=== PATIENT | female | born 1965 | race American Indian/Alaskan Native ===

== ENCOUNTER 2016-12-16 13:35 | Emergency (ER) | payer MEDICAID, OTHER ==
--- NOTE | 2016-12-16 13:51 | EDM.PDOC ---
ED HPI GENERAL MEDICAL PROBLEM - General Stated Complaint: IV BLEEDING Time Seen by Provider: 12/16/16 13:51 Source of Information: Reports: Patient - History of Present Illness INITIAL COMMENTS - FREE TEXT/NARRATIVE: HISTORY AND PHYSICAL: History of present illness: [] Patient has history of vulvar cancer and secondary abscess with drainage performed, currently she has a CHRISTELLE drain which is attached to her leg, pulled the stitching out that was holding it in however with a drain is still functioning No fever nausea vomiting chills sweats Review of systems: As per history of present illness and below otherwise all systems reviewed and negative. Past medical history: As per history of present illness and as reviewed below otherwise noncontributory. Surgical history: As per history of present illness and as reviewed below otherwise noncontributory. Social history: No reported history of drug or alcohol abuse. Family history: As per history of present illness and as reviewed below otherwise noncontributory. Physical exam: HEENT: Atraumatic, normocephalic, pupils reactive, negative for conjunctival pallor or scleral icterus, mucous membranes moist, throat clear, neck supple, nontender, trachea midline. Lungs: Clear to auscultation, breath sounds equal bilaterally, chest nontender. Heart: S1S2, regular, negative for clicks, rubs, or JVD. Abdomen: Soft, nondistended, nontender. Negative for masses or hepatosplenomegaly. Negative for costovertebral tenderness. Pelvis: Stable nontender. Genitourinary: Deferred. Rectal: Deferred. Extremities: Atraumatic, negative for cords or calf pain. Neurovascular unremarkable. Neuro: Awake, alert, oriented. Cranial nerves II through XII unremarkable. Cerebellum unremarkable. Motor and sensory unremarkable throughout. Exam nonfocal. Diagnostics: [] Therapeutics: [] Lidocaine with epinephrine One stitch grapevine the CHRISTELLE tube Impression: [] 4 are cancer post I&D of an abscess CHRISTELLE drain functioning Replaced one stitch to hold CHRISTELLE tube in place Definitive disposition and diagnosis as appropriate pending reevaluation and review of above. - Related Data Allergies Allergy/AdvReac Type Severity Reaction Status Date / Time codeine Allergy Hives Verified 12/16/16 13:59 ibuprofen Allergy Hives Verified 12/16/16 13:59 iron Allergy Dizziness Verified 12/16/16 13:59 naproxen Allergy Hives Verified 12/16/16 13:59 Home Meds: Home Meds Albuterol [Proventil HFA] 2 inh IH Q4H PRN 10/29/16 [History] metFORMIN HCl [Glucophage] 1,000 mg PO DAILY #30 tablet 10/29/16 [Rx] Apixaban [Eliquis] 2.5 mg PO 12/16/16 [History] Ciprofloxacin [Ciprofloxacin HCl] 750 mg PO BID 12/16/16 [History] Metronidazole [IJD: metroNIDAZOLE] 500 mg PO TID 12/16/16 [History] Past Medical History Other HEENT History: Patient given Ativan and Fentanyl in ER, patient now sedated-cannot assess Cardiovascular History: Reports: Hypertension, Other (see below). Denies: PR Other Cardiovascular History: 2010 was admitted for "heart flutter". Patient given Ativan and Fentanyl in ER, patient now sedated-cannot assess Respiratory History: Reports: Asthma Other Gastrointestinal History: Patient given Ativan and Fentanyl in ER, patient now sedated-cannot assess Genitourinary History: Reports: None Musculoskeletal History: Reports: Back pain, chronic Neurological History: Reports: Headaches, chronic Psychiatric History: Reports: Anxiety Endocrine/Metabolic History: Reports: Diabetes, type II, Obesity/BMI 30+ Hematologic History: Reports: Anemia, Iron deficiency Other Hematologic History: Diagnosed with Iron Deficiency Anemia in 2000. Blood transfusion 10/26/16 Other Immunologic History: Patient given Ativan and Fentanyl in ER, patient now sedated-cannot assess Oncologic (Cancer) History: Reports: None Dermatologic History: Reports: None - Infectious Disease History Infectious Disease History: Reports: None - Past Surgical History Other HEENT Surgeries/Procedures: Patient given Ativan and Fentanyl in ER, patient now sedated-cannot assess Other Cardiovascular Surgeries/Procedures: Patient given Ativan and Fentanyl in ER, patient now sedated-cannot assess GI Surgical History: Reports: Hernia, abdominal Female Surgical History: Reports: section Other Female Surgeries/Procedures: x 4 Social & Family History - Family History Family Medical History: Noncontributory Other Cardiac Family History: Patient given Ativan and Fentanyl in ER, patient now sedated-cannot assess Other Dermatologic Family History: Patient given Ativan and Fentanyl in ER, patient now sedated-cannot assess - Tobacco Use Smoking Status *Q: Current Every Day Smoker Years of Tobacco use: 30 Packs/Tins Daily: 0.5 - Caffeine Use Caffeine Use: Reports: Soda Caffeine Use Comment: soda 2 drinks/day; coffee 1cup/week - Recreational Drug Use Recreational Drug Use: No ED ROS GENERAL - Review of Systems Review Of Systems: ROS reveals no pertinent complaints other than HPI. ED EXAM, GENERAL - Physical Exam Exam: See Below Course - Vital Signs Last Recorded V/S: Last Vital Signs Temp 36.7 C 12/16/16 13:52 Pulse 89 12/16/16 13:52 Resp 18 12/16/16 13:52 BP 148/85 H 12/16/16 13:52 Pulse Ox 94 L 12/16/16 13:52 - Orders/Labs/Meds Meds: Medications Discontinued Medications Generic Name Dose Route Start Last Admin Trade Name Angelia PRN Reason Stop Dose Admin Lidocaine/Epinephrine 20 ml 12/16/16 14:36 12/16/16 14:42 Xylocaine 1% With Epinephrine 1:100,000 INJECT 12/16/16 14:37 20 ml ONETIME ONE Administration Lidocaine/Epinephrine 20 ml 12/16/16 14:36 12/16/16 14:42 Xylocaine 1% With Epinephrine 1:100,000 INJECT 12/16/16 14:37 Not Given ONETIME ONE Lidocaine/Epinephrine Confirm 12/16/16 14:38 12/16/16 14:42 Xylocaine 1% With Epinephrine 1:100,000 Administered 12/16/16 14:39 Not Given Dose 20 ml .ROUTE .STK-MED ONE Departure - Departure Time of Disposition: 15:02 Disposition: Home, Self-Care 01 Condition: good Clinical Impression: Vulvar cancer Additional Instructions: Followup with PET scan as scheduled tomorrow Followup with primary care if symptoms persist or worsen The following information is given to patients seen in the emergency department who are being discharged to home. This information is to outline your options for follow-up care. We provide all patients seen in our emergency department with a follow-up referral. The need for follow-up, as well as the timing and circumstances, are variable depending upon the specifics of your emergency department visit. If you don't have a primary care physician on staff, we will provide you with a referral. We always advise you to contact your personal physician following an emergency department visit to inform them of the circumstance of the visit and for follow-up with them and/or the need for any referrals to a consulting specialist. The emergency department will also refer you to a specialist when appropriate. This referral assures that you have the opportunity for follow-up care with a specialist. All of these measure are taken in an effort to provide you with optimal care, which includes your follow-up. Under all circumstances we always encourage you to contact your private physician who remains a resource for coordinating your care. When calling for follow-up care, please make the office aware that this follow-up is from your recent emergency room visit. If for any reason you are refused follow-up, please contact the [facility] emergency department at and asked to speak to the emergency department charge nurse.
[2016-12-16] MEDS ORDERED: Lidocaine 1% with EPINEPHrine 1:100,000 20 ML MDV INJECT ONE ×2 (14:36)
[2016-12-16] MEDS ORDERED: Lidocaine 1% with EPINEPHrine 1:100,000 20 ML MDV ONE (14:38)
[2016-12-16 15:20] VITALS: BP 142/70
== END 2016-12-16 15:19 | disposition home or self-care (01) ==
LOC: MW.ED 13:35
DX: C51.9 Malignant neoplasm of vulva, unspecified (principal); I10 Essential (primary) hypertension; E11.9 Type 2 diabetes mellitus without complications; E66.9 Obesity, unspecified; Z88.5 Allergy status to narcotic agent; Z88.6 Allergy status to analgesic agent; Z88.8 Allergy status to other drugs, medicaments and biological substances; Z79.899 Other long term (current) drug therapy; Z68.30 Body mass index [BMI] 30.0-30.9, adult; Z86.2 Personal history of diseases of the blood and blood-forming organs and certain disorders involving the immune mechanism; F17.210 Nicotine dependence, cigarettes, uncomplicated
CPT/HCPCS: 99282

== ENCOUNTER 2017-02-03 17:01 | Emergency (ER) | payer MEDICAID, OTHER ==
[2017-02-03] MEDS ORDERED: Cefdinir 300 MG Cap PO ONE (18:36)
--- NOTE | 2017-02-03 18:41 | EDM.PDOC ---
ED HPI RENAL/ - General Chief Complaint: Genitourinary Problem Stated Complaint: PT HAS BLADDER INFECTION Time Seen by Provider: 02/03/17 18:00 Source of Information: Reports: Patient History Limitations: Reports: No limitations - History of Present Illness INITIAL COMMENTS - FREE TEXT/NARRATIVE: HISTORY AND PHYSICAL: History of present illness: [Patient comes to the emergency room complaining of bladder pressure and pain. She has a Terry catheter but is experiencing urinary leakage around the catheter and burning of urination. Patient is receiving radiation treatments and chemotherapy for vulvar cancer. She has a urologist and ECONOMIC DEVELOPMENT SPECIALIST in [place]. Her oncologist is in [place] and comes to [place] regularly. Her catheter was placed by Dr. Linn in [place] on January 10. She's noticed that the urine in her catheter bag is dark in color and does not appear normal. No fever or chills. No low back pain, nausea or vomiting. She denies abdominal pain. Review of systems: As per history of present illness and below otherwise all systems reviewed and negative. Past medical history: As per history of present illness and as reviewed below otherwise noncontributory. Surgical history: As per history of present illness and as reviewed below otherwise noncontributory. Social history: No reported history of drug or alcohol abuse. Family history: As per history of present illness and as reviewed below otherwise noncontributory. Physical exam: HEENT: Atraumatic, normocephalic. Oral mucous membranes are pink and moist. Lungs: Clear to auscultation, breath sounds equal bilaterally, chest nontender. Heart: S1S2, regular, negative for clicks. Abdomen: Morbidly obese. Soft, nondistended, nontender. Negative for costovertebral tenderness. Pelvis: Stable nontender. Genitourinary: Mons pubis is erythematous and irritated. Vulvar lesion is weeping and oozing. Rectal: Deferred. Extremities: Atraumatic, negative for cords or calf pain. Neurovascular unremarkable. Neuro: Awake, alert, oriented. Cranial nerves II through XII unremarkable. Exam nonfocal. Diagnostics: [UTI, urine culture] Therapeutics: [Ceftriaxone 1 g IM] Impression: [UTI] Plan: [Urine is cultured. Ceftriaxone 1 g given IM in the ER. She is given a prescription for Ceftin 300 mg twice a day for the next 10 days. She's encouraged to followup with her PCP and Dr. Linn within the next 3-4 days for reevaluation of her catheter placement. She is in agreement with today's plan all of her questions are answered and concerns are addressed the] Definitive disposition and diagnosis as appropriate pending reevaluation and review of above. - Related Data Allergies/ADRs: Allergies Allergy/AdvReac Type Severity Reaction Status Date / Time adhesive tape Allergy Rash Verified 02/03/17 18:14 codeine Allergy Hives Verified 12/16/16 13:59 ibuprofen Allergy Hives Verified 12/16/16 13:59 iron Allergy Dizziness Verified 12/16/16 13:59 naproxen Allergy Hives Verified 12/16/16 13:59 Home Meds: Home Meds Albuterol [Proventil HFA] 2 inh IH Q4H PRN 10/29/16 [History] metFORMIN HCl [Glucophage] 1,000 mg PO DAILY #30 tablet 10/29/16 [Rx] Apixaban [Eliquis] 2.5 mg PO 12/16/16 [History] Ciprofloxacin [Ciprofloxacin HCl] 750 mg PO BID 12/16/16 [History] Metronidazole [IJD: metroNIDAZOLE] 500 mg PO TID 12/16/16 [History] Past Medical History Other HEENT History: Patient given Ativan and Fentanyl in ER, patient now sedated-cannot assess Cardiovascular History: Reports: Hypertension, Other (see below) Other Cardiovascular History: 2011 was admitted for "heart flutter" Respiratory History: Reports: Asthma Other Gastrointestinal History: Patient given Ativan and Fentanyl in ER, patient now sedated-cannot assess Genitourinary History: Reports: Other (see below) Other Genitourinary History: Has terry catheter due to vulvar ca, radiation and chemo 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 Blood transfusion history, states received blood transfusion in oncology due to this Other Immunologic History: Patient given Ativan and Fentanyl in ER, patient now sedated-cannot assess Oncologic (Cancer) History: Reports: Other (see below) Other Oncologic History: vulvar ca, has picc line left arm for chemotherapy Dermatologic History: Reports: None - Infectious Disease History Infectious Disease History: Reports: Chicken pox - Past Surgical History HEENT Surgical History: Reports: Tonsillectomy GI Surgical History: Reports: Hernia, abdominal Female Surgical History: Reports: section Other Female Surgeries/Procedures: x 4 Other Musculoskeletal Surgeries/Procedures:: Vulvar Ca Social & Family History - Family History Family Medical History: Noncontributory Other Cardiac Family History: Patient given Ativan and Fentanyl in ER, patient now sedated-cannot assess Other Dermatologic Family History: Patient given Ativan and Fentanyl in ER, patient now sedated-cannot assess - Tobacco Use Smoking Status *Q: Current Every Day Smoker Years of Tobacco use: 20 Packs/Tins Daily: 0.5 Used Tobacco, but Quit: No Second Hand Smoke Exposure: Yes - Caffeine Use Caffeine Use: Reports: Coffee Caffeine Use Comment: soda 2 drinks/day; coffee 1cup/week - Recreational Drug Use Recreational Drug Use: Yes Drug Use in Last 12 Months: Yes Recreational Drug Type: Reports: Methamphetamine ED ROS GENERAL - Review of Systems Review Of Systems: ROS reveals no pertinent complaints other than HPI. ED EXAM, RENAL/ - Physical Exam Exam: See Below Course - Vital Signs Last Recorded V/S: Last Vital Signs Temp 98.7 F 02/03/17 19:40 Pulse 90 02/03/17 19:40 Resp 20 02/03/17 19:40 BP 150/77 H 02/03/17 19:40 Pulse Ox 94 L 02/03/17 19:40 - Orders/Labs/Meds Orders: Active Orders 24 hr Category Date Time Status CULTURE URINE [RM] Stat Lab 02/03/17 18:13 Ordered Labs: Laboratory Tests 02/03/17 Range/Units 17:41 Urine Color ORANGE Urine Appearance CLOUDY Urine pH 5.5 (5.0-8.0) Ur Specific [place] >= 1.030 (1.001-1.035) Urine Protein >=300 (NEGATIVE) mg/dL Urine Glucose (UA) NEGATIVE (NEGATIVE) mg/dL Urine Ketones TRACE H (NEGATIVE) mg/dL Urine Occult Blood LARGE H (NEGATIVE) Urine Nitrite POSITIVE H (NEGATIVE) Urine Bilirubin SMALL H (NEGATIVE) Urine Ictotest NEGATIVE Urine Urobilinogen 1.0 (<2.0) EU/dL Ur Leukocyte Esterase SMALL (NEGATIVE) Urine RBC TOO NUMBEROUS TO CT H (0-2/HPF) Urine WBC TO NUMEROUS TO COUNT H (0-5/HPF) Ur Epithelial Cells FEW (NONE-FEW) Amorphous Sediment MODERATE (NEGATIVE) Urine Bacteria 1+ H (NEGATIVE) Meds: Medications Discontinued Medications Generic Name Dose Route Start Last Admin Trade Name Freq PRN Reason Stop Dose Admin Cefdinir 300 mg 02/03/17 18:36 02/03/17 19:34 Omnicef PO 02/03/17 18:37 300 mg ONETIME ONE Administration Ceftriaxone Sodium 1,000 mg 02/03/17 18:45 Rocephin IVPUSH Q24H NATALIE Ceftriaxone Sodium/Dextrose 1 50 mls @ 100 mls/hr 02/03/17 18:43 02/03/17 18: 49 gm/ Premix IV 02/03/17 19:12 Not Given ONETIME ONE Ceftriaxone Sodium 1,000 mg/ 4 mls @ 4 mls/sec 02/03/17 18:49 02/03/17 19:07 Lidocaine HCl IM 02/03/17 18:50 4 mls/sec ONETIME ONE Administration Departure - Departure Time of Disposition: 18:45 Disposition: Home, Self-Care 01 Condition: fair Clinical Impression: UTI, Urinary tract infectious disease, Terry catheter in place Instructions: Urinary Tract Infection, Adult, [id number] Referrals: PCP,None [Primary Care Provider] - Forms: ED Department Discharge Additional Instructions: The following information is given to patients seen in the emergency department who are being discharged to home. This information is to outline your options for follow-up care. We provide all patients seen in our emergency department with a follow-up referral. The need for follow-up, as well as the timing and circumstances, are variable depending upon the specifics of your emergency department visit. If you don't have a primary care physician on staff, we will provide you with a referral. We always advise you to contact your personal physician following an emergency department visit to inform them of the circumstance of the visit and for follow-up with them and/or the need for any referrals to a consulting specialist. The emergency department will also refer you to a specialist when appropriate. This referral assures that you have the opportunity for follow-up care with a specialist. All of these measure are taken in an effort to provide you with optimal care, which includes your follow-up. Under all circumstances we always encourage you to contact your private physician who remains a resource for coordinating your care. When calling for follow-up care, please make the office aware that this follow-up is from your recent emergency room visit. If for any reason you are refused follow-up, please contact the [facility] emergency department at and asked to speak to the emergency department charge nurse. Followup with Dr. Linn in [place] early this week. Continue all of her regular medications as prescribed. Followup with her PCP in 48-72 hours. Return to ER as needed as discussed. - My Orders Last 24 Hours: My Active Orders 02/03/17 18:13 CULTURE URINE [RM] Stat - Assessment/Plan Last 24 Hours: My Active Orders 02/03/17 18:13 CULTURE URINE [RM] Stat
[2017-02-03] MEDS ORDERED: cefTRIAXone 1 GM in Premix Bag 1 BAG IV ONE (18:43)
[2017-02-03] MEDS ORDERED: cefTRIAXone 1,000 MG VIAL IVPUSH SCH (18:45)
[2017-02-03] MEDS ORDERED: cefTRIAXone 1,000 MG in Lidocaine 1% 4 ML IM ONE (18:49)
[2017-02-03 20:25] VITALS: BP 150/77
== END 2017-02-03 19:45 | disposition home or self-care (01) ==
LOC: MW.ED 17:01
DX: N39.0 Urinary tract infection, site not specified (principal); Z96.0 Presence of urogenital implants; F17.210 Nicotine dependence, cigarettes, uncomplicated; I10 Essential (primary) hypertension; J45.909 Unspecified asthma, uncomplicated; F41.9 Anxiety disorder, unspecified; C51.9 Malignant neoplasm of vulva, unspecified; E11.9 Type 2 diabetes mellitus without complications; E66.9 Obesity, unspecified; D50.9 Iron deficiency anemia, unspecified; Z68.30 Body mass index [BMI] 30.0-30.9, adult; Z98.890 Other specified postprocedural states; Z79.4 Long term (current) use of insulin; Z88.5 Allergy status to narcotic agent; Z88.6 Allergy status to analgesic agent; Z88.8 Allergy status to other drugs, medicaments and biological substances
CPT/HCPCS: 81001; 96372; 99283; A9270; J0696; 99284

== ENCOUNTER 2017-02-17 19:04 | Inpatient (IN) | payer MEDICAID, OTHER ==
[2017-02-17] MEDS ORDERED: Nitroglycerin 0.4 MG Tab.SL SL PRN (19:09)
[2017-02-17] MEDS ORDERED: Aspirin 81 MG Tab.Chew PO ONE (19:09)
--- NOTE | 2017-02-17 19:10 | EDM.PDOC ---
ED HPI GENERAL MEDICAL PROBLEM - General Chief Complaint: Chest Pain Stated Complaint: CHEST PAINS Time Seen by Provider: 02/17/17 19:10 Source of Information: Reports: Patient - History of Present Illness INITIAL COMMENTS - FREE TEXT/NARRATIVE: HISTORY AND PHYSICAL: History of present illness: [] Patient with history of PE in October presents with right-sided chest pain since this morning she rates 7/10 nonradiating not associated with shortness of breath or diaphoresis; I can reproduce pain in distribution on right side of chest, she denies any injury She does have history of vulvar cancer, asthma, nicotine dependence Currently living in her car, she arrives with Terry catheter in place, PICC line in place No fever nausea vomiting chills sweats Refuses morphine, she recently stopped eloquis at the direction of her oncologist Review of systems: As per history of present illness and below otherwise all systems reviewed and negative. Past medical history: As per history of present illness and as reviewed below otherwise noncontributory. Surgical history: As per history of present illness and as reviewed below otherwise noncontributory. Social history: No reported history of drug or alcohol abuse. Family history: As per history of present illness and as reviewed below otherwise noncontributory. Physical exam: HEENT: Atraumatic, normocephalic, pupils reactive, negative for conjunctival pallor or scleral icterus, mucous membranes moist, throat clear, neck supple, nontender, trachea midline. Lungs: Clear to auscultation, breath sounds equal bilaterally, chest nontender. Heart: S1S2, regular, negative for clicks, rubs, or JVD. Abdomen: Soft, nondistended, nontender. Negative for masses or hepatosplenomegaly. Negative for costovertebral tenderness. Pelvis: Stable nontender. Genitourinary: Deferred. Rectal: Deferred. Extremities: Atraumatic, negative for cords or calf pain. Neurovascular unremarkable. Neuro: Awake, alert, oriented. Cranial nerves II through XII unremarkable. Cerebellum unremarkable. Motor and sensory unremarkable throughout. Exam nonfocal. Diagnostics: [] Lab as below EKG Chest one view Therapeutics: [] Normal saline with one 25 cc per hour Aspirin Nitroglycerin Patient refuses morphine DuoNeb Methylprednisolone Zofran Lovenox 1.5 mg per kilogram subcutaneous Zosyn 3.375 g Vancomycin 1 g Impression: Hypoxia Tachycardia [] Chest pain UTI PE history Chronic history of baseline Definitive disposition and diagnosis as appropriate pending reevaluation and review of above. Right Chest Pain Score (Numeric/FACES): 9 - Related Data Allergies Allergy/AdvReac Type Severity Reaction Status Date / Time adhesive tape Allergy Rash Verified 02/17/17 19:21 codeine Allergy Hives Verified 02/17/17 19:21 ibuprofen Allergy Hives Verified 02/17/17 19:21 iron Allergy Dizziness Verified 02/17/17 19:21 naproxen Allergy Hives Verified 02/17/17 19:21 Home Meds: Home Meds Albuterol [Proventil HFA] 2 inh IH Q4H PRN 10/29/16 [History] Apixaban [Eliquis] 2.5 mg PO 12/16/16 [History] Cefdinir 300 mg PO BID 02/17/17 [History] Phenazopyridine HCl [Pyridium] 100 mg PO TID 02/17/17 [History] Tolterodine Tartrate [Tolterodine Tartrate ER] 4 mg PO DAILY 02/17/17 [History] Trospium Chloride 20 mg PO BID 02/17/17 [History] metFORMIN HCl [Glucophage] 1,000 mg PO BID 02/17/17 [History] traMADol HCl [Tramadol HCl] 50 mg PO Q4H PRN 02/17/17 [History] Past Medical History Other HEENT History: Patient given Ativan and Fentanyl in ER, patient now sedated-cannot assess Cardiovascular History: Reports: Hypertension, Other (see below) Other Cardiovascular History: 2010 was admitted for "heart flutter" Respiratory History: Reports: Asthma Other Gastrointestinal History: Patient given Ativan and Fentanyl in ER, patient now sedated-cannot assess Genitourinary History: Reports: Other (see below) Other Genitourinary History: Has terry catheter due to vulvar ca, radiation and chemo DIRECTOR OF BUSINESS OPERATIONS History: Reports: , Other (see below) Other OB/BYN History: Vulvar CA diagnosed in Nov Musculoskeletal History: Reports: Back pain, chronic Neurological History: Reports: Headaches, chronic Psychiatric History: Reports: Anxiety Endocrine/Metabolic History: Reports: Diabetes, type II, Obesity/BMI 30+ Hematologic History: Reports: Anemia, Iron deficiency Other Hematologic History: Diagnosed with Iron Deficiency Anemia in 2000. Blood transfusion history, states received blood transfusion in oncology due to this Other Immunologic History: Patient given Ativan and Fentanyl in ER, patient now sedated-cannot assess Oncologic (Cancer) History: Reports: Other (see below) Other Oncologic History: vulvar ca, has picc line left arm for chemotherapy Dermatologic History: Reports: None - Infectious Disease History Infectious Disease History: Reports: Chicken pox - Past Surgical History HEENT Surgical History: Reports: Tonsillectomy GI Surgical History: Reports: Hernia, abdominal Female Surgical History: Reports: section Other Female Surgeries/Procedures: x 4 Other Musculoskeletal Surgeries/Procedures:: Vulvar Ca Social & Family History - Family History Family Medical History: Noncontributory Other Cardiac Family History: Patient given Ativan and Fentanyl in ER, patient now sedated-cannot assess Other Dermatologic Family History: Patient given Ativan and Fentanyl in ER, patient now sedated-cannot assess - Tobacco Use Smoking Status *Q: Current Every Day Smoker Years of Tobacco use: 20 Packs/Tins Daily: 0.5 Used Tobacco, but Quit: No Second Hand Smoke Exposure: Yes - Caffeine Use Caffeine Use: Reports: Coffee Caffeine Use Comment: soda 2 drinks/day; coffee 1cup/week - Recreational Drug Use Recreational Drug Use: Yes Drug Use in Last 12 Months: Yes Recreational Drug Type: Reports: Methamphetamine ED ROS GENERAL - Review of Systems Review Of Systems: ROS reveals no pertinent complaints other than HPI. ED EXAM, GENERAL - Physical Exam Exam: See Below Course - Vital Signs Last Recorded V/S: Last Vital Signs Temp 36.5 C 02/17/17 21:17 Pulse 113 H 02/17/17 21:17 Resp 31 H 02/17/17 21:17 BP 121/74 02/17/17 21:17 Pulse Ox 92 L 02/17/17 21:17 - Orders/Labs/Meds Orders: Active Orders 24 hr Category Date Time Status EKG Documentation Completion [RC] STAT Care 02/17/17 19:08 Active RT Aerosol Therapy [RC] ASDIRECTED Care 02/17/17 19:12 Active CTA Chest W WO Contrast [Ang Chest] [CT] Stat Exams 02/17/17 19:54 Ordered Chest 1V Frontal [CR] Stat Exams 02/17/17 19:08 Taken CULTURE BLOOD [BC] Stat Lab 02/17/17 19:25 Received CULTURE BLOOD [BC] Stat Lab 02/17/17 19:43 Received Sodium Chloride 0.9% [Normal Saline] 1,000 ml Med 02/17/17 19:20 Active IV ASDIRECTED Vancomycin [Vancocin] 1 gm Med 02/17/17 20:22 Active Sodium Chloride 0.9% [Normal Saline] 250 ml IV ONETIME Blood Culture x2 Reflex Set [OM.PC] Stat Oth 02/17/17 19:20 Ordered Medication Orders Vancomycin HCl 1 gm/ Sodium (Chloride) 250 mls @ 166 mls/hr IV ONETIME ONE Stop: 02/17/17 21:52 Last Admin: 02/17/17 21:19 Dose: 166 mls/hr Sodium Chloride (Normal Saline) 1,000 mls @ 120 mls/hr IV ASDIRECTED NATALIE Last Infusion: 02/17/17 19:46 Dose: 999 mls/hr Admin: 02/17/17 19:20 Dose: 120 mls/hr Labs: Laboratory Tests 02/17/17 02/17/17 02/17/17 Range/Units 19:14 19:25 19:25 WBC 7.88 (4.0-11.0) K/uL RBC 4.71 (4.30-5.90) M/uL Hgb 12.2 (12.0-16.0) g/dL Hct 40.1 (36.0-46.0) % MCV 85.1 (80.0-98.0) fL MCH 25.9 L (27.0-32.0) pg MCHC 30.4 L (31.0-37.0) g/dL RDW Std Deviation 79.3 H (28.0-62.0) fl RDW Coeff of Joana 26 H (11.0-15.0) % Plt Count 133 L (150-400) K/uL MPV 9.30 (7.40-12.00) fL Neut % (Auto) 81.1 H (48.0-80.0) % Lymph % (Auto) 10.2 L (16.0-40.0) % [place] % (Auto) 8.1 (0.0-15.0) % Eos % (Auto) 0.5 (0.0-7.0) % Baso % (Auto) 0.1 (0.0-1.5) % Neut # (Auto) 6.4 H (1.4-5.7) K/uL Lymph # (Auto) 0.8 (0.6-2.4) K/uL [place] # (Auto) 0.6 (0.0-0.8) K/uL Eos # (Auto) 0.0 (0.0-0.7) K/uL Baso # (Auto) 0.0 (0.0-0.1) K/uL Nucleated RBC % 0.0 /100WBC Nucleated RBCs # 0 K/uL INR 0.94 (0.86-1.11) D-Dimer, Quantitative (0.0-0.52) mg/LFEU Lactate (0.20-2.00) mmol/L Sodium (136-146) mmol/L Potassium (3.5-5.1) mmol/L Chloride (98-110) mmol/L Carbon Dioxide (21-31) mmol/L BUN (6.0-23.0) mg/dL Creatinine (0.6-1.5) mg/dL Est Cr Clr Drug Dosing mL/min Estimated GFR (MDRD) ml/min Glucose (60-110) mg/dL Calcium (8.8-10.8) mg/dL Total Bilirubin (0.1-1.5) mg/dL AST (5-40) IU/L ALT (8-54) IU/L Alkaline Phosphatase (40-150) CK-MB (CK-2) (0-6.6) ng/ml Troponin I (0.0-0.29) NG/ML Total Protein (6.0-8.0) g/dL Albumin (3.5-5.0) g/dL Globulin (2.0-3.5) g/dL Albumin/Globulin Ratio (1.3-2.8) Urine Color DARK YELLOW Urine Appearance SLT CLOUDY Urine pH 6.5 (5.0-8.0) Ur Specific [place] 1.025 (1.001-1.035) Urine Protein >=300 (NEGATIVE) mg/dL Urine Glucose (UA) 250 H (NEGATIVE) mg/dL Urine Ketones NEGATIVE (NEGATIVE) mg/dL Urine Occult Blood LARGE H (NEGATIVE) Urine Nitrite POSITIVE H (NEGATIVE) Urine Bilirubin MODERATE H (NEGATIVE) Urine Ictotest POSITIVE Urine Urobilinogen 4.0 H (<2.0) EU/dL Ur Leukocyte Esterase MODERATE (NEGATIVE) Urine RBC 150-200 (0-2/HPF) Urine WBC TO NUMEROUS TO COUNT H (0-5/HPF) Ur Epithelial Cells RARE (NONE-FEW) Urine Bacteria 1+ H (NEGATIVE) Urine Yeast MODERATE 02/17/17 02/17/17 02/17/17 Range/Units 19:25 19:25 19:25 WBC (4.0-11.0) K/uL RBC (4.30-5.90) M/uL Hgb (12.0-16.0) g/dL Hct (36.0-46.0) % MCV (80.0-98.0) fL MCH (27.0-32.0) pg MCHC (31.0-37.0) g/dL RDW Std Deviation (28.0-62.0) fl RDW Coeff of Joana (11.0-15.0) % Plt Count (150-400) K/uL MPV (7.40-12.00) fL Neut % (Auto) (48.0-80.0) % Lymph % (Auto) (16.0-40.0) % [place] % (Auto) (0.0-15.0) % Eos % (Auto) (0.0-7.0) % Baso % (Auto) (0.0-1.5) % Neut # (Auto) (1.4-5.7) K/uL Lymph # (Auto) (0.6-2.4) K/uL [place] # (Auto) (0.0-0.8) K/uL Eos # (Auto) (0.0-0.7) K/uL Baso # (Auto) (0.0-0.1) K/uL Nucleated RBC % /100WBC Nucleated RBCs # K/uL INR (0.86-1.11) D-Dimer, Quantitative (0.0-0.52) mg/LFEU Lactate 4.0 H (0.20-2.00) mmol/L Sodium 138 (136-146) mmol/L Potassium 4.4 (3.5-5.1) mmol/L Chloride 103 (98-110) mmol/L Carbon Dioxide 21 (21-31) mmol/L BUN 13 (6.0-23.0) mg/dL Creatinine 0.6 (0.6-1.5) mg/dL Est Cr Clr Drug Dosing 93.82 mL/min Estimated GFR (MDRD) > 60.0 ml/min Glucose 215 H (60-110) mg/dL Calcium 8.9 (8.8-10.8) mg/dL Total Bilirubin 0.3 (0.1-1.5) mg/dL AST 12 (5-40) IU/L ALT 13 (8-54) IU/L Alkaline Phosphatase 118 (40-150) CK-MB (CK-2) 4.1 (0-6.6) ng/ml Troponin I 0.24 (0.0-0.29) NG/ML Total Protein 6.7 (6.0-8.0) g/dL Albumin 3.3 L (3.5-5.0) g/dL Globulin 3.4 (2.0-3.5) g/dL Albumin/Globulin Ratio 1.0 L (1.3-2.8) Urine Color Urine Appearance Urine pH (5.0-8.0) Ur Specific [place] (1.001-1.035) Urine Protein (NEGATIVE) mg/dL Urine Glucose (UA) (NEGATIVE) mg/dL Urine Ketones (NEGATIVE) mg/dL Urine Occult Blood (NEGATIVE) Urine Nitrite (NEGATIVE) Urine Bilirubin (NEGATIVE) Urine Ictotest Urine Urobilinogen (<2.0) EU/dL Ur Leukocyte Esterase (NEGATIVE) Urine RBC (0-2/HPF) Urine WBC (0-5/HPF) Ur Epithelial Cells (NONE-FEW) Urine Bacteria (NEGATIVE) Urine Yeast 02/17/17 Range/Units 19:25 WBC (4.0-11.0) K/uL RBC (4.30-5.90) M/uL Hgb (12.0-16.0) g/dL Hct (36.0-46.0) % MCV (80.0-98.0) fL MCH (27.0-32.0) pg MCHC (31.0-37.0) g/dL RDW Std Deviation (28.0-62.0) fl RDW Coeff of Joana (11.0-15.0) % Plt Count (150-400) K/uL MPV (7.40-12.00) fL Neut % (Auto) (48.0-80.0) % Lymph % (Auto) (16.0-40.0) % [place] % (Auto) (0.0-15.0) % Eos % (Auto) (0.0-7.0) % Baso % (Auto) (0.0-1.5) % Neut # (Auto) (1.4-5.7) K/uL Lymph # (Auto) (0.6-2.4) K/uL [place] # (Auto) (0.0-0.8) K/uL Eos # (Auto) (0.0-0.7) K/uL Baso # (Auto) (0.0-0.1) K/uL Nucleated RBC % /100WBC Nucleated RBCs # K/uL INR (0.86-1.11) D-Dimer, Quantitative 3.70 H (0.0-0.52) mg/LFEU Lactate (0.20-2.00) mmol/L Sodium (136-146) mmol/L Potassium (3.5-5.1) mmol/L Chloride (98-110) mmol/L Carbon Dioxide (21-31) mmol/L BUN (6.0-23.0) mg/dL Creatinine (0.6-1.5) mg/dL Est Cr Clr Drug Dosing mL/min Estimated GFR (MDRD) ml/min Glucose (60-110) mg/dL Calcium (8.8-10.8) mg/dL Total Bilirubin (0.1-1.5) mg/dL AST (5-40) IU/L ALT (8-54) IU/L Alkaline Phosphatase (40-150) CK-MB (CK-2) (0-6.6) ng/ml Troponin I (0.0-0.29) NG/ML Total Protein (6.0-8.0) g/dL Albumin (3.5-5.0) g/dL Globulin (2.0-3.5) g/dL Albumin/Globulin Ratio (1.3-2.8) Urine Color Urine Appearance Urine pH (5.0-8.0) Ur Specific [place] (1.001-1.035) Urine Protein (NEGATIVE) mg/dL Urine Glucose (UA) (NEGATIVE) mg/dL Urine Ketones (NEGATIVE) mg/dL Urine Occult Blood (NEGATIVE) Urine Nitrite (NEGATIVE) Urine Bilirubin (NEGATIVE) Urine Ictotest Urine Urobilinogen (<2.0) EU/dL Ur Leukocyte Esterase (NEGATIVE) Urine RBC (0-2/HPF) Urine WBC (0-5/HPF) Ur Epithelial Cells (NONE-FEW) Urine Bacteria (NEGATIVE) Urine Yeast Meds: Medications Generic Name Dose Route Start Last Admin Trade Name Freq PRN Reason Stop Dose Admin Vancomycin HCl 1 gm/ Sodium 250 mls @ 166 mls/hr 02/17/17 20:22 02/17/17 21: 19 Chloride IV 02/17/17 21:52 166 mls/hr ONETIME ONE Administration Sodium Chloride 1,000 mls @ 120 mls/hr 02/17/17 19:20 02/17/17 19:46 Normal Saline IV 999 mls/hr ASDIRECTED NATALIE Infusion Discontinued Medications Generic Name Dose Route Start Last Admin Trade Name Freq PRN Reason Stop Dose Admin Albuterol/Ipratropium 3 ml 02/17/17 19:11 02/17/17 19:23 Duoneb 3.0-0.5 Mg/3 Ml NEB 02/17/17 19:12 3 ml ONETIME ONE Administration Albuterol/Ipratropium Confirm 02/17/17 19:12 02/17/17 19:23 Duoneb 3.0-0.5 Mg/3 Ml Administered 02/17/17 19:13 3 ml Dose Administration 3 ml .ROUTE .STK-MED ONE Aspirin 324 mg 02/17/17 19:09 02/17/17 19:24 Aspirin PO 02/17/17 19:10 324 mg ONETIME ONE Administration Enoxaparin Sodium 180 mg 02/17/17 20:06 02/17/17 20:33 Lovenox SUBCUT 02/17/17 20:07 Not Given ONETIME ONE Enoxaparin Sodium 180 mg 02/17/17 20:16 02/17/17 20:23 Lovenox SUBCUT 02/17/17 20:17 180 mg ONETIME ONE Administration Piperacillin Sod/Tazobactam 50 mls @ 100 mls/hr 02/17/17 19:48 02/17/17 19:58 Sod 3.375 gm/ Sodium Chloride IV 02/17/17 20:17 100 mls/hr ONETIME ONE Administration Iopamidol 50 ml 02/17/17 21:19 02/17/17 21:19 Isovue Multipack-370 (76%) IVPUSH 02/17/17 21:20 50 ml ONETIME STA Administration Methylprednisolone Sodium Succinate 125 mg 02/17/17 19:11 02/17/17 19:24 Solu-Medrol IVPUSH 02/17/17 19:12 125 mg ONETIME ONE Administration Methylprednisolone Sodium Succinate Confirm 02/17/17 19:12 02/17/17 19:24 Solu-Medrol Administered 02/17/17 19:13 Not Given Dose 125 mg .ROUTE .STK-MED ONE Morphine Sulfate 2 mg 02/17/17 19:47 02/17/17 19:54 Morphine IVPUSH 02/17/17 19:48 2 mg ONETIME ONE Administration Nitroglycerin 0.4 mg 02/17/17 19:09 Nitrostat SL 02/17/17 19:20 Q5M PRN Chest Pain Ondansetron HCl 8 mg 02/17/17 19:26 02/17/17 19:51 Zofran IVPUSH 02/17/17 19:27 8 mg ONETIME ONE Administration Pantoprazole Sodium 80 mg 02/17/17 19:11 02/17/17 19:24 Protonix Iv IVPUSH 02/17/17 19:12 80 mg .BOLUS ONE Administration Departure - Departure Time of Disposition: 21:43 Disposition: Admitted As Inpatient 68 Condition: poor Clinical Impression: Pulmonary embolus, Elevated troponin, UTI (urinary tract infection) Forms: ED Department Discharge - My Orders Last 24 Hours: My Active Orders 02/17/17 19:08 EKG Documentation Completion [RC] STAT Chest 1V Frontal [CR] Stat 02/17/17 19:12 RT Aerosol Therapy [RC] ASDIRECTED 02/17/17 19:20 Sodium Chloride 0.9% [Normal Saline] 1,000 ml IV ASDIRECTED Blood Culture x2 Reflex Set [OM.PC] Stat 02/17/17 19:25 CULTURE BLOOD [BC] Stat 02/17/17 19:43 CULTURE BLOOD [BC] Stat 02/17/17 19:54 CTA Chest W WO Contrast [Ang Chest] [CT] Stat 02/17/17 20:22 Vancomycin [Vancocin] 1 gm Sodium Chloride 0.9% [Normal Saline] 250 ml IV ONETIME - Assessment/Plan Last 24 Hours: My Active Orders 02/17/17 19:08 EKG Documentation Completion [RC] STAT Chest 1V Frontal [CR] Stat 02/17/17 19:12 RT Aerosol Therapy [RC] ASDIRECTED 02/17/17 19:20 Sodium Chloride 0.9% [Normal Saline] 1,000 ml IV ASDIRECTED Blood Culture x2 Reflex Set [OM.PC] Stat 02/17/17 19:25 CULTURE BLOOD [BC] Stat 02/17/17 19:43 CULTURE BLOOD [BC] Stat 02/17/17 19:54 CTA Chest W WO Contrast [Ang Chest] [CT] Stat 02/17/17 20:22 Vancomycin [Vancocin] 1 gm Sodium Chloride 0.9% [Normal Saline] 250 ml IV ONETIME
[2017-02-17] MEDS ORDERED: methylPREDNISolone Sodium Succinate 125 MG/2 ML SDV IVPUSH ONE (19:11)
[2017-02-17] MEDS ORDERED: Pantoprazole 40 MG Vial IVPUSH ONE (19:11)
[2017-02-17] MEDS ORDERED: Albuterol/Ipratropium 3.0-0.5 MG/3 ML Neb Soln NEB ONE (19:11)
[2017-02-17] MEDS ORDERED: methylPREDNISolone Sodium Succinate 125 MG/2 ML SDV ONE (19:12)
[2017-02-17] MEDS ORDERED: Albuterol/Ipratropium 3.0-0.5 MG/3 ML Neb Soln ONE (19:12)
[2017-02-17] MEDS: Sodium Chloride 0.9% 1,000 ML IV SCH ×2 (19:20→23:02)
[2017-02-17] MEDS ORDERED: Ondansetron 4 MG/2 ML SDV IVPUSH ONE (19:26)
[2017-02-17] MEDS ORDERED: Morphine 2 MG/ML Syringe IVPUSH ONE (19:47)
[2017-02-17] MEDS ORDERED: Piperacillin/Tazobactam 3.375 GM in Sodium Chloride 0.9% 50 ML IV ONE (19:48)
[2017-02-17 19:56] LABS: CHLORIDE,CL 103 mmol/L (98-110); SODIUM,NA 138 mmol/L (136-146)
[2017-02-17] MEDS ORDERED: Enoxaparin 60 MG/0.6 ML Syringe SUBCUT ONE (20:06)
[2017-02-17] MEDS ORDERED: Enoxaparin 150 MG/1 ML Syringe SUBCUT ONE (20:16)
[2017-02-17] MEDS ORDERED: Iopamidol 755 MG/ML 500 ML Multipack Bottle IVPUSH STA (21:19)
--- NOTE | 2017-02-17 22:19 | PCM.HP ---
H&P History of Present Illness - General Date of Service: 02/17/17 Admit Problem/Dx: Admission Diagnosis/Problem Admission Diagnosis/Problem PE, Pulmonary embolism - History of Present Illness Initial Comments - Free Text/Narative: She came to the hospital today for chills and malaise. she was seen in the ED today and noted to have a UTI with suspected urosepsis. She has vulvar cancer and is undergoing weekly chemotherapy and also radiation therapy. She has been under the care of Dr Saucedo, oncology as well as under the care of the [facility]. She is currently living in her car. she was diagnosed with a PE in oct. She states that her oncologist told her to stop the eliquis as she is about to undergo cancer surgery for vulvar cancer. She also notes dyspnea and chest pain with taking a deep breath. Right Chest Pain Score (Numeric/FACES): 9 - Related Data Allergies/Adverse Reactions: Allergies Allergy/AdvReac Type Severity Reaction Status Date / Time adhesive tape Allergy Rash Verified 02/17/17 19:21 codeine Allergy Hives Verified 02/17/17 19:21 ibuprofen Allergy Hives Verified 02/17/17 19:21 iron Allergy Dizziness Verified 02/17/17 19:21 naproxen Allergy Hives Verified 02/17/17 19:21 Home Medications: Home Meds Albuterol [Proventil HFA] 2 inh IH Q4H PRN 10/29/16 [History] Apixaban [Eliquis] 2.5 mg PO 12/16/16 [History] Cefdinir 300 mg PO BID 02/17/17 [History] Phenazopyridine HCl [Pyridium] 100 mg PO TID 02/17/17 [History] Tolterodine Tartrate [Tolterodine Tartrate ER] 4 mg PO DAILY 02/17/17 [History] Trospium Chloride 20 mg PO BID 02/17/17 [History] metFORMIN HCl [Glucophage] 1,000 mg PO BID 02/17/17 [History] traMADol HCl [Tramadol HCl] 50 mg PO Q4H PRN 02/17/17 [History] Past Medical History Other HEENT History: Patient given Ativan and Fentanyl in ER, patient now sedated-cannot assess Cardiovascular History: Reports: Other (see below). Denies: Afib, Cardiomyopathy, Heart Failure, [place] Other Cardiovascular History: 2011 was admitted for "heart flutter" Respiratory History: Reports: Asthma Gastrointestinal History: Denies: Cirrhosis Other Gastrointestinal History: Patient given Ativan and Fentanyl in ER, patient now sedated-cannot assess Genitourinary History: Reports: Other (see below) Other Genitourinary History: Has terry catheter due to vulvar ca, radiation and chemo CLAIM REPRESENTATIVE History: Reports: , Other (see below) Other OB/BYN History: Vulvar CA diagnosed in Nov Musculoskeletal History: Reports: Back pain, chronic Neurological History: Reports: Headaches, chronic. Denies: Alzheimers disease, [place] Psychiatric History: Reports: Anxiety Endocrine/Metabolic History: Reports: Diabetes, type II, Obesity/BMI 30+ Hematologic History: Reports: Anemia, Iron deficiency Other Hematologic History: Diagnosed with Iron Deficiency Anemia in 2000. Blood transfusion history, states received blood transfusion in oncology due to this Other Immunologic History: Patient given Ativan and Fentanyl in ER, patient now sedated-cannot assess Oncologic (Cancer) History: Reports: Other (see below) Other Oncologic History: vulvar ca, has picc line left arm for chemotherapy Dermatologic History: Reports: None - Infectious Disease History Infectious Disease History: Reports: Chicken pox - Past Surgical History HEENT Surgical History: Reports: Tonsillectomy GI Surgical History: Reports: Hernia, abdominal Female Surgical History: Reports: section Other Female Surgeries/Procedures: x 4 Other Musculoskeletal Surgeries/Procedures:: Vulvar Ca Social & Family History - Family History Family Medical History: Noncontributory Other Cardiac Family History: Patient given Ativan and Fentanyl in ER, patient now sedated-cannot assess Other Dermatologic Family History: Patient given Ativan and Fentanyl in ER, patient now sedated-cannot assess - Tobacco Use Smoking Status *Q: Current Every Day Smoker Years of Tobacco use: 20 Packs/Tins Daily: 0.5 Used Tobacco, but Quit: No Second Hand Smoke Exposure: Yes - Caffeine Use Caffeine Use: Reports: Coffee Caffeine Use Comment: soda 2 drinks/day; coffee 1cup/week - Alcohol Use Alcohol Use Comment: she denies current/recent alcohol use - Recreational Drug Use Recreational Drug Use: Yes Drug Use in Last 12 Months: Yes Recreational Drug Type: Reports: Methamphetamine H&P Review of Systems - Review of Systems: Review Of Systems: See Below General: Reports: chills. Denies: fever Pulmonary: Reports: Shortness of Breath. Denies: Hemoptysis Cardiovascular: Reports: chest pain Gastrointestinal: Denies: Abdominal pain, Black stool, Bloody stool, Melena, Nausea Genitourinary: Reports: other (terry in place) Skin: Denies: cyanosis Neurological: Denies: Seizure Exam - Exam Exam: See Below - Vital Signs Vital Signs: Last Vital Signs Temp 97.0 F 02/17/17 22:03 Pulse 114 H 02/17/17 22:03 Resp 33 H 02/17/17 22:03 BP 136/94 H 02/17/17 22:03 Pulse Ox 94 L 02/17/17 22:03 Weight: 120 kg - Exam Quality Assessment: supplemental oxygen, other General: alert, oriented, other (anxious). No: lethargic, obtunded HEENT: EOMI, Other (wide spread severe dental decay) Neck: trachea midline Lungs: Clear to auscultation Cardiovascular: regular rate, regular rhythm Abdomen: soft. No: tenderness (Female) Exam: Other (mons pubis with diffused swelling; skin fold mons pubis /inferior abdomen wet with erythema c/w monilia) Rectal (Female) Exam: Deferred Extremities: No: clubbing Neurological: normal speech Neuro Extensive - Motor, Sensory, Reflexes: No: facial palsy (L), facial palsy ( R), tremor Psychiatric: alert - Patient Data Result Diagrams: 02/17/17 19:25 02/17/17 19:25 *Q Meaningful Use (ADM) - VTE *Q VTE Criteria *Q: - Stroke *Q Stroke Criteria *Q: - AMI *Q AMI Criteria *Q: - Problem List (1) Pulmonary embolus SNOMED Code(s): 30196938, [id number] ICD Code: I26.99 - OTHER PULMONARY EMBOLISM WITHOUT ACUTE COR PULMONALE Status: Acute Current Visit: Yes (2) UTI (urinary tract infection) SNOMED Code(s): 18059458 ICD Code: N39.0 - URINARY TRACT INFECTION, SITE NOT SPECIFIED Status: Acute Current Visit: Yes (3) Skin moniliasis SNOMED Code(s): 33607689 ICD Code: B37.2 - CANDIDIASIS OF SKIN AND NAIL Status: Acute Current Visit: Yes (4) Diabetes mellitus SNOMED Code(s): 18934089 ICD Code: E11.9 - TYPE 2 DIABETES MELLITUS WITHOUT COMPLICATIONS Status: Acute Current Visit: Yes Problem List Initiated/Reviewed/Updated: Yes Orders Last 24hrs: Active Orders 24 hr Category Date Time Status B-TYPE NATRIURETIC PEPTIDE,BNP [CHEM] Stat Lab 02/17/17 19:25 Received CULTURE URINE [RM] Stat Lab 02/17/17 19:27 Received Medication Orders Sodium Chloride (Normal Saline) 1,000 mls @ 120 mls/hr IV ASDIRECTED NATALIE Last Infusion: 02/17/17 19:46 Dose: 999 mls/hr Admin: 02/17/17 19:20 Dose: 120 mls/hr Assessment/Plan Comment:: admit to ICU. See orders. Raphael Villa MD
[2017-02-17] MEDS ORDERED: LORazepam 2 MG/ML MDV IM PRN (22:23)
[2017-02-17] MEDS ORDERED: Acetaminophen 325 MG Tab PO PRN (22:23)
[2017-02-17] MEDS ORDERED: Bisacodyl 5 MG Tab PO PRN (22:23)
[2017-02-17] MEDS ORDERED: Ondansetron 4 MG/2 ML SDV IVPUSH PRN (22:23)
[2017-02-17] MEDS ORDERED: Temazepam 15 MG Cap PO PRN (22:23)
[2017-02-17] MEDS: Morphine 10 MG/ML Syringe IVPUSH PRN (23:03)
[2017-02-17] MEDS: Insulin Aspart 100 Units/ML 3 ML Pen SUBCUT SCH (23:20)
[2017-02-18] MEDS: Metoprolol Tartrate 5 MG/5 ML SDV IVPUSH SCH ×5 (01:03→23:04)
[2017-02-18] MEDS: Piperacillin/Tazobactam 3.375 GM in Sodium Chloride 0.9% 50 ML IV SCH ×4 (02:23→19:59)
[2017-02-18] MEDS: Morphine 10 MG/ML Syringe IVPUSH PRN ×4 (03:17→19:13)
[2017-02-18] MEDS: Albuterol/Ipratropium 3.0-0.5 MG/3 ML Neb Soln NEB PRN (03:34)
[2017-02-18] MEDS ORDERED: Enoxaparin 60 MG/0.6 ML Syringe ONE (06:22)
[2017-02-18] MEDS: Insulin Aspart 100 Units/ML 3 ML Pen SUBCUT SCH ×4 (08:04→20:44)
[2017-02-18] MEDS: Sodium Chloride 0.9% 1,000 ML IV SCH ×2 (08:07→19:56)
[2017-02-18] MEDS: Docusate Sodium 100 MG Cap PO SCH ×2 (08:22→20:45)
[2017-02-18] MEDS: Fluconazole 100 MG Tab PO SCH (08:22)
[2017-02-18] MEDS ORDERED: Enoxaparin 150 MG/1 ML Syringe SUBCUT SCH (09:00)
[2017-02-18] MEDS ORDERED: Pantoprazole 40 MG Vial IVPUSH SCH (09:00)
[2017-02-18] MEDS: Pantoprazole 40 MG in Sodium Chloride 0.9% 10 ML IV SCH ×2 (09:17→19:58)
[2017-02-18] MEDS: Vancomycin 1.75 GM in Sodium Chloride 0.9% 500 ML IV SCH ×2 (09:52→21:02)
[2017-02-18] MEDS ORDERED: Apixaban 2.5 MG Tab PO ONE (09:53)
[2017-02-18] MEDS ORDERED: Magnesium Sulfate/Water 4 GM in Premix Bag 1 BAG IV ONE (09:59)
[2017-02-18] MEDS: Sodium Polystyrene Sulfonate 15 GM/60 ML Susp 60 ML Bot PO SCH ×2 (10:13→15:28)
--- NOTE | 2017-02-18 11:10 | PCM.PN ---
- General Info Date of Service: 02/18/17 Admission Dx/Problem (Free Text): Admission Diagnosis/Problem Admission Diagnosis/Problem PE, Pulmonary embolism Subjective Update: Patient is breathing much easier this morning but still requiring supplemental oxygen to maintain O2 saturation greater than 90%. She did receive morphine this morning secondary to pain where her Pham catheter is inserted. She is due to have his Pham changed today. Patient also notes that she is due for chemotherapy and radiation today. She denies any chest pain, palpitations. Patient is tolerating oral intake. She denies any nausea, vomiting, constipation , diarrhea, abdominal pain. Functional Status: Reports: pain controlled, tolerating diet, urinating (Pham catheter inserted) - Review of Systems General: Reports: No Symptoms HEENT: Reports: no symptoms Pulmonary: Reports: shortness of breath (Improving) Cardiovascular: Reports: No Symptoms Gastrointestinal: Reports: No symptoms Genitourinary: Reports: other (Pain at catheter insertion site.) Musculoskeletal: Reports: no symptoms Skin: Reports: no symptoms Neurological: Reports: No Symptoms Psychiatric: Reports: no symptoms - Patient Data Vitals - most recent: Last Vital Signs Temp 96.8 F 02/18/17 04:00 Pulse 100 02/18/17 06:01 Resp 11 L 02/18/17 10:00 BP 132/92 H 02/18/17 10:00 Pulse Ox 92 L 02/18/17 10:00 Weight - most recent: 265 lb 3.457 oz I&O - last 24 hours: Intake & Output 02/17/17 02/18/17 02/18/17 22:59 06:59 14:59 Intake Total 700 Output Total 250 Balance 450 Lab Results last 24 hrs: Laboratory Results - last 24 hr 02/17/17 02/18/17 02/18/17 Range/Units 23:08 01:15 01:15 WBC (4.0-11.0) K/uL RBC (4.30-5.90) M/uL Hgb (12.0-16.0) g/dL Hct (36.0-46.0) % MCV (80.0-98.0) fL MCH (27.0-32.0) pg MCHC (31.0-37.0) g/dL RDW Std Deviation (28.0-62.0) fl RDW Coeff of Joana (11.0-15.0) % Plt Count (150-400) K/uL MPV (7.40-12.00) fL Neut % (Auto) (48.0-80.0) % Lymph % (Auto) (16.0-40.0) % [place] % (Auto) (0.0-15.0) % Eos % (Auto) (0.0-7.0) % Baso % (Auto) (0.0-1.5) % Neut # (Auto) (1.4-5.7) K/uL Lymph # (Auto) (0.6-2.4) K/uL [place] # (Auto) (0.0-0.8) K/uL Eos # (Auto) (0.0-0.7) K/uL Baso # (Auto) (0.0-0.1) K/uL Nucleated RBC % /100WBC Nucleated RBCs # K/uL Lactate 1.6 (0.20-2.00) mmol/L Sodium (136-146) mmol/L Potassium (3.5-5.1) mmol/L Chloride (98-110) mmol/L Carbon Dioxide (21-31) mmol/L BUN (6.0-23.0) mg/dL Creatinine (0.6-1.5) mg/dL Est Cr Clr Drug Dosing mL/min Estimated GFR (MDRD) ml/min Glucose (60-110) mg/dL POC Glucose 282 H (60-110) mg/dL Calcium (8.8-10.8) mg/dL Magnesium (1.5-2.3) mEq/L Total Bilirubin (0.1-1.5) mg/dL AST (5-40) IU/L ALT (8-54) IU/L Alkaline Phosphatase (40-150) Troponin I 0.27 (0.0-0.29) NG/ML Total Protein (6.0-8.0) g/dL Albumin (3.5-5.0) g/dL Globulin (2.0-3.5) g/dL Albumin/Globulin Ratio (1.3-2.8) Triglycerides (10-190) mg/dL Cholesterol (131-240) mg/dL LDL Cholesterol, Calc (60-180) mg/dL VLDL Cholesterol (5-55) mg/dL HDL Cholesterol (40-80) mg/dL Cholesterol/HDL Ratio (3.3-6.0) 02/18/17 02/18/17 02/18/17 Range/Units 07:29 07:45 07:45 WBC 10.41 (4.0-11.0) K/uL RBC 4.46 (4.30-5.90) M/uL Hgb 11.7 L (12.0-16.0) g/dL Hct 38.3 (36.0-46.0) % MCV 85.9 (80.0-98.0) fL MCH 26.2 L (27.0-32.0) pg MCHC 30.5 L (31.0-37.0) g/dL RDW Std Deviation 81.0 H (28.0-62.0) fl RDW Coeff of Joana 27 H (11.0-15.0) % Plt Count 105 L (150-400) K/uL MPV 9.00 (7.40-12.00) fL Neut % (Auto) 91.3 H (48.0-80.0) % Lymph % (Auto) 3.7 L (16.0-40.0) % [place] % (Auto) 4.9 (0.0-15.0) % Eos % (Auto) 0.0 (0.0-7.0) % Baso % (Auto) 0.1 (0.0-1.5) % Neut # (Auto) 9.5 H (1.4-5.7) K/uL Lymph # (Auto) 0.4 L (0.6-2.4) K/uL [place] # (Auto) 0.5 (0.0-0.8) K/uL Eos # (Auto) 0.0 (0.0-0.7) K/uL Baso # (Auto) 0.0 (0.0-0.1) K/uL Nucleated RBC % 0.0 /100WBC Nucleated RBCs # 0 K/uL Lactate (0.20-2.00) mmol/L Sodium 135 L (136-146) mmol/L Potassium 6.4 H (3.5-5.1) mmol/L Chloride 105 (98-110) mmol/L Carbon Dioxide 21 (21-31) mmol/L BUN 18 (6.0-23.0) mg/dL Creatinine 1.3 (0.6-1.5) mg/dL Est Cr Clr Drug Dosing 43.29 mL/min Estimated GFR (MDRD) 43.5 ml/min Glucose 346 H (60-110) mg/dL POC Glucose 316 H (60-110) mg/dL Calcium 8.9 (8.8-10.8) mg/dL Magnesium 1.4 L (1.5-2.3) mEq/L Total Bilirubin 0.4 (0.1-1.5) mg/dL AST 10 (5-40) IU/L ALT 13 (8-54) IU/L Alkaline Phosphatase 109 (40-150) Troponin I (0.0-0.29) NG/ML Total Protein 6.9 (6.0-8.0) g/dL Albumin 3.3 L (3.5-5.0) g/dL Globulin 3.6 H (2.0-3.5) g/dL Albumin/Globulin Ratio 0.9 L (1.3-2.8) Triglycerides (10-190) mg/dL Cholesterol (131-240) mg/dL LDL Cholesterol, Calc (60-180) mg/dL VLDL Cholesterol (5-55) mg/dL HDL Cholesterol (40-80) mg/dL Cholesterol/HDL Ratio (3.3-6.0) 02/18/17 02/18/17 Range/Units 07:45 07:45 WBC (4.0-11.0) K/uL RBC (4.30-5.90) M/uL Hgb (12.0-16.0) g/dL Hct (36.0-46.0) % MCV (80.0-98.0) fL MCH (27.0-32.0) pg MCHC (31.0-37.0) g/dL RDW Std Deviation (28.0-62.0) fl RDW Coeff of Joana (11.0-15.0) % Plt Count (150-400) K/uL MPV (7.40-12.00) fL Neut % (Auto) (48.0-80.0) % Lymph % (Auto) (16.0-40.0) % [place] % (Auto) (0.0-15.0) % Eos % (Auto) (0.0-7.0) % Baso % (Auto) (0.0-1.5) % Neut # (Auto) (1.4-5.7) K/uL Lymph # (Auto) (0.6-2.4) K/uL [place] # (Auto) (0.0-0.8) K/uL Eos # (Auto) (0.0-0.7) K/uL Baso # (Auto) (0.0-0.1) K/uL Nucleated RBC % /100WBC Nucleated RBCs # K/uL Lactate (0.20-2.00) mmol/L Sodium (136-146) mmol/L Potassium (3.5-5.1) mmol/L Chloride (98-110) mmol/L Carbon Dioxide (21-31) mmol/L BUN (6.0-23.0) mg/dL Creatinine (0.6-1.5) mg/dL Est Cr Clr Drug Dosing mL/min Estimated GFR (MDRD) ml/min Glucose (60-110) mg/dL POC Glucose (60-110) mg/dL Calcium (8.8-10.8) mg/dL Magnesium (1.5-2.3) mEq/L Total Bilirubin (0.1-1.5) mg/dL AST (5-40) IU/L ALT (8-54) IU/L Alkaline Phosphatase (40-150) Troponin I 0.25 (0.0-0.29) NG/ML Total Protein (6.0-8.0) g/dL Albumin (3.5-5.0) g/dL Globulin (2.0-3.5) g/dL Albumin/Globulin Ratio (1.3-2.8) Triglycerides 149 (10-190) mg/dL Cholesterol 184 (131-240) mg/dL LDL Cholesterol, Calc 105 (60-180) mg/dL VLDL Cholesterol 30 (5-55) mg/dL HDL Cholesterol 49 (40-80) mg/dL Cholesterol/HDL Ratio 3.8 (3.3-6.0) Med Orders - Current: Current Medications Acetaminophen (Tylenol) 650 mg PO Q4H PRN PRN Reason: Pain (Mild 1-3)/fever Albuterol/Ipratropium (Duoneb 3.0-0.5 Mg/3 Ml) 3 ml NEB Q4HRRT PRN PRN Reason: Shortness Of Breath/wheezing Last Admin: 02/18/17 03:34 Dose: 3 ml Bisacodyl (Dulcolax) 5 mg PO DAILY PRN PRN Reason: Constipation Docusate Sodium (Colace) 100 mg PO BID [facility] Last Admin: 02/18/17 08:22 Dose: 100 mg Enoxaparin Sodium (Lovenox) 120 mg SUBCUT Q12HR [facility] Last Admin: 02/18/17 08:24 Dose: 120 mg Fluconazole (Diflucan) 100 mg PO DAILY [facility] Last Admin: 02/18/17 08:22 Dose: 100 mg Sodium Chloride (Normal Saline) 1,000 mls @ 120 mls/hr IV ASDIRECTED [facility] Last Admin: 02/18/17 08:07 Dose: 999 mls/hr Piperacillin Sod/Tazobactam (Sod 3.375 gm/ Sodium Chloride) 50 mls @ 100 mls/ hr IV Q6H [facility] Last Admin: 02/18/17 09:17 Dose: 100 mls/hr Vancomycin HCl 1.75 gm/ Sodium (Chloride) 500 mls @ 250 mls/hr IV Q12H [facility] Last Admin: 02/18/17 09:52 Dose: 250 mls/hr Pantoprazole Sodium 40 mg/ (Sodium Chloride) 10 mls @ 200 mls/hr IV Q12H [facility] Last Admin: 02/18/17 09:17 Dose: 200 mls/hr Magnesium Sulfate 4 gm/ Premix 100 mls @ 25 mls/hr IV ONETIME ONE Stop: 02/18/17 13:58 Last Admin: 02/18/17 10:14 Dose: 25 mls/hr Insulin Aspart (Novolog) 0 unit SUBCUT ACBED [facility] PRN Reason: Protocol Last Admin: 02/18/17 08:04 Dose: 8 units Lorazepam (Ativan) 1 mg IM Q2H PRN PRN Reason: Nausea/Vomiting Metoprolol Tartrate (Lopressor) 5 mg IVPUSH Q6H [facility] Last Admin: 02/18/17 06:01 Dose: 5 mg Morphine Sulfate (Morphine) 5 mg IVPUSH Q1H PRN PRN Reason: Pain (severe 7-10) Stop: 02/18/17 22:26 Last Admin: 02/18/17 08:23 Dose: 5 mg Ondansetron HCl (Zofran) 4 mg IVPUSH Q4H PRN PRN Reason: Nausea Sodium Polystyrene Sulfonate (Kayexalate) 15 gm PO Q6H [facility] Last Admin: 02/18/17 10:13 Dose: 15 gm Temazepam (Restoril) 15 mg PO BEDTIME PRN PRN Reason: Sleep Vancomycin HCl (Pharmacy To Dose - Vancomycin) 1 dose .XX ASDIRECTED [facility] Discontinued Medications Albuterol/Ipratropium (Duoneb 3.0-0.5 Mg/3 Ml) 3 ml NEB ONETIME ONE Stop: 02/17/17 19:12 Last Admin: 02/17/17 19:23 Dose: 3 ml Albuterol/Ipratropium (Duoneb 3.0-0.5 Mg/3 Ml) Confirm Administered Dose 3 ml .ROUTE .STK-MED ONE Stop: 02/17/17 19:13 Last Admin: 02/17/17 19:23 Dose: 3 ml Apixaban (Eliquis) 2.5 mg PO BID ONE Stop: 02/18/17 09:54 Last Admin: 02/18/17 10:14 Dose: 2.5 mg Aspirin (Aspirin) 324 mg PO ONETIME ONE Stop: 02/17/17 19:10 Last Admin: 02/17/17 19:24 Dose: 324 mg Enoxaparin Sodium (Lovenox) 180 mg SUBCUT ONETIME ONE Stop: 02/17/17 20:07 Last Admin: 02/17/17 20:33 Dose: Not Given Enoxaparin Sodium (Lovenox) 180 mg SUBCUT ONETIME ONE Stop: 02/17/17 20:17 Last Admin: 02/17/17 20:23 Dose: 180 mg Enoxaparin Sodium (Lovenox) Confirm Administered Dose 60 mg .ROUTE .STK-MED ONE Stop: 02/18/17 06:23 Last Admin: 02/18/17 06:31 Dose: Not Given Piperacillin Sod/Tazobactam (Sod 3.375 gm/ Sodium Chloride) 50 mls @ 100 mls/ hr IV ONETIME ONE Stop: 02/17/17 20:17 Last Admin: 02/17/17 19:58 Dose: 100 mls/hr Vancomycin HCl 1 gm/ Sodium (Chloride) 250 mls @ 166 mls/hr IV ONETIME ONE Stop: 02/17/17 21:52 Last Admin: 02/17/17 21:19 Dose: 166 mls/hr Iopamidol (Isovue Multipack-370 (76%)) 50 ml IVPUSH ONETIME STA Stop: 02/17/17 21:20 Last Admin: 02/17/17 21:19 Dose: 50 ml Methylprednisolone Sodium Succinate (Solu-Medrol) 125 mg IVPUSH ONETIME ONE Stop: 02/17/17 19:12 Last Admin: 02/17/17 19:24 Dose: 125 mg Methylprednisolone Sodium Succinate (Solu-Medrol) Confirm Administered Dose 125 mg .ROUTE .STK-MED ONE Stop: 02/17/17 19:13 Last Admin: 02/17/17 19:24 Dose: Not Given Morphine Sulfate (Morphine) 2 mg IVPUSH ONETIME ONE Stop: 02/17/17 19:48 Last Admin: 02/17/17 19:54 Dose: 2 mg Nitroglycerin (Nitrostat) 0.4 mg SL Q5M PRN PRN Reason: Chest Pain Stop: 02/17/17 19:20 Ondansetron HCl (Zofran) 8 mg IVPUSH ONETIME ONE Stop: 02/17/17 19:27 Last Admin: 02/17/17 19:51 Dose: 8 mg Pantoprazole Sodium (Protonix Iv) 80 mg IVPUSH .BOLUS ONE Stop: 02/17/17 19:12 Last Admin: 02/17/17 19:24 Dose: 80 mg Pantoprazole Sodium (Protonix Iv) 40 mg IVPUSH Q12HR NATALIE - Exam Quality Assessment: supplemental oxygen (3 L nasal cannula), urine catheter ( Draining orangish-red urine), DVT prophylaxis (Lovenox 120 mg twice a day.) General: alert, oriented, cooperative, no acute distress Lungs: Clear to auscultation, Normal respiratory effort Cardiovascular: Regular Rhythm, Tachycardia (Slightly tachycardic at 101 beats per minute. Range has been 95-115 beats per minute.) Abdomen: bowel sounds present, soft, no tenderness, no distension Extremities: no edema, no calf tenderness Peripheral Pulses: 2+: radial (L), radial (R) Skin: other (The pannus of the patient is extremely erythematous secondary to her radiation treatment.) Neurological: no new focal deficit Psy/Mental Status: alert, normal affect, normal mood - Problem List & Annotations (1) Diabetes mellitus SNOMED Code(s): 72782015 Code(s): E11.9 - TYPE 2 DIABETES MELLITUS WITHOUT COMPLICATIONS Status: Acute Current Visit: Yes (2) Pulmonary embolus SNOMED Code(s): 67076255, 77665243 Code(s): I26.99 - OTHER PULMONARY EMBOLISM WITHOUT ACUTE COR PULMONALE Status: Acute Current Visit: Yes (3) UTI (urinary tract infection) SNOMED Code(s): 58778514 Code(s): N39.0 - URINARY TRACT INFECTION, SITE NOT SPECIFIED Status: Acute Current Visit: Yes - Problem List Review Problem List Initiated/Reviewed/Updated: Yes - My Orders Last 24 Hours: My Active Orders 02/18/17 09:59 Magnesium Sulfate/Water [Magnesium Sulfate 4 GM in Water 100 ML] 4 gm Premix Bag 1 bag IV ONETIME 02/18/17 10:09 Consult to Physician [CONS] Routine 02/18/17 10:10 Notify Provider Consults [RC] ASDIRECTED 02/18/17 10:15 Sodium Polystyrene Sulfonate [Kayexalate] 15 gm PO Q6H 02/18/17 13:00 BASIC METABOLIC PANEL,BMP [CHEM] Routine - Plan Plan:: #1. Pulmonary embolus: -Patient has multiple bilateral pulmonary emboli. She'll be restarted on her home medication of Eloquis 2.5 mg twice a day. -Patient will continue on supplemental oxygen via nasal cannula to maintain O2 saturation greater than 90%. -Echocardiogram has been ordered and results are pending. #2. UTI: -Urine cultures are pending. Patient will continue on Zosyn and vancomycin. UA showed positive nitrites and +1 bacteria. -Dr. Mora has been contacted from urology and will replace the patient's Pham catheter today. #3. Diabetes mellitus type 2: -Patient currently on NovoLog sliding scale. Sugars are being well-controlled. #4. Hyperkalemia: -Patient's potassium was 6.4 this morning. The blood sample was hemolyzed. -Patient will be given Kayexalate with a recheck of BMP this afternoon. If still elevated we will give another dose of Kayexalate and if still elevated we' ll consider insulin with D50. -I did review the patient's medications and there does not seem to be any that would cause her potassium to be elevated. -Patient's magnesium was also replaced this morning. #5. Vulvar cancer: -I did speak with the patient's oncologist, Dr. Saucedo, who said that it was okay that the patient misses her chemotherapy and radiation treatment today. -He is also in agreement with restarting the patient's Eliquis
--- NOTE | 2017-02-18 11:13 | CR ---
EXAM DATE: 02/17/17 PATIENT'S AGE: 51 Patient: MIRANDA SYED Facility: [place], [place] Site . Site : 1965 Study: XRay Chest [id number]/23/2017 8:15:35 PM Ordering Physician: Augustin Colindres Final Report: INDICATION: CHEST PAIN TECHNIQUE: Chest radiograph 1 view COMPARISON: 10/29/16 FINDINGS: The study is moderately limited by body habitus. Cardiovascular and mediastinum: The cardiac silhouette is normal in appearance and size. Mediastinum is within normal limits. Left PICC line seen in SVC. Lungs and pleural space: Mild right basilar subsegmental atelectasis is noted. No sign of pleural effusion. No pneumothorax is seen. Bones and soft tissues: No significant findings. IMPRESSION: 1. Mild right basilar subsegmental atelectasis is noted. Dictated by: Kodak Lopez MD @ 02/17/2017 20:24:31 (Electronic Signature) Report Signed by Proxy and Original Signed Document filed in the Medical Record. [facility]
--- NOTE | 2017-02-18 11:14 | CT ---
EXAM DATE: 02/17/17 PATIENT'S AGE: 51 Patient: MIRANDA SYED Facility: [place], [place] Site . Site : 1965 Study: CT Chest Angio [id number]/23/2017 9:16:56 PM Ordering Physician: Augustin Colindres Final Report: INDICATION: Chest pain. Hypertension. Tachycardia. TECHNIQUE: CT chest pulmonary angiogram acquired with 50 mL of Isovue 370 IV contrast. COMPARISON: CT chest December 01, 2016. FINDINGS: Cardiovascular structures: There is extensive pulmonary embolus extending into the bilateral upper, bilateral lower and right middle lobe pulmonary arteries. Dilatation of the right ventricle and flattening of the interventricular septum consistent with right heart strain. Cardiomegaly. Coronary artery calcifications. No aneurysm or dissection of the thoracic aorta. Mediastinum and aron: No pathologic lymphadenopathy. Lungs: No pneumothorax. Mild secretions in the trachea. Motion. Mild bilateral scarring and or atelectasis. The lungs are otherwise clear. Pleura and pericardium: No effusions. Chest wall and axilla: No mass or adenopathy. Bones: Mild degenerative changes of the spine. Upper abdomen: Unremarkable. IMPRESSION: Extensive bilateral pulmonary embolus with evidence of right heart strain. Discussed with Dr. Ruffin at the time of dictation. Dictated by Alexx Angulo MD @ 02/17/2017 9:36:07 PM Dictated by: Alexx Angulo MD @ 02/17/2017 21:36:27 (Electronic Signature) Report Signed by Proxy and Original Signed Document filed in the Medical Record. [facility]
[2017-02-18] MEDS ORDERED: Albuterol 6.7 GM Inhaler INH PRN (18:48)
[2017-02-18 20:36] LABS: CHLORIDE,CL 108 mmol/L (98-110); SODIUM,NA 140 mmol/L (136-146)
[2017-02-18] MEDS: Apixaban 5 MG Tab PO SCH (20:45)
[2017-02-19] MEDS: Morphine 10 MG/ML Syringe IVPUSH PRN ×2 (00:03→04:44)
[2017-02-19] MEDS: Piperacillin/Tazobactam 3.375 GM in Sodium Chloride 0.9% 50 ML IV SCH ×4 (01:22→20:45)
[2017-02-19] MEDS: Metoprolol Tartrate 5 MG/5 ML SDV IVPUSH SCH ×3 (04:42→19:55)
[2017-02-19] MEDS: Insulin Aspart 100 Units/ML 3 ML Pen SUBCUT SCH ×4 (06:43→21:10)
[2017-02-19] MEDS: Sodium Chloride 0.9% 1,000 ML IV SCH ×2 (08:00→19:41)
[2017-02-19] MEDS: Pantoprazole 40 MG in Sodium Chloride 0.9% 10 ML IV SCH ×2 (08:01→20:47)
[2017-02-19] MEDS: Fluconazole 100 MG Tab PO SCH (09:18)
[2017-02-19] MEDS: Apixaban 5 MG Tab PO SCH ×2 (09:18→20:47)
[2017-02-19] MEDS: Vancomycin 1.75 GM in Sodium Chloride 0.9% 500 ML IV SCH ×2 (09:18→22:36)
[2017-02-19] MEDS: Docusate Sodium 100 MG Cap PO SCH ×2 (09:18→20:47)
--- NOTE | 2017-02-19 09:47 | PCM.PN ---
- General Info Date of Service: 02/19/17 Admission Dx/Problem (Free Text): Admission Diagnosis/Problem Admission Diagnosis/Problem PE, Pulmonary embolism Subjective Update: Patient is still requiring supplemental oxygen to maintain O2 saturation greater than 90%. She is breathing much better since admission. She continues to have bladder pain and has been receiving morphine for relief. although the morphine is when necessary, nursing states that the patient is getting it every 2 hours and has been quite sleepy since admission. she denies any chest pain or palpitations. She is tolerating oral intake and denies any nausea or vomiting. Functional Status: Reports: pain controlled, tolerating diet, ambulating, urinating - Review of Systems General: Reports: Fatigue HEENT: Reports: no symptoms Pulmonary: Reports: shortness of breath (Improving), cough. Denies: hemoptysis Cardiovascular: Reports: Dyspnea on Exertion Gastrointestinal: Reports: No symptoms Genitourinary: Reports: other (bladder pain.) Musculoskeletal: Reports: no symptoms Skin: Reports: no symptoms Neurological: Reports: No Symptoms Psychiatric: Reports: no symptoms - Patient Data Vitals - most recent: Last Vital Signs Temp 97.4 F 02/19/17 08:00 Pulse 80 02/19/17 08:00 Resp 10 L 02/19/17 08:00 BP 128/92 H 02/19/17 08:00 Pulse Ox 94 L 02/19/17 08:00 Weight - most recent: 269 lb 13.533 oz I&O - last 24 hours: Intake & Output 02/18/17 02/19/17 02/19/17 22:59 06:59 14:59 Intake Total 1060 600 Output Total 750 Balance 1060 -150 Lab Results last 24 hrs: Laboratory Results - last 24 hr 02/18/17 02/18/17 02/18/17 Range/Units 13:25 17:54 20:11 WBC (4.0-11.0) K/uL RBC (4.30-5.90) M/uL Hgb (12.0-16.0) g/dL Hct (36.0-46.0) % MCV (80.0-98.0) fL MCH (27.0-32.0) pg MCHC (31.0-37.0) g/dL RDW Std Deviation (28.0-62.0) fl RDW Coeff of Joana (11.0-15.0) % Plt Count (150-400) K/uL MPV (7.40-12.00) fL Neut % (Auto) (48.0-80.0) % Lymph % (Auto) (16.0-40.0) % [place] % (Auto) (0.0-15.0) % Eos % (Auto) (0.0-7.0) % Baso % (Auto) (0.0-1.5) % Neut # (Auto) (1.4-5.7) K/uL Lymph # (Auto) (0.6-2.4) K/uL [place] # (Auto) (0.0-0.8) K/uL Eos # (Auto) (0.0-0.7) K/uL Baso # (Auto) (0.0-0.1) K/uL Nucleated RBC % /100WBC Nucleated RBCs # K/uL Sodium (136-146) mmol/L Potassium (3.5-5.1) mmol/L Chloride (98-110) mmol/L Carbon Dioxide (21-31) mmol/L BUN (6.0-23.0) mg/dL Creatinine (0.6-1.5) mg/dL Est Cr Clr Drug Dosing mL/min Estimated GFR (MDRD) ml/min Glucose (60-110) mg/dL POC Glucose 234 H 143 H 177 H (60-110) mg/dL Calcium (8.8-10.8) mg/dL Magnesium (1.5-2.3) mEq/L Total Bilirubin (0.1-1.5) mg/dL AST (5-40) IU/L ALT (8-54) IU/L Alkaline Phosphatase (40-150) Total Protein (6.0-8.0) g/dL Albumin (3.5-5.0) g/dL Globulin (2.0-3.5) g/dL Albumin/Globulin Ratio (1.3-2.8) 02/18/17 02/19/17 02/19/17 Range/Units 20:12 04:31 04:31 WBC 6.93 (4.0-11.0) K/uL RBC 3.95 L (4.30-5.90) M/uL Hgb 10.2 L (12.0-16.0) g/dL Hct 35.1 L (36.0-46.0) % MCV 88.9 (80.0-98.0) fL MCH 25.8 L (27.0-32.0) pg MCHC 29.1 L (31.0-37.0) g/dL RDW Std Deviation 85.1 H (28.0-62.0) fl RDW Coeff of Joana 27 H (11.0-15.0) % Plt Count 117 L (150-400) K/uL MPV 9.60 (7.40-12.00) fL Neut % (Auto) 84.5 H (48.0-80.0) % Lymph % (Auto) 6.8 L (16.0-40.0) % [place] % (Auto) 8.1 (0.0-15.0) % Eos % (Auto) 0.3 (0.0-7.0) % Baso % (Auto) 0.3 (0.0-1.5) % Neut # (Auto) 5.9 H (1.4-5.7) K/uL Lymph # (Auto) 0.5 L (0.6-2.4) K/uL [place] # (Auto) 0.6 (0.0-0.8) K/uL Eos # (Auto) 0.0 (0.0-0.7) K/uL Baso # (Auto) 0.0 (0.0-0.1) K/uL Nucleated RBC % 0.7 /100WBC Nucleated RBCs # 0 K/uL Sodium 140 143 (136-146) mmol/L Potassium 5.0 5.3 H (3.5-5.1) mmol/L Chloride 108 109 (98-110) mmol/L Carbon Dioxide 25 24 (21-31) mmol/L BUN 15 15 (6.0-23.0) mg/dL Creatinine 0.9 1.0 (0.6-1.5) mg/dL Est Cr Clr Drug Dosing 62.53 56.27 mL/min Estimated GFR (MDRD) > 60.0 58.9 ml/min Glucose 169 H 143 H (60-110) mg/dL POC Glucose (60-110) mg/dL Calcium 8.5 L 8.0 L (8.8-10.8) mg/dL Magnesium (1.5-2.3) mEq/L Total Bilirubin 0.3 (0.1-1.5) mg/dL AST 14 (5-40) IU/L ALT 15 (8-54) IU/L Alkaline Phosphatase 104 (40-150) Total Protein 5.6 L (6.0-8.0) g/dL Albumin 2.9 L (3.5-5.0) g/dL Globulin 2.7 (2.0-3.5) g/dL Albumin/Globulin Ratio 1.1 L (1.3-2.8) 02/19/17 02/19/17 Range/Units 04:31 06:41 WBC (4.0-11.0) K/uL RBC (4.30-5.90) M/uL Hgb (12.0-16.0) g/dL Hct (36.0-46.0) % MCV (80.0-98.0) fL MCH (27.0-32.0) pg MCHC (31.0-37.0) g/dL RDW Std Deviation (28.0-62.0) fl RDW Coeff of Joana (11.0-15.0) % Plt Count (150-400) K/uL MPV (7.40-12.00) fL Neut % (Auto) (48.0-80.0) % Lymph % (Auto) (16.0-40.0) % [place] % (Auto) (0.0-15.0) % Eos % (Auto) (0.0-7.0) % Baso % (Auto) (0.0-1.5) % Neut # (Auto) (1.4-5.7) K/uL Lymph # (Auto) (0.6-2.4) K/uL [place] # (Auto) (0.0-0.8) K/uL Eos # (Auto) (0.0-0.7) K/uL Baso # (Auto) (0.0-0.1) K/uL Nucleated RBC % /100WBC Nucleated RBCs # K/uL Sodium (136-146) mmol/L Potassium (3.5-5.1) mmol/L Chloride (98-110) mmol/L Carbon Dioxide (21-31) mmol/L BUN (6.0-23.0) mg/dL Creatinine (0.6-1.5) mg/dL Est Cr Clr Drug Dosing mL/min Estimated GFR (MDRD) ml/min Glucose (60-110) mg/dL POC Glucose 131 H (60-110) mg/dL Calcium (8.8-10.8) mg/dL Magnesium 1.8 (1.5-2.3) mEq/L Total Bilirubin (0.1-1.5) mg/dL AST (5-40) IU/L ALT (8-54) IU/L Alkaline Phosphatase (40-150) Total Protein (6.0-8.0) g/dL Albumin (3.5-5.0) g/dL Globulin (2.0-3.5) g/dL Albumin/Globulin Ratio (1.3-2.8) Med Orders - Current: Current Medications Acetaminophen (Tylenol) 650 mg PO Q4H PRN PRN Reason: Pain (Mild 1-3)/fever Albuterol (Proventil Hfa) 0 gm INH Q4H PRN PRN Reason: Shortness of Breath Albuterol/Ipratropium (Duoneb 3.0-0.5 Mg/3 Ml) 3 ml NEB Q4HRRT PRN PRN Reason: Shortness Of Breath/wheezing Last Admin: 02/18/17 03:34 Dose: 3 ml Apixaban (Eliquis) 5 mg PO BID [facility] Last Admin: 02/19/17 09:18 Dose: 5 mg Bisacodyl (Dulcolax) 5 mg PO DAILY PRN PRN Reason: Constipation Docusate Sodium (Colace) 100 mg PO BID [facility] Last Admin: 02/19/17 09:18 Dose: 100 mg Fluconazole (Diflucan) 100 mg PO DAILY [facility] Last Admin: 02/19/17 09:18 Dose: 100 mg Sodium Chloride (Normal Saline) 1,000 mls @ 120 mls/hr IV ASDIRECTED [facility] Last Admin: 02/19/17 08:00 Dose: 120 mls/hr Piperacillin Sod/Tazobactam (Sod 3.375 gm/ Sodium Chloride) 50 mls @ 100 mls/ hr IV Q6H [facility] Last Admin: 04/25/17 08:01 Dose: 100 mls/hr Vancomycin HCl 1.75 gm/ Sodium (Chloride) 500 mls @ 250 mls/hr IV Q12H [facility] Last Admin: 02/19/17 09:18 Dose: 250 mls/hr Pantoprazole Sodium 40 mg/ (Sodium Chloride) 10 mls @ 200 mls/hr IV Q12H [facility] Last Admin: 02/19/17 08:01 Dose: 200 mls/hr Insulin Aspart (Novolog) 0 unit SUBCUT ACBED [facility] PRN Reason: Protocol Last Admin: 02/19/17 06:43 Dose: Not Given Lorazepam (Ativan) 1 mg IM Q2H PRN PRN Reason: Nausea/Vomiting Metoprolol Tartrate (Lopressor) 5 mg IVPUSH Q6H [facility] Last Admin: 02/19/17 04:42 Dose: 5 mg Ondansetron HCl (Zofran) 4 mg IVPUSH Q4H PRN PRN Reason: Nausea Oxycodone HCl (Oxycodone) 5 mg PO Q4H PRN PRN Reason: Pain Temazepam (Restoril) 15 mg PO BEDTIME PRN PRN Reason: Sleep Vancomycin HCl (Pharmacy To Dose - Vancomycin) 1 dose .XX ASDIRECTED [facility] Discontinued Medications Albuterol/Ipratropium (Duoneb 3.0-0.5 Mg/3 Ml) 3 ml NEB ONETIME ONE Stop: 02/17/17 19:12 Last Admin: 02/17/17 19:23 Dose: 3 ml Albuterol/Ipratropium (Duoneb 3.0-0.5 Mg/3 Ml) Confirm Administered Dose 3 ml .ROUTE .STK-MED ONE Stop: 02/17/17 19:13 Last Admin: 02/17/17 19:23 Dose: 3 ml Apixaban (Eliquis) 2.5 mg PO BID ONE Stop: 02/18/17 09:54 Last Admin: 02/18/17 10:14 Dose: 2.5 mg Aspirin (Aspirin) 324 mg PO ONETIME ONE Stop: 02/17/17 19:10 Last Admin: 02/17/17 19:24 Dose: 324 mg Enoxaparin Sodium (Lovenox) 180 mg SUBCUT ONETIME ONE Stop: 02/17/17 20:07 Last Admin: 02/17/17 20:33 Dose: Not Given Enoxaparin Sodium (Lovenox) 180 mg SUBCUT ONETIME ONE Stop: 02/17/17 20:17 Last Admin: 02/17/17 20:23 Dose: 180 mg Enoxaparin Sodium (Lovenox) 120 mg SUBCUT Q12HR [facility]ALIE Last Admin: 02/18/17 08:24 Dose: 120 mg Enoxaparin Sodium (Lovenox) Confirm Administered Dose 60 mg .ROUTE .STK-MED ONE Stop: 02/18/17 06:23 Last Admin: 02/18/17 06:31 Dose: Not Given Piperacillin Sod/Tazobactam (Sod 3.375 gm/ Sodium Chloride) 50 mls @ 100 mls/ hr IV ONETIME ONE Stop: 02/17/17 20:17 Last Admin: 02/17/17 19:58 Dose: 100 mls/hr Vancomycin HCl 1 gm/ Sodium (Chloride) 250 mls @ 166 mls/hr IV ONETIME ONE Stop: 02/17/17 21:52 Last Admin: 02/17/17 21:19 Dose: 166 mls/hr Magnesium Sulfate 4 gm/ Premix 100 mls @ 25 mls/hr IV ONETIME ONE Stop: 02/18/17 13:58 Last Admin: 02/18/17 10:14 Dose: 25 mls/hr Iopamidol (Isovue Multipack-370 (76%)) 50 ml IVPUSH ONETIME STA Stop: 02/17/17 21:20 Last Admin: 02/17/17 21:19 Dose: 50 ml Methylprednisolone Sodium Succinate (Solu-Medrol) 125 mg IVPUSH ONETIME ONE Stop: 02/17/17 19:12 Last Admin: 02/17/17 19:24 Dose: 125 mg Methylprednisolone Sodium Succinate (Solu-Medrol) Confirm Administered Dose 125 mg .ROUTE .STK-MED ONE Stop: 02/17/17 19:13 Last Admin: 02/17/17 19:24 Dose: Not Given Morphine Sulfate (Morphine) 2 mg IVPUSH ONETIME ONE Stop: 02/17/17 19:48 Last Admin: 02/17/17 19:54 Dose: 2 mg Morphine Sulfate (Morphine) 5 mg IVPUSH Q1H PRN PRN Reason: Pain (severe 7-10) Stop: 02/18/17 22:26 Last Admin: 02/18/17 19:13 Dose: 5 mg Morphine Sulfate (Morphine) 5 mg IVPUSH Q2H PRN PRN Reason: Pain (severe 7-10) Last Admin: 02/19/17 04:44 Dose: 5 mg Nitroglycerin (Nitrostat) 0.4 mg SL Q5M PRN PRN Reason: Chest Pain Stop: 02/17/17 19:20 Ondansetron HCl (Zofran) 8 mg IVPUSH ONETIME ONE Stop: 02/17/17 19:27 Last Admin: 02/17/17 19:51 Dose: 8 mg Pantoprazole Sodium (Protonix Iv) 80 mg IVPUSH .BOLUS ONE Stop: 02/17/17 19:12 Last Admin: 02/17/17 19:24 Dose: 80 mg Pantoprazole Sodium (Protonix Iv) 40 mg IVPUSH Q12HR NATALIE Sodium Polystyrene Sulfonate (Kayexalate) 15 gm PO Q6H NATALIE Last Admin: 02/18/17 15:28 Dose: 15 gm - Exam Quality Assessment: supplemental oxygen (2 L nasal cannula), urine catheter, DVT prophylaxis (scd's, Eliquis) General: alert, oriented, cooperative, no acute distress Neck: supple Lungs: Normal respiratory effort, Wheezing (In the lower lung song bilaterally.) Cardiovascular: Regular Rate, Regular Rhythm Abdomen: bowel sounds present, soft, no tenderness, no distension (Female) Exam: Other (The perineum is erythematous) Back Exam: normal inspection Extremities: no edema, no calf tenderness Peripheral Pulses: 2+: radial (L), radial (R) Skin: other (The pannus of the patient is erythematous) Neurological: no new focal deficit Psy/Mental Status: alert, normal affect, other (Patient is sleepy but easily arousable.) - Problem List & Annotations (1) Diabetes mellitus SNOMED Code(s): 89575900 Code(s): E11.9 - TYPE 2 DIABETES MELLITUS WITHOUT COMPLICATIONS Status: Acute Current Visit: Yes (2) Pulmonary embolus SNOMED Code(s): 23279277, 25084078 Code(s): I26.99 - OTHER PULMONARY EMBOLISM WITHOUT ACUTE COR PULMONALE Status: Acute Current Visit: Yes (3) UTI (urinary tract infection) SNOMED Code(s): 65826170 Code(s): N39.0 - URINARY TRACT INFECTION, SITE NOT SPECIFIED Status: Acute Current Visit: Yes - Problem List Review Problem List Initiated/Reviewed/Updated: Yes - My Orders Last 24 Hours: My Active Orders 02/18/17 10:09 Consult to Physician [CONS] Routine 02/18/17 10:10 Notify Provider Consults [RC] ASDIRECTED 02/18/17 21:00 Apixaban [Eliquis] 5 mg PO BID 02/19/17 09:40 oxyCODONE 5 mg PO Q4H PRN - Plan Plan:: #1. Pulmonary embolus: -Continue Eliquis 5mg BID -Patient will continue on supplemental oxygen via nasal cannula to maintain O2 saturation greater than 90%. -Echocardiogram results are pending -Patient moved to the general medical floor from the ICU. #2. UTI: -Urine cultures are pending. Patient will continue on Zosyn and vancomycin. UA showed positive nitrites and +1 bacteria. -Dr. Mora will change the patient's Pham catheter today. -Patient is also having bladder pain secondary to spasm. She was receiving morphine but is receiving it on a scheduled basis which is making her extremely sleepy. I will DC her morphine and start her on oxycodone 5 mg every 4 hours. Patient restarted on home medications for bladder spasm. #3. Diabetes mellitus type 2: -Patient currently on NovoLog sliding scale. Sugars are being well-controlled. #4. Hyperkalemia: -Potassium is 5.7. Patient will receive 10 units of regular insulin with D50. -Recheck BMP at 4 PM. #5. Vulvar cancer -the patient's oncologist, Dr. Saucedo, who is in agreement with our treatment plan. -He is also in agreement with restarting the patient's Eliquis disposition: Potential discharge tomorrow.
[2017-02-19 09:52] LABS: CHLORIDE,CL 108 mmol/L (98-110); SODIUM,NA 143 mmol/L (136-146)
[2017-02-19] MEDS: Albuterol/Ipratropium 3.0-0.5 MG/3 ML Neb Soln NEB PRN (10:08)
[2017-02-19] MEDS ORDERED: Sodium Polystyrene Sulfonate 15 GM/60 ML Susp 60 ML Bot PO ONE (10:28)
[2017-02-19] MEDS ORDERED: 50% Dextrose in Water 50 ML Syringe IVPUSH ONE (10:50)
[2017-02-19] MEDS ORDERED: Insulin Regular, Human 100 Units/ML 10 ML Vial IVPUSH ONE (10:50)
[2017-02-19] MEDS: Tolterodine 2 MG Cap.ER PO SCH (11:04)
[2017-02-19] MEDS: Trospium Chloride 20 MG PO SCH ×2 (11:04→22:00)
[2017-02-19] MEDS ORDERED: PHENAZOPYRIDINE HCL 100 MG PO SCH (14:00)
[2017-02-19 16:36] LABS: CHLORIDE,CL 108 mmol/L (98-110); SODIUM,NA 142 mmol/L (136-146)
[2017-02-19] MEDS: PHENAZOPYRIDINE HCL 100 MG PO SCH (19:55)
[2017-02-19] MEDS: oxyCODONE 5 MG Tab PO PRN (19:56)
[2017-02-20] MEDS: oxyCODONE 5 MG Tab PO PRN ×4 (00:01→12:18)
[2017-02-20] MEDS: Metoprolol Tartrate 5 MG/5 ML SDV IVPUSH SCH ×3 (00:04→12:39)
[2017-02-20] MEDS: Piperacillin/Tazobactam 3.375 GM in Sodium Chloride 0.9% 50 ML IV SCH ×2 (01:52→09:42)
[2017-02-20] MEDS ORDERED: Vancomycin 1.75 GM in Sodium Chloride 0.9% 500 ML IV SCH (04:00)
[2017-02-20] MEDS: Sodium Chloride 0.9% 1,000 ML IV SCH (04:35)
[2017-02-20 05:26] LABS: CHLORIDE,CL 109 mmol/L (98-110); SODIUM,NA 141 mmol/L (136-146)
[2017-02-20] MEDS ORDERED: Pantoprazole 40 MG Tab.CR PO SCH (07:45)
[2017-02-20] MEDS: Insulin Aspart 100 Units/ML 3 ML Pen SUBCUT SCH ×2 (08:19→12:32)
[2017-02-20] MEDS: Apixaban 5 MG Tab PO SCH (09:42)
[2017-02-20] MEDS: Docusate Sodium 100 MG Cap PO SCH (09:43)
[2017-02-20] MEDS: PHENAZOPYRIDINE HCL 100 MG PO SCH ×2 (09:43→12:17)
[2017-02-20] MEDS: Fluconazole 100 MG Tab PO SCH (09:43)
[2017-02-20] MEDS: Trospium Chloride 20 MG PO SCH (09:44)
[2017-02-20] MEDS: Tolterodine 2 MG Cap.ER PO SCH (09:44)
[2017-02-20 12:39] VITALS: BP 133/85
--- NOTE | 2017-02-20 17:48 | ECHO ---
EXAM DATE: 02/17/17 The echocardiogram report can be seen in this patient's EMR (Electronic Medical Record) in the Reports section. [facility]
--- NOTE | 2017-02-21 15:21 | PCM.DCSUM1 ---
<Efrain Beard - Last Filed: 02/21/17 15:14> Discharge Summary - Hospital Course Free Text/Narrative:: Admission diagnoses: #1. Bilateral pulmonary emboli #2. Urinary tract infection #3. Diabetes mellitus Discharge diagnoses: #1. Bilateral pulmonary emboli #2. Urinary tract infection #3. Diabetes mellitus #4. Hyperkalemia 51-year-old female admitted with bilateral pulmonary emboli with right heart strain as evidenced on chest CT angiogram. Patient was initially started on Lovenox and then transitioned over to her home medication of Eliquis 5 mg twice a day. Throughout admission she did not experience any chest pain but did require supplemental O2 to maintain her oxygen saturation greater than 90%. At the time of discharge she was stable on room air saturating greater than 90%. Echocardiogram was obtained but was a poor study and did not give an ejection fraction. Chest x-ray showed mild right basilar subsegmental atelectasis. Patient's urinalysis showed +1 bacteria as well as positive nitrites. Urine culture was positive for yeast. At the time of admission she was started on Zosyn and vancomycin for broad-spectrum antibiotics. She was also started on fluconazole secondary to the positive yeast results of her urine culture. Blood cultures were negative. Patient has a current diagnosis of vulvar cancer. I did speak with her oncologist, Dr. Saucedo, who was in agreement with our treatment plan while admitted. She has an indwelling Pham catheter which was due for a change while admitted. I did consult Dr. Mora from urology who suggested that the patient needed be taken to the operating room to have the catheter changed. The patient declined this and stated that she wanted to be seen by her urologist in [place], [place], Dr. Rendon. The patient also developed hyperkalemia while admitted with a level of 6.4. She received Kayexalate and a one-time dose of regular insulin 10 units with D50 with her discharge potassium being 4. Initial lactate was 4 with repeat lactate being 1.6. At the time of discharge, the patient was voiding appropriately, tolerating oral intake and denied any chest pain, palpitations, shortness of breath, wheezing, cough, abdominal pain, nausea, vomiting. - Discharge Data Discharge Date: 02/20/17 Discharge Disposition: Home, Self-Care 01 Condition: Fair - Discharge Diagnosis/Problem(s) (1) Diabetes mellitus SNOMED Code(s): 19092882 ICD Code: E11.9 - TYPE 2 DIABETES MELLITUS WITHOUT COMPLICATIONS Status: Acute (2) Pulmonary embolus SNOMED Code(s): 12678773, 48080119 ICD Code: I26.99 - OTHER PULMONARY EMBOLISM WITHOUT ACUTE COR PULMONALE Status: Acute (3) UTI (urinary tract infection) SNOMED Code(s): 38820416 ICD Code: N39.0 - URINARY TRACT INFECTION, SITE NOT SPECIFIED Status: Acute - Patient Summary/Data Consults: Consultations 02/18/17 01:44 Pharmacy Consult [Consult to Pharmacy] [CONS] Routine 02/18/17 10:09 Consult to Physician [CONS] Routine - Patient Instructions Diet: Heart Healthy Diet, Diabetic Diet Driving: May Drive Today Showering/Bathing: May Shower Notify Provider of: Fever, Increased Pain, Nausea and/or Vomiting Other/Special Instructions: Patient needs a follow-up appointment with Dr. Rendon, urologist, in [place] and with her PCP in [place] - Discharge Plan Prescriptions/Med Rec: Apixaban [Eliquis] 5 mg PO BID #60 tablet Fluconazole [Diflucan] 200 mg PO BID #14 tablet Levofloxacin [Levaquin] 750 mg PO DAILY #6 tablet Home Medications: Home Meds Albuterol [Proventil HFA] 2 inh IH Q4H PRN 10/29/16 [History] Phenazopyridine HCl [Pyridium] 100 mg PO TID 02/17/17 [History] Tolterodine Tartrate [Tolterodine Tartrate ER] 4 mg PO DAILY 02/17/17 [History] Trospium Chloride 20 mg PO BID 02/17/17 [History] metFORMIN HCl [Glucophage] 1,000 mg PO BID 02/17/17 [History] traMADol HCl [Tramadol HCl] 50 mg PO Q4H PRN 02/17/17 [History] Apixaban [Eliquis] 5 mg PO BID #60 tablet 02/20/17 [Rx] Fluconazole [Diflucan] 200 mg PO BID #14 tablet 02/20/17 [Rx] Levofloxacin [Levaquin] 750 mg PO DAILY #6 tablet 02/20/17 [Rx] Patient Handouts: Hyperkalemia, [id number], Urinary Tract Infection, Adult, Pulmonary Embolism, Fluconazole tablets, Levofloxacin tablets, Apixaban oral tablets Forms: ED Department Discharge Referrals: PCP,None [Primary Care Provider] - - Discharge Summary/Plan Comment DC Time >30 min.: No Discharge Summary/Plan Comment: Admission diagnoses: #1. Bilateral pulmonary emboli #2. Urinary tract infection #3. Diabetes mellitus Discharge diagnoses: #1. Bilateral pulmonary emboli #2. Urinary tract infection #3. Diabetes mellitus #4. Hyperkalemia 51-year-old female admitted with bilateral pulmonary emboli with right heart strain as evidenced on chest CT angiogram. Patient was initially started on Lovenox and then transitioned over to her home medication of Eliquis 5 mg twice a day. Throughout admission she did not experience any chest pain but did require supplemental O2 to maintain her oxygen saturation greater than 90%. At the time of discharge she was stable on room air saturating greater than 90%. Echocardiogram was obtained but was a poor study and did not give an ejection fraction. Chest x-ray showed mild right basilar subsegmental atelectasis. Patient's urinalysis showed +1 bacteria as well as positive nitrites. Urine culture was positive for yeast. At the time of admission she was started on Zosyn and vancomycin for broad-spectrum antibiotics. She was also started on fluconazole secondary to the positive yeast results of her urine culture. Blood cultures were negative. Patient has a current diagnosis of vulvar cancer. I did speak with her oncologist, Dr. Saucedo, who was in agreement with our treatment plan while admitted. She has an indwelling Pham catheter which was due for a change while admitted. I did consult Dr. Mora from urology who suggested that the patient needed be taken to the operating room to have the catheter changed. The patient declined this and stated that she wanted to be seen by her urologist in [place], [place], Dr. Rendon. The patient also developed hyperkalemia while admitted with a level of 6.4. She received Kayexalate and a one-time dose of regular insulin 10 units with D50 with her discharge potassium being 4. Initial lactate was 4 with repeat lactate being 1.6. At the time of discharge, the patient was voiding appropriately, tolerating oral intake and denied any chest pain, palpitations, shortness of breath, wheezing, cough, abdominal pain, nausea, vomiting. Discharge plan: #1. Patient restarted on home medication of Eliquis 5 mg twice a day, 60 tabs, zero refills. #2. Prescribe fluconazole 200 mg twice a day, 14 tabs, zero refills #3. Prescribed Levaquin 750 mg daily, 6 tabs, zero refills #4. Patient will see her urologist Dr. Rendon with whom she already had an appointment set. #5. Patient will follow up with her PCP in [place]. - Patient Data Vitals - Most Recent: Last Vital Signs Temp 97.4 F 02/20/17 12:40 Pulse 101 H 02/20/17 12:40 Resp 20 02/20/17 12:40 BP 133/85 02/20/17 12:40 Pulse Ox 90 L 02/20/17 04:00 Weight - Most Recent: 126.1 kg Med Orders - Current: Current Medications Discontinued Medications Acetaminophen (Tylenol) 650 mg PO Q4H PRN PRN Reason: Pain (Mild 1-3)/fever Albuterol (Proventil Hfa) 0 gm INH Q4H PRN PRN Reason: Shortness of Breath Albuterol/Ipratropium (Duoneb 3.0-0.5 Mg/3 Ml) 3 ml NEB ONETIME ONE Stop: 02/17/17 19:12 Last Admin: 02/17/17 19:23 Dose: 3 ml Albuterol/Ipratropium (Duoneb 3.0-0.5 Mg/3 Ml) Confirm Administered Dose 3 ml .ROUTE .STK-MED ONE Stop: 02/17/17 19:13 Last Admin: 02/17/17 19:23 Dose: 3 ml Albuterol/Ipratropium (Duoneb 3.0-0.5 Mg/3 Ml) 3 ml NEB Q4HRRT PRN PRN Reason: Shortness Of Breath/wheezing Last Admin: 02/19/17 10:08 Dose: 3 ml Apixaban (Eliquis) 2.5 mg PO BID ONE Stop: 02/18/17 09:54 Last Admin: 02/18/17 10:14 Dose: 2.5 mg Apixaban (Eliquis) 5 mg PO BID NATALIE Last Admin: 02/20/17 09:42 Dose: 5 mg Aspirin (Aspirin) 324 mg PO ONETIME ONE Stop: 02/17/17 19:10 Last Admin: 02/17/17 19:24 Dose: 324 mg Bisacodyl (Dulcolax) 5 mg PO DAILY PRN PRN Reason: Constipation Dextrose/Water (Dextrose 50% In Water) 50 ml IVPUSH ONETIME ONE Stop: 02/19/17 10:51 Last Admin: 02/19/17 11:03 Dose: 50 ml Docusate Sodium (Colace) 100 mg PO BID [facility] Last Admin: 02/20/17 09:43 Dose: 100 mg Enoxaparin Sodium (Lovenox) 180 mg SUBCUT ONETIME ONE Stop: 02/17/17 20:07 Last Admin: 02/17/17 20:33 Dose: Not Given Enoxaparin Sodium (Lovenox) 180 mg SUBCUT ONETIME ONE Stop: 02/17/17 20:17 Last Admin: 02/17/17 20:23 Dose: 180 mg Enoxaparin Sodium (Lovenox) 120 mg SUBCUT Q12HR [facility] Last Admin: 02/18/17 08:24 Dose: 120 mg Enoxaparin Sodium (Lovenox) Confirm Administered Dose 60 mg .ROUTE .STK-MED ONE Stop: 02/18/17 06:23 Last Admin: 02/18/17 06:31 Dose: Not Given Fluconazole (Diflucan) 100 mg PO DAILY [facility] Last Admin: 02/20/17 09:43 Dose: 100 mg Piperacillin Sod/Tazobactam (Sod 3.375 gm/ Sodium Chloride) 50 mls @ 100 mls/ hr IV ONETIME ONE Stop: 02/17/17 20:17 Last Admin: 02/17/17 19:58 Dose: 100 mls/hr Vancomycin HCl 1 gm/ Sodium (Chloride) 250 mls @ 166 mls/hr IV ONETIME ONE Stop: 02/17/17 21:52 Last Admin: 02/17/17 21:19 Dose: 166 mls/hr Sodium Chloride (Normal Saline) 1,000 mls @ 120 mls/hr IV ASDIRECTED [facility] Last Admin: 02/20/17 04:35 Dose: 120 mls/hr Piperacillin Sod/Tazobactam (Sod 3.375 gm/ Sodium Chloride) 50 mls @ 100 mls/ hr IV Q6H [facility] Last Admin: 02/20/17 09:42 Dose: 100 mls/hr Vancomycin HCl 1.75 gm/ Sodium (Chloride) 500 mls @ 250 mls/hr IV Q12H [facility] Last Admin: 02/19/17 22:36 Dose: Not Given Pantoprazole Sodium 40 mg/ (Sodium Chloride) 10 mls @ 200 mls/hr IV Q12H [facility] Last Admin: 02/19/17 20:47 Dose: 200 mls/hr Magnesium Sulfate 4 gm/ Premix 100 mls @ 25 mls/hr IV ONETIME ONE Stop: 02/18/17 13:58 Last Admin: 02/18/17 10:14 Dose: 25 mls/hr Vancomycin HCl 1.75 gm/ Sodium (Chloride) 500 mls @ 250 mls/hr IV Q18H [facility] Last Admin: 02/20/17 04:35 Dose: 250 mls/hr Insulin Aspart (Novolog) 0 unit SUBCUT ACBED NATALIE PRN Reason: Protocol Last Admin: 02/20/17 12:32 Dose: 2 units Insulin Human Regular (Novolin R) 10 unit IVPUSH ONETIME ONE PRN Reason: Protocol Stop: 02/19/17 10:51 Last Admin: 02/19/17 11:03 Dose: 10 unit Iopamidol (Isovue Multipack-370 (76%)) 50 ml IVPUSH ONETIME STA Stop: 02/17/17 21:20 Last Admin: 02/17/17 21:19 Dose: 50 ml Lorazepam (Ativan) 1 mg IM Q2H PRN PRN Reason: Nausea/Vomiting Methylprednisolone Sodium Succinate (Solu-Medrol) 125 mg IVPUSH ONETIME ONE Stop: 02/17/17 19:12 Last Admin: 02/17/17 19:24 Dose: 125 mg Methylprednisolone Sodium Succinate (Solu-Medrol) Confirm Administered Dose 125 mg .ROUTE .STK-MED ONE Stop: 02/17/17 19:13 Last Admin: 02/17/17 19:24 Dose: Not Given Metoprolol Tartrate (Lopressor) 5 mg IVPUSH Q6H [facility] Last Admin: 02/20/17 12:39 Dose: Not Given Morphine Sulfate (Morphine) 2 mg IVPUSH ONETIME ONE Stop: 02/17/17 19:48 Last Admin: 02/17/17 19:54 Dose: 2 mg Morphine Sulfate (Morphine) 5 mg IVPUSH Q1H PRN PRN Reason: Pain (severe 7-10) Stop: 02/18/17 22:26 Last Admin: 02/18/17 19:13 Dose: 5 mg Morphine Sulfate (Morphine) 5 mg IVPUSH Q2H PRN PRN Reason: Pain (severe 7-10) Last Admin: 02/19/17 04:44 Dose: 5 mg Nitroglycerin (Nitrostat) 0.4 mg SL Q5M PRN PRN Reason: Chest Pain Stop: 02/17/17 19:20 Ondansetron HCl (Zofran) 8 mg IVPUSH ONETIME ONE Stop: 02/17/17 19:27 Last Admin: 02/17/17 19:51 Dose: 8 mg Ondansetron HCl (Zofran) 4 mg IVPUSH Q4H PRN PRN Reason: Nausea Oxycodone HCl (Oxycodone) 5 mg PO Q4H PRN PRN Reason: Pain Last Admin: 02/20/17 12:18 Dose: 5 mg Pantoprazole Sodium (Protonix Iv) 80 mg IVPUSH .BOLUS ONE Stop: 02/17/17 19:12 Last Admin: 02/17/17 19:24 Dose: 80 mg Pantoprazole Sodium (Protonix Iv) 40 mg IVPUSH Q12HR [facility] Pantoprazole Sodium (Protonix) 40 mg PO BIDAC [facility] Last Admin: 02/20/17 07:57 Dose: 40 mg Phenazopyridine Hcl (100 Mg) 1 each PO TID [facility] Last Admin: 02/19/17 15:24 Dose: 1 each Trospium Chloride 20 (Mg) 1 each PO BID [facility] Last Admin: 02/20/17 09:44 Dose: 1 each Phenazopyridine HCl (Pyridium) 200 mg PO TIDPC [facility] Last Admin: 02/20/17 12:17 Dose: 200 mg Sodium Polystyrene Sulfonate (Kayexalate) 15 gm PO Q6H [facility] Last Admin: 02/18/17 15:28 Dose: 15 gm Sodium Polystyrene Sulfonate (Kayexalate) 45 gm PO NOW ONE Stop: 02/19/17 10:29 Last Admin: 02/19/17 12:00 Dose: Not Given Temazepam (Restoril) 15 mg PO BEDTIME PRN PRN Reason: Sleep Tolterodine Tartrate (Detrol La 24 Hr) 4 mg PO DAILY NATALIE Last Admin: 02/20/17 09:44 Dose: 4 mg Vancomycin HCl (Pharmacy To Dose - Vancomycin) 1 dose .XX ASDIRECTED NATALIE *Q Meaningful Use (DIS) - VTE *Q VTE Criteria *Q: - Stroke *Q Stroke Criteria *Q: - AMI *Q AMI Criteria *Q: <Navi Peoples Aroldo - Last Filed: 02/28/17 19:59> Discharge Summary - Patient Summary/Data Consults: Consultations 02/18/17 01:44 Pharmacy Consult [Consult to Pharmacy] [CONS] Routine 02/18/17 10:09 Consult to Physician [CONS] Routine - Patient Data Vitals - Most Recent: Last Vital Signs Temp 36.3 C 02/20/17 12:40 Pulse 101 H 02/20/17 12:40 Resp 20 02/20/17 12:40 BP 133/85 02/20/17 12:40 Pulse Ox 90 L 02/20/17 04:00 Med Orders - Current: Current Medications Discontinued Medications Acetaminophen (Tylenol) 650 mg PO Q4H PRN PRN Reason: Pain (Mild 1-3)/fever Albuterol (Proventil Hfa) 0 gm INH Q4H PRN PRN Reason: Shortness of Breath Albuterol/Ipratropium (Duoneb 3.0-0.5 Mg/3 Ml) 3 ml NEB ONETIME ONE Stop: 02/17/17 19:12 Last Admin: 02/17/17 19:23 Dose: 3 ml Albuterol/Ipratropium (Duoneb 3.0-0.5 Mg/3 Ml) Confirm Administered Dose 3 ml .ROUTE .STK-MED ONE Stop: 02/17/17 19:13 Last Admin: 02/17/17 19:23 Dose: 3 ml Albuterol/Ipratropium (Duoneb 3.0-0.5 Mg/3 Ml) 3 ml NEB Q4HRRT PRN PRN Reason: Shortness Of Breath/wheezing Last Admin: 02/19/17 10:08 Dose: 3 ml Apixaban (Eliquis) 2.5 mg PO BID ONE Stop: 02/18/17 09:54 Last Admin: 02/18/17 10:14 Dose: 2.5 mg Apixaban (Eliquis) 5 mg PO BID [facility] Last Admin: 02/20/17 09:42 Dose: 5 mg Aspirin (Aspirin) 324 mg PO ONETIME ONE Stop: 02/17/17 19:10 Last Admin: 02/17/17 19:24 Dose: 324 mg Bisacodyl (Dulcolax) 5 mg PO DAILY PRN PRN Reason: Constipation Dextrose/Water (Dextrose 50% In Water) 50 ml IVPUSH ONETIME ONE Stop: 02/19/17 10:51 Last Admin: 02/19/17 11:03 Dose: 50 ml Docusate Sodium (Colace) 100 mg PO BID [facility] Last Admin: 02/20/17 09:43 Dose: 100 mg Enoxaparin Sodium (Lovenox) 180 mg SUBCUT ONETIME ONE Stop: 02/17/17 20:07 Last Admin: 02/17/17 20:33 Dose: Not Given Enoxaparin Sodium (Lovenox) 180 mg SUBCUT ONETIME ONE Stop: 02/17/17 20:17 Last Admin: 02/17/17 20:23 Dose: 180 mg Enoxaparin Sodium (Lovenox) 120 mg SUBCUT Q12HR [facility] Last Admin: 02/18/17 08:24 Dose: 120 mg Enoxaparin Sodium (Lovenox) Confirm Administered Dose 60 mg .ROUTE .STK-MED ONE Stop: 02/18/17 06:23 Last Admin: 02/18/17 06:31 Dose: Not Given Fluconazole (Diflucan) 100 mg PO DAILY [facility] Last Admin: 02/20/17 09:43 Dose: 100 mg Piperacillin Sod/Tazobactam (Sod 3.375 gm/ Sodium Chloride) 50 mls @ 100 mls/ hr IV ONETIME ONE Stop: 02/17/17 20:17 Last Admin: 02/17/17 19:58 Dose: 100 mls/hr Vancomycin HCl 1 gm/ Sodium (Chloride) 250 mls @ 166 mls/hr IV ONETIME ONE Stop: 02/17/17 21:52 Last Admin: 02/17/17 21:19 Dose: 166 mls/hr Sodium Chloride (Normal Saline) 1,000 mls @ 120 mls/hr IV ASDIRECTED [facility] Last Admin: 02/20/17 04:35 Dose: 120 mls/hr Piperacillin Sod/Tazobactam (Sod 3.375 gm/ Sodium Chloride) 50 mls @ 100 mls/ hr IV Q6H [facility] Last Admin: 02/20/17 09:42 Dose: 100 mls/hr Vancomycin HCl 1.75 gm/ Sodium (Chloride) 500 mls @ 250 mls/hr IV Q12H [facility] Last Admin: 02/19/17 22:36 Dose: Not Given Pantoprazole Sodium 40 mg/ (Sodium Chloride) 10 mls @ 200 mls/hr IV Q12H [facility] Last Admin: 02/19/17 20:47 Dose: 200 mls/hr Magnesium Sulfate 4 gm/ Premix 100 mls @ 25 mls/hr IV ONETIME ONE Stop: 02/18/17 13:58 Last Admin: 02/18/17 10:14 Dose: 25 mls/hr Vancomycin HCl 1.75 gm/ Sodium (Chloride) 500 mls @ 250 mls/hr IV Q18H [facility] Last Admin: 02/20/17 04:35 Dose: 250 mls/hr Insulin Aspart (Novolog) 0 unit SUBCUT ACBED [facility] PRN Reason: Protocol Last Admin: 02/20/17 12:32 Dose: 2 units Insulin Human Regular (Novolin R) 10 unit IVPUSH ONETIME ONE PRN Reason: Protocol Stop: 02/19/17 10:51 Last Admin: 02/19/17 11:03 Dose: 10 unit Iopamidol (Isovue Multipack-370 (76%)) 50 ml IVPUSH ONETIME STA Stop: 02/17/17 21:20 Last Admin: 02/17/17 21:19 Dose: 50 ml Lorazepam (Ativan) 1 mg IM Q2H PRN PRN Reason: Nausea/Vomiting Methylprednisolone Sodium Succinate (Solu-Medrol) 125 mg IVPUSH ONETIME ONE Stop: 02/17/17 19:12 Last Admin: 02/17/17 19:24 Dose: 125 mg Methylprednisolone Sodium Succinate (Solu-Medrol) Confirm Administered Dose 125 mg .ROUTE .STK-MED ONE Stop: 02/17/17 19:13 Last Admin: 02/17/17 19:24 Dose: Not Given Metoprolol Tartrate (Lopressor) 5 mg IVPUSH Q6H [facility] Last Admin: 02/20/17 12:39 Dose: Not Given Morphine Sulfate (Morphine) 2 mg IVPUSH ONETIME ONE Stop: 02/17/17 19:48 Last Admin: 02/17/17 19:54 Dose: 2 mg Morphine Sulfate (Morphine) 5 mg IVPUSH Q1H PRN PRN Reason: Pain (severe 7-10) Stop: 02/18/17 22:26 Last Admin: 02/18/17 19:13 Dose: 5 mg Morphine Sulfate (Morphine) 5 mg IVPUSH Q2H PRN PRN Reason: Pain (severe 7-10) Last Admin: 02/19/17 04:44 Dose: 5 mg Nitroglycerin (Nitrostat) 0.4 mg SL Q5M PRN PRN Reason: Chest Pain Stop: 02/17/17 19:20 Ondansetron HCl (Zofran) 8 mg IVPUSH ONETIME ONE Stop: 02/17/17 19:27 Last Admin: 02/17/17 19:51 Dose: 8 mg Ondansetron HCl (Zofran) 4 mg IVPUSH Q4H PRN PRN Reason: Nausea Oxycodone HCl (Oxycodone) 5 mg PO Q4H PRN PRN Reason: Pain Last Admin: 02/20/17 12:18 Dose: 5 mg Pantoprazole Sodium (Protonix Iv) 80 mg IVPUSH .BOLUS ONE Stop: 02/17/17 19:12 Last Admin: 02/17/17 19:24 Dose: 80 mg Pantoprazole Sodium (Protonix Iv) 40 mg IVPUSH Q12HR NATALIE Pantoprazole Sodium (Protonix) 40 mg PO BIDAC [facility] Last Admin: 02/20/17 07:57 Dose: 40 mg Phenazopyridine Hcl (100 Mg) 1 each PO TID [facility] Last Admin: 02/19/17 15:24 Dose: 1 each Trospium Chloride 20 (Mg) 1 each PO BID [facility] Last Admin: 02/20/17 09:44 Dose: 1 each Phenazopyridine HCl (Pyridium) 200 mg PO TIDPC [facility] Last Admin: 02/20/17 12:17 Dose: 200 mg Sodium Polystyrene Sulfonate (Kayexalate) 15 gm PO Q6H [facility] Last Admin: 02/18/17 15:28 Dose: 15 gm Sodium Polystyrene Sulfonate (Kayexalate) 45 gm PO NOW ONE Stop: 02/19/17 10:29 Last Admin: 02/19/17 12:00 Dose: Not Given Temazepam (Restoril) 15 mg PO BEDTIME PRN PRN Reason: Sleep Tolterodine Tartrate (Detrol La 24 Hr) 4 mg PO DAILY [facility] Last Admin: 02/20/17 09:44 Dose: 4 mg Vancomycin HCl (Pharmacy To Dose - Vancomycin) 1 dose .XX ASDIRECTED NATALIE *Q Meaningful Use (DIS) - VTE *Q VTE Criteria *Q: - Stroke *Q Stroke Criteria *Q: - AMI *Q AMI Criteria *Q: - Free Text/Narrative Note: I have examined the patient. I have discussed treatment plan with resident. I agree with assessment and plan outlined in the following resident's note.
== END 2017-02-20 13:02 | disposition home or self-care (01) | DRG 176 ==
LOC: MW.ED 19:04 → MW.ICU 21:44
PROVIDERS: ADMIT Family Medicine; ATTEND Family Medicine
DX: I26.99 Other pulmonary embolism without acute cor pulmonale (principal); N39.0 Urinary tract infection, site not specified; E11.9 Type 2 diabetes mellitus without complications; E87.5 Hyperkalemia; C51.9 Malignant neoplasm of vulva, unspecified; B37.2 Candidiasis of skin and nail; F41.9 Anxiety disorder, unspecified; D50.9 Iron deficiency anemia, unspecified; F17.200 Nicotine dependence, unspecified, uncomplicated; Z88.8 Allergy status to other drugs, medicaments and biological substances; Z79.899 Other long term (current) drug therapy
CPT/HCPCS: 36415; 71010; 71010-26; 71275; 71275-26; 80048; 80053; 80061; 80202; 81001; 82553; 82962; 83605; 83735; 83880; 84484; 85025; 85379; 85610; 87040; 87086; 93005; 93306; 94664; 96361; 96365; 96367; 96372; 96375; 99285; 99285-25; A9270-GY; C9113; J1650; J1815-GY ×2; J2270; J2405; J2543; J2930; J3370; J3475; J7040; J7050; J7060; Q9967

== ENCOUNTER 2017-06-19 13:41 | Emergency (ER) | payer MEDICAID ==
[2017-06-19 14:04] VITALS: BP 130/82
--- NOTE | 2017-06-19 14:12 | EDM.PDOC ---
ED HPI GENERAL MEDICAL PROBLEM - General Chief Complaint: Skin Complaint Stated Complaint: WOUND Time Seen by Provider: 06/19/17 14:00 Source of Information: Reports: Patient History Limitations: Reports: No Limitations - History of Present Illness INITIAL COMMENTS - FREE TEXT/NARRATIVE: HISTORY AND PHYSICAL: History of present illness: [Patient comes to the emergency room for reevaluation of a post operative wound to her lower abdomen. Had exploratory laparotomy and hernia repair in March 2017 2 weeks prior to vulvovaginal excision and revision surgery for cancer. Surgeries were completed in [facility]. She follows with Dr. Rahman in [place] who is out for the rest of the week. Patient has a colostomy. She has a wound VAC and dressing and has been instructed to have changed 3 times per week with physical therapy. Patient states that she has become homeless over the past several days and has been unable to charge the battery of her wound VAC. Physical therapy calls the ER to report that patient has been noncompliant with coming for wound dressing changes. Today physical therapy noticed that her wound seems deeper and abdominal mesh is visualized at the base of the wound and they recommended that she come to the ER for evaluation. She is also complaining of a rash to her chest and upper extremities. Is itchy. Has not taken any medications for her symptoms. Denies fever and chills. No sore throat or headaches. Denies chest pain shortness of breath and difficulty breathing. No abdominal pain, nausea or vomiting. No change in bowel or bladder. Appetite is normal. No new muscle aches or pains. Was recently started on antidepressants by Dr. Rahman.] Review of systems: As per history of present illness and below otherwise all systems reviewed and negative. Past medical history: As per history of present illness and as reviewed below otherwise noncontributory. Surgical history: As per history of present illness and as reviewed below otherwise noncontributory. Social history: No reported history of drug or alcohol abuse. Family history: As per history of present illness and as reviewed below otherwise noncontributory. Physical exam: Gen.: Well-developed well-nourished female in no acute distress. Appears nontoxic. HEENT: Atraumatic, normocephalic. Lungs: Clear to auscultation, breath sounds equal bilaterally. Heart: S1S2, regular rate and rhythm. negative for clicks, murmurs. Abdomen: Obese. Elliptical shaped wound to patients lower abdomen, below umbilicus. Skin is pink and dry. Granulation tissue present and appears healthy. Mesh is present at the very base of the wound. Bowel sounds are normoactive throughout. Abdomen is otherwise soft, nondistended, nontender. Skin: Maculopapular erythematous rash across chest and upper extremities primarily over her inner upper arm.. Pelvis: Stable nontender. Genitourinary: Deferred. Rectal: Deferred. Extremities: Atraumatic. Neurovascular unremarkable. Neuro: Awake, alert, oriented. Motor and sensory unremarkable throughout. Exam nonfocal. Impression: [Abdominal wound, status post exploratory laparotomy and hernia repair March 2017 ] Plan: [Discussed with patient that would like to draw labs and have an IV placed for fluids and possible antibiotics. Patient denies any lab work, IVs and needle sticks. 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 The case is reviewed with Dr. Grullon who also evaluates patient and recommended inpatient admissio.. Patient declines any interventions and admission but requests something to take for her rash. human services manager consult on patient. See note in chart. Wound is packed with a wet-to-dry dressing by nurse and patient is discharged from the ER with one tablet of Benadryl. She is instructed to take this medication once she gets to her final destination today as it will likely make her tired. She is instructed to follow-up closely with her PCP. Definitive disposition and diagnosis as appropriate pending reevaluation and review of above. Abdominal Pain Score (Numeric/FACES): 0 - Related Data Allergies Allergy/AdvReac Type Severity Reaction Status Date / Time adhesive tape Allergy Rash Verified 02/17/17 19:21 codeine Allergy Hives Verified 02/17/17 19:21 ibuprofen Allergy Hives Verified 02/17/17 19:21 iron Allergy Dizziness Verified 02/17/17 19:21 naproxen Allergy Hives Verified 02/17/17 19:21 Home Meds: Home Meds Albuterol [Proventil HFA] 2 inh IH Q4H PRN 10/29/16 [History] Phenazopyridine HCl [Pyridium] 100 mg PO TID 02/17/17 [History] Tolterodine Tartrate [Tolterodine Tartrate ER] 4 mg PO DAILY 02/17/17 [History] Trospium Chloride 20 mg PO BID 02/17/17 [History] metFORMIN HCl [Glucophage] 1,000 mg PO BID 02/17/17 [History] traMADol HCl [Tramadol HCl] 50 mg PO Q4H PRN 02/17/17 [History] Apixaban [Eliquis] 5 mg PO BID #60 tablet 02/20/17 [Rx] Fluconazole [Diflucan] 200 mg PO BID #14 tablet 02/20/17 [Rx] Levofloxacin [Levaquin] 750 mg PO DAILY #6 tablet 02/20/17 [Rx] Past Medical History Other HEENT History: Patient given Ativan and Fentanyl in ER, patient now sedated-cannot assess Cardiovascular History: Reports: Other (See Below) Other Cardiovascular History: 2011 was admitted for "heart flutter" Respiratory History: Reports: Asthma Other Gastrointestinal History: Patient given Ativan and Fentanyl in ER, patient now sedated-cannot assess Genitourinary History: Reports: Other (See Below) Other Genitourinary History: Has terry catheter due to vulvar ca, radiation and chemo 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 Blood transfusion history, states received blood transfusion in oncology due to this Other Immunologic History: Patient given Ativan and Fentanyl in ER, patient now sedated-cannot assess Oncologic (Cancer) History: Reports: Other (See Below) Other Oncologic History: vulvar ca Dermatologic History: Reports: None - Infectious Disease History Infectious Disease History: Reports: Chicken Pox - Past Surgical History HEENT Surgical History: Reports: Tonsillectomy GI Surgical History: Reports: Hernia, Abdominal, Other (See Below) Other GI Surgeries/Procedures: exploratory surgery with removal of part of colon and intestine, iliostomy Female Surgical History: Reports: Section, Other (See Below) Other Female Surgeries/Procedures: radical vulvectomy secondary to cancer Oncologic Surgical History: Reports: Other (See Below) Other Oncologic Surgeries/Procedures: radical vulvectomy Social & Family History - Family History Family Medical History: Noncontributory Other Cardiac Family History: Patient given Ativan and Fentanyl in ER, patient now sedated-cannot assess Other Dermatologic Family History: Patient given Ativan and Fentanyl in ER, patient now sedated-cannot assess - Tobacco Use Smoking Status *Q: Current Every Day Smoker Years of Tobacco use: 20 Packs/Tins Daily: 0.5 Used Tobacco, but Quit: No Second Hand Smoke Exposure: Yes - Caffeine Use Caffeine Use: Reports: Coffee Caffeine Use Comment: Daily - Recreational Drug Use Recreational Drug Use: No Drug Use in Last 12 Months: Yes Recreational Drug Type: Reports: Methamphetamine ED ROS GENERAL - Review of Systems Review Of Systems: ROS reveals no pertinent complaints other than HPI. ED EXAM, SKIN/RASH Exam: See Below Course - Vital Signs Last Recorded V/S: Last Vital Signs Temp 96.9 F 06/19/17 14:02 Pulse 101 H 06/19/17 14:02 Resp 18 06/19/17 14:02 BP 130/82 06/19/17 14:02 Pulse Ox 97 06/19/17 14:02 - Orders/Labs/Meds Meds: Medications Discontinued Medications Generic Name Dose Route Start Last Admin Trade Name Freq PRN Reason Stop Dose Admin Diphenhydramine HCl 25 mg 06/19/17 14:50 06/19/17 15:00 Benadryl PO 06/19/17 14:51 25 mg ONETIME ONE Administration Sodium Chloride 1,000 mls @ 125 mls/hr 06/19/17 14:14 06/19/17 14:53 Normal Saline IV 06/19/17 22:13 Not Given STAT ONE Departure - Departure Time of Disposition: 14:00 Disposition: Home, Self-Care 01 Condition: Fair Clinical Impression: Open abdominal wall wound, Homelessness, Rash - Discharge Information Instructions: Wound Infection, [id number], Medical Screening Exam Referrals: Hellen WILSON [Primary Care Provider] - Forms: ED Department Discharge Additional Instructions: The following information is given to patients seen in the emergency department who are being discharged to home. This information is to outline your options for follow-up care. We provide all patients seen in our emergency department with a follow-up referral. The need for follow-up, as well as the timing and circumstances, are variable depending upon the specifics of your emergency department visit. If you don't have a primary care physician on staff, we will provide you with a referral. We always advise you to contact your personal physician following an emergency department visit to inform them of the circumstance of the visit and for follow-up with them and/or the need for any referrals to a consulting specialist. The emergency department will also refer you to a specialist when appropriate. This referral assures that you have the opportunity for follow-up care with a specialist. All of these measure are taken in an effort to provide you with optimal care, which includes your follow-up. Under all circumstances we always encourage you to contact your private physician who remains a resource for coordinating your care. When calling for follow-up care, please make the office aware that this follow-up is from your recent emergency room visit. If for any reason you are refused follow-up, please contact the [facility] emergency department at and asked to speak to the emergency department charge nurse. [facility]- [facility] Professional Building [address] [place] [address], [address] [place] [address] Follow-up with the surgeon at the clinic listed above in the next 48 hours. Benadryl as needed for itching. Return to ER as needed as discussed.
[2017-06-19] MEDS ORDERED: Sodium Chloride 0.9% 1,000 ML IV ONE (14:14)
[2017-06-19] MEDS ORDERED: diphenhydrAMINE 25 MG Cap PO ONE (14:50)
== END 2017-06-19 15:11 | disposition home or self-care (01) ==
LOC: MW.ED 13:41
DX: Z48.815 Encounter for surgical aftercare following surgery on the digestive system (principal); Z48.01 Encounter for change or removal of surgical wound dressing; R21 Rash and other nonspecific skin eruption; Z98.890 Other specified postprocedural states; C51.9 Malignant neoplasm of vulva, unspecified; F41.9 Anxiety disorder, unspecified; E11.9 Type 2 diabetes mellitus without complications; E66.9 Obesity, unspecified; F17.210 Nicotine dependence, cigarettes, uncomplicated; Z86.2 Personal history of diseases of the blood and blood-forming organs and certain disorders involving the immune mechanism; Z79.84 Long term (current) use of oral hypoglycemic drugs; Z79.2 Long term (current) use of antibiotics; Z79.899 Other long term (current) drug therapy; Z88.6 Allergy status to analgesic agent; Z88.8 Allergy status to other drugs, medicaments and biological substances; Z88.5 Allergy status to narcotic agent; Z91.048 Other nonmedicinal substance allergy status; Z68.35 Body mass index [BMI] 35.0-35.9, adult; Z59.0 Homelessness
CPT/HCPCS: 99282; A9270

== ENCOUNTER 2017-06-21 19:40 | Emergency (ER) | payer MEDICAID ==
--- NOTE | 2017-06-21 20:11 | EDM.PDOC ---
ED HPI GENERAL MEDICAL PROBLEM - General Chief Complaint: General Stated Complaint: WOUND DRESSING CHANGE Time Seen by Provider: 06/21/17 19:55 Source of Information: Reports: Patient, Old Records, RN - History of Present Illness INITIAL COMMENTS - FREE TEXT/NARRATIVE: She is here for a dressing change. She has a history of vulvar cancer and recent removal of a colon Ca. She has an iliostomy. Her midline laparatomy incision from March 2017 is healing by secondary intention. She is followed by a doctor at the [facility] but could not make it three for a dressing change today. She comes here for a dressing change. - Related Data Allergies Allergy/AdvReac Type Severity Reaction Status Date / Time adhesive tape Allergy Rash Verified 06/21/17 19:50 codeine Allergy Hives Verified 06/21/17 19:50 ibuprofen Allergy Hives Verified 06/21/17 19:50 iron Allergy Dizziness Verified 06/21/17 19:50 naproxen Allergy Hives Verified 06/21/17 19:50 Home Meds: Home Meds Albuterol [Proventil HFA] 2 inh IH Q4H PRN 10/29/16 [History] Phenazopyridine HCl [Pyridium] 100 mg PO TID 02/17/17 [History] Tolterodine Tartrate [Tolterodine Tartrate ER] 4 mg PO DAILY 02/17/17 [History] Trospium Chloride 20 mg PO BID 02/17/17 [History] metFORMIN HCl [Glucophage] 1,000 mg PO BID 02/17/17 [History] traMADol HCl [Tramadol HCl] 50 mg PO Q4H PRN 02/17/17 [History] Apixaban [Eliquis] 5 mg PO BID #60 tablet 02/20/17 [Rx] Fluconazole [Diflucan] 200 mg PO BID #14 tablet 02/20/17 [Rx] Levofloxacin [Levaquin] 750 mg PO DAILY #6 tablet 02/20/17 [Rx] Past Medical History Other HEENT History: Patient given Ativan and Fentanyl in ER, patient now sedated-cannot assess Cardiovascular History: Reports: Other (See Below) Other Cardiovascular History: 2011 was admitted for "heart flutter" Respiratory History: Reports: Asthma Other Gastrointestinal History: Patient given Ativan and Fentanyl in ER, patient now sedated-cannot assess Genitourinary History: Reports: Other (See Below) Other Genitourinary History: Has terry catheter due to vulvar ca, radiation and chemo 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 Blood transfusion history, states received blood transfusion in oncology due to this Other Immunologic History: Patient given Ativan and Fentanyl in ER, patient now sedated-cannot assess Oncologic (Cancer) History: Reports: Other (See Below) Other Oncologic History: vulvar ca Dermatologic History: Reports: None - Infectious Disease History Infectious Disease History: Reports: Chicken Pox - Past Surgical History HEENT Surgical History: Reports: Tonsillectomy GI Surgical History: Reports: Hernia, Abdominal, Other (See Below) Other GI Surgeries/Procedures: exploratory surgery with removal of part of colon and intestine, iliostomy Female Surgical History: Reports: Section, Other (See Below) Other Female Surgeries/Procedures: radical vulvectomy secondary to cancer Oncologic Surgical History: Reports: Other (See Below) Other Oncologic Surgeries/Procedures: radical vulvectomy Social & Family History - Family History Family Medical History: Noncontributory Other Cardiac Family History: Patient given Ativan and Fentanyl in ER, patient now sedated-cannot assess Other Dermatologic Family History: Patient given Ativan and Fentanyl in ER, patient now sedated-cannot assess - Tobacco Use Smoking Status *Q: Current Every Day Smoker Years of Tobacco use: 20 Packs/Tins Daily: 0.5 Used Tobacco, but Quit: No Second Hand Smoke Exposure: Yes - Caffeine Use Caffeine Use: Reports: Coffee Caffeine Use Comment: Daily - Recreational Drug Use Recreational Drug Use: No Drug Use in Last 12 Months: Yes Recreational Drug Type: Reports: Methamphetamine ED ROS GENERAL - Review of Systems Review Of Systems: See Below (no other complaints.) ED EXAM, GENERAL - Physical Exam Exam: See Below Free Text/Narrative:: alert normal speech midline abdominal wound widely open. The gauze packing was removed revealing visibility of the underlying mesh. wound clean wet to dry dressing change Course - Vital Signs Last Recorded V/S: Last Vital Signs Temp 97.2 F 06/21/17 19:50 Pulse 103 H 06/21/17 19:50 Resp 20 06/21/17 19:50 BP 141/91 H 06/21/17 19:50 Pulse Ox 95 06/21/17 19:50 - Re-Assessments/Exams Free Text/Narrative Re-Assessment/Exam: 06/21/17 20:10 advised daily wet to dry dressing change Departure - Departure Time of Disposition: 20:10 Disposition: Home, Self-Care 01 Condition: Fair Clinical Impression: Wound dehiscence - Discharge Information Referrals: PCP,Unknown [Primary Care Provider] - Additional Instructions: continue daily dressing changes wet to dry follow up Saturday with your doctor
[2017-06-21 21:28] VITALS: BP 138/73
== END 2017-06-21 20:45 | disposition home or self-care (01) ==
LOC: MW.ED 19:40
DX: T81.31XA Disruption of external operation (surgical) wound, not elsewhere classified, initial encounter (principal); J45.909 Unspecified asthma, uncomplicated; F41.9 Anxiety disorder, unspecified; E11.9 Type 2 diabetes mellitus without complications; E66.9 Obesity, unspecified; F17.210 Nicotine dependence, cigarettes, uncomplicated; Z88.5 Allergy status to narcotic agent; Z88.6 Allergy status to analgesic agent; Z79.899 Other long term (current) drug therapy; Z79.84 Long term (current) use of oral hypoglycemic drugs; Z86.2 Personal history of diseases of the blood and blood-forming organs and certain disorders involving the immune mechanism; Z98.890 Other specified postprocedural states; Z68.38 Body mass index [BMI] 38.0-38.9, adult; Z85.44 Personal history of malignant neoplasm of other female genital organs; X58.XXXA Exposure to other specified factors, initial encounter
CPT/HCPCS: 99281; 99283

== ENCOUNTER 2017-07-19 23:11 | Emergency (ER) | payer MEDICAID ==
--- NOTE | 2017-07-19 23:46 | EDM.PDOC ---
ED HPI GENERAL MEDICAL PROBLEM - General Chief Complaint: Skin Complaint Stated Complaint: CHECK UP ON DRESSING/ABDOMEN Time Seen by Provider: 07/19/17 23:35 Source of Information: Reports: Patient, RN - History of Present Illness INITIAL COMMENTS - FREE TEXT/NARRATIVE: She is here for a wound redressing ; wet to dry. She was seen by myself June 21, 2017 and wet to dry dressing changes were ordered with follow up with a physician within 2-3 days. she has not followed by with a physician yet. She had a laparotomy for an abdominal tumor and ileostomy. Her post operative course was complicated by wound dehiscence . Mesh was placed deep in the wound over the fascial layer. She states that the wound is shrinking. - Related Data Allergies Allergy/AdvReac Type Severity Reaction Status Date / Time adhesive tape Allergy Rash Verified 06/21/17 19:50 codeine Allergy Hives Verified 06/21/17 19:50 ibuprofen Allergy Hives Verified 06/21/17 19:50 iron Allergy Dizziness Verified 06/21/17 19:50 naproxen Allergy Hives Verified 06/21/17 19:50 Home Meds: Home Meds Albuterol [Proventil HFA] 2 inh IH Q4H PRN 10/29/16 [History] Phenazopyridine HCl [Pyridium] 100 mg PO TID 02/17/17 [History] Tolterodine Tartrate [Tolterodine Tartrate ER] 4 mg PO DAILY 02/17/17 [History] Trospium Chloride 20 mg PO BID 02/17/17 [History] metFORMIN HCl [Glucophage] 1,000 mg PO BID 02/17/17 [History] traMADol HCl [Tramadol HCl] 50 mg PO Q4H PRN 02/17/17 [History] Apixaban [Eliquis] 5 mg PO BID #60 tablet 02/20/17 [Rx] Fluconazole [Diflucan] 200 mg PO BID #14 tablet 02/20/17 [Rx] Levofloxacin [Levaquin] 750 mg PO DAILY #6 tablet 02/20/17 [Rx] Past Medical History Other HEENT History: Patient given Ativan and Fentanyl in ER, patient now sedated-cannot assess Cardiovascular History: Reports: Other (See Below) Other Cardiovascular History: 2010 was admitted for "heart flutter" Respiratory History: Reports: Asthma Other Gastrointestinal History: Patient given Ativan and Fentanyl in ER, patient now sedated-cannot assess Genitourinary History: Reports: Other (See Below) Other Genitourinary History: Has terry catheter due to vulvar ca, radiation and chemo 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 Blood transfusion history, states received blood transfusion in oncology due to this Other Immunologic History: Patient given Ativan and Fentanyl in ER, patient now sedated-cannot assess Oncologic (Cancer) History: Reports: Other (See Below) Other Oncologic History: vulvar ca Dermatologic History: Reports: None - Infectious Disease History Infectious Disease History: Reports: Chicken Pox - Past Surgical History HEENT Surgical History: Reports: Tonsillectomy GI Surgical History: Reports: Hernia, Abdominal, Other (See Below) Other GI Surgeries/Procedures: exploratory surgery with removal of part of colon and intestine, iliostomy Female Surgical History: Reports: Section, Other (See Below) Other Female Surgeries/Procedures: radical vulvectomy secondary to cancer Oncologic Surgical History: Reports: Other (See Below) Other Oncologic Surgeries/Procedures: radical vulvectomy Social & Family History - Family History Family Medical History: Noncontributory Other Cardiac Family History: Patient given Ativan and Fentanyl in ER, patient now sedated-cannot assess Other Dermatologic Family History: Patient given Ativan and Fentanyl in ER, patient now sedated-cannot assess - Tobacco Use Smoking Status *Q: Current Every Day Smoker Years of Tobacco use: 20 Packs/Tins Daily: 0.5 Used Tobacco, but Quit: No Second Hand Smoke Exposure: Yes - Caffeine Use Caffeine Use: Reports: Coffee Caffeine Use Comment: Daily - Recreational Drug Use Recreational Drug Use: No Drug Use in Last 12 Months: Yes Recreational Drug Type: Reports: Methamphetamine ED ROS GENERAL - Review of Systems Review Of Systems: See Below (no fever; no vomiting;) ED EXAM, SKIN/RASH Exam: See Below Text/Narrative:: alert nad midline surgical wound open to the layer of the mesh; wound edges showing good granulation tissue; some discolored exudate at the base of the wound. the wound appears to be decreased in size compared to last exam. wound is irrigated and wet to dry dressing change done. Course - Orders/Labs/Meds Orders: Active Orders 24 hr Category Date Time Status Communication Order [RC] PER UNIT ROUTINE Care 07/19/17 23:38 Ordered Departure - Departure Time of Disposition: 23:44 Disposition: Home, Self-Care 01 Clinical Impression: Wound dehiscence - Discharge Information Referrals: PCP,None [Primary Care Provider] - Additional Instructions: continue daily dressing changes follow up with your doctor within a week order for wound dressing changes written with expiration date august 03, 2017 - My Orders Last 24 Hours: My Active Orders 07/19/17 23:38 Communication Order [RC] PER UNIT ROUTINE - Assessment/Plan Last 24 Hours: My Active Orders 07/19/17 23:38 Communication Order [RC] PER UNIT ROUTINE
[2017-07-20 00:06] VITALS: BP 143/75
== END 2017-07-20 00:10 | disposition home or self-care (01) ==
LOC: MW.ED 23:11
DX: T81.32XA Disruption of internal operation (surgical) wound, not elsewhere classified, initial encounter (principal); J45.909 Unspecified asthma, uncomplicated; E11.9 Type 2 diabetes mellitus without complications; E66.9 Obesity, unspecified; F17.210 Nicotine dependence, cigarettes, uncomplicated; Z90.49 Acquired absence of other specified parts of digestive tract; Z88.5 Allergy status to narcotic agent; Z88.6 Allergy status to analgesic agent; Z79.84 Long term (current) use of oral hypoglycemic drugs; Z79.899 Other long term (current) drug therapy
CPT/HCPCS: 99282

== ENCOUNTER 2017-07-23 22:45 | Emergency (ER) | payer MEDICAID ==
--- NOTE | 2017-07-24 00:58 | EDM.PDOC ---
ED HPI GENERAL MEDICAL PROBLEM - General Chief Complaint: Wound Recheck Stated Complaint: NEED CHANGE OF GAUZE Time Seen by Provider: 07/24/17 00:56 Source of Information: Reports: Patient - History of Present Illness INITIAL COMMENTS - FREE TEXT/NARRATIVE: down time----see t sheet - Related Data Allergies Allergy/AdvReac Type Severity Reaction Status Date / Time adhesive tape Allergy Rash Verified 06/21/17 19:50 Bleach (Sodium Hypochlorite) Allergy Hives Verified 07/19/17 23:42 codeine Allergy Hives Verified 06/21/17 19:50 ibuprofen Allergy Hives Verified 06/21/17 19:50 iron Allergy Dizziness Verified 06/21/17 19:50 naproxen Allergy Hives Verified 06/21/17 19:50 amonia Allergy Hives Uncoded 07/19/17 23:42 Home Meds: Home Meds Apixaban [Eliquis] 5 mg PO BID #60 tablet 02/20/17 [Rx] Past Medical History HEENT History: Reports: None Other HEENT History: Patient given Ativan and Fentanyl in ER, patient now sedated-cannot assess Cardiovascular History: Reports: Other (See Below) Other Cardiovascular History: 2010 was admitted for "heart flutter" Respiratory History: Reports: Asthma Other Gastrointestinal History: Patient given Ativan and Fentanyl in ER, patient now sedated-cannot assess Genitourinary History: Reports: Other (See Below) Other Genitourinary History: Has terry catheter due to vulvar ca, radiation and chemo PERSONNEL ADMINISTRATOR History: Reports: , 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 Blood transfusion history, states received blood transfusion in oncology due to this Other Immunologic History: Patient given Ativan and Fentanyl in ER, patient now sedated-cannot assess Oncologic (Cancer) History: Reports: Other (See Below) Other Oncologic History: vulvar ca Dermatologic History: Reports: None - Infectious Disease History Infectious Disease History: Reports: Chicken Pox - Past Surgical History HEENT Surgical History: Reports: Tonsillectomy GI Surgical History: Reports: Hernia, Abdominal, Other (See Below) Other GI Surgeries/Procedures: exploratory surgery with removal of part of colon and intestine, iliostomy Female Surgical History: Reports: Section, Other (See Below) Other Female Surgeries/Procedures: radical vulvectomy secondary to cancer Oncologic Surgical History: Reports: Other (See Below) Other Oncologic Surgeries/Procedures: radical vulvectomy Social & Family History - Family History Family Medical History: Noncontributory Other Cardiac Family History: Patient given Ativan and Fentanyl in ER, patient now sedated-cannot assess Other Dermatologic Family History: Patient given Ativan and Fentanyl in ER, patient now sedated-cannot assess - Tobacco Use Smoking Status *Q: Current Every Day Smoker Years of Tobacco use: 30 Packs/Tins Daily: 1 Used Tobacco, but Quit: No Second Hand Smoke Exposure: Yes - Caffeine Use Caffeine Use: Reports: Coffee Caffeine Use Comment: Daily - Recreational Drug Use Recreational Drug Use: No Drug Use in Last 12 Months: Yes Recreational Drug Type: Reports: Methamphetamine ED ROS GENERAL - Review of Systems Review Of Systems: See Below ED EXAM, GENERAL - Physical Exam Exam: See Below Course - Vital Signs Last Recorded V/S: Last Vital Signs Temp 36.1 C 07/23/17 23:07 Pulse 100 07/23/17 23:07 Resp 18 07/23/17 23:07 BP 154/89 H 07/23/17 23:07 Pulse Ox 99 07/23/17 23:07 Departure - Departure Time of Disposition: 00:56 Disposition: Home, Self-Care 01 Condition: Good Clinical Impression: Encounter for wound care Clinical Impression: (Ruled Out): Cellulitis - Discharge Information Referrals: Saúl Rahman MD [Primary Care Provider] - Additional Instructions: f/u pcp to arrange wound care f/u gen surg for management treatment--refferal provided see t sheet for note----down time
[2017-07-24 07:18] VITALS: BP 120/72
== END 2017-07-24 03:58 | disposition home or self-care (01) ==
LOC: MW.ED 22:45
DX: Z48.01 Encounter for change or removal of surgical wound dressing (principal); Z98.890 Other specified postprocedural states; Z88.5 Allergy status to narcotic agent; Z88.6 Allergy status to analgesic agent; Z91.048 Other nonmedicinal substance allergy status
CPT/HCPCS: 99281; 99282

== ENCOUNTER 2018-12-03 13:35 | Emergency (ER) | payer MEDICAID ==
--- NOTE | 2018-12-03 14:23 | CR ---
EXAMINATION: Two-view chest (PA and Lateral views). HISTORY: Shortness of breath. FINDINGS: The trachea is midline. The cardiomediastinal silhouette is within normal limits. No pulmonary infiltrates, effusions or pneumothorax. Osseous structures appear unremarkable. IMPRESSION: No acute cardiopulmonary process.
[2018-12-03] MEDS ORDERED: Albuterol/Ipratropium 3.0-0.5 MG/3 ML Neb Soln NEB ONE ×3 (14:25→16:34)
[2018-12-03] MEDS ORDERED: Albuterol 0.083% 2.5 MG/3 ML Neb Soln NEB ONE ×2 (14:51)
[2018-12-03] MEDS: predniSONE 20 MG Tab PO ONE ×2 (14:59→15:01)
[2018-12-03] MEDS ORDERED: Magnesium Sulfate/Water 2 GM in Premix Bag 1 BAG IV ONE (15:02)
[2018-12-03] MEDS ORDERED: Sodium Chloride 0.9% 1,000 ML IV ONE (15:02)
[2018-12-03] MEDS ORDERED: Sodium Chloride 0.9% 10 ML Syringe FLUSH PRN (15:02)
[2018-12-03] MEDS ORDERED: Sodium Chloride 0.9% 2.5 ML Syringe FLUSH PRN (15:02)
[2018-12-03 16:29] VITALS: BP 146/74
--- NOTE | 2018-12-03 16:34 | EDM.PDOC ---
ED HPI GENERAL MEDICAL PROBLEM - General Chief Complaint: Asthma Stated Complaint: ASTHMA ATTACK Time Seen by Provider: 12/03/18 13:57 Source of Information: Reports: Patient History Limitations: Reports: No Limitations - History of Present Illness INITIAL COMMENTS - FREE TEXT/NARRATIVE: History of present illness: []Patient has been coughing yellow-green sputum for 3 days with wheezing. Patient has a history of asthma has been using an albuterol inhaler. Review of systems: As per history of present illness and below otherwise all systems reviewed and negative. Past medical history: As per history of present illness and as reviewed below otherwise noncontributory. Surgical history: As per history of present illness and as reviewed below otherwise noncontributory. Social history: No reported history of drug or alcohol abuse. Family history: As per history of present illness and as reviewed below otherwise noncontributory. Physical exam: General: Well developed, well nourished in NAD HEENT: Atraumatic, normocephalic, pupils reactive, negative for conjunctival pallor or scleral icterus, mucous membranes moist, throat clear, neck supple, nontender, trachea midline. Lungs: Clear to auscultation, breath sounds equal bilaterally, chest nontender. Heart: S1S2, regular, negative for clicks, rubs, or JVD. Abdomen: NABS, Soft, nondistended, ileostomy, nontender. Negative for masses or hepatosplenomegaly. Negative for costovertebral tenderness. Pelvis: Stable nontender. Genitourinary: Deferred. Rectal: Deferred. Extremities: Atraumatic, negative for cords or calf pain. Neurovascular unremarkable. Neuro: Awake, alert, oriented. Cranial nerves II through XII unremarkable. Cerebellum unremarkable. Motor and sensory unremarkable throughout. Exam nonfocal. Skin:warm and dry Diagnostics: Chest x-ray negative, glucose 200 Therapeutics: DuoNeb 2, albuterol neb 1, prednisone by mouth, 2 g magnesium, IV fluids normal saline 1 L ED Course: She continues to be hypoxic despite repeated nebs, fluids, magnesium and steroids. I offered her admission and strongly recommended it however she refuses. Impression: Asthma exacerbation with hypoxia Prescriptions: Amoxicillin, albuterol, prednisone burst Plan: Patient wishes to sign out AMA, she is aware of the possibility of worsening and /or , patient was instructed to return to the ER immediately if any symptoms change and to follow-up with her doctor within the next 2-3 days. Definitive disposition and diagnosis as appropriate pending reevaluation and review of above. - Related Data Allergies Allergy/AdvReac Type Severity Reaction Status Date / Time adhesive tape Allergy Rash Verified 12/03/18 14:26 Bleach (Sodium Hypochlorite) Allergy Hives Verified 12/03/18 14:26 codeine Allergy Hives Verified 12/03/18 14:26 ibuprofen Allergy Hives Verified 12/03/18 14:26 iron Allergy Dizziness Verified 12/03/18 14:26 naproxen Allergy Hives Verified 12/03/18 14:26 amonia Allergy Hives Uncoded 12/03/18 14:26 Home Meds: Home Meds Apixaban [Eliquis] 5 mg PO BID #60 tablet 02/20/17 [Rx] Albuterol [Ventolin HFA] 2 puff INH Q4HR PRN #1 inhaler 12/03/18 [Rx] Amoxicillin 875 mg PO BID 10 Days #20 tab 12/03/18 [Rx] metFORMIN HCl [Metformin HCl] 500 mg PO BID 12/03/18 [History] predniSONE [Prednisone] 20 mg PO DAILY #5 tablet 12/03/18 [Rx] Past Medical History HEENT History: Reports: None Other HEENT History: Patient given Ativan and Fentanyl in ER, patient now sedated-cannot assess Cardiovascular History: Reports: Other (See Below) Other Cardiovascular History: 2011 was admitted for "heart flutter" Respiratory History: Reports: Asthma Other Gastrointestinal History: Patient given Ativan and Fentanyl in ER, patient now sedated-cannot assess Genitourinary History: Reports: Other (See Below) Other Genitourinary History: Has terry catheter due to vulvar ca, radiation and chemo VP HUMAN RESOURCES History: Reports: , Other (See Below) Other VP HUMAN RESOURCES History: Vulvar CA diagnosed in Nov Musculoskeletal History: Reports: Back Pain, Chronic Neurological History: Reports: Headaches, Chronic Psychiatric History: Reports: Anxiety Endocrine/Metabolic History: Reports: Diabetes, Type II, Obesity/BMI 30+ Hematologic History: Reports: Anemia, Iron Deficiency Other Hematologic History: Diagnosed with Iron Deficiency Anemia in 2000. Blood transfusion history, states received blood transfusion in oncology due to this Other Immunologic History: Patient given Ativan and Fentanyl in ER, patient now sedated-cannot assess Oncologic (Cancer) History: Reports: Other (See Below) Other Oncologic History: vulvar ca Dermatologic History: Reports: None - Infectious Disease History Infectious Disease History: Reports: Chicken Pox - Past Surgical History HEENT Surgical History: Reports: Tonsillectomy GI Surgical History: Reports: Hernia, Abdominal, Other (See Below) Other GI Surgeries/Procedures: exploratory surgery with removal of part of colon and intestine, iliostomy Female Surgical History: Reports: Section, Other (See Below) Other Female Surgeries/Procedures: radical vulvectomy secondary to cancer Oncologic Surgical History: Reports: Other (See Below) Other Oncologic Surgeries/Procedures: radical vulvectomy Social & Family History - Family History Family Medical History: Noncontributory Other Cardiac Family History: Patient given Ativan and Fentanyl in ER, patient now sedated-cannot assess Other Dermatologic Family History: Patient given Ativan and Fentanyl in ER, patient now sedated-cannot assess - Tobacco Use Smoking Status *Q: Current Every Day Smoker Years of Tobacco use: 40 Packs/Tins Daily: 1 - Caffeine Use Caffeine Use: Reports: None Caffeine Use Comment: Daily - Recreational Drug Use Recreational Drug Use: No ED ROS GENERAL - Review of Systems Review Of Systems: ROS reveals no pertinent complaints other than HPI. ED EXAM, GENERAL - Physical Exam Exam: See Below (See history of present illness) Course - Vital Signs Last Recorded V/S: Last Vital Signs Temp 97 F 12/03/18 16:28 Pulse 80 12/03/18 16:28 Resp 20 12/03/18 16:28 BP 146/74 H 12/03/18 16:28 Pulse Ox 91 L 12/03/18 16:43 - Orders/Labs/Meds Orders: Active Orders 24 hr Category Date Time Status Blood Glucose Check, Bedside [RC] ONETIME Care 12/03/18 16:31 Active RT Aerosol Therapy [RC] ASDIRECTED Care 12/03/18 14:25 Active RT Aerosol Therapy [RC] ASDIRECTED Care 12/03/18 14:51 Active RT Aerosol Therapy [RC] ASDIRECTED Care 12/03/18 14:51 Active RT Aerosol Therapy [RC] ASDIRECTED Care 12/03/18 15:37 Active RT Aerosol Therapy [RC] ASDIRECTED Care 12/03/18 16:34 Active Sodium Chloride 0.9% [Saline Flush] Med 12/03/18 15:02 Active 10 ml FLUSH ASDIRECTED PRN Sodium Chloride 0.9% [Saline Flush] Med 12/03/18 15:02 Active 2.5 ml FLUSH ASDIRECTED PRN Saline Lock Insert [OM.PC] Stat Oth 12/03/18 15:02 Ordered Medication Orders Sodium Chloride (Saline Flush) 10 ml FLUSH ASDIRECTED PRN PRN Reason: Keep Vein Open Sodium Chloride (Saline Flush) 2.5 ml FLUSH ASDIRECTED PRN PRN Reason: Keep Vein Open Meds: Medications Generic Name Dose Route Start Last Admin Trade Name Freq PRN Reason Stop Dose Admin Sodium Chloride 10 ml 12/03/18 15:02 Saline Flush FLUSH ASDIRECTED PRN Keep Vein Open Sodium Chloride 2.5 ml 12/03/18 15:02 Saline Flush FLUSH ASDIRECTED PRN Keep Vein Open Discontinued Medications Generic Name Dose Route Start Last Admin Trade Name Freq PRN Reason Stop Dose Admin Albuterol 2.5 mg 12/03/18 14:51 12/03/18 14:59 Proventil Neb Soln [facility] 12/03/18 14:52 2.5 mg ONETIME ONE Administration Albuterol 2.5 mg 12/03/18 14:51 12/03/18 15:00 Proventil Neb Soln [facility] 12/03/18 14:52 Not Given ONETIME ONE Albuterol/Ipratropium 3 ml 12/03/18 14:25 12/03/18 14:41 Duoneb 3.0-0.5 Mg/3 Ml [facility] 12/03/18 14:26 3 ml ONETIME ONE Administration Albuterol/Ipratropium 3 ml 12/03/18 15:36 12/03/18 15:43 Duoneb 3.0-0.5 Mg/3 Ml [facility] 12/03/18 15:37 3 ml ONETIME ONE Administration Albuterol/Ipratropium 3 ml 12/03/18 16:34 12/03/18 16:43 Duoneb 3.0-0.5 Mg/3 Ml [facility] 12/03/18 16:35 3 ml ONETIME ONE Administration Magnesium Sulfate 2 gm/ Premix 50 mls @ 25 mls/hr 12/03/18 15:02 12/03/18 15: 25 IV 12/03/18 17:01 25 mls/hr ONETIME ONE Administration Sodium Chloride 1,000 mls @ 999 mls/hr 12/03/18 15:02 12/03/18 15:25 Normal Saline IV 12/03/18 16:02 999 mls/hr .Bolus ONE Administration Prednisone 60 mg 12/03/18 14:25 12/03/18 15:01 Prednisone PO 12/03/18 14:26 60 mg ONETIME ONE Administration Departure - Departure Time of Disposition: 17:21 Disposition: Against Medical Advice 07 Condition: Fair Clinical Impression: Acute asthma exacerbation Qualifiers: Asthma severity: severe Asthma persistence: unspecified Qualified Code(s): J45.901 - Unspecified asthma with (acute) exacerbation - Discharge Information *PRESCRIPTION DRUG MONITORING PROGRAM REVIEWED*: No *COPY OF PRESCRIPTION DRUG MONITORING REPORT IN PATIENT JANELLE: No Prescriptions: Albuterol [Ventolin HFA] 2 puff INH Q4HR PRN #1 inhaler PRN Reason: Shortness Of Breath Amoxicillin 875 mg PO BID 10 Days #20 tab predniSONE [Prednisone] 20 mg PO DAILY #5 tablet Referrals: PCP,None [Primary Care Provider] - Forms: ED Department Discharge Additional Instructions: The following information is given to patients seen in the emergency department who are being discharged to home. This information is to outline your options for follow-up care. We provide all patients seen in our emergency department with a follow-up referral. The need for follow-up, as well as the timing and circumstances, are variable depending upon the specifics of your emergency department visit. If you don't have a primary care physician on staff, we will provide you with a referral. We always advise you to contact your personal physician following an emergency department visit to inform them of the circumstance of the visit and for follow-up with them and/or the need for any referrals to a consulting specialist. The emergency department will also refer you to a specialist when appropriate. This referral assures that you have the opportunity for follow-up care with a specialist. All of these measure are taken in an effort to provide you with optimal care, which includes your follow-up. Under all circumstances we always encourage you to contact your private physician who remains a resource for coordinating your care. When calling for follow-up care, please make the office aware that this follow-up is from your recent emergency room visit. If for any reason you are refused follow-up, please contact the [facility] Emergency Department at and asked to speak to the emergency department charge nurse. Take amoxicillin, use albuterol and prednisone as directed, check her glucose levels frequently, follow up with your doctor in 2-3 days. Return to ER immediately if symptoms worsen or change. [facility] [address] [place] [id number] - My Orders Last 24 Hours: My Active Orders 12/03/18 14:25 RT Aerosol Therapy [RC] ASDIRECTED 12/03/18 14:51 RT Aerosol Therapy [RC] ASDIRECTED RT Aerosol Therapy [RC] ASDIRECTED 12/03/18 15:02 Sodium Chloride 0.9% [Saline Flush] 10 ml FLUSH ASDIRECTED PRN Sodium Chloride 0.9% [Saline Flush] 2.5 ml FLUSH ASDIRECTED PRN Saline Lock Insert [OM.PC] Stat 12/03/18 15:37 RT Aerosol Therapy [RC] ASDIRECTED 12/03/18 16:31 Blood Glucose Check, Bedside [RC] ONETIME 12/03/18 16:34 RT Aerosol Therapy [RC] ASDIRECTED - Assessment/Plan Last 24 Hours: My Active Orders 12/03/18 14:25 RT Aerosol Therapy [RC] ASDIRECTED 12/03/18 14:51 RT Aerosol Therapy [RC] ASDIRECTED RT Aerosol Therapy [RC] ASDIRECTED 12/03/18 15:02 Sodium Chloride 0.9% [Saline Flush] 10 ml FLUSH ASDIRECTED PRN Sodium Chloride 0.9% [Saline Flush] 2.5 ml FLUSH ASDIRECTED PRN Saline Lock Insert [OM.PC] Stat 12/03/18 15:37 RT Aerosol Therapy [RC] ASDIRECTED 12/03/18 16:31 Blood Glucose Check, Bedside [RC] ONETIME 12/03/18 16:34 RT Aerosol Therapy [RC] ASDIRECTED
== END 2018-12-03 17:39 | disposition left against medical advice (07) ==
LOC: MW.ED 13:35
DX: J45.901 Unspecified asthma with (acute) exacerbation (principal); R09.02 Hypoxemia; E11.9 Type 2 diabetes mellitus without complications; E66.9 Obesity, unspecified; F17.210 Nicotine dependence, cigarettes, uncomplicated; Z98.890 Other specified postprocedural states; Z88.6 Allergy status to analgesic agent; Z88.8 Allergy status to other drugs, medicaments and biological substances; Z79.84 Long term (current) use of oral hypoglycemic drugs; Z79.899 Other long term (current) drug therapy; Z88.5 Allergy status to narcotic agent; Z91.09 Other allergy status, other than to drugs and biological substances
CPT/HCPCS: 71046; 94640; 96365; 96366; 99285; A9270; J3475; J7040; J7620-GY

== ENCOUNTER 2018-12-09 21:22 | Inpatient (IN) | payer MEDICAID ==
--- NOTE | 2018-12-09 21:26 | EDM.PDOC ---
ED HPI GENERAL MEDICAL PROBLEM - General Stated Complaint: SOB Time Seen by Provider: 12/09/18 21:22 - History of Present Illness INITIAL COMMENTS - FREE TEXT/NARRATIVE: HISTORY AND PHYSICAL: History of present illness: The patient is a 53-year-old female who arrives by EMS for shortness of breath. This patient was seen here in our emergency department on December 03 and says she has a history of asthma and at that time had 3 days of cough with yellow and green sputum and wheezing. She was treated with a chest x-ray which was read as negative as well as duo nebs prednisone IV fluids and despite this intervention remained hypoxic and was offered admission but signed out AMA. She returns today saying that initially she felt a lot better and finished her prednisone therapy and over the last 2-3 days the symptoms have returned. The patient only has an inhaler at home and not a nebulizer machine and does not use home O2. The patient does continue to smoke tobacco. She has had some productivity to the cough. She says she did not get her flu shot this year. She says the cough is so bad that she cannot catch her breath but she is not having chest pain except with the cough. She is also complaining that she has been feeling chills and has never cold she's not had a discrete fever. She is not vomiting or having any abdominal complaints. She does have a history of a colostomy and extensive abdominal surgical history but that is not active as a problem today. Review of systems: As per history of present illness and below otherwise all systems reviewed and negative. Past medical history: As per history of present illness and as reviewed below otherwise noncontributory. Surgical history: As per history of present illness and as reviewed below otherwise noncontributory. Social history: No reported history of drug or alcohol abuse. Family history: As per history of present illness and as reviewed below otherwise noncontributory. Physical exam: General: Well-developed well-nourished overweight female who has a very harsh cough in the ED and his O2 sat was 92% on room air and comes up with O2 therapy. She is speaking without breathlessness. HEENT: Atraumatic, normocephalic, pupils reactive, negative for conjunctival pallor or scleral icterus, mucous membranes moist, throat clear, neck supple, nontender, trachea midline. Lungs: Harsh breath sounds throughout all lung song with expiratory wheezing and rhonchi, there is no stridor and there is some abdominal work of breathing breath sounds equal bilaterally, chest nontender. Heart: S1S2, regular, negative for clicks, rubs, or JVD. Abdomen: Soft, nondistended, nontender. She has a colostomy in place with output and a extensive old midline abdominal wound which is nontender Negative for masses or hepatosplenomegaly. Negative for costovertebral tenderness. Pelvis: Stable nontender. Genitourinary: Deferred. Rectal: Deferred. Extremities: Atraumatic, negative for cords or calf pain. Neurovascular unremarkable. No pedal edema or leg asymmetry Neuro: Awake, alert, oriented. Cranial nerves II through XII unremarkable. Cerebellum unremarkable. Motor and sensory unremarkable throughout. Exam nonfocal. Diagnostics: CBC CMP influenza lactic acid chest x-ray Therapeutics: IV O2 monitor IV fluids duo neb Solu-Medrol On reevaluation the patient is laying on her side sleeping and is still wheezing throughout all song and has coarse breath sounds. On oxygen therapy she is 94% but will dip down to 92% when she's sleeping. We are currently awaiting the remainder of her test results to determine disposition Case was discussed with Dr. Peoples [id number] and he accepts the patient for observation admission Impression: Asthma exacerbation with hypoxia Definitive disposition and diagnosis as appropriate pending reevaluation and review of above. denies pain Pain Score (Numeric/FACES): 0 - Related Data Allergies Allergy/AdvReac Type Severity Reaction Status Date / Time adhesive tape Allergy Rash Verified 12/09/18 21:25 Bleach (Sodium Hypochlorite) Allergy Hives Verified 12/09/18 21:25 codeine Allergy Hives Verified 12/09/18 21:25 ibuprofen Allergy Hives Verified 12/09/18 21:25 iron Allergy Dizziness Verified 12/09/18 21:25 naproxen Allergy Hives Verified 12/09/18 21:25 amonia Allergy Hives Uncoded 12/09/18 21:25 Home Meds: Home Meds Apixaban [Eliquis] 5 mg PO BID #60 tablet 02/20/17 [Rx] Albuterol [Ventolin HFA] 2 puff INH Q4HR PRN #1 inhaler 12/03/18 [Rx] Amoxicillin 875 mg PO BID 10 Days #20 tab 12/03/18 [Rx] metFORMIN HCl [Metformin HCl] 500 mg PO BID 12/03/18 [History] predniSONE [Prednisone] 20 mg PO DAILY #5 tablet 12/03/18 [Rx] Past Medical History HEENT History: Reports: None Other HEENT History: Patient given Ativan and Fentanyl in ER, patient now sedated-cannot assess Cardiovascular History: Reports: Other (See Below) Other Cardiovascular History: 2011 was admitted for "heart flutter" Respiratory History: Reports: Asthma Other Gastrointestinal History: Patient given Ativan and Fentanyl in ER, patient now sedated-cannot assess Genitourinary History: Reports: Other (See Below) Other Genitourinary History: Has terry catheter due to vulvar ca, radiation and chemo 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 Blood transfusion history, states received blood transfusion in oncology due to this Other Immunologic History: Patient given Ativan and Fentanyl in ER, patient now sedated-cannot assess Oncologic (Cancer) History: Reports: Other (See Below) Other Oncologic History: vulvar ca Dermatologic History: Reports: None - Infectious Disease History Infectious Disease History: Reports: Chicken Pox - Past Surgical History HEENT Surgical History: Reports: Tonsillectomy GI Surgical History: Reports: Hernia, Abdominal, Other (See Below) Other GI Surgeries/Procedures: exploratory surgery with removal of part of colon and intestine, iliostomy Female Surgical History: Reports: Section, Other (See Below) Other Female Surgeries/Procedures: radical vulvectomy secondary to cancer Oncologic Surgical History: Reports: Other (See Below) Other Oncologic Surgeries/Procedures: radical vulvectomy Social & Family History - Family History Family Medical History: Noncontributory Other Cardiac Family History: Patient given Ativan and Fentanyl in ER, patient now sedated-cannot assess Other Dermatologic Family History: Patient given Ativan and Fentanyl in ER, patient now sedated-cannot assess - Caffeine Use Caffeine Use: Reports: None Caffeine Use Comment: Daily ED ROS GENERAL - Review of Systems Review Of Systems: ROS reveals no pertinent complaints other than HPI. ED EXAM, GENERAL - Physical Exam Exam: See Below (See dictation) Course - Vital Signs Last Recorded V/S: Last Vital Signs Temp 37.2 C 12/09/18 23:22 Pulse 106 H 12/09/18 23:22 Resp 24 H 12/09/18 22:30 BP 132/69 12/09/18 23:22 Pulse Ox 93 L 12/09/18 23:22 - Orders/Labs/Meds Orders: Active Orders 24 hr Category Date Time Status Patient Status [ADT] Stat ADT 12/09/18 23:44 Ordered Cardiac Monitoring [RC] . DIRECTED Care 12/09/18 21:29 Active Oxygen Therapy, ED [RC] ASDIRECTED Care 12/09/18 21:29 Active Pulse Oximetry [RC] ASDIRECTED Care 12/09/18 21:29 Active RT Aerosol Therapy [RC] ASDIRECTED Care 12/09/18 21:30 Active RT Aerosol Therapy [RC] ASDIRECTED Care 12/09/18 22:58 Active Sodium Chloride 0.9% [Saline Flush] Med 12/09/18 21:30 Active 10 ml FLUSH ASDIRECTED PRN Sodium Chloride 0.9% [Saline Flush] Med 12/09/18 21:30 Active 2.5 ml FLUSH ASDIRECTED PRN Saline Lock Insert [OM.PC] Stat Oth 12/09/18 21:29 Ordered Medication Orders Sodium Chloride (Saline Flush) 10 ml FLUSH ASDIRECTED PRN PRN Reason: Keep Vein Open Last Admin: 12/09/18 22:08 Dose: 10 ml Sodium Chloride (Saline Flush) 2.5 ml FLUSH ASDIRECTED PRN PRN Reason: Keep Vein Open Last Admin: 12/09/18 22:08 Dose: 2.5 ml Labs: Laboratory Tests 12/09/18 12/09/18 12/09/18 Range/Units 22:20 22:20 22:20 WBC 7.90 (4.0-11.0) K/uL RBC 4.35 (4.30-5.90) M/uL Hgb 13.3 (12.0-16.0) g/dL Hct 42.6 (36.0-46.0) % MCV 97.9 (80.0-98.0) fL MCH 30.6 (27.0-32.0) pg MCHC 31.2 (31.0-37.0) g/dL RDW Std Deviation 54.8 (28.0-62.0) fl RDW Coeff of Joana 16 H (11.0-15.0) % Plt Count 170 (150-400) K/uL MPV 10.30 (7.40-12.00) fL Add Manual Diff YES Neutrophils % (Manual) 71 (48.0-80.0) % Band Neutrophils % 3 % Lymphocytes % (Manual) 13 L (16.0-40.0) % Monocytes % (Manual) 3 (0.0-15.0) % Eosinophils % (Manual) 9 H (0.0-7.0) % Basophils % (Manual) 1 (0.0-1.5) % Nucleated RBC % 1.2 /100WBC Absolute Seg Neuts 5.6 (1.4-5.7) Band Neutrophils # 0.2 Lymphocytes # (Manual) 1.0 (0.6-2.4) Monocytes # (Manual) 0.2 (0.0-0.8) Eosinophils # (Manual) 0.7 (0.0-0.7) Basophils # (Manual) 0.1 (0.0-0.1) Nucleated RBCs # 0 K/uL Lactate 1.6 (0.20-2.00) mmol/L Sodium 140 (136-145) mmol/L Potassium 5.2 H (3.5-5.1) mmol/L Chloride 105 (98-107) mmol/L Carbon Dioxide 30.0 (21.0-32.0) mmol/L BUN 15 (7.0-18.0) mg/dL Creatinine 1.0 (0.6-1.0) mg/dL Est Cr Clr Drug Dosing 52.64 mL/min Estimated GFR (MDRD) 58.5 ml/min Glucose 201 H (74-106) mg/dL Calcium 8.4 L (8.5-10.1) mg/dL Total Bilirubin 0.5 (0.2-1.0) mg/dL AST 17 (15-37) IU/L ALT 33 (14-63) IU/L Alkaline Phosphatase 150 H (46-116) U/L Total Protein 7.0 (6.4-8.2) g/dL Albumin 3.1 L (3.4-5.0) g/dL Globulin 3.9 (2.6-4.0) g/dL Albumin/Globulin Ratio 0.8 L (0.9-1.6) Meds: Medications Generic Name Dose Route Start Last Admin Trade Name Davisq PRN Reason Stop Dose Admin Sodium Chloride 10 ml 12/09/18 21:30 12/09/18 22:08 Saline Flush FLUSH 10 ml ASDIRECTED PRN Administration Keep Vein Open Sodium Chloride 2.5 ml 12/09/18 21:30 12/09/18 22:08 Saline Flush FLUSH 2.5 ml ASDIRECTED PRN Administration Keep Vein Open Discontinued Medications Generic Name Dose Route Start Last Admin Trade Name Angelia PRN Reason Stop Dose Admin Albuterol/Ipratropium 3 ml 12/09/18 21:30 12/09/18 22:08 Duoneb 3.0-0.5 Mg/3 Ml NEB 12/09/18 21:31 3 ml ONETIME ONE Administration Albuterol/Ipratropium 3 ml 12/09/18 22:58 12/09/18 23:06 Duoneb 3.0-0.5 Mg/3 Ml NEB 12/09/18 22:59 3 ml ONETIME ONE Administration Albuterol/Ipratropium Confirm 12/09/18 22:59 12/09/18 23:05 Duoneb 3.0-0.5 Mg/3 Ml Administered 12/09/18 23:00 Not Given Dose 3 ml .ROUTE .STK-MED ONE Sodium Chloride 1,000 mls @ 999 mls/hr 12/09/18 21:30 12/09/18 21:59 Normal Saline IV 12/09/18 22:30 999 mls/hr STAT ONE Administration Methylprednisolone Sodium Succinate 125 mg 12/09/18 21:30 12/09/18 22:00 Solu-Medrol IVPUSH 12/09/18 21:31 125 mg ONETIME ONE Administration Departure - Departure Time of Disposition: 23:45 Disposition: Refer to Observation Condition: Good Clinical Impression: Exacerbation of asthma Qualifiers: Asthma severity: moderate Asthma persistence: unspecified Qualified Code(s): J45.901 - Unspecified asthma with (acute) exacerbation - Discharge Information Referrals: PCP,Unknown [Primary Care Provider] - - My Orders Last 24 Hours: My Active Orders 12/09/18 21:29 Cardiac Monitoring [RC] . DIRECTED Oxygen Therapy, ED [RC] ASDIRECTED Pulse Oximetry [RC] ASDIRECTED Saline Lock Insert [OM.PC] Stat 12/09/18 21:30 RT Aerosol Therapy [RC] ASDIRECTED Sodium Chloride 0.9% [Saline Flush] 10 ml FLUSH ASDIRECTED PRN Sodium Chloride 0.9% [Saline Flush] 2.5 ml FLUSH ASDIRECTED PRN 12/09/18 22:58 RT Aerosol Therapy [RC] ASDIRECTED 12/09/18 23:44 Patient Status [ADT] Stat - Assessment/Plan Last 24 Hours: My Active Orders 12/09/18 21:29 Cardiac Monitoring [RC] . DIRECTED Oxygen Therapy, ED [RC] ASDIRECTED Pulse Oximetry [RC] ASDIRECTED Saline Lock Insert [OM.PC] Stat 12/09/18 21:30 RT Aerosol Therapy [RC] ASDIRECTED Sodium Chloride 0.9% [Saline Flush] 10 ml FLUSH ASDIRECTED PRN Sodium Chloride 0.9% [Saline Flush] 2.5 ml FLUSH ASDIRECTED PRN 12/09/18 22:58 RT Aerosol Therapy [RC] ASDIRECTED 12/09/18 23:44 Patient Status [ADT] Stat
[2018-12-09] MEDS ORDERED: methylPREDNISolone Sodium Succinate 125 MG/2 ML SDV IVPUSH ONE (21:30)
[2018-12-09] MEDS ORDERED: Sodium Chloride 0.9% 2.5 ML Syringe FLUSH PRN (21:30)
[2018-12-09] MEDS ORDERED: Albuterol/Ipratropium 3.0-0.5 MG/3 ML Neb Soln NEB ONE ×2 (21:30→22:58)
[2018-12-09] MEDS ORDERED: Sodium Chloride 0.9% 10 ML Syringe FLUSH PRN (21:30)
[2018-12-09] MEDS ORDERED: Sodium Chloride 0.9% 1,000 ML IV ONE (21:30)
[2018-12-09] MEDS ORDERED: Albuterol/Ipratropium 3.0-0.5 MG/3 ML Neb Soln ONE (22:59)
--- NOTE | 2018-12-09 23:14 | CR ---
INDICATION: Fever, decreased oxygen saturation TECHNIQUE: Chest 2 views COMPARISON: Chest x-ray 12/03/2018 FINDINGS: Cardiovascular and mediastinum: Normal heart size with atherosclerotic calcification. Lungs and pleural spaces: No pleural effusion or pneumothorax. Bronchial wall thickening with minimal linear opacities left lower lobe. Bones and soft tissues: No significant findings. IMPRESSION: Bronchial wall thickening which can be seen in bronchitis or reactive airways disease with some left lower lobe linear opacities, likely subsegmental atelectasis. Dictated by Marcel Benton MD @ Dec 09 2018 11:10PM Signed by Dr. Marcel Benton @ Dec 09 2018 11:13PM
--- NOTE | 2018-12-10 00:13 | PCM.HP ---
H&P History of Present Illness - General Date of Service: 12/09/18 Admit Problem/Dx: Admission Diagnosis/Problem Admission Diagnosis/Problem Asthma - History of Present Illness Initial Comments - Free Text/Narative: 53 yo female smoker with pmh of asthma who presents with five day history of wheezing, productive cough and shortness of breath. Today patient reports some subjective fevers and chills. She uses and albuterol inhaler at home q4hrs but normal does not use it. denies pain Pain Score (Numeric/FACES): 0 - Related Data Allergies/Adverse Reactions: Allergies Allergy/AdvReac Type Severity Reaction Status Date / Time adhesive tape Allergy Rash Verified 12/09/18 21:25 Bleach (Sodium Hypochlorite) Allergy Hives Verified 12/09/18 21:25 codeine Allergy Hives Verified 12/09/18 21:25 ibuprofen Allergy Hives Verified 12/09/18 21:25 iron Allergy Dizziness Verified 12/09/18 21:25 naproxen Allergy Hives Verified 12/09/18 21:25 amonia Allergy Hives Uncoded 12/09/18 21:25 Home Medications: Home Meds Apixaban [Eliquis] 5 mg PO BID #60 tablet 02/20/17 [Rx] Albuterol [Ventolin HFA] 2 puff INH Q4HR PRN #1 inhaler 12/03/18 [Rx] Amoxicillin 875 mg PO BID 10 Days #20 tab 12/03/18 [Rx] metFORMIN HCl [Metformin HCl] 500 mg PO BID 12/03/18 [History] predniSONE [Prednisone] 20 mg PO DAILY #5 tablet 12/03/18 [Rx] Past Medical History HEENT History: Reports: None Other HEENT History: Patient given Ativan and Fentanyl in ER, patient now sedated-cannot assess Cardiovascular History: Reports: Other (See Below) Other Cardiovascular History: 2010 was admitted for "heart flutter" Respiratory History: Reports: Asthma Gastrointestinal History: Reports: Other (See Below) Other Gastrointestinal History: Patient given Ativan and Fentanyl in ER, patient now sedated-cannot assess Genitourinary History: Reports: Other (See Below) Other Genitourinary History: Has terry catheter due to vulvar ca, radiation and chemo 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 Blood transfusion history, states received blood transfusion in oncology due to this Other Immunologic History: Patient given Ativan and Fentanyl in ER, patient now sedated-cannot assess Oncologic (Cancer) History: Reports: Other (See Below) Other Oncologic History: vulvar ca Dermatologic History: Reports: None - Infectious Disease History Infectious Disease History: Reports: Chicken Pox - Past Surgical History HEENT Surgical History: Reports: Tonsillectomy GI Surgical History: Reports: Hernia, Abdominal, Other (See Below) Other GI Surgeries/Procedures: exploratory surgery with removal of part of colon and intestine, iliostomy Female Surgical History: Reports: Section, Other (See Below) Other Female Surgeries/Procedures: radical vulvectomy secondary to cancer Oncologic Surgical History: Reports: Other (See Below) Other Oncologic Surgeries/Procedures: radical vulvectomy Social & Family History - Family History Family Medical History: Noncontributory Other Cardiac Family History: Patient given Ativan and Fentanyl in ER, patient now sedated-cannot assess Other Dermatologic Family History: Patient given Ativan and Fentanyl in ER, patient now sedated-cannot assess - Tobacco Use Smoking Status *Q: Current Every Day Smoker Years of Tobacco use: 33 Packs/Tins Daily: 0.5 - Caffeine Use Caffeine Use: Reports: None Caffeine Use Comment: Daily - Recreational Drug Use Recreational Drug Use: Yes Drug Use in Last 12 Months: Yes Recreational Drug Type: Reports: Methamphetamine H&P Review of Systems - Review of Systems: Review Of Systems: ROS reveals no pertinent complaints other than HPI. Exam - Exam Exam: See Below - Vital Signs Vital Signs: Last Vital Signs Temp 37.2 C 12/09/18 23:22 Pulse 106 H 12/09/18 23:22 Resp 24 H 12/09/18 22:30 BP 132/69 12/09/18 23:22 Pulse Ox 93 L 12/09/18 23:22 Weight: 136.078 kg - Exam General: Alert, Oriented HEENT: Mucosa Moist & [place] Lungs: Normal Respiratory Effort, Wheezing Cardiovascular: Regular Rate, Regular Rhythm GI/Abdominal Exam: Soft, Non-Tender Extremities: Non-Tender Skin: Warm, Dry, Intact - Patient Data Lab Results Last 24 hrs: Laboratory Results - last 24 hr 12/09/18 12/09/18 12/09/18 Range/Units 22:20 22:20 22:20 WBC 7.90 (4.0-11.0) K/uL RBC 4.35 (4.30-5.90) M/uL Hgb 13.3 (12.0-16.0) g/dL Hct 42.6 (36.0-46.0) % MCV 97.9 (80.0-98.0) fL MCH 30.6 (27.0-32.0) pg MCHC 31.2 (31.0-37.0) g/dL RDW Std Deviation 54.8 (28.0-62.0) fl RDW Coeff of Joana 16 H (11.0-15.0) % Plt Count 170 (150-400) K/uL MPV 10.30 (7.40-12.00) fL Add Manual Diff YES Neutrophils % (Manual) 71 (48.0-80.0) % Band Neutrophils % 3 % Lymphocytes % (Manual) 13 L (16.0-40.0) % Monocytes % (Manual) 3 (0.0-15.0) % Eosinophils % (Manual) 9 H (0.0-7.0) % Basophils % (Manual) 1 (0.0-1.5) % Nucleated RBC % 1.2 /100WBC Absolute Seg Neuts 5.6 (1.4-5.7) Band Neutrophils # 0.2 Lymphocytes # (Manual) 1.0 (0.6-2.4) Monocytes # (Manual) 0.2 (0.0-0.8) Eosinophils # (Manual) 0.7 (0.0-0.7) Basophils # (Manual) 0.1 (0.0-0.1) Nucleated RBCs # 0 K/uL Lactate 1.6 (0.20-2.00) mmol/L Sodium 140 (136-145) mmol/L Potassium 5.2 H (3.5-5.1) mmol/L Chloride 105 (98-107) mmol/L Carbon Dioxide 30.0 (21.0-32.0) mmol/L BUN 15 (7.0-18.0) mg/dL Creatinine 1.0 (0.6-1.0) mg/dL Est Cr Clr Drug Dosing 52.64 mL/min Estimated GFR (MDRD) 58.5 ml/min Glucose 201 H (74-106) mg/dL Calcium 8.4 L (8.5-10.1) mg/dL Total Bilirubin 0.5 (0.2-1.0) mg/dL AST 17 (15-37) IU/L ALT 33 (14-63) IU/L Alkaline Phosphatase 150 H (46-116) U/L Total Protein 7.0 (6.4-8.2) g/dL Albumin 3.1 L (3.4-5.0) g/dL Globulin 3.9 (2.6-4.0) g/dL Albumin/Globulin Ratio 0.8 L (0.9-1.6) Result Diagrams: 12/12/18 05:25 12/12/18 05:25 Fran Results Last 24 hrs: Microbiology 12/09/18 22:16 Influenza Type A Antigen Screen - Final Nasopharyngeal Swab NEGATIVE INFLUENZA A VIRUS AG Influenza Type B Antigen Screen - Final NEGATIVE INFLUENZA B VIRUS AG Problem List Initiated/Reviewed/Updated: Yes Orders Last 24hrs: Active Orders 24 hr Category Date Time Status Patient Status [ADT] Stat ADT 12/09/18 23:44 Active Antiembolic Devices [RC] PER UNIT ROUTINE Care 12/10/18 00:03 Ordered Blood Glucose Check, Bedside [RC] TIDMEALS Care 12/10/18 00:02 Ordered Cardiac Monitoring [RC] . DIRECTED Care 12/09/18 21:29 Active Oxygen Therapy [RC] PRN Care 12/10/18 00:02 Ordered Oxygen Therapy, ED [RC] ASDIRECTED Care 12/09/18 21:29 Active Pulse Oximetry [RC] ASDIRECTED Care 12/09/18 21:29 Active RT Aerosol Therapy [RC] ASDIRECTED Care 12/09/18 21:30 Active RT Aerosol Therapy [RC] ASDIRECTED Care 12/09/18 22:58 Active RT Aerosol Therapy [RC] ASDIRECTED Care 12/10/18 00:03 Ordered VTE/DVT Education [RC] PER UNIT ROUTINE Care 12/10/18 00:02 Ordered Vital Signs [RC] Q4H Care 12/10/18 00:02 Ordered [employer] Diet [DIET] Diet 12/10/18 Breakfast Ordered BASIC METABOLIC PANEL,BMP [CHEM] AM Lab 12/10/18 05:11 Ordered CBC W/O DIFF,HEMOGRAM [HEME] AM Lab 12/10/18 05:11 Ordered Albuterol [Proventil Neb Soln] Med 12/10/18 06:00 Ordered 2.5 mg NEB Q6HRRT Apixaban [Eliquis] Med 12/10/18 09:00 Ordered 5 mg PO BID Azithromycin [Zithromax] Med 12/10/18 00:00 Ordered 500 mg PO Q24H Insulin Aspart [NovoLOG] Med 12/10/18 07:30 Ordered See Protocol SUBCUT TIDAC Sodium Chloride 0.9% @ 125 MLS/HR (1,000ml) Med 12/10/18 00:15 Ordered Sodium Chloride 0.9% [Normal Saline] 1,000 ml IV ASDIRECTED Sodium Chloride 0.9% [Saline Flush] Med 12/09/18 21:30 Active 10 ml FLUSH ASDIRECTED PRN Sodium Chloride 0.9% [Saline Flush] Med 12/09/18 21:30 Active 2.5 ml FLUSH ASDIRECTED PRN methylPREDNISolone Sod Succ [Solu-MEDROL] Med 12/10/18 06:00 Ordered 125 mg IVPUSH Q6H Saline Lock Insert [OM.PC] Stat Oth 12/09/18 21:29 Ordered Sequential Compression Device [OM.PC] Per Unit Routine Oth 12/10/18 00:02 Ordered Resuscitation Status Routine Resus Stat 12/10/18 00:02 Ordered Medication Orders Albuterol (Proventil Neb Soln) 2.5 mg NEB Q6HRRT NATALIE Apixaban (Eliquis) 5 mg PO BID NATALIE Azithromycin (Zithromax) 500 mg PO Q24H NATALIE Sodium Chloride (Normal Saline) 1,000 mls @ 125 mls/hr IV ASDIRECTED NATALIE Insulin Aspart (Novolog) 0 unit SUBCUT TIDAC NATALIE; Protocol Methylprednisolone Sodium Succinate (Solu-Medrol) 125 mg IVPUSH Q6H NATALIE Sodium Chloride (Saline Flush) 10 ml FLUSH ASDIRECTED PRN PRN Reason: Keep Vein Open Last Admin: 12/09/18 22:08 Dose: 10 ml Sodium Chloride (Saline Flush) 2.5 ml FLUSH ASDIRECTED PRN PRN Reason: Keep Vein Open Last Admin: 12/09/18 22:08 Dose: 2.5 ml Assessment/Plan Comment:: 53 yo female admitted for asthma exacerbation. We will treat with solumedrol, albuterol nebs and azithromycin.
[2018-12-10] MEDS: Azithromycin 250 MG Tab PO SCH ×2 (00:45→23:45)
[2018-12-10] MEDS: Sodium Chloride 0.9% 1,000 ML IV SCH ×2 (01:32→09:45)
[2018-12-10] MEDS ORDERED: Albuterol 0.083% 2.5 MG/3 ML Neb Soln NEB SCH (06:00)
[2018-12-10] MEDS: Insulin Aspart 100 Units/ML 3 ML Pen SUBCUT SCH ×3 (06:31→18:40)
[2018-12-10] MEDS: methylPREDNISolone Sodium Succinate 125 MG/2 ML SDV IVPUSH SCH ×4 (06:33→23:46)
[2018-12-10] MEDS: Albuterol/Ipratropium 3.0-0.5 MG/3 ML Neb Soln NEB SCH ×4 (09:49→21:34)
[2018-12-10] MEDS: Apixaban 5 MG Tab PO SCH ×2 (12:21→21:34)
[2018-12-11] MEDS: Albuterol/Ipratropium 3.0-0.5 MG/3 ML Neb Soln NEB SCH ×6 (01:59→21:15)
[2018-12-11] MEDS: Sodium Chloride 0.9% 1,000 ML IV SCH ×2 (02:45→17:35)
[2018-12-11] MEDS: methylPREDNISolone Sodium Succinate 125 MG/2 ML SDV IVPUSH SCH ×3 (05:35→22:45)
[2018-12-11] MEDS: Insulin Aspart 100 Units/ML 3 ML Pen SUBCUT SCH ×3 (07:29→17:34)
[2018-12-11] MEDS: Albuterol 0.083% 2.5 MG/3 ML Neb Soln NEB PRN ×2 (08:26→12:46)
[2018-12-11] MEDS ORDERED: Insulin Aspart 100 Units/ML 3 ML Pen SUBCUT ONE ×5 (08:54→19:45)
[2018-12-11] MEDS: Apixaban 5 MG Tab PO SCH ×2 (09:27→21:23)
[2018-12-11 10:21] LABS: CHLORIDE,CL 102 mmol/L (98-107); SODIUM,NA 136 mmol/L (136-145)
[2018-12-11] MEDS ORDERED: Insulin Aspart 100 Units/ML 3 ML Pen ONE ×2 (12:33→14:41)
[2018-12-11] MEDS ORDERED: Albuterol 8 GM Inhaler INH PRN (12:50)
--- NOTE | 2018-12-11 12:50 | PCM.PN ---
- General Info Date of Service: 12/11/18 Subjective Update: Pt still having respiratory difficulty and sob secondary to her Asthma. But improved since admission. - Patient Data Vitals - Most Recent: Last Vital Signs Temp 35.7 C 12/11/18 08:00 Pulse 71 12/11/18 08:00 Resp 17 12/11/18 08:00 BP 148/99 H 12/11/18 08:00 Pulse Ox 90 L 12/11/18 08:00 Weight - Most Recent: 134.717 kg I&O - Last 24 Hours: Intake & Output 12/10/18 12/11/18 12/11/18 22:59 06:59 14:59 Intake Total 960 2000 Output Total 1950 1720 Balance -990 280 Lab Results Last 24 Hours: Laboratory Results - last 24 hr 12/10/18 12/10/18 12/11/18 Range/Units 12:26 18:37 06:35 WBC (4.0-11.0) K/uL RBC (4.30-5.90) M/uL Hgb (12.0-16.0) g/dL Hct (36.0-46.0) % MCV (80.0-98.0) fL MCH (27.0-32.0) pg MCHC (31.0-37.0) g/dL RDW Std Deviation (28.0-62.0) fl RDW Coeff of Joana (11.0-15.0) % Plt Count (150-400) K/uL MPV (7.40-12.00) fL Add Manual Diff Nucleated RBC % /100WBC Nucleated RBCs # K/uL Sodium (136-145) mmol/L Potassium (3.5-5.1) mmol/L Chloride (98-107) mmol/L Carbon Dioxide (21.0-32.0) mmol/L BUN (7.0-18.0) mg/dL Creatinine (0.6-1.0) mg/dL Est Cr Clr Drug Dosing mL/min Estimated GFR (MDRD) ml/min Glucose (74-106) mg/dL POC Glucose 375 H 342 H 385 H (60-110) mg/dL Calcium (8.5-10.1) mg/dL 12/11/18 12/11/18 12/11/18 Range/Units 08:51 09:09 09:09 WBC 9.10 (4.0-11.0) K/uL RBC 4.20 L (4.30-5.90) M/uL Hgb 12.7 (12.0-16.0) g/dL Hct 41.9 (36.0-46.0) % MCV 99.8 H (80.0-98.0) fL MCH 30.2 (27.0-32.0) pg MCHC 30.3 L (31.0-37.0) g/dL RDW Std Deviation 55.3 (28.0-62.0) fl RDW Coeff of Joana 16 H (11.0-15.0) % Plt Count 178 (150-400) K/uL MPV 10.50 (7.40-12.00) fL Add Manual Diff YES Nucleated RBC % 1.2 /100WBC Nucleated RBCs # 0 K/uL Sodium 136 (136-145) mmol/L Potassium 4.3 (3.5-5.1) mmol/L Chloride 102 (98-107) mmol/L Carbon Dioxide 30.5 (21.0-32.0) mmol/L BUN 16 (7.0-18.0) mg/dL Creatinine 0.9 (0.6-1.0) mg/dL Est Cr Clr Drug Dosing 58.49 mL/min Estimated GFR (MDRD) > 60.0 ml/min Glucose 409 H (74-106) mg/dL POC Glucose 391 H (60-110) mg/dL Calcium 8.3 L (8.5-10.1) mg/dL Med Orders - Current: Current Medications Albuterol (Proventil Neb Soln) 2.5 mg NEB Q4HRRT PRN PRN Reason: Shortness of Breath Last Admin: 12/11/18 12:46 Dose: 2.5 mg Albuterol/Ipratropium (Duoneb 3.0-0.5 Mg/3 Ml) 3 ml NEB Q4HRRT [facility] Last Admin: 12/11/18 10:03 Dose: 3 ml Apixaban (Eliquis) 5 mg PO BID [facility] Last Admin: 12/11/18 09:27 Dose: 5 mg Azithromycin (Zithromax) 500 mg PO Q24H [facility] Last Admin: 12/10/18 23:45 Dose: 500 mg Sodium Chloride (Normal Saline) 1,000 mls @ 125 mls/hr IV ASDIRECTED [facility] Last Admin: 12/11/18 02:45 Dose: 125 mls/hr Insulin Aspart (Novolog) 0 unit SUBCUT TIDAC [facility]; Protocol Last Admin: 12/11/18 12:34 Dose: Not Given Methylprednisolone Sodium Succinate (Solu-Medrol) 125 mg IVPUSH Q12H [facility] Last Admin: 12/11/18 11:27 Dose: 125 mg Sodium Chloride (Saline Flush) 10 ml FLUSH ASDIRECTED PRN PRN Reason: Keep Vein Open Last Admin: 12/09/18 22:08 Dose: 10 ml Sodium Chloride (Saline Flush) 2.5 ml FLUSH ASDIRECTED PRN PRN Reason: Keep Vein Open Last Admin: 12/09/18 22:08 Dose: 2.5 ml Discontinued Medications Albuterol (Proventil Neb Soln) 2.5 mg NEB Q6HRRT [facility] Last Admin: 12/10/18 06:02 Dose: 2.5 mg Albuterol/Ipratropium (Duoneb 3.0-0.5 Mg/3 Ml) 3 ml NEB ONETIME ONE Stop: 12/09/18 21:31 Last Admin: 12/09/18 22:08 Dose: 3 ml Albuterol/Ipratropium (Duoneb 3.0-0.5 Mg/3 Ml) 3 ml NEB ONETIME ONE Stop: 12/09/18 22:59 Last Admin: 12/09/18 23:06 Dose: 3 ml Albuterol/Ipratropium (Duoneb 3.0-0.5 Mg/3 Ml) Confirm Administered Dose 3 ml .ROUTE .STK-MED ONE Stop: 12/09/18 23:00 Last Admin: 12/09/18 23:05 Dose: Not Given Sodium Chloride (Normal Saline) 1,000 mls @ 999 mls/hr IV STAT ONE Stop: 12/09/18 22:30 Last Admin: 12/09/18 21:59 Dose: 999 mls/hr Insulin Aspart (Novolog) 10 unit SUBCUT ONETIME ONE Stop: 12/11/18 08:55 Last Admin: 12/11/18 09:27 Dose: 10 units Insulin Aspart (Novolog) 10 unit SUBCUT ONETIME ONE Stop: 12/11/18 12:33 Insulin Aspart (Novolog) 10 unit .XX ONETIME ONE Stop: 12/11/18 12:34 Methylprednisolone Sodium Succinate (Solu-Medrol) 125 mg IVPUSH ONETIME ONE Stop: 12/09/18 21:31 Last Admin: 12/09/18 22:00 Dose: 125 mg Methylprednisolone Sodium Succinate (Solu-Medrol) 125 mg IVPUSH Q6H [facility] Last Admin: 12/11/18 05:35 Dose: 125 mg - Exam General: Alert Lungs: Decreased Breath Sounds, Wheezing Cardiovascular: Regular Rate, Regular Rhythm - Problem List Review Problem List Initiated/Reviewed/Updated: Yes - My Orders Last 24 Hours: My Active Orders 12/11/18 09:09 CBC WITH AUTO DIFF [HEME] Routine 12/11/18 10:45 methylPREDNISolone Sod Succ [Solu-MEDROL] 125 mg IVPUSH Q12H - Plan Plan:: 53 year old w/ acute Asthma exacerbation and possible CAP pneumonia -Continue with steriods and neb treatment as scheduled Continue with antioboitcs for CAP pneumonia Labs in the morning.
--- NOTE | 2018-12-11 12:50 | PCM.PN ---
- General Info Date of Service: 12/10/18 Subjective Update: Still wheezing and having SOB but feeling better then on admission. - Patient Data Vitals - Most Recent: Last Vital Signs Temp 35.7 C 12/11/18 08:00 Pulse 71 12/11/18 08:00 Resp 17 12/11/18 08:00 BP 148/99 H 12/11/18 08:00 Pulse Ox 90 L 12/11/18 08:00 Weight - Most Recent: 134.717 kg I&O - Last 24 Hours: Intake & Output 12/10/18 12/11/18 12/11/18 22:59 06:59 14:59 Intake Total 960 2000 Output Total 1950 1720 Balance -990 280 Lab Results Last 24 Hours: Laboratory Results - last 24 hr 12/10/18 12/10/18 12/11/18 Range/Units 12:26 18:37 06:35 WBC (4.0-11.0) K/uL RBC (4.30-5.90) M/uL Hgb (12.0-16.0) g/dL Hct (36.0-46.0) % MCV (80.0-98.0) fL MCH (27.0-32.0) pg MCHC (31.0-37.0) g/dL RDW Std Deviation (28.0-62.0) fl RDW Coeff of Joana (11.0-15.0) % Plt Count (150-400) K/uL MPV (7.40-12.00) fL Add Manual Diff Nucleated RBC % /100WBC Nucleated RBCs # K/uL Sodium (136-145) mmol/L Potassium (3.5-5.1) mmol/L Chloride (98-107) mmol/L Carbon Dioxide (21.0-32.0) mmol/L BUN (7.0-18.0) mg/dL Creatinine (0.6-1.0) mg/dL Est Cr Clr Drug Dosing mL/min Estimated GFR (MDRD) ml/min Glucose (74-106) mg/dL POC Glucose 375 H 342 H 385 H (60-110) mg/dL Calcium (8.5-10.1) mg/dL 12/11/18 12/11/18 12/11/18 Range/Units 08:51 09:09 09:09 WBC 9.10 (4.0-11.0) K/uL RBC 4.20 L (4.30-5.90) M/uL Hgb 12.7 (12.0-16.0) g/dL Hct 41.9 (36.0-46.0) % MCV 99.8 H (80.0-98.0) fL MCH 30.2 (27.0-32.0) pg MCHC 30.3 L (31.0-37.0) g/dL RDW Std Deviation 55.3 (28.0-62.0) fl RDW Coeff of Joana 16 H (11.0-15.0) % Plt Count 178 (150-400) K/uL MPV 10.50 (7.40-12.00) fL Add Manual Diff YES Nucleated RBC % 1.2 /100WBC Nucleated RBCs # 0 K/uL Sodium 136 (136-145) mmol/L Potassium 4.3 (3.5-5.1) mmol/L Chloride 102 (98-107) mmol/L Carbon Dioxide 30.5 (21.0-32.0) mmol/L BUN 16 (7.0-18.0) mg/dL Creatinine 0.9 (0.6-1.0) mg/dL Est Cr Clr Drug Dosing 58.49 mL/min Estimated GFR (MDRD) > 60.0 ml/min Glucose 409 H (74-106) mg/dL POC Glucose 391 H (60-110) mg/dL Calcium 8.3 L (8.5-10.1) mg/dL Med Orders - Current: Current Medications Albuterol (Proventil Neb Soln) 2.5 mg NEB Q4HRRT PRN PRN Reason: Shortness of Breath Last Admin: 12/11/18 12:46 Dose: 2.5 mg Albuterol/Ipratropium (Duoneb 3.0-0.5 Mg/3 Ml) 3 ml NEB Q4HRRT [facility] Last Admin: 12/11/18 10:03 Dose: 3 ml Apixaban (Eliquis) 5 mg PO BID [facility] Last Admin: 12/11/18 09:27 Dose: 5 mg Azithromycin (Zithromax) 500 mg PO Q24H [facility] Last Admin: 12/10/18 23:45 Dose: 500 mg Sodium Chloride (Normal Saline) 1,000 mls @ 125 mls/hr IV ASDIRECTED [facility] Last Admin: 12/11/18 02:45 Dose: 125 mls/hr Insulin Aspart (Novolog) 0 unit SUBCUT TIDAC [facility]; Protocol Last Admin: 12/11/18 12:34 Dose: Not Given Methylprednisolone Sodium Succinate (Solu-Medrol) 125 mg IVPUSH Q12H [facility] Last Admin: 12/11/18 11:27 Dose: 125 mg Sodium Chloride (Saline Flush) 10 ml FLUSH ASDIRECTED PRN PRN Reason: Keep Vein Open Last Admin: 12/09/18 22:08 Dose: 10 ml Sodium Chloride (Saline Flush) 2.5 ml FLUSH ASDIRECTED PRN PRN Reason: Keep Vein Open Last Admin: 12/09/18 22:08 Dose: 2.5 ml Discontinued Medications Albuterol (Proventil Neb Soln) 2.5 mg NEB Q6HRRT [facility] Last Admin: 12/10/18 06:02 Dose: 2.5 mg Albuterol/Ipratropium (Duoneb 3.0-0.5 Mg/3 Ml) 3 ml NEB ONETIME ONE Stop: 12/09/18 21:31 Last Admin: 12/09/18 22:08 Dose: 3 ml Albuterol/Ipratropium (Duoneb 3.0-0.5 Mg/3 Ml) 3 ml NEB ONETIME ONE Stop: 12/09/18 22:59 Last Admin: 12/09/18 23:06 Dose: 3 ml Albuterol/Ipratropium (Duoneb 3.0-0.5 Mg/3 Ml) Confirm Administered Dose 3 ml .ROUTE .STK-MED ONE Stop: 12/09/18 23:00 Last Admin: 12/09/18 23:05 Dose: Not Given Sodium Chloride (Normal Saline) 1,000 mls @ 999 mls/hr IV STAT ONE Stop: 12/09/18 22:30 Last Admin: 12/09/18 21:59 Dose: 999 mls/hr Insulin Aspart (Novolog) 10 unit SUBCUT ONETIME ONE Stop: 12/11/18 08:55 Last Admin: 12/11/18 09:27 Dose: 10 units Insulin Aspart (Novolog) 10 unit SUBCUT ONETIME ONE Stop: 12/11/18 12:33 Insulin Aspart (Novolog) 10 unit .XX ONETIME ONE Stop: 12/11/18 12:34 Methylprednisolone Sodium Succinate (Solu-Medrol) 125 mg IVPUSH ONETIME ONE Stop: 12/09/18 21:31 Last Admin: 12/09/18 22:00 Dose: 125 mg Methylprednisolone Sodium Succinate (Solu-Medrol) 125 mg IVPUSH Q6H [facility] Last Admin: 12/11/18 05:35 Dose: 125 mg - Exam General: Alert, Oriented Lungs: Wheezing Cardiovascular: Regular Rate, Regular Rhythm - Problem List Review Problem List Initiated/Reviewed/Updated: Yes - My Orders Last 24 Hours: My Active Orders 12/11/18 09:09 CBC WITH AUTO DIFF [HEME] Routine 12/11/18 10:45 methylPREDNISolone Sod Succ [Solu-MEDROL] 125 mg IVPUSH Q12H - Plan Plan:: 53 yo female admitted for acute asthma exacerbation. Pt to be treated with 125mg q6h Solumedrol, duoneds q4hr scheduled and O2 support For treatment of CAP shall treat with Azithromycin Shall reassess with labs.
[2018-12-11] MEDS: Azithromycin 250 MG Tab PO SCH (23:58)
[2018-12-12] MEDS: Sodium Chloride 0.9% 1,000 ML IV SCH (01:23)
[2018-12-12] MEDS: Albuterol/Ipratropium 3.0-0.5 MG/3 ML Neb Soln NEB SCH ×6 (02:19→21:23)
[2018-12-12] MEDS: Morphine 2 MG/ML Syringe IVPUSH PRN ×5 (02:41→18:33)
[2018-12-12 06:10] LABS: CHLORIDE,CL 106 mmol/L (98-107); SODIUM,NA 140 mmol/L (136-145)
[2018-12-12] MEDS: Insulin Aspart 100 Units/ML 3 ML Pen SUBCUT SCH ×3 (06:51→18:22)
[2018-12-12] MEDS: Apixaban 5 MG Tab PO SCH ×2 (09:15→21:43)
[2018-12-12] MEDS ORDERED: Benzonatate 100 MG Cap PO PRN (10:10)
--- NOTE | 2018-12-12 11:11 | PCM.PN ---
- General Info Date of Service: 12/12/18 Subjective Update: Pt refused a total of 5 Neb treatments since yesterday evening stating she is having pain everytime she coughs. Does appear to be in more distress then yesterday likely due to refusal of Neb treatment. - Patient Data Vitals - Most Recent: Last Vital Signs Temp 36.4 C 12/12/18 08:00 Pulse 82 12/12/18 08:00 Resp 20 12/12/18 08:00 BP 107/66 12/12/18 08:00 Pulse Ox 91 L 12/12/18 08:00 Weight - Most Recent: 134.717 kg I&O - Last 24 Hours: Intake & Output 12/11/18 12/12/18 12/12/18 22:59 06:59 14:59 Intake Total 1600 540 Output Total 1150 1400 Balance 450 -860 Lab Results Last 24 Hours: Laboratory Results - last 24 hr 12/11/18 12/11/18 12/11/18 Range/Units 09:09 14:39 16:32 WBC (4.0-11.0) K/uL RBC (4.30-5.90) M/uL Hgb (12.0-16.0) g/dL Hct (36.0-46.0) % MCV (80.0-98.0) fL MCH (27.0-32.0) pg MCHC (31.0-37.0) g/dL RDW Std Deviation (28.0-62.0) fl RDW Coeff of Joana (11.0-15.0) % Plt Count (150-400) K/uL MPV (7.40-12.00) fL Add Manual Diff Neutrophils % (Manual) 82 H (48.0-80.0) % Band Neutrophils % 6 % Lymphocytes % (Manual) 9 L (16.0-40.0) % Monocytes % (Manual) 2 (0.0-15.0) % Eosinophils % (Manual) 1 (0.0-7.0) % Myelocytes % % Nucleated RBC % /100WBC Absolute Seg Neuts 7.5 H (1.4-5.7) Band Neutrophils # 0.5 Lymphocytes # (Manual) 0.8 (0.6-2.4) Monocytes # (Manual) 0.2 (0.0-0.8) Eosinophils # (Manual) 0.1 (0.0-0.7) Absolute Myelocytes Nucleated RBCs # K/uL Sodium (136-145) mmol/L Potassium (3.5-5.1) mmol/L Chloride (98-107) mmol/L Carbon Dioxide (21.0-32.0) mmol/L BUN (7.0-18.0) mg/dL Creatinine (0.6-1.0) mg/dL Est Cr Clr Drug Dosing mL/min Estimated GFR (MDRD) ml/min Glucose (74-106) mg/dL POC Glucose > 500 H 405 H (60-110) mg/dL Calcium (8.5-10.1) mg/dL Total Bilirubin (0.2-1.0) mg/dL AST (15-37) IU/L ALT (14-63) IU/L Alkaline Phosphatase (46-116) U/L Total Protein (6.4-8.2) g/dL Albumin (3.4-5.0) g/dL Globulin (2.6-4.0) g/dL Albumin/Globulin Ratio (0.9-1.6) 12/11/18 12/11/18 12/11/18 Range/Units 17:10 18:49 21:20 WBC (4.0-11.0) K/uL RBC (4.30-5.90) M/uL Hgb (12.0-16.0) g/dL Hct (36.0-46.0) % MCV (80.0-98.0) fL MCH (27.0-32.0) pg MCHC (31.0-37.0) g/dL RDW Std Deviation (28.0-62.0) fl RDW Coeff of Joana (11.0-15.0) % Plt Count (150-400) K/uL MPV (7.40-12.00) fL Add Manual Diff Neutrophils % (Manual) (48.0-80.0) % Band Neutrophils % % Lymphocytes % (Manual) (16.0-40.0) % Monocytes % (Manual) (0.0-15.0) % Eosinophils % (Manual) (0.0-7.0) % Myelocytes % % Nucleated RBC % /100WBC Absolute Seg Neuts (1.4-5.7) Band Neutrophils # Lymphocytes # (Manual) (0.6-2.4) Monocytes # (Manual) (0.0-0.8) Eosinophils # (Manual) (0.0-0.7) Absolute Myelocytes Nucleated RBCs # K/uL Sodium (136-145) mmol/L Potassium (3.5-5.1) mmol/L Chloride (98-107) mmol/L Carbon Dioxide (21.0-32.0) mmol/L BUN (7.0-18.0) mg/dL Creatinine (0.6-1.0) mg/dL Est Cr Clr Drug Dosing mL/min Estimated GFR (MDRD) ml/min Glucose (74-106) mg/dL POC Glucose 439 H 385 H 275 H (60-110) mg/dL Calcium (8.5-10.1) mg/dL Total Bilirubin (0.2-1.0) mg/dL AST (15-37) IU/L ALT (14-63) IU/L Alkaline Phosphatase (46-116) U/L Total Protein (6.4-8.2) g/dL Albumin (3.4-5.0) g/dL Globulin (2.6-4.0) g/dL Albumin/Globulin Ratio (0.9-1.6) 12/12/18 12/12/18 12/12/18 Range/Units 00:07 05:25 05:25 WBC 9.56 (4.0-11.0) K/uL RBC 4.06 L (4.30-5.90) M/uL Hgb 12.2 (12.0-16.0) g/dL Hct 40.4 (36.0-46.0) % MCV 99.5 H (80.0-98.0) fL MCH 30.0 (27.0-32.0) pg MCHC 30.2 L (31.0-37.0) g/dL RDW Std Deviation 55.5 (28.0-62.0) fl RDW Coeff of Joana 16 H (11.0-15.0) % Plt Count 169 (150-400) K/uL MPV 10.60 (7.40-12.00) fL Add Manual Diff YES Neutrophils % (Manual) 78 (48.0-80.0) % Band Neutrophils % 17 % Lymphocytes % (Manual) 1 L (16.0-40.0) % Monocytes % (Manual) 3 (0.0-15.0) % Eosinophils % (Manual) (0.0-7.0) % Myelocytes % 1 % Nucleated RBC % 0.9 /100WBC Absolute Seg Neuts 7.5 H (1.4-5.7) Band Neutrophils # 1.6 Lymphocytes # (Manual) 0.1 L (0.6-2.4) Monocytes # (Manual) 0.3 (0.0-0.8) Eosinophils # (Manual) (0.0-0.7) Absolute Myelocytes 0.1 Nucleated RBCs # 0 K/uL Sodium 140 (136-145) mmol/L Potassium 4.5 (3.5-5.1) mmol/L Chloride 106 (98-107) mmol/L Carbon Dioxide 33.0 H (21.0-32.0) mmol/L BUN 16 (7.0-18.0) mg/dL Creatinine 0.8 (0.6-1.0) mg/dL Est Cr Clr Drug Dosing 65.80 mL/min Estimated GFR (MDRD) > 60.0 ml/min Glucose 254 H (74-106) mg/dL POC Glucose 204 H (60-110) mg/dL Calcium 8.5 (8.5-10.1) mg/dL Total Bilirubin 0.5 (0.2-1.0) mg/dL AST 29 (15-37) IU/L ALT 56 (14-63) IU/L Alkaline Phosphatase 109 (46-116) U/L Total Protein 6.4 (6.4-8.2) g/dL Albumin 2.8 L (3.4-5.0) g/dL Globulin 3.6 (2.6-4.0) g/dL Albumin/Globulin Ratio 0.8 L (0.9-1.6) 12/12/18 Range/Units 06:45 WBC (4.0-11.0) K/uL RBC (4.30-5.90) M/uL Hgb (12.0-16.0) g/dL Hct (36.0-46.0) % MCV (80.0-98.0) fL MCH (27.0-32.0) pg MCHC (31.0-37.0) g/dL RDW Std Deviation (28.0-62.0) fl RDW Coeff of Joana (11.0-15.0) % Plt Count (150-400) K/uL MPV (7.40-12.00) fL Add Manual Diff Neutrophils % (Manual) (48.0-80.0) % Band Neutrophils % % Lymphocytes % (Manual) (16.0-40.0) % Monocytes % (Manual) (0.0-15.0) % Eosinophils % (Manual) (0.0-7.0) % Myelocytes % % Nucleated RBC % /100WBC Absolute Seg Neuts (1.4-5.7) Band Neutrophils # Lymphocytes # (Manual) (0.6-2.4) Monocytes # (Manual) (0.0-0.8) Eosinophils # (Manual) (0.0-0.7) Absolute Myelocytes Nucleated RBCs # K/uL Sodium (136-145) mmol/L Potassium (3.5-5.1) mmol/L Chloride (98-107) mmol/L Carbon Dioxide (21.0-32.0) mmol/L BUN (7.0-18.0) mg/dL Creatinine (0.6-1.0) mg/dL Est Cr Clr Drug Dosing mL/min Estimated GFR (MDRD) ml/min Glucose (74-106) mg/dL POC Glucose 271 H (60-110) mg/dL Calcium (8.5-10.1) mg/dL Total Bilirubin (0.2-1.0) mg/dL AST (15-37) IU/L ALT (14-63) IU/L Alkaline Phosphatase (46-116) U/L Total Protein (6.4-8.2) g/dL Albumin (3.4-5.0) g/dL Globulin (2.6-4.0) g/dL Albumin/Globulin Ratio (0.9-1.6) Med Orders - Current: Current Medications Albuterol (Proventil Neb Soln) 2.5 mg NEB Q4HRRT PRN PRN Reason: Shortness of Breath Last Admin: 12/11/18 12:46 Dose: 2.5 mg Albuterol (Ventolin Hfa) 8 gm INH Q4H PRN PRN Reason: Shortness of Breath Last Admin: 12/11/18 13:14 Dose: 2 puff Albuterol/Ipratropium (Duoneb 3.0-0.5 Mg/3 Ml) 3 ml NEB Q4HRRT [facility] Last Admin: 12/12/18 09:58 Dose: 3 ml Apixaban (Eliquis) 5 mg PO BID [facility] Last Admin: 12/12/18 09:15 Dose: 5 mg Azithromycin (Zithromax) 500 mg PO Q24H [facility] Last Admin: 12/11/18 23:58 Dose: 500 mg Benzonatate (Tessalon Perles) 100 mg PO TID PRN PRN Reason: Cough Cyclobenzaprine HCl (Flexeril) 5 mg PO TID PRN PRN Reason: Pain Insulin Aspart (Novolog) 0 unit SUBCUT TIDAC [facility]; Protocol Last Admin: 12/12/18 06:51 Dose: 9 units Methylprednisolone Sodium Succinate (Solu-Medrol) 125 mg IVPUSH Q12H [facility] Last Admin: 12/11/18 22:45 Dose: 125 mg Morphine Sulfate (Morphine) 2 mg IVPUSH Q2H PRN PRN Reason: Pain Last Admin: 12/12/18 09:15 Dose: 2 mg Sodium Chloride (Saline Flush) 10 ml FLUSH ASDIRECTED PRN PRN Reason: Keep Vein Open Last Admin: 12/09/18 22:08 Dose: 10 ml Sodium Chloride (Saline Flush) 2.5 ml FLUSH ASDIRECTED PRN PRN Reason: Keep Vein Open Last Admin: 12/09/18 22:08 Dose: 2.5 ml Discontinued Medications Albuterol (Proventil Neb Soln) 2.5 mg NEB Q6HRRT [facility] Last Admin: 12/10/18 06:02 Dose: 2.5 mg Albuterol/Ipratropium (Duoneb 3.0-0.5 Mg/3 Ml) 3 ml NEB ONETIME ONE Stop: 12/09/18 21:31 Last Admin: 12/09/18 22:08 Dose: 3 ml Albuterol/Ipratropium (Duoneb 3.0-0.5 Mg/3 Ml) 3 ml NEB ONETIME ONE Stop: 12/09/18 22:59 Last Admin: 12/09/18 23:06 Dose: 3 ml Albuterol/Ipratropium (Duoneb 3.0-0.5 Mg/3 Ml) Confirm Administered Dose 3 ml .ROUTE .STK-MED ONE Stop: 12/09/18 23:00 Last Admin: 12/09/18 23:05 Dose: Not Given Sodium Chloride (Normal Saline) 1,000 mls @ 999 mls/hr IV STAT ONE Stop: 12/09/18 22:30 Last Admin: 12/09/18 21:59 Dose: 999 mls/hr Sodium Chloride (Normal Saline) 1,000 mls @ 125 mls/hr IV ASDIRECTED [facility] Last Admin: 12/12/18 01:23 Dose: 125 mls/hr Insulin Aspart (Novolog) 10 unit SUBCUT ONETIME ONE Stop: 12/11/18 08:55 Last Admin: 12/11/18 09:27 Dose: 10 units Insulin Aspart (Novolog) 10 unit SUBCUT ONETIME ONE Stop: 12/11/18 12:33 Last Admin: 12/11/18 12:51 Dose: 10 units Insulin Aspart (Novolog) 10 unit .XX ONETIME ONE Stop: 12/11/18 12:34 Last Admin: 12/11/18 12:53 Dose: 10 unit Insulin Aspart (Novolog) 10 unit .XX ONETIME ONE Stop: 12/11/18 14:42 Last Admin: 12/11/18 14:50 Dose: 10 units Insulin Aspart (Novolog) 10 unit SUBCUT ONETIME ONE Stop: 12/11/18 14:42 Last Admin: 12/11/18 14:51 Dose: 10 units Insulin Aspart (Novolog) 8 unit SUBCUT ONETIME ONE Stop: 12/11/18 16:40 Last Admin: 12/11/18 17:32 Dose: 8 units Insulin Aspart (Novolog) 10 unit SUBCUT ONETIME ONE Stop: 12/11/18 19:46 Last Admin: 12/11/18 19:39 Dose: 10 units Methylprednisolone Sodium Succinate (Solu-Medrol) 125 mg IVPUSH ONETIME ONE Stop: 12/09/18 21:31 Last Admin: 12/09/18 22:00 Dose: 125 mg Methylprednisolone Sodium Succinate (Solu-Medrol) 125 mg IVPUSH Q6H [facility] Last Admin: 12/11/18 05:35 Dose: 125 mg - Exam General: Alert, Oriented, Mild Distress Lungs: Wheezing Cardiovascular: Regular Rate, Regular Rhythm - Problem List Review Problem List Initiated/Reviewed/Updated: Yes - My Orders Last 24 Hours: My Active Orders 12/11/18 10:45 methylPREDNISolone Sod Succ [Solu-MEDROL] 125 mg IVPUSH Q12H 12/11/18 12:50 Albuterol [Ventolin HFA] 8 gm INH Q4H PRN 12/11/18 12:54 RT Post Treatment Assessment [RC] Click to Edit RT Pre-Treatment Assessment [RC] Click to Edit 12/12/18 10:10 Benzonatate [Tessalon Perles] 100 mg PO TID PRN Cyclobenzaprine [Flexeril] 5 mg PO TID PRN - Plan Plan:: 53 year old w/ acute Asthma exacerbation and possible CAP pneumonia -Pt continues to have respiratory issues secondary to her asthma exacerbation. Pt refused her last 5 neb treatments. But was encouraged to continue them today after speaking with her. -Pt to continue with steroids, O2 support -Continue with Azithromycin for CAP coverage. -Pt is having coughing spells that is causing some discomfort and increased pain. Pt to be started on Tessalon Perles and muscle relaxer to see if this helps her pain symptoms.
[2018-12-12] MEDS: methylPREDNISolone Sodium Succinate 125 MG/2 ML SDV IVPUSH SCH ×2 (11:37→21:49)
[2018-12-12] MEDS: Azithromycin 250 MG Tab PO SCH (23:26)
[2018-12-13] MEDS: Morphine 2 MG/ML Syringe IVPUSH PRN ×3 (00:30→21:46)
[2018-12-13] MEDS: Albuterol/Ipratropium 3.0-0.5 MG/3 ML Neb Soln NEB SCH ×6 (02:06→21:46)
[2018-12-13] MEDS: Cyclobenzaprine 5 MG Tab PO PRN ×2 (02:11→12:33)
[2018-12-13] MEDS: Insulin Aspart 100 Units/ML 3 ML Pen SUBCUT SCH ×3 (06:46→18:15)
[2018-12-13 06:56] LABS: CHLORIDE,CL 99 mmol/L (98-107); SODIUM,NA 137 mmol/L (136-145)
[2018-12-13] MEDS: Apixaban 5 MG Tab PO SCH ×2 (08:13→21:46)
[2018-12-13] MEDS: methylPREDNISolone Sodium Succinate 125 MG/2 ML SDV IVPUSH SCH ×2 (11:29→21:46)
--- NOTE | 2018-12-13 12:41 | PCM.PN ---
- General Info Date of Service: 12/13/18 Subjective Update: Pt when initially being visited with in the Am stated she was doing better, however during rounds she did have a coughing fit and had some pink sputum. And did appear to indicate feeling a bit worse now. - Patient Data Vitals - Most Recent: Last Vital Signs Temp 36.3 C 12/13/18 11:34 Pulse 79 12/13/18 11:34 Resp 22 H 12/13/18 11:34 BP 162/70 H 12/13/18 11:34 Pulse Ox 91 L 12/13/18 11:34 Weight - Most Recent: 136.078 kg I&O - Last 24 Hours: Intake & Output 12/12/18 12/13/18 12/13/18 22:59 06:59 14:59 Intake Total 990 1590 Output Total 1300 2900 Balance -310 -1310 Lab Results Last 24 Hours: Laboratory Results - last 24 hr 12/12/18 12/12/18 12/13/18 Range/Units 16:56 21:34 05:53 WBC 6.87 (4.0-11.0) K/uL RBC 4.30 (4.30-5.90) M/uL Hgb 12.7 (12.0-16.0) g/dL Hct 42.0 (36.0-46.0) % MCV 97.7 (80.0-98.0) fL MCH 29.5 (27.0-32.0) pg MCHC 30.2 L (31.0-37.0) g/dL RDW Std Deviation 53.6 (28.0-62.0) fl RDW Coeff of Joana 15 (11.0-15.0) % Plt Count 157 (150-400) K/uL MPV 10.40 (7.40-12.00) fL Add Manual Diff YES Neutrophils % (Manual) 90 H (48.0-80.0) % Band Neutrophils % 4 % Lymphocytes % (Manual) 4 L (16.0-40.0) % Monocytes % (Manual) 2 (0.0-15.0) % Nucleated RBC % 1.7 /100WBC Absolute Seg Neuts 6.2 H (1.4-5.7) Band Neutrophils # 0.3 Lymphocytes # (Manual) 0.3 L (0.6-2.4) Monocytes # (Manual) 0.1 (0.0-0.8) Nucleated RBCs # 0 K/uL Sodium (136-145) mmol/L Potassium (3.5-5.1) mmol/L Chloride (98-107) mmol/L Carbon Dioxide (21.0-32.0) mmol/L BUN (7.0-18.0) mg/dL Creatinine (0.6-1.0) mg/dL Est Cr Clr Drug Dosing mL/min Estimated GFR (MDRD) ml/min Glucose (74-106) mg/dL POC Glucose 310 H 309 H (60-110) mg/dL Calcium (8.5-10.1) mg/dL Total Bilirubin (0.2-1.0) mg/dL AST (15-37) IU/L ALT (14-63) IU/L Alkaline Phosphatase (46-116) U/L Total Protein (6.4-8.2) g/dL Albumin (3.4-5.0) g/dL Globulin (2.6-4.0) g/dL Albumin/Globulin Ratio (0.9-1.6) 12/13/18 12/13/18 12/13/18 Range/Units 05:53 06:28 09:59 WBC (4.0-11.0) K/uL RBC (4.30-5.90) M/uL Hgb (12.0-16.0) g/dL Hct (36.0-46.0) % MCV (80.0-98.0) fL MCH (27.0-32.0) pg MCHC (31.0-37.0) g/dL RDW Std Deviation (28.0-62.0) fl RDW Coeff of Joana (11.0-15.0) % Plt Count (150-400) K/uL MPV (7.40-12.00) fL Add Manual Diff Neutrophils % (Manual) (48.0-80.0) % Band Neutrophils % % Lymphocytes % (Manual) (16.0-40.0) % Monocytes % (Manual) (0.0-15.0) % Nucleated RBC % /100WBC Absolute Seg Neuts (1.4-5.7) Band Neutrophils # Lymphocytes # (Manual) (0.6-2.4) Monocytes # (Manual) (0.0-0.8) Nucleated RBCs # K/uL Sodium 137 (136-145) mmol/L Potassium 4.2 (3.5-5.1) mmol/L Chloride 99 (98-107) mmol/L Carbon Dioxide 33.4 H (21.0-32.0) mmol/L BUN 19 H (7.0-18.0) mg/dL Creatinine 0.8 (0.6-1.0) mg/dL Est Cr Clr Drug Dosing 65.80 mL/min Estimated GFR (MDRD) > 60.0 ml/min Glucose 355 H (74-106) mg/dL POC Glucose 339 H 289 H (60-110) mg/dL Calcium 8.9 (8.5-10.1) mg/dL Total Bilirubin 0.6 (0.2-1.0) mg/dL AST 17 (15-37) IU/L ALT 47 (14-63) IU/L Alkaline Phosphatase 107 (46-116) U/L Total Protein 6.5 (6.4-8.2) g/dL Albumin 2.6 L (3.4-5.0) g/dL Globulin 3.9 (2.6-4.0) g/dL Albumin/Globulin Ratio 0.7 L (0.9-1.6) 12/13/18 Range/Units 11:30 WBC (4.0-11.0) K/uL RBC (4.30-5.90) M/uL Hgb (12.0-16.0) g/dL Hct (36.0-46.0) % MCV (80.0-98.0) fL MCH (27.0-32.0) pg MCHC (31.0-37.0) g/dL RDW Std Deviation (28.0-62.0) fl RDW Coeff of Joana (11.0-15.0) % Plt Count (150-400) K/uL MPV (7.40-12.00) fL Add Manual Diff Neutrophils % (Manual) (48.0-80.0) % Band Neutrophils % % Lymphocytes % (Manual) (16.0-40.0) % Monocytes % (Manual) (0.0-15.0) % Nucleated RBC % /100WBC Absolute Seg Neuts (1.4-5.7) Band Neutrophils # Lymphocytes # (Manual) (0.6-2.4) Monocytes # (Manual) (0.0-0.8) Nucleated RBCs # K/uL Sodium (136-145) mmol/L Potassium (3.5-5.1) mmol/L Chloride (98-107) mmol/L Carbon Dioxide (21.0-32.0) mmol/L BUN (7.0-18.0) mg/dL Creatinine (0.6-1.0) mg/dL Est Cr Clr Drug Dosing mL/min Estimated GFR (MDRD) ml/min Glucose (74-106) mg/dL POC Glucose 248 H (60-110) mg/dL Calcium (8.5-10.1) mg/dL Total Bilirubin (0.2-1.0) mg/dL AST (15-37) IU/L ALT (14-63) IU/L Alkaline Phosphatase (46-116) U/L Total Protein (6.4-8.2) g/dL Albumin (3.4-5.0) g/dL Globulin (2.6-4.0) g/dL Albumin/Globulin Ratio (0.9-1.6) Med Orders - Current: Current Medications Acetaminophen (Tylenol Extra Strength) 500 mg PO Q4H PRN PRN Reason: Pain Albuterol (Proventil Neb Soln) 2.5 mg NEB Q4HRRT PRN PRN Reason: Shortness of Breath Last Admin: 12/11/18 12:46 Dose: 2.5 mg Albuterol (Ventolin Hfa) 8 gm INH Q4H PRN PRN Reason: Shortness of Breath Last Admin: 12/11/18 13:14 Dose: 2 puff Albuterol/Ipratropium (Duoneb 3.0-0.5 Mg/3 Ml) 3 ml NEB Q4HRRT [facility] Last Admin: 12/13/18 09:57 Dose: 3 ml Apixaban (Eliquis) 5 mg PO BID [facility] Last Admin: 12/13/18 08:13 Dose: 5 mg Azithromycin (Zithromax) 500 mg PO Q24H [facility] Last Admin: 12/12/18 23:26 Dose: 500 mg Benzonatate (Tessalon Perles) 100 mg PO TID PRN PRN Reason: Cough Cyclobenzaprine HCl (Flexeril) 5 mg PO TID PRN PRN Reason: Pain Last Admin: 12/13/18 02:11 Dose: 5 mg Insulin Aspart (Novolog) 0 unit SUBCUT TIDAC [facility]; Protocol Last Admin: 12/13/18 06:46 Dose: 12 units Methylprednisolone Sodium Succinate (Solu-Medrol) 125 mg IVPUSH Q12H [facility] Last Admin: 12/13/18 11:29 Dose: 125 mg Morphine Sulfate (Morphine) 2 mg IVPUSH Q2H PRN PRN Reason: Pain Last Admin: 12/13/18 00:30 Dose: 2 mg Sodium Chloride (Saline Flush) 10 ml FLUSH ASDIRECTED PRN PRN Reason: Keep Vein Open Last Admin: 12/09/18 22:08 Dose: 10 ml Sodium Chloride (Saline Flush) 2.5 ml FLUSH ASDIRECTED PRN PRN Reason: Keep Vein Open Last Admin: 12/09/18 22:08 Dose: 2.5 ml Discontinued Medications Albuterol (Proventil Neb Soln) 2.5 mg NEB Q6HRRT [facility] Last Admin: 12/10/18 06:02 Dose: 2.5 mg Albuterol/Ipratropium (Duoneb 3.0-0.5 Mg/3 Ml) 3 ml NEB ONETIME ONE Stop: 12/09/18 21:31 Last Admin: 12/09/18 22:08 Dose: 3 ml Albuterol/Ipratropium (Duoneb 3.0-0.5 Mg/3 Ml) 3 ml NEB ONETIME ONE Stop: 12/09/18 22:59 Last Admin: 12/09/18 23:06 Dose: 3 ml Albuterol/Ipratropium (Duoneb 3.0-0.5 Mg/3 Ml) Confirm Administered Dose 3 ml .ROUTE .STK-MED ONE Stop: 12/09/18 23:00 Last Admin: 12/09/18 23:05 Dose: Not Given Sodium Chloride (Normal Saline) 1,000 mls @ 999 mls/hr IV STAT ONE Stop: 12/09/18 22:30 Last Admin: 12/09/18 21:59 Dose: 999 mls/hr Sodium Chloride (Normal Saline) 1,000 mls @ 125 mls/hr IV ASDIRECTED [facility] Last Admin: 12/12/18 01:23 Dose: 125 mls/hr Insulin Aspart (Novolog) 10 unit SUBCUT ONETIME ONE Stop: 12/11/18 08:55 Last Admin: 12/11/18 09:27 Dose: 10 units Insulin Aspart (Novolog) 10 unit SUBCUT ONETIME ONE Stop: 12/11/18 12:33 Last Admin: 12/11/18 12:51 Dose: 10 units Insulin Aspart (Novolog) 10 unit .XX ONETIME ONE Stop: 12/11/18 12:34 Last Admin: 12/11/18 12:53 Dose: 10 unit Insulin Aspart (Novolog) 10 unit .XX ONETIME ONE Stop: 12/11/18 14:42 Last Admin: 12/11/18 14:50 Dose: 10 units Insulin Aspart (Novolog) 10 unit SUBCUT ONETIME ONE Stop: 12/11/18 14:42 Last Admin: 12/11/18 14:51 Dose: 10 units Insulin Aspart (Novolog) 8 unit SUBCUT ONETIME ONE Stop: 12/11/18 16:40 Last Admin: 12/11/18 17:32 Dose: 8 units Insulin Aspart (Novolog) 10 unit SUBCUT ONETIME ONE Stop: 12/11/18 19:46 Last Admin: 12/11/18 19:39 Dose: 10 units Methylprednisolone Sodium Succinate (Solu-Medrol) 125 mg IVPUSH ONETIME ONE Stop: 12/09/18 21:31 Last Admin: 12/09/18 22:00 Dose: 125 mg Methylprednisolone Sodium Succinate (Solu-Medrol) 125 mg IVPUSH Q6H [facility] Last Admin: 12/11/18 05:35 Dose: 125 mg - Exam Quality Assessment: Supplemental Oxygen General: Alert, Oriented, Cooperative, Mild Distress, Moderate Distress Lungs: Decreased Breath Sounds, Wheezing Cardiovascular: Regular Rate, Regular Rhythm GI/Abdominal Exam: Normal Bowel Sounds Extremities: Normal Inspection - Problem List Review Problem List Initiated/Reviewed/Updated: Yes - My Orders Last 24 Hours: My Active Orders 12/13/18 12:19 Acetaminophen [Tylenol Extra Strength] 500 mg PO Q4H PRN - Plan Plan:: 53 year old with Acute Asthma exacerbation and possible CAP Pneumonia. -Pt appeared to have done better over night, however after her coughing spells this morning she is now refusing the DouNeb treatments stating they are making her cough worsen. -Pt has MSK pain secondary to her coughing spells for which she is being treated with Cyclobenzaprine, Tessalon Perles, morphine and acetaminophen. - Continue with steroids and O2 support for the patient's respiratory symptoms, along with azithromycin for the patient's community-acquired pneumonia coverage. -
[2018-12-13] MEDS: Acetaminophen 500 MG Tab PO PRN (18:12)
[2018-12-13] MEDS: Azithromycin 250 MG Tab PO SCH (23:33)
[2018-12-14] MEDS: Acetaminophen 500 MG Tab PO PRN (02:18)
[2018-12-14] MEDS: Albuterol/Ipratropium 3.0-0.5 MG/3 ML Neb Soln NEB SCH ×6 (02:20→21:18)
[2018-12-14] MEDS: Morphine 2 MG/ML Syringe IVPUSH PRN ×4 (03:24→21:59)
[2018-12-14 06:40] LABS: CHLORIDE,CL 96 mmol/L (98-107); SODIUM,NA 136 mmol/L (136-145)
[2018-12-14] MEDS: Apixaban 5 MG Tab PO SCH ×2 (08:01→21:59)
[2018-12-14] MEDS: Insulin Aspart 100 Units/ML 3 ML Pen SUBCUT SCH ×3 (08:15→17:47)
[2018-12-14] MEDS: methylPREDNISolone Sodium Succinate 125 MG/2 ML SDV IVPUSH SCH ×2 (10:34→21:59)
--- NOTE | 2018-12-14 13:13 | PCM.PN ---
- General Info Date of Service: 12/14/18 - Review of Systems Systems Review Comment:: reports shortness of breath, cough, denies fever - Patient Data Vitals - Most Recent: Last Vital Signs Temp 36.1 C 12/14/18 11:45 Pulse 110 H 12/14/18 08:00 Resp 24 H 12/14/18 11:45 BP 140/82 12/14/18 11:45 Pulse Ox 91 L 12/14/18 11:45 Weight - Most Recent: 136.078 kg I&O - Last 24 Hours: Intake & Output 12/13/18 12/14/18 12/14/18 22:59 06:59 14:59 Intake Total 556 500 Output Total 1400 1850 Balance -844 -1350 Lab Results Last 24 Hours: Laboratory Results - last 24 hr 12/13/18 12/14/18 12/14/18 Range/Units 16:47 05:40 05:40 WBC 6.03 (4.0-11.0) K/uL RBC 5.23 (4.30-5.90) M/uL Hgb 16.0 (12.0-16.0) g/dL Hct 49.6 H (36.0-46.0) % MCV 94.8 (80.0-98.0) fL MCH 30.6 (27.0-32.0) pg MCHC 32.3 (31.0-37.0) g/dL RDW Std Deviation 49.7 (28.0-62.0) fl RDW Coeff of Joana 14 (11.0-15.0) % Plt Count 145 L (150-400) K/uL MPV 11.40 (7.40-12.00) fL Add Manual Diff YES Neutrophils % (Manual) 80 (48.0-80.0) % Band Neutrophils % 5 % Lymphocytes % (Manual) 10 L (16.0-40.0) % Monocytes % (Manual) 4 (0.0-15.0) % Metamyelocytes % 1 % Absolute Seg Neuts 4.8 (1.4-5.7) Band Neutrophils # 0.3 Lymphocytes # (Manual) 0.6 (0.6-2.4) Monocytes # (Manual) 0.2 (0.0-0.8) Absolute Metamyelocyte 0.1 Sodium 136 (136-145) mmol/L Potassium 4.3 (3.5-5.1) mmol/L Chloride 96 L (98-107) mmol/L Carbon Dioxide 35.7 H (21.0-32.0) mmol/L BUN 23 H (7.0-18.0) mg/dL Creatinine 0.8 (0.6-1.0) mg/dL Est Cr Clr Drug Dosing 65.80 mL/min Estimated GFR (MDRD) > 60.0 ml/min Glucose 353 H (74-106) mg/dL POC Glucose 290 H (60-110) mg/dL Calcium 9.1 (8.5-10.1) mg/dL Total Bilirubin 0.9 (0.2-1.0) mg/dL AST 29 (15-37) IU/L ALT 64 H (14-63) IU/L Alkaline Phosphatase 129 H (46-116) U/L Total Protein 6.4 (6.4-8.2) g/dL Albumin 2.7 L (3.4-5.0) g/dL Globulin 3.7 (2.6-4.0) g/dL Albumin/Globulin Ratio 0.7 L (0.9-1.6) 12/14/18 12/14/18 Range/Units 06:22 11:33 WBC (4.0-11.0) K/uL RBC (4.30-5.90) M/uL Hgb (12.0-16.0) g/dL Hct (36.0-46.0) % MCV (80.0-98.0) fL MCH (27.0-32.0) pg MCHC (31.0-37.0) g/dL RDW Std Deviation (28.0-62.0) fl RDW Coeff of Joana (11.0-15.0) % Plt Count (150-400) K/uL MPV (7.40-12.00) fL Add Manual Diff Neutrophils % (Manual) (48.0-80.0) % Band Neutrophils % % Lymphocytes % (Manual) (16.0-40.0) % Monocytes % (Manual) (0.0-15.0) % Metamyelocytes % % Absolute Seg Neuts (1.4-5.7) Band Neutrophils # Lymphocytes # (Manual) (0.6-2.4) Monocytes # (Manual) (0.0-0.8) Absolute Metamyelocyte Sodium (136-145) mmol/L Potassium (3.5-5.1) mmol/L Chloride (98-107) mmol/L Carbon Dioxide (21.0-32.0) mmol/L BUN (7.0-18.0) mg/dL Creatinine (0.6-1.0) mg/dL Est Cr Clr Drug Dosing mL/min Estimated GFR (MDRD) ml/min Glucose (74-106) mg/dL POC Glucose 309 H 183 H (60-110) mg/dL Calcium (8.5-10.1) mg/dL Total Bilirubin (0.2-1.0) mg/dL AST (15-37) IU/L ALT (14-63) IU/L Alkaline Phosphatase (46-116) U/L Total Protein (6.4-8.2) g/dL Albumin (3.4-5.0) g/dL Globulin (2.6-4.0) g/dL Albumin/Globulin Ratio (0.9-1.6) Med Orders - Current: Current Medications Acetaminophen (Tylenol Extra Strength) 500 mg PO Q4H PRN PRN Reason: Pain Last Admin: 12/13/18 18:12 Dose: 500 mg Albuterol (Proventil Neb Soln) 2.5 mg NEB Q4HRRT PRN PRN Reason: Shortness of Breath Last Admin: 12/11/18 12:46 Dose: 2.5 mg Albuterol (Ventolin Hfa) 8 gm INH Q4H PRN PRN Reason: Shortness of Breath Last Admin: 12/11/18 13:14 Dose: 2 puff Albuterol/Ipratropium (Duoneb 3.0-0.5 Mg/3 Ml) 3 ml NEB Q4HRRT [facility] Last Admin: 12/14/18 10:37 Dose: 3 ml Apixaban (Eliquis) 5 mg PO BID [facility] Last Admin: 12/14/18 08:01 Dose: 5 mg Azithromycin (Zithromax) 500 mg PO Q24H [facility] Last Admin: 12/13/18 23:33 Dose: 500 mg Benzonatate (Tessalon Perles) 100 mg PO TID PRN PRN Reason: Cough Cyclobenzaprine HCl (Flexeril) 5 mg PO TID PRN PRN Reason: Pain Last Admin: 12/13/18 12:33 Dose: 5 mg Insulin Aspart (Novolog) 0 unit SUBCUT TIDAC [facility]; Protocol Last Admin: 12/14/18 12:46 Dose: 3 units Methylprednisolone Sodium Succinate (Solu-Medrol) 125 mg IVPUSH Q12H [facility] Last Admin: 12/14/18 10:34 Dose: 125 mg Morphine Sulfate (Morphine) 2 mg IVPUSH Q2H PRN PRN Reason: Pain Last Admin: 12/14/18 08:01 Dose: 2 mg Sodium Chloride (Saline Flush) 10 ml FLUSH ASDIRECTED PRN PRN Reason: Keep Vein Open Last Admin: 12/09/18 22:08 Dose: 10 ml Sodium Chloride (Saline Flush) 2.5 ml FLUSH ASDIRECTED PRN PRN Reason: Keep Vein Open Last Admin: 12/09/18 22:08 Dose: 2.5 ml Discontinued Medications Albuterol (Proventil Neb Soln) 2.5 mg NEB Q6HRRT [facility] Last Admin: 12/10/18 06:02 Dose: 2.5 mg Albuterol/Ipratropium (Duoneb 3.0-0.5 Mg/3 Ml) 3 ml NEB ONETIME ONE Stop: 12/09/18 21:31 Last Admin: 12/09/18 22:08 Dose: 3 ml Albuterol/Ipratropium (Duoneb 3.0-0.5 Mg/3 Ml) 3 ml NEB ONETIME ONE Stop: 12/09/18 22:59 Last Admin: 12/09/18 23:06 Dose: 3 ml Albuterol/Ipratropium (Duoneb 3.0-0.5 Mg/3 Ml) Confirm Administered Dose 3 ml .ROUTE .STK-MED ONE Stop: 12/09/18 23:00 Last Admin: 12/09/18 23:05 Dose: Not Given Sodium Chloride (Normal Saline) 1,000 mls @ 999 mls/hr IV STAT ONE Stop: 12/09/18 22:30 Last Admin: 12/09/18 21:59 Dose: 999 mls/hr Sodium Chloride (Normal Saline) 1,000 mls @ 125 mls/hr IV ASDIRECTED [facility] Last Admin: 12/12/18 01:23 Dose: 125 mls/hr Insulin Aspart (Novolog) 10 unit SUBCUT ONETIME ONE Stop: 12/11/18 08:55 Last Admin: 12/11/18 09:27 Dose: 10 units Insulin Aspart (Novolog) 10 unit SUBCUT ONETIME ONE Stop: 12/11/18 12:33 Last Admin: 12/11/18 12:51 Dose: 10 units Insulin Aspart (Novolog) 10 unit .XX ONETIME ONE Stop: 12/11/18 12:34 Last Admin: 12/11/18 12:53 Dose: 10 unit Insulin Aspart (Novolog) 10 unit .XX ONETIME ONE Stop: 12/11/18 14:42 Last Admin: 12/11/18 14:50 Dose: 10 units Insulin Aspart (Novolog) 10 unit SUBCUT ONETIME ONE Stop: 12/11/18 14:42 Last Admin: 12/11/18 14:51 Dose: 10 units Insulin Aspart (Novolog) 8 unit SUBCUT ONETIME ONE Stop: 12/11/18 16:40 Last Admin: 12/11/18 17:32 Dose: 8 units Insulin Aspart (Novolog) 10 unit SUBCUT ONETIME ONE Stop: 12/11/18 19:46 Last Admin: 12/11/18 19:39 Dose: 10 units Methylprednisolone Sodium Succinate (Solu-Medrol) 125 mg IVPUSH ONETIME ONE Stop: 12/09/18 21:31 Last Admin: 12/09/18 22:00 Dose: 125 mg Methylprednisolone Sodium Succinate (Solu-Medrol) 125 mg IVPUSH Q6H [facility] Last Admin: 12/11/18 05:35 Dose: 125 mg - Exam General: Alert, Oriented Lungs: Clear to Auscultation, Decreased Breath Sounds Cardiovascular: Regular Rate, Regular Rhythm GI/Abdominal Exam: Soft, Non-Tender Extremities: Non-Tender, No Pedal Edema Skin: Warm, Dry, Intact - Problem List Review Problem List Initiated/Reviewed/Updated: Yes - My Orders Last 24 Hours: My Active Orders 12/14/18 13:04 CXR [Chest 2V] [CR] Routine - Plan Plan:: 53 year old with Acute Asthma exacerbation and possible CAP Pneumonia. We will continue solumdrol, rocephin and azithromycin, patient has been refusing duonebs. We will recheck CXR. DM: continue ssi -
--- NOTE | 2018-12-14 20:36 | CR ---
INDICATION: Hypoxia TECHNIQUE: Chest 2 views COMPARISON: December 09, 2018 FINDINGS: Cardiovascular and mediastinum: Heart size and vasculature are normal in caliber and appearance. Lungs and pleural spaces: An airspace infiltrate is in the left lower lobe. Remainder of the lungs are clear. No significant effusions. Bones and soft tissues: No significant findings. IMPRESSION: Left lower lobe pneumonia. Dictated by Matt Bacon MD @ Dec 14 2018 8:32PM Signed by Dr. Matt Bacon @ Dec 14 2018 8:34PM
[2018-12-15] MEDS: Morphine 2 MG/ML Syringe IVPUSH PRN ×6 (01:07→22:02)
[2018-12-15] MEDS: Azithromycin 250 MG Tab PO SCH (01:07)
[2018-12-15] MEDS: Albuterol/Ipratropium 3.0-0.5 MG/3 ML Neb Soln NEB SCH ×6 (01:07→22:13)
[2018-12-15] MEDS: Insulin Aspart 100 Units/ML 3 ML Pen SUBCUT SCH ×3 (08:32→18:14)
[2018-12-15] MEDS: Apixaban 5 MG Tab PO SCH ×2 (08:32→22:01)
[2018-12-15] MEDS ORDERED: cefTRIAXone 1 GM in Premix Bag 1 BAG IV SCH (09:15)
[2018-12-15] MEDS: cefTRIAXone 1 GM in Premix Bag 1 BAG IV SCH (11:00)
[2018-12-15] MEDS: methylPREDNISolone Sodium Succinate 125 MG/2 ML SDV IVPUSH SCH ×2 (11:00→22:08)
--- NOTE | 2018-12-15 12:35 | PCM.PN ---
- General Info Date of Service: 12/15/18 Subjective Update: Patient states that she is feeling better than yesterday from a respiratory standpoint. Still requiring 4 L of O2 for support. - Patient Data Vitals - Most Recent: Last Vital Signs Temp 36 C 12/15/18 08:00 Pulse 93 12/15/18 08:00 Resp 20 12/15/18 08:00 BP 149/76 H 12/15/18 08:00 Pulse Ox 93 L 12/15/18 08:00 Weight - Most Recent: 136.078 kg I&O - Last 24 Hours: Intake & Output 12/14/18 12/15/18 12/15/18 22:59 06:59 14:59 Intake Total 1200 600 Output Total 600 2500 Balance 600 -1900 Lab Results Last 24 Hours: Laboratory Results - last 24 hr 12/14/18 12/15/18 12/15/18 Range/Units 17:15 06:20 06:21 WBC 6.30 (4.0-11.0) K/uL RBC 5.09 (4.30-5.90) M/uL Hgb 15.4 (12.0-16.0) g/dL Hct 48.6 H (36.0-46.0) % MCV 95.5 (80.0-98.0) fL MCH 30.3 (27.0-32.0) pg MCHC 31.7 (31.0-37.0) g/dL RDW Std Deviation 51.8 (28.0-62.0) fl RDW Coeff of Joana 15 (11.0-15.0) % Plt Count 149 L (150-400) K/uL MPV 11.00 (7.40-12.00) fL Add Manual Diff YES Neutrophils % (Manual) 77 (48.0-80.0) % Band Neutrophils % 7 % Lymphocytes % (Manual) 14 L (16.0-40.0) % Monocytes % (Manual) 2 (0.0-15.0) % Nucleated RBC % 0.7 /100WBC Absolute Seg Neuts 4.9 (1.4-5.7) Band Neutrophils # 0.4 Lymphocytes # (Manual) 0.9 (0.6-2.4) Monocytes # (Manual) 0.1 (0.0-0.8) Nucleated RBCs # 0 K/uL Sodium (136-145) mmol/L Potassium (3.5-5.1) mmol/L Chloride (98-107) mmol/L Carbon Dioxide (21.0-32.0) mmol/L BUN (7.0-18.0) mg/dL Creatinine (0.6-1.0) mg/dL Est Cr Clr Drug Dosing mL/min Estimated GFR (MDRD) ml/min Glucose (74-106) mg/dL POC Glucose 347 H 353 H (60-110) mg/dL Calcium (8.5-10.1) mg/dL 12/15/18 Range/Units 06:21 WBC (4.0-11.0) K/uL RBC (4.30-5.90) M/uL Hgb (12.0-16.0) g/dL Hct (36.0-46.0) % MCV (80.0-98.0) fL MCH (27.0-32.0) pg MCHC (31.0-37.0) g/dL RDW Std Deviation (28.0-62.0) fl RDW Coeff of Joana (11.0-15.0) % Plt Count (150-400) K/uL MPV (7.40-12.00) fL Add Manual Diff Neutrophils % (Manual) (48.0-80.0) % Band Neutrophils % % Lymphocytes % (Manual) (16.0-40.0) % Monocytes % (Manual) (0.0-15.0) % Nucleated RBC % /100WBC Absolute Seg Neuts (1.4-5.7) Band Neutrophils # Lymphocytes # (Manual) (0.6-2.4) Monocytes # (Manual) (0.0-0.8) Nucleated RBCs # K/uL Sodium 133 L (136-145) mmol/L Potassium 4.3 (3.5-5.1) mmol/L Chloride 95 L (98-107) mmol/L Carbon Dioxide 32.7 H (21.0-32.0) mmol/L BUN 28 H (7.0-18.0) mg/dL Creatinine 1.0 (0.6-1.0) mg/dL Est Cr Clr Drug Dosing 52.64 mL/min Estimated GFR (MDRD) 58.5 ml/min Glucose 445 H (74-106) mg/dL POC Glucose (60-110) mg/dL Calcium 9.4 (8.5-10.1) mg/dL Med Orders - Current: Current Medications Acetaminophen (Tylenol Extra Strength) 500 mg PO Q4H PRN PRN Reason: Pain Last Admin: 12/13/18 18:12 Dose: 500 mg Albuterol (Proventil Neb Soln) 2.5 mg NEB Q4HRRT PRN PRN Reason: Shortness of Breath Last Admin: 12/11/18 12:46 Dose: 2.5 mg Albuterol (Ventolin Hfa) 8 gm INH Q4H PRN PRN Reason: Shortness of Breath Last Admin: 12/11/18 13:14 Dose: 2 puff Albuterol/Ipratropium (Duoneb 3.0-0.5 Mg/3 Ml) 3 ml NEB Q4HRRT [facility] Last Admin: 12/15/18 09:18 Dose: 3 ml Apixaban (Eliquis) 5 mg PO BID [facility] Last Admin: 12/15/18 08:32 Dose: 5 mg Azithromycin (Zithromax) 500 mg PO Q24H [facility] Last Admin: 12/15/18 01:07 Dose: 500 mg Benzonatate (Tessalon Perles) 100 mg PO TID PRN PRN Reason: Cough Cyclobenzaprine HCl (Flexeril) 5 mg PO TID PRN PRN Reason: Pain Last Admin: 12/13/18 12:33 Dose: 5 mg Ceftriaxone Sodium/Dextrose 1 (gm/ Premix) 50 mls @ 100 mls/hr IV Q24H [facility] Last Admin: 12/15/18 11:00 Dose: 100 mls/hr Insulin Aspart (Novolog) 0 unit SUBCUT TIDAC [facility]; Protocol Last Admin: 12/15/18 08:32 Dose: 15 units Methylprednisolone Sodium Succinate (Solu-Medrol) 125 mg IVPUSH Q12H [facility] Last Admin: 12/15/18 11:00 Dose: 125 mg Morphine Sulfate (Morphine) 2 mg IVPUSH Q2H PRN PRN Reason: Pain Last Admin: 12/15/18 11:33 Dose: 2 mg Sodium Chloride (Saline Flush) 10 ml FLUSH ASDIRECTED PRN PRN Reason: Keep Vein Open Last Admin: 12/09/18 22:08 Dose: 10 ml Sodium Chloride (Saline Flush) 2.5 ml FLUSH ASDIRECTED PRN PRN Reason: Keep Vein Open Last Admin: 12/09/18 22:08 Dose: 2.5 ml Discontinued Medications Albuterol (Proventil Neb Soln) 2.5 mg NEB Q6HRRT [facility] Last Admin: 12/10/18 06:02 Dose: 2.5 mg Albuterol/Ipratropium (Duoneb 3.0-0.5 Mg/3 Ml) 3 ml NEB ONETIME ONE Stop: 12/09/18 21:31 Last Admin: 12/09/18 22:08 Dose: 3 ml Albuterol/Ipratropium (Duoneb 3.0-0.5 Mg/3 Ml) 3 ml NEB ONETIME ONE Stop: 12/09/18 22:59 Last Admin: 12/09/18 23:06 Dose: 3 ml Albuterol/Ipratropium (Duoneb 3.0-0.5 Mg/3 Ml) Confirm Administered Dose 3 ml .ROUTE .STK-MED ONE Stop: 12/09/18 23:00 Last Admin: 12/09/18 23:05 Dose: Not Given Sodium Chloride (Normal Saline) 1,000 mls @ 999 mls/hr IV STAT ONE Stop: 12/09/18 22:30 Last Admin: 12/09/18 21:59 Dose: 999 mls/hr Sodium Chloride (Normal Saline) 1,000 mls @ 125 mls/hr IV ASDIRECTED [facility] Last Admin: 12/12/18 01:23 Dose: 125 mls/hr Ceftriaxone Sodium/Dextrose 1 (gm/ Premix) 50 mls @ 100 mls/hr IV Q24H [facility] Last Admin: 12/15/18 10:51 Dose: Not Given Insulin Aspart (Novolog) 10 unit SUBCUT ONETIME ONE Stop: 12/11/18 08:55 Last Admin: 12/11/18 09:27 Dose: 10 units Insulin Aspart (Novolog) 10 unit SUBCUT ONETIME ONE Stop: 12/11/18 12:33 Last Admin: 12/11/18 12:51 Dose: 10 units Insulin Aspart (Novolog) 10 unit .XX ONETIME ONE Stop: 12/11/18 12:34 Last Admin: 12/11/18 12:53 Dose: 10 unit Insulin Aspart (Novolog) 10 unit .XX ONETIME ONE Stop: 12/11/18 14:42 Last Admin: 12/11/18 14:50 Dose: 10 units Insulin Aspart (Novolog) 10 unit SUBCUT ONETIME ONE Stop: 12/11/18 14:42 Last Admin: 12/11/18 14:51 Dose: 10 units Insulin Aspart (Novolog) 8 unit SUBCUT ONETIME ONE Stop: 12/11/18 16:40 Last Admin: 12/11/18 17:32 Dose: 8 units Insulin Aspart (Novolog) 10 unit SUBCUT ONETIME ONE Stop: 12/11/18 19:46 Last Admin: 12/11/18 19:39 Dose: 10 units Methylprednisolone Sodium Succinate (Solu-Medrol) 125 mg IVPUSH ONETIME ONE Stop: 12/09/18 21:31 Last Admin: 12/09/18 22:00 Dose: 125 mg Methylprednisolone Sodium Succinate (Solu-Medrol) 125 mg IVPUSH Q6H [facility] Last Admin: 12/11/18 05:35 Dose: 125 mg - Exam Quality Assessment: Supplemental Oxygen General: Alert, Oriented, Cooperative, Mild Distress Lungs: Clear to Auscultation, Decreased Breath Sounds Cardiovascular: Regular Rate, Regular Rhythm - Problem List Review Problem List Initiated/Reviewed/Updated: Yes - My Orders Last 24 Hours: My Active Orders 12/15/18 10:45 cefTRIAXone [Rocephin in Dextrose,Iso-Osm 1 GM/50 ML] 1 gm Premix Bag 1 bag IV Q24H - Plan Plan:: 53 year old with Acute Asthma exacerbation and Hellen acquired pneumonia based on imaging which indicates a left lower lobe pneumonia Continue with Solu-Medrol, azithromycin and the addition of Rocephin for full coverage of the community required pneumonia -Patient still requiring increased O2 support but has been willing to take the DuoNeb treatments today -Patient is asking to go home by tomorrow shall reassess in the a.m. and assess the patient's clinical symptoms before making disposition decision. For the diabetes mellitus type 2 continue with insulin sliding scale We will continue solumdrol, rocephin and azithromycin, patient has been refusing duonebs. We will recheck CXR. DM: continue ssi -
[2018-12-16] MEDS: Morphine 2 MG/ML Syringe IVPUSH PRN ×3 (01:16→10:24)
[2018-12-16] MEDS: Albuterol/Ipratropium 3.0-0.5 MG/3 ML Neb Soln NEB SCH ×3 (01:18→10:13)
[2018-12-16] MEDS: Azithromycin 250 MG Tab PO SCH (01:18)
[2018-12-16] MEDS: Apixaban 5 MG Tab PO SCH (09:06)
[2018-12-16] MEDS: Insulin Aspart 100 Units/ML 3 ML Pen SUBCUT SCH ×2 (09:06→12:55)
[2018-12-16] MEDS: cefTRIAXone 1 GM in Premix Bag 1 BAG IV SCH (10:13)
[2018-12-16] MEDS: methylPREDNISolone Sodium Succinate 125 MG/2 ML SDV IVPUSH SCH (10:13)
[2018-12-16] MEDS ORDERED: Insulin Aspart 100 Units/ML 3 ML Pen ONE (12:16)
[2018-12-16] MEDS ORDERED: Insulin Aspart 100 Units/ML 3 ML Pen SUBCUT ONE (12:16)
--- NOTE | 2018-12-16 12:26 | PCM.DCSUM1 ---
<Lul Sharma Z - Last Filed: 12/16/18 17:34> Discharge Summary - Hospital Course HPI Initial Comments: Discharge Summary Date of admission: 12/12/18 Date of discharge: 12/16/18 Admitting diagnosis: #1. Asthma exacerbation hypoxemia, bronchiolitis #2. History of type 2 diabetes Discharge diagnoses: #1. Asthma exacerbation now resolving #2. Community-acquired pneumonia now resolving on antibiotics #3. Hypoxemia requiring home O2 #4. #5. Consultations: None Procedures: None Hospitalization course: Patient was admitted for acute asthma exacerbation was placed on dual nebs, IV Solu-Medrol, and azithromycin for possible bronchiolitis. Patient was requiring 5 L of O2 due to due to her increased need of O2 support due to desaturation. Treatment continued progressively, patient however midway into her stay start sugar-free use her DuoNeb treatments as she thought that they would make him worse and requested that she have her albuterol inhaler instead. She did still continue to have periodic DuoNeb treatments. Imaging was also done that did indicate a left lower lobe pneumonia and ceftriaxone was also started on the patient. Patient improved enough to the point where she demanded to go home on day of discharge and did not have any further wheezing however it was still hypoxemic, after doing oxygen test was noted to require 4 L of O2 support while at rest and qualified for O2 oxygen at 4 L. And was subsequently discharged home with continuation of her albuterol inhaler, home antibiotic treatment, home O2 and continuation of her home medication with follow-up with her primary care provider. Diagnosis: Stroke: No Modified [place] Scale: No Symptoms at All Modified Sabina Scale Score: 0 - Discharge Data Discharge Date: 12/16/18 Discharge Disposition: Home, Self-Care 01 Condition: Stable - Patient Summary/Data Consults: Consultations 12/15/18 15:38 Consult to Physical Therapy [PT Evaluation and Treatment] [CONS] Routine - Patient Instructions Diet: Diabetic Diet Activity: As Tolerated Driving: Do Not Drive Showering/Bathing: May Shower Notify Provider of: Fever, Increased Pain, Swelling and Redness, Drainage, Nausea and/or Vomiting - Discharge Plan Prescriptions/Med Rec: Amoxicillin 875 mg PO BID 8 Days #16 tab Azithromycin [Zithromax] 250 mg PO BID 5 Days #10 tablet Cyclobenzaprine [Flexeril] 5 mg PO TID PRN 5 Days #15 tablet PRN Reason: Pain predniSONE [Prednisone] 20 mg PO DAILY 12 Days #15 tablet Home Medications: Home Meds Apixaban [Eliquis] 5 mg PO BID #60 tablet 02/20/17 [Rx] Albuterol [Ventolin HFA] 2 puff INH Q4HR PRN #1 inhaler 12/03/18 [Rx] metFORMIN HCl [Metformin HCl] 500 mg PO BID 12/03/18 [History] Amoxicillin 875 mg PO BID 8 Days #16 tab 12/16/18 [Rx] Azithromycin [Zithromax] 250 mg PO BID 5 Days #10 tablet 12/16/18 [Rx] Cyclobenzaprine [Flexeril] 5 mg PO TID PRN 5 Days #15 tablet 12/16/18 [Rx] predniSONE [Prednisone] 20 mg PO DAILY 12 Days #15 tablet 12/16/18 [Rx] Oxygen Therapy Mode: Nasal Cannula Patient Handouts: Cyclobenzaprine tablets, Amoxicillin capsules or tablets, Azithromycin tablets, Asthma, Adult, [id number], Asthma Attack, Prednisone tablets, Community-Acquired Pneumonia, Adult, [id number] Referrals: Saúl Rahman MD [Physician] - 12/24/18 11:00 am - Discharge Summary/Plan Comment DC Time >30 min.: No - Patient Data Vitals - Most Recent: Last Vital Signs Temp 36 C 12/16/18 07:30 Pulse 95 12/16/18 07:30 Resp 18 12/16/18 07:30 BP 113/68 12/16/18 07:30 Pulse Ox 93 L 12/16/18 07:30 Weight - Most Recent: 136.078 kg I&O - Last 24 hours: Intake & Output 12/15/18 12/16/18 12/16/18 22:59 06:59 14:59 Intake Total 1000 1500 Output Total 850 1150 Balance 150 350 Lab Results - Last 24 hrs: Laboratory Results - last 24 hr 12/15/18 12/15/18 12/16/18 Range/Units 11:54 16:36 04:35 WBC 7.09 (4.0-11.0) K/uL RBC 4.88 (4.30-5.90) M/uL Hgb 14.7 (12.0-16.0) g/dL Hct 46.4 H (36.0-46.0) % MCV 95.1 (80.0-98.0) fL MCH 30.1 (27.0-32.0) pg MCHC 31.7 (31.0-37.0) g/dL RDW Std Deviation 51.8 (28.0-62.0) fl RDW Coeff of Joana 15 (11.0-15.0) % Plt Count 162 (150-400) K/uL MPV 10.80 (7.40-12.00) fL Neut % (Auto) 92.6 H (48.0-80.0) % Lymph % (Auto) 3.5 L (16.0-40.0) % Irion % (Auto) 3.8 (0.0-15.0) % Eos % (Auto) 0.0 (0.0-7.0) % Baso % (Auto) 0.1 (0.0-1.5) % Neut # (Auto) 6.6 H (1.4-5.7) K/uL Lymph # (Auto) 0.3 L (0.6-2.4) K/uL Irion # (Auto) 0.3 (0.0-0.8) K/uL Eos # (Auto) 0.0 (0.0-0.7) K/uL Baso # (Auto) 0.0 (0.0-0.1) K/uL Nucleated RBC % 0.5 /100WBC Nucleated RBCs # 0 K/uL Sodium (136-145) mmol/L Potassium (3.5-5.1) mmol/L Chloride (98-107) mmol/L Carbon Dioxide (21.0-32.0) mmol/L BUN (7.0-18.0) mg/dL Creatinine (0.6-1.0) mg/dL Est Cr Clr Drug Dosing mL/min Estimated GFR (MDRD) ml/min Glucose (74-106) mg/dL POC Glucose 396 H 360 H (60-110) mg/dL Calcium (8.5-10.1) mg/dL 12/16/18 Range/Units 04:35 WBC (4.0-11.0) K/uL RBC (4.30-5.90) M/uL Hgb (12.0-16.0) g/dL Hct (36.0-46.0) % MCV (80.0-98.0) fL MCH (27.0-32.0) pg MCHC (31.0-37.0) g/dL RDW Std Deviation (28.0-62.0) fl RDW Coeff of Joana (11.0-15.0) % Plt Count (150-400) K/uL MPV (7.40-12.00) fL Neut % (Auto) (48.0-80.0) % Lymph % (Auto) (16.0-40.0) % Irion % (Auto) (0.0-15.0) % Eos % (Auto) (0.0-7.0) % Baso % (Auto) (0.0-1.5) % Neut # (Auto) (1.4-5.7) K/uL Lymph # (Auto) (0.6-2.4) K/uL Irion # (Auto) (0.0-0.8) K/uL Eos # (Auto) (0.0-0.7) K/uL Baso # (Auto) (0.0-0.1) K/uL Nucleated RBC % /100WBC Nucleated RBCs # K/uL Sodium 134 L (136-145) mmol/L Potassium 4.4 (3.5-5.1) mmol/L Chloride 96 L (98-107) mmol/L Carbon Dioxide 32.7 H (21.0-32.0) mmol/L BUN 35 H (7.0-18.0) mg/dL Creatinine 1.0 (0.6-1.0) mg/dL Est Cr Clr Drug Dosing 52.64 mL/min Estimated GFR (MDRD) 58.5 ml/min Glucose 458 H (74-106) mg/dL POC Glucose (60-110) mg/dL Calcium 8.9 (8.5-10.1) mg/dL Med Orders - Current: Current Medications Acetaminophen (Tylenol Extra Strength) 500 mg PO Q4H PRN PRN Reason: Pain Last Admin: 12/13/18 18:12 Dose: 500 mg Albuterol (Proventil Neb Soln) 2.5 mg NEB Q4HRRT PRN PRN Reason: Shortness of Breath Last Admin: 12/11/18 12:46 Dose: 2.5 mg Albuterol (Ventolin Hfa) 8 gm INH Q4H PRN PRN Reason: Shortness of Breath Last Admin: 12/11/18 13:14 Dose: 2 puff Albuterol/Ipratropium (Duoneb 3.0-0.5 Mg/3 Ml) 3 ml NEB Q4HRRT [facility] Last Admin: 12/16/18 10:13 Dose: 3 ml Apixaban (Eliquis) 5 mg PO BID [facility] Last Admin: 12/16/18 09:06 Dose: 5 mg Azithromycin (Zithromax) 500 mg PO Q24H [facility] Last Admin: 12/16/18 01:18 Dose: 500 mg Benzonatate (Tessalon Perles) 100 mg PO TID PRN PRN Reason: Cough Cyclobenzaprine HCl (Flexeril) 5 mg PO TID PRN PRN Reason: Pain Last Admin: 12/13/18 12:33 Dose: 5 mg Ceftriaxone Sodium/Dextrose 1 (gm/ Premix) 50 mls @ 100 mls/hr IV Q24H [facility] Last Admin: 12/16/18 10:13 Dose: 100 mls/hr Insulin Aspart (Novolog) 0 unit SUBCUT TIDAC [facility]; Protocol Last Admin: 12/16/18 09:06 Dose: 15 units Methylprednisolone Sodium Succinate (Solu-Medrol) 125 mg IVPUSH Q12H [facility] Last Admin: 12/16/18 10:13 Dose: 125 mg Morphine Sulfate (Morphine) 2 mg IVPUSH Q2H PRN PRN Reason: Pain Last Admin: 12/16/18 10:24 Dose: 2 mg Sodium Chloride (Saline Flush) 10 ml FLUSH ASDIRECTED PRN PRN Reason: Keep Vein Open Last Admin: 12/09/18 22:08 Dose: 10 ml Sodium Chloride (Saline Flush) 2.5 ml FLUSH ASDIRECTED PRN PRN Reason: Keep Vein Open Last Admin: 12/09/18 22:08 Dose: 2.5 ml Discontinued Medications Albuterol (Proventil Neb Soln) 2.5 mg NEB Q6HRRT [facility] Last Admin: 12/10/18 06:02 Dose: 2.5 mg Albuterol/Ipratropium (Duoneb 3.0-0.5 Mg/3 Ml) 3 ml NEB ONETIME ONE Stop: 12/09/18 21:31 Last Admin: 12/09/18 22:08 Dose: 3 ml Albuterol/Ipratropium (Duoneb 3.0-0.5 Mg/3 Ml) 3 ml NEB ONETIME ONE Stop: 12/09/18 22:59 Last Admin: 12/09/18 23:06 Dose: 3 ml Albuterol/Ipratropium (Duoneb 3.0-0.5 Mg/3 Ml) Confirm Administered Dose 3 ml .ROUTE .STK-MED ONE Stop: 12/09/18 23:00 Last Admin: 12/09/18 23:05 Dose: Not Given Sodium Chloride (Normal Saline) 1,000 mls @ 999 mls/hr IV STAT ONE Stop: 12/09/18 22:30 Last Admin: 12/09/18 21:59 Dose: 999 mls/hr Sodium Chloride (Normal Saline) 1,000 mls @ 125 mls/hr IV ASDIRECTED [facility] Last Admin: 12/12/18 01:23 Dose: 125 mls/hr Ceftriaxone Sodium/Dextrose 1 (gm/ Premix) 50 mls @ 100 mls/hr IV Q24H [facility] Last Admin: 12/15/18 10:51 Dose: Not Given Insulin Aspart (Novolog) 10 unit SUBCUT ONETIME ONE Stop: 12/11/18 08:55 Last Admin: 12/11/18 09:27 Dose: 10 units Insulin Aspart (Novolog) 10 unit SUBCUT ONETIME ONE Stop: 12/11/18 12:33 Last Admin: 12/11/18 12:51 Dose: 10 units Insulin Aspart (Novolog) 10 unit .XX ONETIME ONE Stop: 12/11/18 12:34 Last Admin: 12/11/18 12:53 Dose: 10 unit Insulin Aspart (Novolog) 10 unit .XX ONETIME ONE Stop: 12/11/18 14:42 Last Admin: 12/11/18 14:50 Dose: 10 units Insulin Aspart (Novolog) 10 unit SUBCUT ONETIME ONE Stop: 12/11/18 14:42 Last Admin: 12/11/18 14:51 Dose: 10 units Insulin Aspart (Novolog) 8 unit SUBCUT ONETIME ONE Stop: 12/11/18 16:40 Last Admin: 12/11/18 17:32 Dose: 8 units Insulin Aspart (Novolog) 10 unit SUBCUT ONETIME ONE Stop: 12/11/18 19:46 Last Admin: 12/11/18 19:39 Dose: 10 units Insulin Aspart (Novolog) 10 unit SUBCUT DAILY ONE Stop: 12/16/18 12:17 Insulin Aspart (Novolog) 10 unit .XX DAILY ONE Stop: 12/16/18 12:17 Methylprednisolone Sodium Succinate (Solu-Medrol) 125 mg IVPUSH ONETIME ONE Stop: 12/09/18 21:31 Last Admin: 12/09/18 22:00 Dose: 125 mg Methylprednisolone Sodium Succinate (Solu-Medrol) 125 mg IVPUSH Q6H [facility] Last Admin: 12/11/18 05:35 Dose: 125 mg <Navi Peoples - Last Filed: 12/22/18 14:18> Discharge Summary - Patient Summary/Data Consults: Consultations 12/15/18 15:38 Consult to Physical Therapy [PT Evaluation and Treatment] [CONS] Routine - Patient Data Vitals - Most Recent: Last Vital Signs Temp 36.2 C 12/16/18 11:00 Pulse 87 12/16/18 11:00 Resp 16 12/16/18 11:00 BP 119/82 12/16/18 11:00 Pulse Ox 93 L 12/16/18 11:00 Med Orders - Current: Current Medications Discontinued Medications Acetaminophen (Tylenol Extra Strength) 500 mg PO Q4H PRN PRN Reason: Pain Last Admin: 12/13/18 18:12 Dose: 500 mg Albuterol (Proventil Neb Soln) 2.5 mg NEB Q6HRRT [facility] Last Admin: 12/10/18 06:02 Dose: 2.5 mg Albuterol (Proventil Neb Soln) 2.5 mg NEB Q4HRRT PRN PRN Reason: Shortness of Breath Last Admin: 12/11/18 12:46 Dose: 2.5 mg Albuterol (Ventolin Hfa) 8 gm INH Q4H PRN PRN Reason: Shortness of Breath Last Admin: 12/11/18 13:14 Dose: 2 puff Albuterol/Ipratropium (Duoneb 3.0-0.5 Mg/3 Ml) 3 ml NEB ONETIME ONE Stop: 12/09/18 21:31 Last Admin: 12/09/18 22:08 Dose: 3 ml Albuterol/Ipratropium (Duoneb 3.0-0.5 Mg/3 Ml) 3 ml NEB ONETIME ONE Stop: 12/09/18 22:59 Last Admin: 12/09/18 23:06 Dose: 3 ml Albuterol/Ipratropium (Duoneb 3.0-0.5 Mg/3 Ml) Confirm Administered Dose 3 ml .ROUTE .STK-MED ONE Stop: 12/09/18 23:00 Last Admin: 12/09/18 23:05 Dose: Not Given Albuterol/Ipratropium (Duoneb 3.0-0.5 Mg/3 Ml) 3 ml NEB Q4HRRT [facility] Last Admin: 12/16/18 10:13 Dose: 3 ml Apixaban (Eliquis) 5 mg PO BID [facility] Last Admin: 12/16/18 09:06 Dose: 5 mg Azithromycin (Zithromax) 500 mg PO Q24H [facility] Last Admin: 12/16/18 01:18 Dose: 500 mg Benzonatate (Tessalon Perles) 100 mg PO TID PRN PRN Reason: Cough Cyclobenzaprine HCl (Flexeril) 5 mg PO TID PRN PRN Reason: Pain Last Admin: 12/16/18 12:54 Dose: 5 mg Sodium Chloride (Normal Saline) 1,000 mls @ 999 mls/hr IV STAT ONE Stop: 12/09/18 22:30 Last Admin: 12/09/18 21:59 Dose: 999 mls/hr Sodium Chloride (Normal Saline) 1,000 mls @ 125 mls/hr IV ASDIRECTED [facility] Last Admin: 12/12/18 01:23 Dose: 125 mls/hr Ceftriaxone Sodium/Dextrose 1 (gm/ Premix) 50 mls @ 100 mls/hr IV Q24H [facility] Last Admin: 12/15/18 10:51 Dose: Not Given Ceftriaxone Sodium/Dextrose 1 (gm/ Premix) 50 mls @ 100 mls/hr IV Q24H [facility] Last Admin: 12/16/18 10:13 Dose: 100 mls/hr Insulin Aspart (Novolog) 0 unit SUBCUT TIDAC [facility]; Protocol Last Admin: 12/16/18 12:55 Dose: Not Given Insulin Aspart (Novolog) 10 unit SUBCUT ONETIME ONE Stop: 12/11/18 08:55 Last Admin: 12/11/18 09:27 Dose: 10 units Insulin Aspart (Novolog) 10 unit SUBCUT ONETIME ONE Stop: 12/11/18 12:33 Last Admin: 12/11/18 12:51 Dose: 10 units Insulin Aspart (Novolog) 10 unit .XX ONETIME ONE Stop: 12/11/18 12:34 Last Admin: 12/11/18 12:53 Dose: 10 unit Insulin Aspart (Novolog) 10 unit .XX ONETIME ONE Stop: 12/11/18 14:42 Last Admin: 12/11/18 14:50 Dose: 10 units Insulin Aspart (Novolog) 10 unit SUBCUT ONETIME ONE Stop: 12/11/18 14:42 Last Admin: 12/11/18 14:51 Dose: 10 units Insulin Aspart (Novolog) 8 unit SUBCUT ONETIME ONE Stop: 12/11/18 16:40 Last Admin: 12/11/18 17:32 Dose: 8 units Insulin Aspart (Novolog) 10 unit SUBCUT ONETIME ONE Stop: 12/11/18 19:46 Last Admin: 12/11/18 19:39 Dose: 10 units Insulin Aspart (Novolog) 10 unit SUBCUT DAILY ONE Stop: 12/16/18 12:17 Last Admin: 12/16/18 12:36 Dose: 10 units Insulin Aspart (Novolog) 10 unit .XX DAILY ONE Stop: 12/16/18 12:17 Last Admin: 12/16/18 12:37 Dose: 10 units Methylprednisolone Sodium Succinate (Solu-Medrol) 125 mg IVPUSH ONETIME ONE Stop: 12/09/18 21:31 Last Admin: 12/09/18 22:00 Dose: 125 mg Methylprednisolone Sodium Succinate (Solu-Medrol) 125 mg IVPUSH Q6H [facility] Last Admin: 12/11/18 05:35 Dose: 125 mg Methylprednisolone Sodium Succinate (Solu-Medrol) 125 mg IVPUSH Q12H [facility] Last Admin: 12/16/18 10:13 Dose: 125 mg Morphine Sulfate (Morphine) 2 mg IVPUSH Q2H PRN PRN Reason: Pain Last Admin: 12/16/18 10:24 Dose: 2 mg Sodium Chloride (Saline Flush) 10 ml FLUSH ASDIRECTED PRN PRN Reason: Keep Vein Open Last Admin: 12/09/18 22:08 Dose: 10 ml Sodium Chloride (Saline Flush) 2.5 ml FLUSH ASDIRECTED PRN PRN Reason: Keep Vein Open Last Admin: 12/09/18 22:08 Dose: 2.5 ml - Free Text/Narrative Note: I have seen and evaluated the patient. I have discussed findings and treatment plan with the resident. I agree with the assessment and plan outlined in the following note.
[2018-12-16] MEDS: Cyclobenzaprine 5 MG Tab PO PRN (12:54)
[2018-12-16 14:48] VITALS: BP 119/82
== END 2018-12-16 15:30 | disposition home or self-care (01) | DRG 202 ==
LOC: MW.ED 21:22 → MW.ICU 23:44 → MW.MS 12-10 20:30 → OBSVTOIN 12-12 11:22
PROVIDERS: ADMIT Internal Medicine; ATTEND Internal Medicine
DX: J45.901 Unspecified asthma with (acute) exacerbation (principal); J18.1 Lobar pneumonia, unspecified organism; J21.9 Acute bronchiolitis, unspecified; Z68.43 Body mass index [BMI] 50.0-59.9, adult; F17.210 Nicotine dependence, cigarettes, uncomplicated; E11.9 Type 2 diabetes mellitus without complications; M54.9 Dorsalgia, unspecified; G89.29 Other chronic pain; F41.9 Anxiety disorder, unspecified; D50.9 Iron deficiency anemia, unspecified; E66.9 Obesity, unspecified; Z85.44 Personal history of malignant neoplasm of other female genital organs; Z92.3 Personal history of irradiation; Z92.21 Personal history of antineoplastic chemotherapy; Z90.79 Acquired absence of other genital organ(s); Z96.0 Presence of urogenital implants; Z90.49 Acquired absence of other specified parts of digestive tract; Z88.6 Allergy status to analgesic agent; Z88.8 Allergy status to other drugs, medicaments and biological substances; Z91.048 Other nonmedicinal substance allergy status; Z79.84 Long term (current) use of oral hypoglycemic drugs; Z79.52 Long term (current) use of systemic steroids; Z79.899 Other long term (current) drug therapy; Z93.3 Colostomy status; Z98.891 History of uterine scar from previous surgery; Z91.19 Patient's noncompliance with other medical treatment and regimen
CPT/HCPCS: 36415; 71046; 71046-26; 80048; 80053; 82962; 83605; 85025; 85027; 87804; 94640; 96361; 96374; 96375; 96376; 99284; 99285-25; A9270-GY; G0378; J0696; J1815-GY; J2270; J2930; J7040; J7620-GY

== ENCOUNTER 2019-07-21 19:02 | Emergency (ER) | payer MEDICARE, MEDICAID, OTHER ==
[2019-07-21] MEDS ORDERED: Albuterol/Ipratropium 3.0-0.5 MG/3 ML Neb Soln NEB ONE (19:16)
[2019-07-21] MEDS ORDERED: methylPREDNISolone Sodium Succinate 125 MG/2 ML SDV IM ONE (19:16)
--- NOTE | 2019-07-21 19:21 | EDM.PDOC ---
ED HPI GENERAL MEDICAL PROBLEM - General Chief Complaint: Respiratory Problem Stated Complaint: ASTHMA ATTACK Time Seen by Provider: 07/21/19 19:14 - History of Present Illness INITIAL COMMENTS - FREE TEXT/NARRATIVE: HISTORY AND PHYSICAL: History of present illness: 54-year-old female past medical history significant for asthma and medical noncompliance presenting concern shortness breath and wheezing she states this is a typical exacerbation for which in the past she has had burst steroid therapy she denies fever chills nausea vomiting chest pain or other concern she does continue to smoke Review of systems: As per history of present illness and below otherwise all systems reviewed and negative. Past medical history: As per history of present illness and as reviewed below otherwise noncontributory. Surgical history: As per history of present illness and as reviewed below otherwise noncontributory. Social history: No reported history of drug or alcohol abuse. Family history: As per history of present illness and as reviewed below otherwise noncontributory. Physical exam: HEENT: Atraumatic, normocephalic, pupils reactive, negative for conjunctival pallor or scleral icterus, mucous membranes moist, throat clear, neck supple, nontender, trachea midline. Lungs: Diminished end expiratory wheezing noted no crackles no rhonchi, breath sounds equal bilaterally, chest nontender. Heart: S1S2, regular, negative for clicks, rubs, or JVD. Abdomen: Soft, nondistended, nontender. Negative for masses or hepatosplenomegaly. Negative for costovertebral tenderness. Pelvis: Stable nontender. Genitourinary: Deferred. Rectal: Deferred. Extremities: Atraumatic, negative for cords or calf pain. Neurovascular unremarkable. Neuro: Awake, alert, oriented. Cranial nerves II through XII unremarkable. Cerebellum unremarkable. Motor and sensory unremarkable throughout. Exam nonfocal. Diagnostics: Deferred Therapeutics: Albuterol ipratropium nebulizer Solu-Medrol 125 mg IM Impression: #1 asthma with mild exacerbation #2 medical noncompliance Definitive disposition and diagnosis as appropriate pending reevaluation and review of above. no pain Pain Score (Numeric/FACES): 0 - Related Data Allergies Allergy/AdvReac Type Severity Reaction Status Date / Time adhesive tape Allergy Rash Verified 12/09/18 21:25 Bleach (Sodium Hypochlorite) Allergy Hives Verified 12/09/18 21:25 codeine Allergy Hives Verified 12/09/18 21:25 ibuprofen Allergy Hives Verified 12/09/18 21:25 iron Allergy Dizziness Verified 12/09/18 21:25 naproxen Allergy Hives Verified 12/09/18 21:25 amonia Allergy Hives Uncoded 12/09/18 21:25 Home Meds: Home Meds Apixaban [Eliquis] 5 mg PO BID #60 tablet 02/20/17 [Rx] Albuterol [Ventolin HFA] 2 puff INH Q4HR PRN #1 inhaler 12/03/18 [Rx] metFORMIN HCl [Metformin HCl] 500 mg PO BID 12/03/18 [History] Past Medical History HEENT History: Reports: None Other HEENT History: Patient given Ativan and Fentanyl in ER, patient now sedated-cannot assess Cardiovascular History: Reports: Other (See Below) Other Cardiovascular History: 2011 was admitted for "heart flutter" Respiratory History: Reports: Asthma Gastrointestinal History: Reports: Other (See Below) Other Gastrointestinal History: Patient given Ativan and Fentanyl in ER, patient now sedated-cannot assess Genitourinary History: Reports: Other (See Below) Other Genitourinary History: Has terry catheter due to vulvar ca, radiation and chemo MEDICAL ORDERLY History: Reports: , Other (See Below) Other MEDICAL ORDERLY History: Vulvar CA diagnosed in Nov Musculoskeletal History: Reports: Back Pain, Chronic Neurological History: Reports: Headaches, Chronic Psychiatric History: Reports: Anxiety Endocrine/Metabolic History: Reports: Diabetes, Type II, Obesity/BMI 30+ Hematologic History: Reports: Anemia, Iron Deficiency Other Hematologic History: Diagnosed with Iron Deficiency Anemia in 2000. Blood transfusion history, states received blood transfusion in oncology due to this Other Immunologic History: Patient given Ativan and Fentanyl in ER, patient now sedated-cannot assess Oncologic (Cancer) History: Reports: Other (See Below) Other Oncologic History: vulvar ca Dermatologic History: Reports: None - Infectious Disease History Infectious Disease History: Reports: Chicken Pox - Past Surgical History HEENT Surgical History: Reports: Tonsillectomy GI Surgical History: Reports: Hernia, Abdominal, Other (See Below) Other GI Surgeries/Procedures: exploratory surgery with removal of part of colon and intestine, iliostomy Female Surgical History: Reports: Section, Other (See Below) Other Female Surgeries/Procedures: radical vulvectomy secondary to cancer Oncologic Surgical History: Reports: Other (See Below) Other Oncologic Surgeries/Procedures: radical vulvectomy Social & Family History - Family History Family Medical History: Noncontributory Other Cardiac Family History: Patient given Ativan and Fentanyl in ER, patient now sedated-cannot assess Other Dermatologic Family History: Patient given Ativan and Fentanyl in ER, patient now sedated-cannot assess - Tobacco Use Smoking Status *Q: Current Every Day Smoker Years of Tobacco use: 30 Packs/Tins Daily: 0.2 - Caffeine Use Caffeine Use: Reports: None Caffeine Use Comment: Daily - Recreational Drug Use Recreational Drug Use: No ED ROS GENERAL - Review of Systems Review Of Systems: ROS reveals no pertinent complaints other than HPI. ED EXAM, GENERAL - Physical Exam Exam: See Below (See dictation) Course - Vital Signs Last Recorded V/S: Last Vital Signs Temp 36.7 C 07/21/19 19:07 Pulse 83 07/21/19 19:07 Resp 22 H 07/21/19 19:07 BP 138/84 07/21/19 19:07 Pulse Ox 90 L 07/21/19 19:07 - Orders/Labs/Meds Orders: Active Orders 24 hr Category Date Time Status RT Aerosol Therapy [RC] ASDIRECTED Care 07/21/19 19:17 Active Meds: Medications Discontinued Medications Generic Name Dose Route Start Last Admin Trade Name Angelia PRN Reason Stop Dose Admin Albuterol/Ipratropium 3 ml 07/21/19 19:16 07/21/19 19:27 Duoneb 3.0-0.5 Mg/3 Ml NEB 07/21/19 19:17 3 ml ONETIME ONE Administration Methylprednisolone Sodium Succinate 125 mg 07/21/19 19:16 07/21/19 19:27 Solu-Medrol IM 07/21/19 19:17 125 mg ONETIME ONE Administration Departure - Departure Time of Disposition: 19:57 Disposition: Home, Self-Care 01 Condition: Good Clinical Impression: Acute asthma, Medical non-compliance - Discharge Information Forms: ED Department Discharge Additional Instructions: The following information is given to patients seen in the emergency department who are being discharged to home. This information is to outline your options for follow-up care. We provide all patients seen in our emergency department with a follow-up referral. The need for follow-up, as well as the timing and circumstances, are variable depending upon the specifics of your emergency department visit. If you don't have a primary care physician on staff, we will provide you with a referral. We always advise you to contact your personal physician following an emergency department visit to inform them of the circumstance of the visit and for follow-up with them and/or the need for any referrals to a consulting specialist. The emergency department will also refer you to a specialist when appropriate. This referral assures that you have the opportunity for followup care with a specialist. All of these measure are taken in an effort to provide you with optimal care, which includes your followup. Under all circumstances we always encourage you to contact your private physician who remains a resource for coordinating your care. When calling for followup care, please make the office aware that this follow-up is from your recent emergency room visit. If for any reason you are refused follow-up, please contact the [facility] emergency department at and asked to speak to the emergency department charge nurse. Continue home medications Medrol as prescribed follow-up primary medical doctor stop smoking and return as needed as discussed - My Orders Last 24 Hours: My Active Orders 07/21/19 19:17 RT Aerosol Therapy [RC] ASDIRECTED - Assessment/Plan Last 24 Hours: My Active Orders 07/21/19 19:17 RT Aerosol Therapy [RC] ASDIRECTED
[2019-07-21 19:24] VITALS: BP 138/84; PULSE 83
== END 2019-07-21 20:19 | disposition home or self-care (01) ==
LOC: MW.ED 19:02
DX: J45.901 Unspecified asthma with (acute) exacerbation (principal); Z91.14 Patient's other noncompliance with medication regimen; E11.9 Type 2 diabetes mellitus without complications; F41.9 Anxiety disorder, unspecified; E66.9 Obesity, unspecified; Z68.43 Body mass index [BMI] 50.0-59.9, adult; F17.210 Nicotine dependence, cigarettes, uncomplicated; Z88.8 Allergy status to other drugs, medicaments and biological substances; Z88.5 Allergy status to narcotic agent; Z91.048 Other nonmedicinal substance allergy status; Z79.84 Long term (current) use of oral hypoglycemic drugs; Z79.01 Long term (current) use of anticoagulants
CPT/HCPCS: 96372; 99284; J2930; 99283; J7620-GY

== ENCOUNTER 2019-08-03 12:33 | Emergency (ER) | payer MEDICARE, OTHER ==
[2019-08-03 12:47] VITALS: BP 149/85; PULSE 96
--- NOTE | 2019-08-03 12:48 | EDM.PDOC ---
ED HPI GENERAL MEDICAL PROBLEM - General Chief Complaint: Upper Extremity Injury/Pain Stated Complaint: HURT HAND Time Seen by Provider: 08/03/19 12:35 Source of Information: Reports: Patient History Limitations: Reports: No Limitations - History of Present Illness INITIAL COMMENTS - FREE TEXT/NARRATIVE: History of present illness: []Patient was changing antifreeze in her car yesterday when the corral fell down onto her hands. Patient has more pain today and was concerned they may be broken. She has an Ileostomy and needs both hands to change it. Review of systems: As per history of present illness and below otherwise all systems reviewed and negative. Past medical history: As per history of present illness and as reviewed below otherwise noncontributory. Surgical history: As per history of present illness and as reviewed below otherwise noncontributory. Social history: No reported history of drug or alcohol abuse. Family history: As per history of present illness and as reviewed below otherwise noncontributory. Physical exam: General: Well developed, well nourished in NAD HEENT: Atraumatic, normocephalic, pupils reactive, negative for conjunctival pallor or scleral icterus, mucous membranes moist, throat clear, neck supple, nontender, trachea midline. Lungs: Clear to auscultation, breath sounds equal bilaterally, chest nontender. Heart: S1S2, regular, negative for clicks, rubs, or JVD. Abdomen: NABS, Soft, nondistended, nontender. Negative for masses or hepatosplenomegaly. Negative for costovertebral tenderness. Pelvis: Stable nontender. Genitourinary: Deferred. Rectal: Deferred. Extremities: Small ecchymotic area on the dorsal index finger of the left hand with mild tenderness there is no bony crepitance or swelling, sensation is intact distal capillary refill is brisk, the left hand has tenderness all across her proximal fingers dorsally, no gross deformities, ecchymosis, swelling or diminished function. His capillary refill distally sensations intact. Moves all fingers. negative for cords or calf pain. Neurovascular unremarkable. Neuro: Awake, alert, oriented. Cranial nerves II through XII unremarkable. Cerebellum unremarkable. Motor and sensory unremarkable throughout. Exam nonfocal. Skin:warm and dry Diagnostics: X-ray of the bilateral hands-patient refused x-rays Therapeutics: Tylenol by mouth, hands wrapped ED Course: Stable Impression: Bilateral hand contusions Prescriptions: None Plan: Tylenol, ice, ibuprofen for pain, follow up with primary care as needed. Definitive disposition and diagnosis as appropriate pending reevaluation and review of above. HANDS Pain Score (Numeric/FACES): 5 - Related Data Allergies Allergy/AdvReac Type Severity Reaction Status Date / Time adhesive tape Allergy Rash Verified 08/03/19 12:45 Bleach (Sodium Hypochlorite) Allergy Hives Verified 08/03/19 12:45 codeine Allergy Hives Verified 08/03/19 12:45 ibuprofen Allergy Hives Verified 08/03/19 12:45 iron Allergy Dizziness Verified 08/03/19 12:45 naproxen Allergy Hives Verified 08/03/19 12:45 amonia Allergy Hives Uncoded 08/03/19 12:45 Home Meds: Home Meds Apixaban [Eliquis] 5 mg PO BID #60 tablet 02/20/17 [Rx] Albuterol [Ventolin HFA] 2 puff INH Q4HR PRN #1 inhaler 12/03/18 [Rx] metFORMIN HCl [Metformin HCl] 500 mg PO BID 12/03/18 [History] Past Medical History HEENT History: Reports: None Other HEENT History: Patient given Ativan and Fentanyl in ER, patient now sedated-cannot assess Cardiovascular History: Reports: Other (See Below) Other Cardiovascular History: 2011 was admitted for "heart flutter" Respiratory History: Reports: Asthma Gastrointestinal History: Reports: Other (See Below) Other Gastrointestinal History: Patient given Ativan and Fentanyl in ER, patient now sedated-cannot assess Genitourinary History: Reports: Other (See Below) Other Genitourinary History: Has terry catheter due to vulvar ca, radiation and chemo 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 Blood transfusion history, states received blood transfusion in oncology due to this Other Immunologic History: Patient given Ativan and Fentanyl in ER, patient now sedated-cannot assess Oncologic (Cancer) History: Reports: Other (See Below) Other Oncologic History: vulvar ca Dermatologic History: Reports: None - Infectious Disease History Infectious Disease History: Reports: Chicken Pox - Past Surgical History HEENT Surgical History: Reports: Tonsillectomy GI Surgical History: Reports: Hernia, Abdominal, Other (See Below) Other GI Surgeries/Procedures: exploratory surgery with removal of part of colon and intestine, iliostomy Female Surgical History: Reports: Section, Other (See Below) Other Female Surgeries/Procedures: radical vulvectomy secondary to cancer Oncologic Surgical History: Reports: Other (See Below) Other Oncologic Surgeries/Procedures: radical vulvectomy Social & Family History - Family History Family Medical History: Noncontributory Other Cardiac Family History: Patient given Ativan and Fentanyl in ER, patient now sedated-cannot assess Other Dermatologic Family History: Patient given Ativan and Fentanyl in ER, patient now sedated-cannot assess - Caffeine Use Caffeine Use: Reports: None Caffeine Use Comment: Daily Review of Systems - Review of Systems Review Of Systems: ROS reveals no pertinent complaints other than HPI. ED EXAM, GENERAL - Physical Exam Exam: See Below Course - Vital Signs Last Recorded V/S: Last Vital Signs Temp 96.8 F 08/03/19 12:46 Pulse 96 08/03/19 12:46 Resp 18 08/03/19 12:46 BP 149/85 H 08/03/19 12:46 Pulse Ox 92 L 08/03/19 12:46 - Orders/Labs/Meds Orders: Active Orders 24 hr Category Date Time Status Hand Comp Min 3V Lt [CR] Stat Exams 08/03/19 12:56 Stop Req Hand Comp Min 3V Rt [CR] Stat Exams 08/03/19 12:56 Stop Req Acetaminophen [Tylenol] Med 08/03/19 13:01 Once 650 mg PO NOW ONE Medication Orders Acetaminophen (Tylenol) 650 mg PO NOW ONE Stop: 08/03/19 13:02 Last Admin: 08/03/19 13:15 Dose: 650 mg Meds: Medications Generic Name Dose Route Start Last Admin Trade Name Freq PRN Reason Stop Dose Admin Acetaminophen 650 mg 08/03/19 13:01 08/03/19 13:15 Tylenol PO 08/03/19 13:02 650 mg NOW ONE Administration Departure - Departure Time of Disposition: 13:19 Disposition: Home, Self-Care 01 Condition: Good Clinical Impression: Hand contusion Qualifiers: Encounter type: initial encounter Laterality: unspecified laterality Qualified Code(s): S60.229A - Contusion of unspecified hand, initial encounter - Discharge Information *PRESCRIPTION DRUG MONITORING PROGRAM REVIEWED*: No *COPY OF PRESCRIPTION DRUG MONITORING REPORT IN PATIENT JANELLE: No Referrals: Saúl Rahman MD [Primary Care Provider] - Forms: ED Department Discharge Additional Instructions: The following information is given to patients seen in the emergency department who are being discharged to home. This information is to outline your options for follow-up care. We provide all patients seen in our emergency department with a follow-up referral. The need for follow-up, as well as the timing and circumstances, are variable depending upon the specifics of your emergency department visit. If you don't have a primary care physician on staff, we will provide you with a referral. We always advise you to contact your personal physician following an emergency department visit to inform them of the circumstance of the visit and for follow-up with them and/or the need for any referrals to a consulting specialist. The emergency department will also refer you to a specialist when appropriate. This referral assures that you have the opportunity for follow-up care with a specialist. All of these measure are taken in an effort to provide you with optimal care, which includes your follow-up. Under all circumstances we always encourage you to contact your private physician who remains a resource for coordinating your care. When calling for follow-up care, please make the office aware that this follow-up is from your recent emergency room visit. If for any reason you are refused follow-up, please contact the [facility] Emergency Department at and asked to speak to the emergency department charge nurse. Take meds as directed, follow up with your primary care physician, return to ER if symptoms worsen or change. [facility] [address] [place] [id number] - My Orders Last 24 Hours: My Active Orders 08/03/19 12:56 Hand Comp Min 3V Lt [CR] Stat Hand Comp Min 3V Rt [CR] Stat 08/03/19 13:01 Acetaminophen [Tylenol] 650 mg PO NOW ONE - Assessment/Plan Last 24 Hours: My Active Orders 08/03/19 12:56 Hand Comp Min 3V Lt [CR] Stat Hand Comp Min 3V Rt [CR] Stat 08/03/19 13:01 Acetaminophen [Tylenol] 650 mg PO NOW ONE
[2019-08-03] MEDS ORDERED: Acetaminophen 325 MG Tab PO ONE (13:01)
== END 2019-08-03 13:38 | disposition home or self-care (01) ==
LOC: MW.ED 12:33
DX: S60.221A Contusion of right hand, initial encounter (principal); S60.022A Contusion of left index finger without damage to nail, initial encounter; J45.909 Unspecified asthma, uncomplicated; E11.9 Type 2 diabetes mellitus without complications; E66.9 Obesity, unspecified; Z68.43 Body mass index [BMI] 50.0-59.9, adult; Z88.6 Allergy status to analgesic agent; Z88.5 Allergy status to narcotic agent; Z91.048 Other nonmedicinal substance allergy status; Z88.8 Allergy status to other drugs, medicaments and biological substances; Z79.84 Long term (current) use of oral hypoglycemic drugs; Z85.89 Personal history of malignant neoplasm of other organs and systems; Z79.01 Long term (current) use of anticoagulants; W20.8XXA Other cause of strike by thrown, projected or falling object, initial encounter
CPT/HCPCS: 99283; A9270

== ENCOUNTER 2020-06-13 16:05 | Emergency (ER) | payer MEDICARE, MEDICAID ==
[2020-06-13] MEDS ORDERED: Alum Hydrox/Mag Hydrox/Simeth 15 ML, Lidocaine 2% 5 ML PO ONE ×2 (16:14)
[2020-06-13] MEDS ORDERED: Famotidine 20 MG/2 ML SDV IVPUSH ONE (16:14)
[2020-06-13 16:49] LABS: BLOOD UREA NITROGEN,BUN 23 mg/dL (7.0-18.0); CARBON DIOXIDE,CO2 17.5 mmol/L (21.0-32.0); CHLORIDE,CL 105 mmol/L (98-107); GLUCOSE RANDOM 205 mg/dL (74-106); POTASSIUM,K 5.2 mmol/L (3.5-5.1); SODIUM,NA 135 mmol/L (136-145)
--- NOTE | 2020-06-13 17:02 | CR ---
Chest: Portable view of the chest was obtained. Comparison: Prior chest x-ray of 12/14/18. Reticulonodular appearance seen within the chest which is stable. Minimal scarring is noted within the left lung base. Other parenchymal change is seen on prior study has resolved. Slight pleural thickening noted within the left lung base which appears to be chronic. Heart is slightly is enlarged but accentuated from portable technique. Bony structures are grossly intact. Impression: 1. Slight scarring and pleural thickening with left lung base most likely residual from previous pneumonia. 2. Other findings are felt to be stable. Nothing acute is suspected. Diagnostic code #3 This report was dictated in MDT
--- NOTE | 2020-06-13 17:09 | EDM.PDOC ---
ED HPI GENERAL MEDICAL PROBLEM - General Chief Complaint: Chest Pain Stated Complaint: chest pain Time Seen by Provider: 06/13/20 16:19 Source of Information: Reports: Patient, EMS History Limitations: Reports: No Limitations - History of Present Illness INITIAL COMMENTS - FREE TEXT/NARRATIVE: 55F extensive PMHx presents for chest pain. Patient states she was in normal state of health until around 3:30PM. After eating she began to experience a middle substernal chest pain associated with nausea, SOB, and radiation of pain to her b/l arms. Pain came in waves. She rated pain 8/10. Had aspirin by EMS and notes pain is now 2/10. She has PSHx of cholecystectomy and has ostomy from prior cancers. She denies having cardiac problems. Treatments GENERAL LABORER: Reports: EKG, IV/IO bilateral throat pain and back Pain Score (Numeric/FACES): 3 - Related Data Allergies Allergy/AdvReac Type Severity Reaction Status Date / Time adhesive tape Allergy Rash Verified 06/13/20 16:10 Bleach (Sodium Hypochlorite) Allergy Hives Verified 06/13/20 16:10 codeine Allergy Hives Verified 06/13/20 16:10 ibuprofen Allergy Hives Verified 06/13/20 16:10 iron Allergy Dizziness Verified 06/13/20 16:10 naproxen Allergy Hives Verified 06/13/20 16:10 amonia Allergy Hives Uncoded 06/13/20 16:10 Home Meds: Home Meds Apixaban [Eliquis] 5 mg PO BID #60 tablet 02/20/17 [Rx] Albuterol [Ventolin HFA] 2 puff INH Q4HR PRN #1 inhaler 12/03/18 [Rx] metFORMIN HCl [Metformin HCl] 500 mg PO BID 12/03/18 [History] Past Medical History HEENT History: Reports: None Other HEENT History: Patient given Ativan and Fentanyl in ER, patient now sedated-cannot assess Cardiovascular History: Reports: Other (See Below) Other Cardiovascular History: 2011 was admitted for "heart flutter" Respiratory History: Reports: Asthma Gastrointestinal History: Reports: Other (See Below) Other Gastrointestinal History: Patient given Ativan and Fentanyl in ER, patient now sedated-cannot assess Genitourinary History: Reports: Other (See Below) Other Genitourinary History: Has terry catheter due to vulvar ca, radiation and chemo 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 Blood transfusion history, states received blood transfusion in oncology due to this Other Immunologic History: Patient given Ativan and Fentanyl in ER, patient now sedated-cannot assess Oncologic (Cancer) History: Reports: Other (See Below) Other Oncologic History: vulvar ca Dermatologic History: Reports: None - Infectious Disease History Infectious Disease History: Reports: Chicken Pox - Past Surgical History HEENT Surgical History: Reports: Tonsillectomy GI Surgical History: Reports: Hernia, Abdominal, Other (See Below) Other GI Surgeries/Procedures: exploratory surgery with removal of part of colon and intestine, iliostomy Female Surgical History: Reports: Section, Other (See Below) Other Female Surgeries/Procedures: radical vulvectomy secondary to cancer Oncologic Surgical History: Reports: Other (See Below) Other Oncologic Surgeries/Procedures: radical vulvectomy Social & Family History - Family History Family Medical History: Noncontributory Other Cardiac Family History: Patient given Ativan and Fentanyl in ER, patient now sedated-cannot assess Other Dermatologic Family History: Patient given Ativan and Fentanyl in ER, patient now sedated-cannot assess - Caffeine Use Caffeine Use: Reports: None Caffeine Use Comment: Daily ED ROS GENERAL - Review of Systems Review Of Systems: Comprehensive ROS is negative, except as noted in HPI. ED EXAM, GENERAL - Physical Exam Exam: See Below Exam Limited By: No Limitations General Appearance: Alert, WD/WN Respiratory/Chest: No Respiratory Distress, No Accessory Muscle Use, Wheezing Cardiovascular: Normal Peripheral Pulses, Regular Rate, Rhythm GI/Abdominal: Soft, Other (obese) Neurological: Alert, Oriented Psychiatric: Normal Affect, Normal Mood Skin Exam: Warm, Dry EKG INTERPRETATION EKG Date: 06/13/20 Time: 17:09 Rhythm: NSR Rate (Beats/Min): [address] [place]: Normal P-Wave: Present QRS: Normal ST-T: Normal QT: Normal Course - Vital Signs Last Recorded V/S: Last Vital Signs Temp 96.0 F L 06/13/20 16:06 Pulse 69 06/13/20 19:12 Resp 14 06/13/20 19:12 BP 109/67 06/13/20 19:12 Pulse Ox 91 L 06/13/20 19:12 - Orders/Labs/Meds Orders: Active Orders 24 hr Category Date Time Status EKG Documentation Completion [RC] STAT Care 06/13/20 16:14 Active Labs: Laboratory Tests 06/13/20 06/13/20 06/13/20 Range/Units 16:15 16:15 16:15 WBC 7.51 (4.0-11.0) K/uL RBC 5.10 (4.30-5.90) M/uL Hgb 16.5 H (12.0-16.0) g/dL Hct 50.6 H (36.0-46.0) % MCV 99.2 H (80.0-98.0) fL MCH 32.4 H (27.0-32.0) pg MCHC 32.6 (31.0-37.0) g/dL RDW Std Deviation 53.9 (28.0-62.0) fl RDW Coeff of Joana 15 (11.0-15.0) % Plt Count 196 (150-400) K/uL MPV 11.30 (7.40-12.00) fL Neut % (Auto) 67.2 (48.0-80.0) % Lymph % (Auto) 23.8 (16.0-40.0) % [place] % (Auto) 6.5 (0.0-15.0) % Eos % (Auto) 2.0 (0.0-7.0) % Baso % (Auto) 0.5 (0.0-1.5) % Neut # (Auto) 5.0 (1.4-5.7) K/uL Lymph # (Auto) 1.8 (0.6-2.4) K/uL [place] # (Auto) 0.5 (0.0-0.8) K/uL Eos # (Auto) 0.2 (0.0-0.7) K/uL Baso # (Auto) 0.0 (0.0-0.1) K/uL Nucleated RBC % 0.0 /100WBC Nucleated RBCs # 0 K/uL Sodium 135 L (136-145) mmol/L Potassium 5.2 H (3.5-5.1) mmol/L Chloride 105 (98-107) mmol/L Carbon Dioxide 17.5 L (21.0-32.0) mmol/L BUN 23 H (7.0-18.0) mg/dL Creatinine 1.4 H (0.6-1.0) mg/dL Est Cr Clr Drug Dosing 38.44 mL/min Estimated GFR (MDRD) 39.3 ml/min Glucose 205 H (74-106) mg/dL Calcium 8.9 (8.5-10.1) mg/dL Total Bilirubin 0.5 (0.2-1.0) mg/dL AST 30 (15-37) IU/L ALT 37 (14-63) IU/L Alkaline Phosphatase 139 H (46-116) U/L Troponin I < 0.050 (0.000-0.056) ng/mL B-Natriuretic Peptide 5 (<100) PG/ML Total Protein 7.8 (6.4-8.2) g/dL Albumin 3.8 (3.4-5.0) g/dL Globulin 4.0 (2.6-4.0) g/dL Albumin/Globulin Ratio 0.9 (0.9-1.6) 06/13/20 Range/Units 19:11 WBC (4.0-11.0) K/uL RBC (4.30-5.90) M/uL Hgb (12.0-16.0) g/dL Hct (36.0-46.0) % MCV (80.0-98.0) fL MCH (27.0-32.0) pg MCHC (31.0-37.0) g/dL RDW Std Deviation (28.0-62.0) fl RDW Coeff of Joana (11.0-15.0) % Plt Count (150-400) K/uL MPV (7.40-12.00) fL Neut % (Auto) (48.0-80.0) % Lymph % (Auto) (16.0-40.0) % [place] % (Auto) (0.0-15.0) % Eos % (Auto) (0.0-7.0) % Baso % (Auto) (0.0-1.5) % Neut # (Auto) (1.4-5.7) K/uL Lymph # (Auto) (0.6-2.4) K/uL [place] # (Auto) (0.0-0.8) K/uL Eos # (Auto) (0.0-0.7) K/uL Baso # (Auto) (0.0-0.1) K/uL Nucleated RBC % /100WBC Nucleated RBCs # K/uL Sodium (136-145) mmol/L Potassium (3.5-5.1) mmol/L Chloride (98-107) mmol/L Carbon Dioxide (21.0-32.0) mmol/L BUN (7.0-18.0) mg/dL Creatinine (0.6-1.0) mg/dL Est Cr Clr Drug Dosing mL/min Estimated GFR (MDRD) ml/min Glucose (74-106) mg/dL Calcium (8.5-10.1) mg/dL Total Bilirubin (0.2-1.0) mg/dL AST (15-37) IU/L ALT (14-63) IU/L Alkaline Phosphatase (46-116) U/L Troponin I < 0.050 (0.000-0.056) ng/mL B-Natriuretic Peptide (<100) PG/ML Total Protein (6.4-8.2) g/dL Albumin (3.4-5.0) g/dL Globulin (2.6-4.0) g/dL Albumin/Globulin Ratio (0.9-1.6) Meds: Medications Discontinued Medications Generic Name Dose Route Start Last Admin Trade Name Freq PRN Reason Stop Dose Admin Al Hydroxide/Mg Hydroxide 15 0 ml 06/13/20 16:14 06/13/20 16:50 ml/ Lidocaine HCl 5 ml PO 06/13/20 16:15 20 each ONETIME ONE Administration Famotidine 20 mg 06/13/20 16:14 06/13/20 16:50 Pepcid IVPUSH 06/13/20 16:15 20 mg ONETIME ONE Administration Iopamidol 100 ml 06/13/20 18:27 06/13/20 18:27 Isovue-370 (76%) IVPUSH 08/17/20 18:28 100 ml ONETIME STA Administration Morphine Sulfate 4 mg 06/13/20 17:40 06/13/20 17:52 Morphine IVPUSH 06/13/20 17:41 4 mg ONETIME ONE Administration - Re-Assessments/Exams Free Text/Narrative Re-Assessment/Exam: 06/13/20 17:09 Will get labs, CXR, reassess. Will give GI meds as well for symptomatic relief. 06/13/20 17:48 Initial troponin negative. Patient's pain starting to return. She points to mid- epigastrium. States not as bad as earlier. Will get CT A/P in setting of extensive surgical history. Will order repeat troponin for 1914. 06/13/20 18:[address] A/P. Patient is resting comfortably and pain is gone. Will f/u rpt troponin and anticipate d/c. Patient said she can f/u with her PMD tomorrow. 06/13/20 19:50 Rpt trop negative Departure - Departure Time of Disposition: 19:16 Disposition: Home, Self-Care 01 Condition: Good Clinical Impression: Chest pain Qualifiers: Chest pain type: unspecified Qualified Code(s): R07.9 - Chest pain, unspecified Instructions: Nonspecific Chest Pain, Adult Referrals: PCP,None [Primary Care Provider] - Forms: ED Department Discharge Sepsis Event Note (ED) - Evaluation Sepsis Screening Result: No Definite Risk - Focused Exam Vital Signs: Vital Signs Temp Pulse Resp BP Pulse Ox 06/13/20 19:12 69 14 109/67 91 L 06/13/20 16:06 96.0 F L 86 20 101/75 93 L - My Orders Last 24 Hours: My Active Orders 06/13/20 16:14 EKG Documentation Completion [RC] STAT - Assessment/Plan Last 24 Hours: My Active Orders 06/13/20 16:14 EKG Documentation Completion [RC] STAT
[2020-06-13] MEDS ORDERED: Morphine 4 MG/ML Syringe IVPUSH ONE (17:40)
[2020-06-13] MEDS ORDERED: Iopamidol 755 Mg/ML 100 ML Bottle IVPUSH STA (18:27)
--- NOTE | 2020-06-13 18:41 | CT ---
CT abdomen and pelvis Technique: Multiple axial sections were obtained from above the dome of the diaphragm inferiorly through the pubic symphysis. Intravenous contrast was utilized. No oral contrast has been given. Comparison: No prior CT or other abdominal imaging. Findings: Visualized lung bases show nothing acute. Severe fatty infiltration is seen within the liver. Spleen appears within normal limits. Adrenal glands show no nodule. Pancreas shows no discrete abnormality. Surgical clips are seen from prior cholecystectomy. Kidneys show symmetric contrast enhancement without hydronephrosis or mass. Aorta shows diffuse atherosclerotic change which continues into the iliac vessels without aneurysm. No retroperitoneal adenopathy or mesenteric abnormalities are seen. No pelvic mass or adenopathy is noted. Right lower anterior abdominal wall hernia is seen which extends into the lateral right abdomen which contains multiple loops of small bowel which show no dilatation. No free fluid or inflammatory change is appreciated. Appendix not visualized with certainty.. Bone window settings were reviewed which shows no acute osseous finding. Impression: 1. Right lower anterior abdominal wall hernia containing multiple loops of nondilated small bowel. 2. Severe fatty infiltration within the liver. 3. Atherosclerotic calcification within the aorta and iliac vessels. No aneurysm. 4. Nothing acute is appreciated on CT study of the abdomen and pelvis. Diagnostic code #3 This report was dictated in MDT
[2020-06-13 19:14] VITALS: PULSE 69
[2020-06-13 20:01] VITALS: BP 106/69
== END 2020-06-13 20:01 | disposition home or self-care (01) ==
LOC: MW.ED 16:05
DX: R07.2 Precordial pain (principal); E11.9 Type 2 diabetes mellitus without complications; J45.909 Unspecified asthma, uncomplicated; E66.9 Obesity, unspecified; Z68.43 Body mass index [BMI] 50.0-59.9, adult; Z91.048 Other nonmedicinal substance allergy status; Z91.09 Other allergy status, other than to drugs and biological substances; Z88.5 Allergy status to narcotic agent; Z79.01 Long term (current) use of anticoagulants; Z79.84 Long term (current) use of oral hypoglycemic drugs; Z88.6 Allergy status to analgesic agent; R06.02 Shortness of breath
CPT/HCPCS: 36415; 71045; 74177; 80053; 83880; 84484; 85025; 93005; 96374; 96375; 99285; A9270; J2270; J3490; Q9967; 93010; 99283

== ENCOUNTER 2020-11-08 08:12 | Emergency (ER) | payer MEDICARE, MEDICAID, OTHER ==
--- NOTE | 2020-11-08 08:38 | EDM.PDOC ---
ED HPI GENERAL MEDICAL PROBLEM - General Chief Complaint: Headache Stated Complaint: FELL HEADACHES Time Seen by Provider: 11/08/20 08:35 Source of Information: Reports: Patient History Limitations: Reports: No Limitations - History of Present Illness INITIAL COMMENTS - FREE TEXT/NARRATIVE: Patient is a 55-year-old female who presents today for headache. Patient states headache started 2 days ago has been constant in nature. Patient states she tried Tylenol at home without much relief. Patient denies any vision changes any extremity numbness or weakness or other neurological complaints. Patient has had headaches and migraines on and off her whole life. She states this is a longer her headache is ever lasted. Patient also reported some nausea but no vomiting diarrhea or abdominal pain. Headache Pain Score (Numeric/FACES): 8 - Related Data Allergies Allergy/AdvReac Type Severity Reaction Status Date / Time adhesive tape Allergy Rash Verified 11/08/20 08:27 Bleach (Sodium Hypochlorite) Allergy Hives Verified 11/08/20 08:27 codeine Allergy Hives Verified 11/08/20 08:27 ibuprofen Allergy Hives Verified 11/08/20 08:27 iron Allergy Dizziness Verified 11/08/20 08:27 naproxen Allergy Hives Verified 11/08/20 08:27 amonia Allergy Hives Uncoded 11/08/20 08:27 tide Allergy Hives Uncoded 11/08/20 08:28 tide detergent Allergy Hives Uncoded 11/08/20 08:28 Home Meds: Home Meds Apixaban [Eliquis] 5 mg PO BID #60 tablet 02/20/17 [Rx] metFORMIN HCl [Metformin HCl] 1,000 mg PO BID 12/03/18 [History] Linagliptin [Tradjenta] 5 mg PO DAILY 11/08/20 [History] gemfibroziL [Lopid] 600 mg PO BID 11/08/20 [History] glyBURIDE [Glyburide] 5 mg PO DAILY 11/08/20 [History] Past Medical History HEENT History: Reports: None Other HEENT History: Patient given Ativan and Fentanyl in ER, patient now sedated-cannot assess Cardiovascular History: Reports: Other (See Below) Other Cardiovascular History: 2010 was admitted for "heart flutter" Respiratory History: Reports: Asthma Gastrointestinal History: Reports: Other (See Below) Other Gastrointestinal History: Patient given Ativan and Fentanyl in ER, patient now sedated-cannot assess Genitourinary History: Reports: Other (See Below) Other Genitourinary History: Has terry catheter due to vulvar ca, radiation and chemo DIRECTOR OF DIETARY History: Reports: , Other (See Below) Other DIRECTOR OF DIETARY History: Vulvar CA diagnosed in Nov Musculoskeletal History: Reports: Back Pain, Chronic Neurological History: Reports: Headaches, Chronic Psychiatric History: Reports: Anxiety Endocrine/Metabolic History: Reports: Diabetes, Type II, Obesity/BMI 30+ Hematologic History: Reports: Anemia, Iron Deficiency Other Hematologic History: Diagnosed with Iron Deficiency Anemia in 2000. Blood transfusion history, states received blood transfusion in oncology due to this Other Immunologic History: Patient given Ativan and Fentanyl in ER, patient now sedated-cannot assess Oncologic (Cancer) History: Reports: Other (See Below) Other Oncologic History: vulvar ca Dermatologic History: Reports: None - Infectious Disease History Infectious Disease History: Reports: Chicken Pox - Past Surgical History HEENT Surgical History: Reports: Tonsillectomy GI Surgical History: Reports: Hernia, Abdominal, Other (See Below) Other GI Surgeries/Procedures: exploratory surgery with removal of part of colon and intestine, iliostomy Female Surgical History: Reports: Section, Other (See Below) Other Female Surgeries/Procedures: radical vulvectomy secondary to cancer Oncologic Surgical History: Reports: Other (See Below) Other Oncologic Surgeries/Procedures: radical vulvectomy Social & Family History - Family History Family Medical History: No Pertinent Family History Other Cardiac Family History: Patient given Ativan and Fentanyl in ER, patient now sedated-cannot assess Other Dermatologic Family History: Patient given Ativan and Fentanyl in ER, patient now sedated-cannot assess - Caffeine Use Caffeine Use: Reports: None Caffeine Use Comment: Daily ED ROS GENERAL - Review of Systems Review Of Systems: See Below Constitutional: Reports: No Symptoms HEENT: Reports: No Symptoms Respiratory: Reports: No Symptoms Cardiovascular: Reports: No Symptoms Endocrine: Reports: No Symptoms GI/Abdominal: Reports: No Symptoms : Reports: No Symptoms Musculoskeletal: Reports: No Symptoms Skin: Reports: No Symptoms Neurological: Reports: Headache Psychiatric: Reports: No Symptoms Hematologic/Lymphatic: Reports: No Symptoms Immunologic: Reports: No Symptoms - Physical Exam Exam: See Below Exam Limited By: No Limitations General Appearance: Alert, WD/WN Eye Exam: Bilateral Eye: EOMI, PERRL Head Exam: Atraumatic, Normocephalic Respiratory/Chest: No Respiratory Distress, Lungs Clear Cardiovascular: Normal Peripheral Pulses, Regular Rate, Rhythm GI/Abdominal: Normal Bowel Sounds, Soft, Non-Tender Neuro Exam (Abbreviated): Alert, Oriented, CN II-XII Intact, Normal Cognition Course - Vital Signs Last Recorded V/S: Last Vital Signs Temp 97.3 F 11/08/20 08:31 Pulse 84 11/08/20 08:31 Resp 17 11/08/20 08:31 BP 119/82 11/08/20 08:31 Pulse Ox 98 11/08/20 08:31 - Orders/Labs/Meds Orders: Active Orders 24 hr Category Date Time Status Sodium Chloride 0.9% [Saline Flush] Med 11/08/20 08:49 Active 10 ml FLUSH ASDIRECTED PRN Sodium Chloride 0.9% [Saline Flush] Med 11/08/20 08:49 Active 2.5 ml FLUSH ASDIRECTED PRN Saline Lock Insert [OM.PC] Stat Oth 11/08/20 08:49 Ordered Medication Orders Sodium Chloride (Saline Flush) 10 ml FLUSH ASDIRECTED PRN PRN Reason: Keep Vein Open Last Admin: 11/08/20 08:50 Dose: 10 ml Documented by: LON Sodium Chloride (Saline Flush) 2.5 ml FLUSH ASDIRECTED PRN PRN Reason: Keep Vein Open Last Admin: 11/08/20 08:50 Dose: 2.5 ml Documented by: LON Meds: Medications Generic Name Dose Route Start Last Admin Trade Name Freq PRN Reason Stop Dose Admin Sodium Chloride 10 ml 11/08/20 08:49 11/08/20 08:50 Saline Flush FLUSH 10 ml ASDIRECTED PRN Administration Keep Vein Open Sodium Chloride 2.5 ml 11/08/20 08:49 11/08/20 08:50 Saline Flush FLUSH 2.5 ml ASDIRECTED PRN Administration Keep Vein Open Discontinued Medications Generic Name Dose Route Start Last Admin Trade Name Freq PRN Reason Stop Dose Admin Diphenhydramine HCl 25 mg 11/08/20 08:35 11/08/20 08:51 Benadryl IVPUSH 11/08/20 08:36 25 mg ONETIME ONE Administration Sodium Chloride 1,000 mls @ 999 mls/hr 11/08/20 08:49 11/08/20 08:50 Normal Saline IV 11/08/20 09:49 999 mls/hr .Bolus ONE Administration Metoclopramide HCl 10 mg 11/08/20 08:35 11/08/20 08:51 Reglan IVPUSH 11/08/20 08:36 10 mg ONETIME ONE Administration - Re-Assessments/Exams Free Text/Narrative Re-Assessment/Exam: 11/08/20 09:59 Patient is sleeping comfortably in the room. Patient headache has subsided. Patient will be discharged home. She has a follow-up with ophthalmology tomorrow and we will arrange for her to see neurology if she continues to have headaches. Departure - Departure Time of Disposition: 10:00 Disposition: Home, Self-Care 01 Condition: Good Clinical Impression: Head ache - Discharge Information *PRESCRIPTION DRUG MONITORING PROGRAM REVIEWED*: Not Applicable *COPY OF PRESCRIPTION DRUG MONITORING REPORT IN PATIENT JANELLE: Not Applicable Instructions: Recurrent Migraine Headache, [id number] Referrals: PCP,Unknown [Primary Care Provider] - Forms: ED Department Discharge Additional Instructions: The following information is given to patients seen in the emergency department who are being discharged to home. This information is to outline your options for follow-up care. We provide all patients seen in our emergency department with a follow-up referral. The need for follow-up, as well as the timing and circumstances, are variable depending upon the specifics of your emergency department visit. If you don't have a primary care physician on staff, we will provide you with a referral. We always advise you to contact your personal physician following an emergency department visit to inform them of the circumstance of the visit and for follow-up with them and/or the need for any referrals to a consulting specialist. The emergency department will also refer you to a specialist when appropriate. This referral assures that you have the opportunity for follow-up care with a specialist. All of these measure are taken in an effort to provide you with optimal care, which includes your follow-up. Under all circumstances we always encourage you to contact your private physician who remains a resource for coordinating your care. When calling for follow-up care, please make the office aware that this follow-up is from your recent emergency room visit. If for any reason you are refused follow-up, please contact the [facility] Emergency Department at and asked to speak to the emergency department charge nurse. Please follow up with your primary care physician. If you do not have a primary care physician, see below: [facility] - Neurology Professional Building [address] [place] [address], [address] [place] [address] Please follow-up with your photo checker and assembler tomorrow as scheduled we have also provided above the number to call you neurology if you continue to have headaches. If you have any other concerning symptoms or findings please return to the ED. Sepsis Event Note (ED) - Focused Exam Vital Signs: Vital Signs Temp Pulse Resp BP Pulse Ox 11/08/20 08:31 97.3 F 84 17 119/82 98 - My Orders Last 24 Hours: My Active Orders 11/08/20 08:49 Sodium Chloride 0.9% [Saline Flush] 10 ml FLUSH ASDIRECTED PRN Sodium Chloride 0.9% [Saline Flush] 2.5 ml FLUSH ASDIRECTED PRN Saline Lock Insert [OM.PC] Stat - Assessment/Plan Last 24 Hours: My Active Orders 11/08/20 08:49 Sodium Chloride 0.9% [Saline Flush] 10 ml FLUSH ASDIRECTED PRN Sodium Chloride 0.9% [Saline Flush] 2.5 ml FLUSH ASDIRECTED PRN Saline Lock Insert [OM.PC] Stat Assessment:: Patient is a 55-year-old female who presents today for headache. Patient headache seems to be related to her chronic headaches there are no neurologic complaints. Will attempt to give Reglan and Benadryl and reassess.
[2020-11-08] MEDS: Sodium Chloride 0.9% 10 ML Syringe FLUSH PRN (08:50)
[2020-11-08] MEDS: Sodium Chloride 0.9% 2.5 ML Syringe FLUSH PRN (08:50)
[2020-11-08] MEDS: Sodium Chloride 0.9% 1,000 ML IV ONE (08:50)
[2020-11-08] MEDS: Metoclopramide 10 MG/2 ML SDV IVPUSH ONE (08:51)
[2020-11-08] MEDS: diphenhydrAMINE 50 MG/ML SDV IVPUSH ONE (08:51)
[2020-11-08 10:15] VITALS: BP 110/65; PULSE 76
== END 2020-11-08 10:17 | disposition home or self-care (01) ==
LOC: MW.ED 08:12
DX: R51.9 Headache, unspecified (principal); J45.909 Unspecified asthma, uncomplicated; E11.9 Type 2 diabetes mellitus without complications; E66.9 Obesity, unspecified; Z68.42 Body mass index [BMI] 45.0-49.9, adult; Z91.048 Other nonmedicinal substance allergy status; Z88.5 Allergy status to narcotic agent; Z88.6 Allergy status to analgesic agent; Z79.899 Other long term (current) drug therapy; Z79.84 Long term (current) use of oral hypoglycemic drugs; Z79.01 Long term (current) use of anticoagulants
CPT/HCPCS: 96374; 96375; 99283; J1200; J2765; J7030

== ENCOUNTER 2020-11-08 22:07 | Emergency (ER) | payer MEDICARE, MEDICAID, OTHER ==
[2020-11-08] MEDS ORDERED: Sodium Chloride 0.9% 2.5 ML Syringe FLUSH PRN (22:29)
[2020-11-08] MEDS ORDERED: Sodium Chloride 0.9% 10 ML Syringe FLUSH PRN (22:29)
--- NOTE | 2020-11-08 22:33 | EDM.PDOC ---
ED HPI GENERAL MEDICAL PROBLEM - General Chief Complaint: Headache Stated Complaint: SICK Time Seen by Provider: 11/08/20 22:15 - History of Present Illness INITIAL COMMENTS - FREE TEXT/NARRATIVE: History of present illness: [] The patient has a headache. It is moderately severe. For the last 2 weeks she has had occasional headaches that reminded her of her migraines in the past. The others have been in the remote past. Her headaches have been going away with Tylenol. Starting 2 days ago she had a headache to get a little better with Tylenol and then came back and is more severe than it had been. It does have an insidious onset. Earlier today she came in and had a severe headache that went away with an IV. However it did not stay away long and came back. Is still quite bothersome. For the last 2 days she has had some flashing lights that she can see in her eyes. The patient is on Eliquis for prior history of pulmonary emboli. She does not says she is under any more stress than usual. She has not had any recent injury. Review of systems: As per history of present illness and below otherwise all systems reviewed and negative. Past medical history: As per history of present illness and as reviewed below otherwise noncontributory. Surgical history: As per history of present illness and as reviewed below otherwise noncontributory. Social history: No reported history of drug or alcohol abuse. Family history: As per history of present illness and as reviewed below otherwise noncontributory. Physical exam: Constitutional - well developed, well-nourished and in no acute distress HEENT - normocephalic, no evidence of trauma - external nose and mouth normal - no mass in neck and no JVD - mucosae moist EYES - full EOM, PERRL, no icterus - no evidence of inflammation, injection, or drainage Respiratory - no respiratory distress, equal bilateral expansion, lungs clear to auscultation and no abnormal lung sounds Cardiovascular - Regular Rhythm with S1 and S2 appreciated and no murmur, gallop or rub. GI - abdomen soft without distension or organomegaly - normal bowel sounds - no guard or rebound Musculoskeletal no gross deformity of long bones or joints - no tenderness, swelling or edema Neurologic -My customary brief neurologic exam is normal with a fast negative. Alert and oriented times four - CN II-XII grossly intact - motor sensory and coordination symmetrically normal Psychiatric - appropriate mood and affect with normal thought content Hematologic - No petechiae or purpura - mucosa appropriate color and sclera not pale - normal nail bed color and refill Integument - no rash or evidence of trauma - normal turgor Diagnostics: [] Therapeutics: [] Impression: [] Plan: [] Definitive disposition and diagnosis as appropriate pending reevaluation and review of above. headache Pain Score (Numeric/FACES): 9 - Related Data Allergies Allergy/AdvReac Type Severity Reaction Status Date / Time adhesive tape Allergy Rash Verified 11/08/20 22:19 Bleach (Sodium Hypochlorite) Allergy Hives Verified 11/08/20 22:19 codeine Allergy Hives Verified 11/08/20 22:19 ibuprofen Allergy Hives Verified 11/08/20 22:19 iron Allergy Dizziness Verified 11/08/20 22:19 naproxen Allergy Hives Verified 11/08/20 22:19 amonia Allergy Hives Uncoded 11/08/20 22:19 tide Allergy Hives Uncoded 11/08/20 22:19 tide detergent Allergy Hives Uncoded 11/08/20 22:19 Home Meds: Home Meds Apixaban [Eliquis] 5 mg PO BID #60 tablet 02/20/17 [Rx] metFORMIN HCl [Metformin HCl] 1,000 mg PO BID 12/03/18 [History] Acetaminophen/Butalbital/Caff [Fioricet 325-50-40 MG] 1 each PO Q4HR PRN #12 tab 11/08/20 [Rx] Linagliptin [Tradjenta] 5 mg PO DAILY 11/08/20 [History] gemfibroziL [Lopid] 600 mg PO BID 11/08/20 [History] glyBURIDE [Glyburide] 5 mg PO DAILY 11/08/20 [History] Past Medical History HEENT History: Reports: None Other HEENT History: Patient given Ativan and Fentanyl in ER, patient now sedated-cannot assess Cardiovascular History: Reports: Other (See Below) Other Cardiovascular History: 2011 was admitted for "heart flutter" Respiratory History: Reports: Asthma Gastrointestinal History: Reports: Other (See Below) Other Gastrointestinal History: Patient given Ativan and Fentanyl in ER, patient now sedated-cannot assess Genitourinary History: Reports: Other (See Below) Other Genitourinary History: Has terry catheter due to vulvar ca, radiation and chemo CHIEF MEDIA OFFICER History: Reports: , Other (See Below) Other CHIEF MEDIA OFFICER History: Vulvar CA diagnosed in Nov Musculoskeletal History: Reports: Back Pain, Chronic Neurological History: Reports: Headaches, Chronic Psychiatric History: Reports: Anxiety Endocrine/Metabolic History: Reports: Diabetes, Type II, Obesity/BMI 30+ Hematologic History: Reports: Anemia, Iron Deficiency Other Hematologic History: Diagnosed with Iron Deficiency Anemia in 2000. Blood transfusion history, states received blood transfusion in oncology due to this Other Immunologic History: Patient given Ativan and Fentanyl in ER, patient now sedated-cannot assess Oncologic (Cancer) History: Reports: Other (See Below) Other Oncologic History: vulvar ca Dermatologic History: Reports: None - Infectious Disease History Infectious Disease History: Reports: Chicken Pox - Past Surgical History HEENT Surgical History: Reports: Tonsillectomy GI Surgical History: Reports: Hernia, Abdominal, Other (See Below) Other GI Surgeries/Procedures: exploratory surgery with removal of part of colon and intestine, iliostomy Female Surgical History: Reports: Section, Other (See Below) Other Female Surgeries/Procedures: radical vulvectomy secondary to cancer Oncologic Surgical History: Reports: Other (See Below) Other Oncologic Surgeries/Procedures: radical vulvectomy Social & Family History - Family History Family Medical History: No Pertinent Family History Other Cardiac Family History: Patient given Ativan and Fentanyl in ER, patient now sedated-cannot assess Other Dermatologic Family History: Patient given Ativan and Fentanyl in ER, patient now sedated-cannot assess - Caffeine Use Caffeine Use: Reports: None Caffeine Use Comment: Daily ED ROS GENERAL - Review of Systems Review Of Systems: Comprehensive ROS is negative, except as noted in HPI. ED EXAM, GENERAL - Physical Exam Exam: See Below Free Text/Narrative:: My physical exam is in the HPI Course - Vital Signs Text/Narrative:: 2357 hrs. the patient feels better. Last Recorded V/S: Last Vital Signs Temp 35.8 C L 11/08/20 22:19 Pulse 77 11/08/20 22:19 Resp 18 11/08/20 22:19 BP 118/57 L 11/08/20 22:19 Pulse Ox 98 11/08/20 22:19 - Orders/Labs/Meds Orders: Active Orders 24 hr Category Date Time Status Sodium Chloride 0.9% [Saline Flush] Med 11/08/20 22:29 Active 10 ml FLUSH ASDIRECTED PRN Sodium Chloride 0.9% [Saline Flush] Med 11/08/20 22:29 Active 2.5 ml FLUSH ASDIRECTED PRN Saline Lock Insert [OM.PC] Stat Oth 11/08/20 22:29 Ordered Medication Orders Sodium Chloride (Saline Flush) 10 ml FLUSH ASDIRECTED PRN PRN Reason: Keep Vein Open Sodium Chloride (Saline Flush) 2.5 ml FLUSH ASDIRECTED PRN PRN Reason: Keep Vein Open Labs: Laboratory Tests 11/08/20 11/08/20 Range/Units 22:40 22:40 WBC 8.16 (4.0-11.0) K/uL RBC 4.54 (4.30-5.90) M/uL Hgb 14.3 (12.0-16.0) g/dL Hct 44.5 (36.0-46.0) % MCV 98.0 (80.0-98.0) fL MCH 31.5 (27.0-32.0) pg MCHC 32.1 (31.0-37.0) g/dL RDW Std Deviation 51.1 (28.0-62.0) fl RDW Coeff of Joana 14 (11.0-15.0) % Plt Count 214 (150-400) K/uL MPV 11.50 (7.40-12.00) fL Neut % (Auto) 73.2 (48.0-80.0) % Lymph % (Auto) 17.5 (16.0-40.0) % Hoke % (Auto) 7.5 (0.0-15.0) % Eos % (Auto) 1.6 (0.0-7.0) % Baso % (Auto) 0.2 (0.0-1.5) % Neut # (Auto) 6.0 H (1.4-5.7) K/uL Lymph # (Auto) 1.4 (0.6-2.4) K/uL Hoke # (Auto) 0.6 (0.0-0.8) K/uL Eos # (Auto) 0.1 (0.0-0.7) K/uL Baso # (Auto) 0.0 (0.0-0.1) K/uL Nucleated RBC % 0.0 /100WBC Nucleated RBCs # 0 K/uL Sodium 143 (136-145) mmol/L Potassium 5.0 (3.5-5.1) mmol/L Chloride 109 H (98-107) mmol/L Carbon Dioxide 20.2 L (21.0-32.0) mmol/L BUN 27 H (7.0-18.0) mg/dL Creatinine 1.1 H (0.6-1.0) mg/dL Est Cr Clr Drug Dosing 51.07 mL/min Estimated GFR (MDRD) 52.0 ml/min Glucose 192 H (74-106) mg/dL Calcium 9.2 (8.5-10.1) mg/dL Total Bilirubin 0.2 (0.2-1.0) mg/dL AST 9 L (15-37) IU/L ALT 12 L (14-63) IU/L Alkaline Phosphatase 119 H (46-116) U/L Total Protein 7.3 (6.4-8.2) g/dL Albumin 3.2 L (3.4-5.0) g/dL Globulin 4.1 H (2.6-4.0) g/dL Albumin/Globulin Ratio 0.8 L (0.9-1.6) Meds: Medications Generic Name Dose Route Start Last Admin Trade Name Freq PRN Reason Stop Dose Admin Sodium Chloride 10 ml 11/08/20 22:29 Saline Flush FLUSH ASDIRECTED PRN Keep Vein Open Sodium Chloride 2.5 ml 11/08/20 22:29 Saline Flush FLUSH ASDIRECTED PRN Keep Vein Open Discontinued Medications Generic Name Dose Route Start Last Admin Trade Name Freq PRN Reason Stop Dose Admin Acetaminophen/Butalbital/Caffeine 1 tab 11/08/20 23:48 Fioricet 325-50-40 Mg PO 11/08/20 23:49 ONETIME ONE Metoclopramide HCl 10 mg 11/08/20 22:29 11/08/20 22:44 Reglan IVPUSH 11/08/20 22:30 10 mg ONETIME ONE Administration Departure - Departure Time of Disposition: 00:01 Disposition: Home, Self-Care 01 Condition: Good Clinical Impression: Migraine - Discharge Information Referrals: PCP,Not In Area [Primary Care Provider] - Forms: ED Department Discharge Additional Instructions: [facility] - Primary Care [address] [place] [address] [facility] [address] [place] [address] The following information is given to patients seen in the emergency department who are being discharged to home. This information is to outline your options for follow-up care. We provide all patients seen in our emergency department wit h a follow-up referral. The need for follow-up, as well as the timing and circumstances, are variable depending upon the specifics of your emergency department visit. If you don't have a primary care physician on staff, we will provide you with a referral. We always advise you to contact your personal physician following an emergency department visit to inform them of the circumstance of the visit and for follow-up with them and/or the need for any referrals to a consulting specialist. The emergency department will also refer you to a specialist when appropriate. This referral assures that you have the opportunity for follow-up care with a specialist. All of these measure are taken in an effort to provide you with optimal care, which includes your follow-up. Under all circumstances we always encourage you to contact your private physician who remains a resource for coordinating your care. When calling for follow-up care, please make the office aware that this follow-up is from your recent emergency room visit. If for any reason you are refused follow-up, please contact the [facility] Emergency Department at and asked to speak to the emergency department charge nurse. Sepsis Event Note (ED) - Evaluation Sepsis Screening Result: No Definite Risk - Focused Exam Vital Signs: Vital Signs Temp Pulse Resp BP Pulse Ox 11/08/20 22:19 35.8 C L 77 18 118/57 L 98 - My Orders Last 24 Hours: My Active Orders 11/08/20 22:29 Sodium Chloride 0.9% [Saline Flush] 10 ml FLUSH ASDIRECTED PRN Sodium Chloride 0.9% [Saline Flush] 2.5 ml FLUSH ASDIRECTED PRN Saline Lock Insert [OM.PC] Stat - Assessment/Plan Last 24 Hours: My Active Orders 11/08/20 22:29 Sodium Chloride 0.9% [Saline Flush] 10 ml FLUSH ASDIRECTED PRN Sodium Chloride 0.9% [Saline Flush] 2.5 ml FLUSH ASDIRECTED PRN Saline Lock Insert [OM.PC] Stat
[2020-11-08] MEDS: Metoclopramide 10 MG/2 ML SDV IVPUSH ONE (22:44)
[2020-11-08 23:17] LABS: CARBON DIOXIDE,CO2 20.2 mmol/L (21.0-32.0)
--- NOTE | 2020-11-08 23:22 | CT ---
INDICATION: Severe headache. Patient is on blood thinners. TECHNIQUE: CT head without contrast. COMPARISON: None. FINDINGS: CSF spaces: Within normal limits for age. Brain parenchyma and extra-axial spaces: The callaway-white differentiation is normal. No sign of mass, hemorrhage, or midline shift. No extra-axial fluid collection. Skull base and calvarium: The visualized paranasal sinuses and mastoid air cells demonstrate no acute or significant findings. The visualized orbits are grossly unremarkable. No skull fractures. IMPRESSION: Unremarkable noncontrast head CT. No sign of intracranial hemorrhage. Please note that all CT scans at this facility use dose modulation, iterative reconstruction, and/or weight-based dosing when appropriate to reduce radiation dose to as low as reasonably achievable. Dictated by Matt Bacon MD @ Nov 08 2020 11:15PM Signed by Dr. Matt Bacon @ Nov 08 2020 11:22PM
[2020-11-09] MEDS: Acetaminophen/Butalbital/Caffeine 325-50-40 MG Tab PO ONE (00:07)
[2020-11-09 00:22] VITALS: BP 100/53; PULSE 63
== END 2020-11-09 00:15 | disposition home or self-care (01) ==
LOC: MW.ED 22:07
DX: G43.909 Migraine, unspecified, not intractable, without status migrainosus (principal); J45.909 Unspecified asthma, uncomplicated; E66.9 Obesity, unspecified; E11.9 Type 2 diabetes mellitus without complications; Z88.5 Allergy status to narcotic agent; Z88.8 Allergy status to other drugs, medicaments and biological substances; Z79.01 Long term (current) use of anticoagulants; Z68.42 Body mass index [BMI] 45.0-49.9, adult; Z79.84 Long term (current) use of oral hypoglycemic drugs; Z79.899 Other long term (current) drug therapy
CPT/HCPCS: 36415; 70450; 80053; 85025; 96374; 99284; A9270; J2765

== ENCOUNTER 2020-12-14 03:27 | Emergency (ER) | payer MEDICARE, MEDICAID, OTHER ==
[2020-12-14] MEDS ORDERED: Sodium Chloride 0.9% 2.5 ML Syringe FLUSH PRN (03:41)
[2020-12-14] MEDS ORDERED: Sodium Chloride 0.9% 10 ML Syringe FLUSH PRN (03:41)
--- NOTE | 2020-12-14 03:45 | EDM.PDOC ---
ED HPI GENERAL MEDICAL PROBLEM - General Chief Complaint: General Stated Complaint: BACK PAIN Time Seen by Provider: 12/14/20 03:41 - History of Present Illness INITIAL COMMENTS - FREE TEXT/NARRATIVE: HISTORY AND PHYSICAL: History of present illness: This is a 55-year-old female with history significant for epo-[id number] diabetes, COPD, vulvar cancer requiring surgical resection, status post ileostomy, hypertension, hypercholesterolemia, PE (presumed secondary to her vulvar cancer and is currently on chronic anticoagulation therapy), who presents to the ER today secondary to generalized weakness earlier this morning when she woke up and was seeing spots so came to the ED. Patient reports that over the last several days she has had decreased p.o. intake and a decreased appetite. Patient reports she did eat 2 tacos yesterday at around 3 PM but no other food. Patient reports that she has been tolerating p.o. liquids. She reports that she did have a can of Pepsi yesterday. Patient reports that she injured her back and neck approximately 2 weeks ago and been having intermittent discomfort in that region. She reports that yesterday she was moving furniture and started experiencing back pain once again. Patient denies any recent fevers, shakes, chills, vomiting. Patient reports normal output from her ileostomy without increased stool output. Patient denies any change in the color of her stool. Denies any dysuria, frequency, urgency. She reports her last episode of urination was immediately prior to coming to the ED where she had a small amount of urinary output at home. Denies any hematuria. Patient denies any cough, congestion, URI symptoms. Patient denies any chest discomfort or abdominal pain. Patient denies any known liver disease, kidney disease, heart disease or strokes in the past. Patient has allergies to codeine and Naprosyn. Patient denies any alcohol or drugs. Patient is status post cholecystectomy. Review of systems: As per history of present illness and below otherwise all systems reviewed and negative. Past medical history: As per history of present illness and as reviewed below otherwise noncontributory. Surgical history: As per history of present illness and as reviewed below otherwise noncontributory. Social history: No reported history of drug or alcohol abuse. Family history: As per history of present illness and as reviewed below otherwise no ncontributory. Physical exam: Constitutional: Patient is oriented to person, place, and time. Appears well- developed and well-nourished. No distress. HEENT: Dry mucous membranes Head: Normocephalic and atraumatic Eyes: Right eye exhibits no discharge. Left eye exhibits no discharge. No scleral icterus Neck: Normal range of motion. No tracheal deviation present. Cardiovascular: Normal rate and regular rhythm. Pulmonary: Effort normal, no respiratory distress. No wheezing rales or rhonchi Abd: Soft, nondistended, no rebound/guarding, no psoas or obturator signs, no tenderness at Mcberney's point, no Dotson's sign. Pt does not present with an exam that would be consistent with an acute surgical abdomen at this time. Nontender to palpation. Ileostomy bag in place. Musculoskeletal: Normal range of motion Neurologic: Alert and oriented to person, place and time. Skin: [place], warm and dry. Psychiatric: Normal mood and affect. Behavior is normal. Judgment and thought content normal. Nursing note and vital signs have been reviewed This patient was seen and evaluated during the 2019 SARS-CoV-2 novel coronavirus pandemic period. Community viral transmission is ongoing at time of this encounter and the emergency department is operating under pandemic response procedures. Chest Xray: Normal cardiac silhouette No infiltrates or effusions identified. No PTX No evidence of acute bony fracture. As interpreted by ER MD: Carl Urinalysis without evidence of UTI. Assessment and plan: This is a 55-year-old female who presents ER today secondary to generalized w eakness when she woke up at approximately 3 AM today. Patient reports that she was seeing white spots in front of her eyes and felt extremely weak. Patient is also complaining of lower back pain for several days ever since moving furniture. Patient's labs in the ED are significant for acute renal failure with hyperkalemia. Patient's prior labs were reviewed and her acute renal failure appears to be new. Patient has a potassium of 6.1 which has been treated with 5 units of insulin, 1 amp of D50, 1 g calcium gluconate. Patient's EKG does not show any evidence of hyperacute T waves however the patient does have evidence of QT prolongation. Patient's BUN and creatinine were 66 and 6.0. Patient's bicarb was 15 with an anion gap of 18. Upon initial arrival to the ED the patient's blood pressure was markedly low. After discussion with the patient, it was felt that a possibility was dehydration resulting in her hypotension as well as acute renal failure. Patient will be given 2 L of NSS wide open and reevaluated. Patient's back pain appears to be reproducible and more consistent with a mechanical strain. This does not appear to be highly consistent with an abdominal aortic aneurysm. CT scan of the abdomen pelvis will be obtained but will need to obtain without contrast given her elevated creatinine level. Patient was given 2 L of normal saline solution and Terry catheter has been placed to monitor urinary output. After 2 L of NSS patient has had no significant change or improvement in her blood pressure. Patient is not tachycardic and is not exhibiting any significant signs of dehydration at this time. Given her acute renal failure and hypotension, it is likely that her hypertension has resulted in ATN/acute renal failure. I have discussed the case with our hospitalist and she is recommended transfer to higher level of care for nephrology consultation. I have discussed the case with Dr. Mendieta at [facility] who has agreed to accept patient in transfer. We will start patient on norepinephrine drip at 2 mics per minute and will transfer for ICU. Critical Care: The high probability of sudden, clinically significant deterioration in the patient's condition required the highest level of my preparedness to intervene urgently. The services I provided to this patient were to treat and/or prevent clinically significant deterioration. Services included the following: chart data review, reviewing nursing notes and/or old charts, documentation time, industry consultant collaboration regarding findings and treatment options, medication orders and management, direct patient care, vital sign assessments and ordering, interpreting and reviewing diagnostic studies/lab tests. Aggregate critical care time includes only time during which I was engaged inwork directly related to the patient's care, as described above, whether at the bedside or elsewhere in the Emergency Department. It did not include time spent performing other reported procedures or the services of residents, students, nurses or physician assistants. Critical Care Time: 35 minutes Definitive disposition and diagnosis as appropriate pending reevaluation and review of above. Upper Back Pain Score (Numeric/FACES): 9 - Related Data Allergies Allergy/AdvReac Type Severity Reaction Status Date / Time adhesive tape Allergy Rash Verified 12/14/20 03:29 Bleach (Sodium Hypochlorite) Allergy Hives Verified 12/14/20 03:29 codeine Allergy Hives Verified 12/14/20 03:29 ibuprofen Allergy Hives Verified 12/14/20 03:29 iron Allergy Dizziness Verified 12/14/20 03:29 naproxen Allergy Hives Verified 12/14/20 03:29 amonia Allergy Hives Uncoded 12/14/20 03:29 tide Allergy Hives Uncoded 12/14/20 03:29 tide detergent Allergy Hives Uncoded 12/14/20 03:29 Home Meds: Home Meds Apixaban [Eliquis] 5 mg PO BID #60 tablet 02/20/17 [Rx] metFORMIN HCl [Metformin HCl] 1,000 mg PO BID 12/03/18 [History] Acetaminophen/Butalbital/Caff [Fioricet 325-50-40 MG] 1 each PO Q4HR PRN #12 tab 11/08/20 [Rx] Linagliptin [Tradjenta] 5 mg PO DAILY 11/08/20 [History] gemfibroziL [Lopid] 600 mg PO BID 11/08/20 [History] glyBURIDE [Glyburide] 5 mg PO DAILY 11/08/20 [History] Past Medical History HEENT History: Reports: None Other HEENT History: Patient given Ativan and Fentanyl in ER, patient now sedated-cannot assess Cardiovascular History: Reports: Other (See Below) Other Cardiovascular History: 2010 was admitted for "heart flutter" Respiratory History: Reports: Asthma Gastrointestinal History: Reports: Other (See Below) Other Gastrointestinal History: Patient given Ativan and Fentanyl in ER, patient now sedated-cannot assess Genitourinary History: Reports: Other (See Below) Other Genitourinary History: Has terry catheter due to vulvar ca, radiation and chemo SAND CASTER History: Reports: , Other (See Below) Other SAND CASTER History: Vulvar CA diagnosed in Nov Musculoskeletal History: Reports: Back Pain, Chronic Neurological History: Reports: Headaches, Chronic Psychiatric History: Reports: Anxiety Endocrine/Metabolic History: Reports: Diabetes, Type II, Obesity/BMI 30+ Insulin Pump Model and Hospital Chief Financial Officer: None Hematologic History: Reports: Anemia, Iron Deficiency Other Hematologic History: Diagnosed with Iron Deficiency Anemia in 2000. Blood transfusion history, states received blood transfusion in oncology due to this Other Immunologic History: Patient given Ativan and Fentanyl in ER, patient now sedated-cannot assess Oncologic (Cancer) History: Reports: Other (See Below) Other Oncologic History: vulvar ca Dermatologic History: Reports: None - Infectious Disease History Infectious Disease History: Reports: Chicken Pox - Past Surgical History HEENT Surgical History: Reports: Tonsillectomy Other HEENT Surgeries/Procedures: Patient given Ativan and Fentanyl in ER, patient now sedated-cannot assess Other Cardiovascular Surgeries/Procedures: Patient given Ativan and Fentanyl in ER, patient now sedated-cannot assess Respiratory Surgical History: Reports: None GI Surgical History: Reports: Hernia, Abdominal, Other (See Below) Other GI Surgeries/Procedures: exploratory surgery with removal of part of colon and intestine, iliostomy Female Surgical History: Reports: Section, Other (See Below) Other Female Surgeries/Procedures: radical vulvectomy secondary to cancer Other Musculoskeletal Surgeries/Procedures:: Vulvar Ca Oncologic Surgical History: Reports: Other (See Below) Other Oncologic Surgeries/Procedures: radical vulvectomy Social & Family History - Family History Family Medical History: No Pertinent Family History Other Cardiac Family History: Patient given Ativan and Fentanyl in ER, patient now sedated-cannot assess Other Dermatologic Family History: Patient given Ativan and Fentanyl in ER, patient now sedated-cannot assess - Tobacco Use Tobacco Use Status *Q: Current Every Day Tobacco User Years of Tobacco use: 30 Packs/Tins Daily: 1 - Caffeine Use Caffeine Use: Reports: None Caffeine Use Comment: Daily - Recreational Drug Use Recreational Drug Use: No ED ROS GENERAL - Review of Systems Review Of Systems: See Below ED EXAM, GENERAL - Physical Exam Exam: See Below #1 Interpretation EKG Interpretation Comments: EKG: As interpreted by ER physician: Carl: Nonspecific ST-T wave abnormalities Normal axis No evidence of ST elevation AR Normal sinus rhythm heart rate of 82 Course - Vital Signs Last Recorded V/S: Last Vital Signs Temp 96.9 F 12/14/20 05:35 Pulse 90 12/14/20 05:35 Resp 18 12/14/20 05:35 BP 70/45 L 12/14/20 05:35 Pulse Ox 96 12/14/20 05:35 - Orders/Labs/Meds Orders: Active Orders 24 hr Category Date Time Status EKG Documentation Completion [RC] AM Care 12/14/20 03:41 Active Insert Terry Catheter [Insert Urinary Catheter] [OM.PC] Care 12/14/20 05:15 Ordered Q24H Urinary Catheter Assessment [RC] ASDIRECTED Care 12/14/20 05:12 Active Glucagon,Human Recombinant [GlucaGen] Med 12/14/20 04:22 Active 1 mg IM ASDIRECTED PRN Norepinephrine Bit 4 MG in 0.9 % NaCl 250 ml @ 2 MCG/ Med 12/14/20 06:30 Ordered MIN Norepinephrine Bit/0.9 % NaCl [Norepinephr-0.9% NaCl 4 mg/250] 4 mg in 250 ml IV TITRATE Sodium Chloride 0.9% [Saline Flush] Med 12/14/20 03:41 Active 10 ml FLUSH ASDIRECTED PRN Sodium Chloride 0.9% [Saline Flush] Med 12/14/20 03:41 Active 2.5 ml FLUSH ASDIRECTED PRN Saline Lock Insert [OM.PC] Stat Oth 12/14/20 03:41 Ordered Medication Orders Glucagon (Glucagen) 1 mg IM ASDIRECTED PRN PRN Reason: Hypoglycemia Sodium Chloride (Saline Flush) 10 ml FLUSH ASDIRECTED PRN PRN Reason: Keep Vein Open Sodium Chloride (Saline Flush) 2.5 ml FLUSH ASDIRECTED PRN PRN Reason: Keep Vein Open Labs: Laboratory Tests 12/14/20 12/14/20 12/14/20 Range/Units 03:32 03:32 03:32 WBC 11.86 H (4.0-11.0) K/uL RBC 4.78 (4.30-5.90) M/uL Hgb 15.2 (12.0-16.0) g/dL Hct 47.1 H (36.0-46.0) % MCV 98.5 H (80.0-98.0) fL MCH 31.8 (27.0-32.0) pg MCHC 32.3 (31.0-37.0) g/dL RDW Std Deviation 51.9 (28.0-62.0) fl RDW Coeff of Joana 14 (11.0-15.0) % Plt Count 251 (150-400) K/uL MPV 11.30 (7.40-12.00) fL Neut % (Auto) 81.4 H (48.0-80.0) % Lymph % (Auto) 10.9 L (16.0-40.0) % [place] % (Auto) 6.2 (0.0-15.0) % Eos % (Auto) 1.2 (0.0-7.0) % Baso % (Auto) 0.3 (0.0-1.5) % Neut # (Auto) 9.7 H (1.4-5.7) K/uL Lymph # (Auto) 1.3 (0.6-2.4) K/uL [place] # (Auto) 0.7 (0.0-0.8) K/uL Eos # (Auto) 0.1 (0.0-0.7) K/uL Baso # (Auto) 0.0 (0.0-0.1) K/uL Nucleated RBC % 0.0 /100WBC Nucleated RBCs # 0 K/uL INR 1.01 APTT 31.1 (18.6-31.3) SEC Sodium 137 (136-145) mmol/L Potassium 6.1 H (3.5-5.1) mmol/L Chloride 104 (98-107) mmol/L Carbon Dioxide 14.7 L (21.0-32.0) mmol/L BUN 66 H (7.0-18.0) mg/dL Creatinine 6.0 H (0.6-1.0) mg/dL Est Cr Clr Drug Dosing 9.36 mL/min Estimated GFR (MDRD) 7.3 ml/min Glucose 106 (74-106) mg/dL Calcium 8.8 (8.5-10.1) mg/dL Total Bilirubin 0.2 (0.2-1.0) mg/dL AST 7 L (15-37) IU/L ALT 19 (14-63) IU/L Alkaline Phosphatase 142 H (46-116) U/L Creatine Kinase (26-308) U/L Troponin I < 0.050 (0.000-0.056) ng/mL Total Protein 8.2 (6.4-8.2) g/dL Albumin 3.8 (3.4-5.0) g/dL Globulin 4.4 H (2.6-4.0) g/dL Albumin/Globulin Ratio 0.9 (0.9-1.6) Urine Color Urine Appearance Urine pH (5.0-8.0) Ur Specific [place] (1.001-1.035) Urine Protein (NEGATIVE) mg/dL Urine Glucose (UA) (NEGATIVE) mg/dL Urine Ketones (NEGATIVE) mg/dL Urine Occult Blood (NEGATIVE) Urine Nitrite (NEGATIVE) Urine Bilirubin (NEGATIVE) Urine Ictotest Urine Urobilinogen (<2.0) EU/dL Ur Leukocyte Esterase (NEGATIVE) Urine RBC (0-2/HPF) Urine WBC (0-5/HPF) Ur Epithelial Cells (NONE-FEW) Urine Bacteria (NEGATIVE) Urine Mucus (NONE-MOD) Acetaminophen ug/mL SARS-CoV-2 RNA (GAYLA) (NEGATIVE) 12/14/20 12/14/20 12/14/20 Range/Units 03:32 03:32 05:00 WBC (4.0-11.0) K/uL RBC (4.30-5.90) M/uL Hgb (12.0-16.0) g/dL Hct (36.0-46.0) % MCV (80.0-98.0) fL MCH (27.0-32.0) pg MCHC (31.0-37.0) g/dL RDW Std Deviation (28.0-62.0) fl RDW Coeff of Joana (11.0-15.0) % Plt Count (150-400) K/uL MPV (7.40-12.00) fL Neut % (Auto) (48.0-80.0) % Lymph % (Auto) (16.0-40.0) % [place] % (Auto) (0.0-15.0) % Eos % (Auto) (0.0-7.0) % Baso % (Auto) (0.0-1.5) % Neut # (Auto) (1.4-5.7) K/uL Lymph # (Auto) (0.6-2.4) K/uL [place] # (Auto) (0.0-0.8) K/uL Eos # (Auto) (0.0-0.7) K/uL Baso # (Auto) (0.0-0.1) K/uL Nucleated RBC % /100WBC Nucleated RBCs # K/uL INR APTT (18.6-31.3) SEC Sodium (136-145) mmol/L Potassium (3.5-5.1) mmol/L Chloride (98-107) mmol/L Carbon Dioxide (21.0-32.0) mmol/L BUN (7.0-18.0) mg/dL Creatinine (0.6-1.0) mg/dL Est Cr Clr Drug Dosing mL/min Estimated GFR (MDRD) ml/min Glucose (74-106) mg/dL Calcium (8.5-10.1) mg/dL Total Bilirubin (0.2-1.0) mg/dL AST (15-37) IU/L ALT (14-63) IU/L Alkaline Phosphatase (46-116) U/L Creatine Kinase 91 (26-308) U/L Troponin I (0.000-0.056) ng/mL Total Protein (6.4-8.2) g/dL Albumin (3.4-5.0) g/dL Globulin (2.6-4.0) g/dL Albumin/Globulin Ratio (0.9-1.6) Urine Color Urine Appearance Urine pH (5.0-8.0) Ur Specific [place] (1.001-1.035) Urine Protein (NEGATIVE) mg/dL Urine Glucose (UA) (NEGATIVE) mg/dL Urine Ketones (NEGATIVE) mg/dL Urine Occult Blood (NEGATIVE) Urine Nitrite (NEGATIVE) Urine Bilirubin (NEGATIVE) Urine Ictotest Urine Urobilinogen (<2.0) EU/dL Ur Leukocyte Esterase (NEGATIVE) Urine RBC (0-2/HPF) Urine WBC (0-5/HPF) Ur Epithelial Cells (NONE-FEW) Urine Bacteria (NEGATIVE) Urine Mucus (NONE-MOD) Acetaminophen <2.0 ug/mL SARS-CoV-2 RNA (GAYLA) NEGATIVE (NEGATIVE) 12/14/20 Range/Units 05:10 WBC (4.0-11.0) K/uL RBC (4.30-5.90) M/uL Hgb (12.0-16.0) g/dL Hct (36.0-46.0) % MCV (80.0-98.0) fL MCH (27.0-32.0) pg MCHC (31.0-37.0) g/dL RDW Std Deviation (28.0-62.0) fl RDW Coeff of Joana (11.0-15.0) % Plt Count (150-400) K/uL MPV (7.40-12.00) fL Neut % (Auto) (48.0-80.0) % Lymph % (Auto) (16.0-40.0) % [place] % (Auto) (0.0-15.0) % Eos % (Auto) (0.0-7.0) % Baso % (Auto) (0.0-1.5) % Neut # (Auto) (1.4-5.7) K/uL Lymph # (Auto) (0.6-2.4) K/uL [place] # (Auto) (0.0-0.8) K/uL Eos # (Auto) (0.0-0.7) K/uL Baso # (Auto) (0.0-0.1) K/uL Nucleated RBC % /100WBC Nucleated RBCs # K/uL INR APTT (18.6-31.3) SEC Sodium (136-145) mmol/L Potassium (3.5-5.1) mmol/L Chloride (98-107) mmol/L Carbon Dioxide (21.0-32.0) mmol/L BUN (7.0-18.0) mg/dL Creatinine (0.6-1.0) mg/dL Est Cr Clr Drug Dosing mL/min Estimated GFR (MDRD) ml/min Glucose (74-106) mg/dL Calcium (8.5-10.1) mg/dL Total Bilirubin (0.2-1.0) mg/dL AST (15-37) IU/L ALT (14-63) IU/L Alkaline Phosphatase (46-116) U/L Creatine Kinase (26-308) U/L Troponin I (0.000-0.056) ng/mL Total Protein (6.4-8.2) g/dL Albumin (3.4-5.0) g/dL Globulin (2.6-4.0) g/dL Albumin/Globulin Ratio (0.9-1.6) Urine Color YELLOW Urine Appearance CLOUDY Urine pH 5.0 (5.0-8.0) Ur Specific [place] >= 1.030 (1.001-1.035) Urine Protein >=300 H (NEGATIVE) mg/dL Urine Glucose (UA) NEGATIVE (NEGATIVE) mg/dL Urine Ketones TRACE H (NEGATIVE) mg/dL Urine Occult Blood MODERATE H (NEGATIVE) Urine Nitrite NEGATIVE (NEGATIVE) Urine Bilirubin SMALL H (NEGATIVE) Urine Ictotest QNS Urine Urobilinogen 0.2 (<2.0) EU/dL Ur Leukocyte Esterase NEGATIVE (NEGATIVE) Urine RBC NONE SEEN (0-2/HPF) Urine WBC 0-1 (0-5/HPF) Ur Epithelial Cells RARE (NONE-FEW) Urine Bacteria 1+ H (NEGATIVE) Urine Mucus LIGHT (NONE-MOD) Acetaminophen ug/mL SARS-CoV-2 RNA (GAYLA) (NEGATIVE) Meds: Medications Generic Name Dose Route Start Last Admin Trade Name Freq PRN Reason Stop Dose Admin Glucagon 1 mg 12/14/20 04:22 Glucagen IM ASDIRECTED PRN Hypoglycemia Sodium Chloride 10 ml 12/14/20 03:41 Saline Flush FLUSH ASDIRECTED PRN Keep Vein Open Sodium Chloride 2.5 ml 12/14/20 03:41 Saline Flush FLUSH ASDIRECTED PRN Keep Vein Open Discontinued Medications Generic Name Dose Route Start Last Admin Trade Name Freq PRN Reason Stop Dose Admin Calcium Gluconate 1 gm 12/14/20 04:25 12/14/20 04:35 Calcium Gluconate IVPUSH 12/14/20 04:26 1 gm ONETIME ONE Administration Dextrose/Water 50 ml 12/14/20 04:25 12/14/20 04:34 Dextrose 50% In Water IV 12/14/20 04:26 50 ml ONETIME STA Administration Sodium Chloride 1,000 mls @ 999 mls/hr 12/14/20 03:41 12/14/20 03:51 Normal Saline IV 12/14/20 04:41 999 mls/hr .Bolus ONE Administration Sodium Chloride 1,000 mls @ 999 mls/hr 12/14/20 05:11 12/14/20 05:36 Normal Saline IV 12/14/20 06:11 999 mls/hr NOW STA Administration Insulin Human Regular 5 unit 12/14/20 04:22 12/14/20 04:35 Novolin R IVPUSH 12/14/20 04:23 5 unit ONETIME ONE Administration Protocol Ondansetron HCl 4 mg 12/14/20 03:41 12/14/20 03:51 Zofran IVPUSH 12/14/20 03:42 4 mg ONETIME ONE Administration Sodium Polystyrene Sulfonate 30 gm 12/14/20 04:26 02/17/21 05:36 Kayexalate PO 12/14/20 04:27 30 gm ONETIME ONE Administration Departure - Departure Time of Disposition: 06:26 Disposition: DC/Tfer to Acute Hospital 02 Condition: Critical Clinical Impression: Shock circulatory, Hyperkalemia Acute renal failure (ARF) Qualifiers: Acute renal failure type: unspecified Qualified Code(s): N17.9 - Acute kidney failure, unspecified - Discharge Information Forms: ED Department Discharge Sepsis Event Note (ED) - Evaluation Sepsis Screening Result: No Definite Risk - Focused Exam Vital Signs: Vital Signs Temp Pulse Resp BP Pulse Ox 12/14/20 05:35 96.9 F 90 18 70/45 L 96 12/14/20 05:00 88 18 77/54 L 95 12/14/20 03:40 87 18 69/33 L 93 L 12/14/20 03:30 96.2 F L 86 18 76/44 L 94 L - My Orders Last 24 Hours: My Active Orders 12/14/20 03:41 EKG Documentation Completion [RC] AM Sodium Chloride 0.9% [Saline Flush] 10 ml FLUSH ASDIRECTED PRN Sodium Chloride 0.9% [Saline Flush] 2.5 ml FLUSH ASDIRECTED PRN Saline Lock Insert [OM.PC] Stat 12/14/20 04:22 Glucagon,Human Recombinant [GlucaGen] 1 mg IM ASDIRECTED PRN 12/14/20 05:12 Urinary Catheter Assessment [RC] ASDIRECTED 12/14/20 05:15 Insert Terry Catheter [Insert Urinary Catheter] [OM.PC] Q24H 12/14/20 06:30 Norepinephrine Bit 4 MG in 0.9 % NaCl 250 ml @ 2 MCG/MIN Norepinephrine Bit/0.9 % NaCl [Norepinephr-0.9% NaCl 4 mg/250] 4 mg in 250 ml IV TITRATE - Assessment/Plan Last 24 Hours: My Active Orders 12/14/20 03:41 EKG Documentation Completion [RC] AM Sodium Chloride 0.9% [Saline Flush] 10 ml FLUSH ASDIRECTED PRN Sodium Chloride 0.9% [Saline Flush] 2.5 ml FLUSH ASDIRECTED PRN Saline Lock Insert [OM.PC] Stat 12/14/20 04:22 Glucagon,Human Recombinant [GlucaGen] 1 mg IM ASDIRECTED PRN 12/14/20 05:12 Urinary Catheter Assessment [RC] ASDIRECTED 12/14/20 05:15 Insert Terry Catheter [Insert Urinary Catheter] [OM.PC] Q24H 12/14/20 06:30 Norepinephrine Bit 4 MG in 0.9 % NaCl 250 ml @ 2 MCG/MIN Norepinephrine Bit/0.9 % NaCl [Norepinephr-0.9% NaCl 4 mg/250] 4 mg in 250 ml IV TITRATE
[2020-12-14] MEDS: Ondansetron 4 MG/2 ML SDV IVPUSH ONE (03:51)
[2020-12-14] MEDS: Sodium Chloride 0.9% 1,000 ML IV ONE (03:51)
[2020-12-14 04:03] LABS: BLOOD UREA NITROGEN,BUN 66 mg/dL (7.0-18.0); CARBON DIOXIDE,CO2 14.7 mmol/L (21.0-32.0); CHLORIDE,CL 104 mmol/L (98-107); GLUCOSE RANDOM 106 mg/dL (74-106); POTASSIUM,K 6.1 mmol/L (3.5-5.1); SODIUM,NA 137 mmol/L (136-145)
[2020-12-14] MEDS ORDERED: Glucagon,Human Recombinant 1 MG Vial IM PRN (04:22)
[2020-12-14] MEDS: 50% Dextrose in Water 50 ML Syringe IV STA (04:34)
[2020-12-14] MEDS: Calcium Gluconate 10% 1 GM/10 ML SDV IVPUSH ONE (04:35)
[2020-12-14] MEDS: Insulin Regular, Human 100 Units/ML 10 ML Vial IVPUSH ONE (04:35)
--- NOTE | 2020-12-14 05:32 | CR ---
Indication: Hypotension, acute renal failure Technique: Chest 1 view Comparison: None Findings/Impression: Cardiovascular and mediastinum: Normal heart size with atherosclerotic calcification. Lungs and pleural space: No pleural effusion or pneumothorax. Mild bronchial wall thickening which can be seen in bronchitis or reactive airways disease. Bones and soft tissues: No acute findings. Dictated by Marcel Benton MD @ Dec 14 2020 5:27AM Signed by Dr. Marcel Benton @ Dec 14 2020 5:30AM
[2020-12-14] MEDS: Sodium Polystyrene Sulfonate 15 GM/60 ML Susp 60 ML Bot PO ONE (05:36)
[2020-12-14] MEDS: Sodium Chloride 0.9% 1,000 ML IV STA ×2 (05:36→06:33)
--- NOTE | 2020-12-14 05:57 | CT ---
INDICATION: Hypertension, back pain and acute renal failure TECHNIQUE: Axial images were obtained from the diaphragm to the pubic symphysis. Reformats were obtained in the coronal and sagittal plane. IV Contrast: None Oral Contrast: None COMPARISON: None. FINDINGS: Lower chest: No focal consolidation. Coronary atherosclerosis. Liver: Mildly decreased density liver consistent fatty infiltration without focal lesion. Gallbladder and bile ducts: Status post cholecystectomy. Spleen: Unremarkable. Normal in size without mass. Pancreas: Mild pancreatic atrophy. Adrenal glands: Unremarkable. No nodules. Kidneys: Calcification of the left renal pelvis, probably vascular. Kidneys are normal in contour without hydronephrosis. Vasculature: Atherosclerosis without abdominal aortic aneurysm. GI tract: The stomach is decompressed. No dilated loops of large or small intestine. There is wide rectus diastasis with a periumbilical ventral hernia extending to the right. Bowel extends into the hernia sac without obstruction. This can represent part of a stomal hernia although all of the anterior subcutaneous tissues are not internally included on the scan secondary to patient body habitus. Prominent skin thickening at the level of the umbilicus. Jamee`s pouch in the pelvis. Pelvis: Bladder decompressed with Pham catheter present. Bones: Unremarkable for age. IMPRESSION: 1. Wide rectus diastasis with right lateral ventral hernia with bowel in the hernia sac. No evidence for obstruction. 2. Jamee`s pouch in the pelvis. 3. Fatty infiltration liver. Please note that all CT scans at this facility use dose modulation, iterative reconstruction, and/or weight-based dosing when appropriate to reduce radiation dose to as low as reasonably achievable. Dictated by Marcel Benton MD @ Dec 14 2020 5:47AM Signed by Dr. Marcel Benton @ Dec 14 2020 5:56AM
[2020-12-14 08:38] VITALS: BP 99/39; PULSE 79
== END 2020-12-14 08:00 ==
LOC: MW.ED 03:27
DX: N17.9 Acute kidney failure, unspecified (principal); R57.9 Shock, unspecified; E87.5 Hyperkalemia; E11.9 Type 2 diabetes mellitus without complications; J44.9 Chronic obstructive pulmonary disease, unspecified; I10 Essential (primary) hypertension; E66.9 Obesity, unspecified; Z68.42 Body mass index [BMI] 45.0-49.9, adult; Z20.822 Contact with and (suspected) exposure to COVID-19; Z91.048 Other nonmedicinal substance allergy status; Z88.6 Allergy status to analgesic agent; Z88.5 Allergy status to narcotic agent; Z88.8 Allergy status to other drugs, medicaments and biological substances; Z79.01 Long term (current) use of anticoagulants; Z79.84 Long term (current) use of oral hypoglycemic drugs; Z79.899 Other long term (current) drug therapy; Z72.0 Tobacco use
CPT/HCPCS: 36415; 51702; 71045; 71045-26; 74176; 74176-26; 80053; 80143; 81001; 82550; 84484; 85025; 85610; 85730; 93005; 93010; 96365; 96374; 96375; 99285-25; 99291; A9270-GY; J0610; J1815-GY; J2405; J7030; U0002

== ENCOUNTER 2021-01-29 15:16 | Emergency (ER) | payer MEDICARE, MEDICAID, OTHER ==
--- NOTE | 2021-01-29 15:17 | EDM.PDOC ---
ED HPI GENERAL MEDICAL PROBLEM - General Stated Complaint: UNKNOWN Time Seen by Provider: 01/29/21 15:16 Source of Information: Reports: Patient History Limitations: Reports: No Limitations - History of Present Illness INITIAL COMMENTS - FREE TEXT/NARRATIVE: 55-year-old female past medical history diabetes, colostomy presents for redness/pain/warmth around ostomy site. First noted a few days ago a "dumont" that she picked at and then over last 2 days worsening redness/warmth/pain around the area. No fevers, normal ostomy output. - Related Data Allergies Allergy/AdvReac Type Severity Reaction Status Date / Time adhesive tape Allergy Rash Verified 01/29/21 15:29 Bleach (Sodium Hypochlorite) Allergy Hives Verified 01/29/21 15:29 codeine Allergy Hives Verified 01/29/21 15:29 ibuprofen Allergy Hives Verified 01/29/21 15:29 iron Allergy Dizziness Verified 01/29/21 15:29 naproxen Allergy Hives Verified 01/29/21 15:29 amonia Allergy Hives Uncoded 01/29/21 15:29 tide Allergy Hives Uncoded 01/29/21 15:29 tide detergent Allergy Hives Uncoded 01/29/21 15:29 Home Meds: Home Meds Apixaban [Eliquis] 5 mg PO DAILY 01/29/21 [History] Midodrine 10 mg PO DAILY 01/29/21 [History] cephALEXin [Keflex] 500 mg PO Q8H 10 Days #30 cap 01/29/21 [Rx] glipiZIDE [Glucotrol XL] 5 mg PO DAILY 01/29/21 [History] Past Medical History HEENT History: Reports: None Other HEENT History: Patient given Ativan and Fentanyl in ER, patient now sedated-cannot assess Cardiovascular History: Reports: Hypertension, Other (See Below) Other Cardiovascular History: 2011 was admitted for "heart flutter" Respiratory History: Reports: Asthma Gastrointestinal History: Reports: Other (See Below) Other Gastrointestinal History: Patient given Ativan and Fentanyl in ER, patient now sedated-cannot assess Genitourinary History: Reports: Other (See Below) Other Genitourinary History: Has terry catheter due to vulvar ca, radiation and chemo [employer]NA[employer] History: Reports: , Other (See Below) 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 Blood transfusion history, states received blood transfusion in oncology due to this Other Immunologic History: Patient given Ativan and Fentanyl in ER, patient now sedated-cannot assess Oncologic (Cancer) History: Reports: Other (See Below) Other Oncologic History: vulvar ca Dermatologic History: Reports: None - Infectious Disease History Infectious Disease History: Reports: Chicken Pox - Past Surgical History HEENT Surgical History: Reports: Tonsillectomy Other HEENT Surgeries/Procedures: Patient given Ativan and Fentanyl in ER, patient now sedated-cannot assess Other Cardiovascular Surgeries/Procedures: Patient given Ativan and Fentanyl in ER, patient now sedated-cannot assess Respiratory Surgical History: Reports: None GI Surgical History: Reports: Hernia, Abdominal, Other (See Below) Other GI Surgeries/Procedures: exploratory surgery with removal of part of colon and intestine, iliostomy Female Surgical History: Reports: Section, Other (See Below) Other Female Surgeries/Procedures: radical vulvectomy secondary to cancer Other Musculoskeletal Surgeries/Procedures:: Vulvar Ca Oncologic Surgical History: Reports: Other (See Below) Other Oncologic Surgeries/Procedures: radical vulvectomy Social & Family History - Family History Family Medical History: No Pertinent Family History Other Cardiac Family History: Patient given Ativan and Fentanyl in ER, patient now sedated-cannot assess Other Dermatologic Family History: Patient given Ativan and Fentanyl in ER, patient now sedated-cannot assess - Caffeine Use Caffeine Use: Reports: None Caffeine Use Comment: Daily ED ROS GENERAL - Review of Systems Review Of Systems: Comprehensive ROS is negative, except as noted in HPI. ED EXAM, GENERAL - Physical Exam Exam: See Below Exam Limited By: No Limitations General Appearance: Alert, WD/WN, No Apparent Distress Throat/Mouth: Normal Voice, No Airway Compromise Head: Atraumatic, Normocephalic Respiratory/Chest: No Respiratory Distress, Lungs Clear, Normal Breath Sounds, No Accessory Muscle Use Cardiovascular: Normal Peripheral Pulses, Regular Rate, Rhythm GI/Abdominal: Soft, Non-Tender, Other (ostomy well appearing; area of induration/warmth/erythema on abdominal wall consistent with cellulitis) Extremities: Normal Inspection Neurological: Alert Psychiatric: Normal Affect, Normal Mood Skin Exam: Warm, Dry, Intact, Normal Color Course - Vital Signs Last Recorded V/S: Last Vital Signs Temp 97 F 01/29/21 15:31 Pulse 102 H 01/29/21 15:31 Resp 20 01/29/21 15:31 BP 170/96 H 01/29/21 15:31 Pulse Ox 95 01/29/21 15:31 - Orders/Labs/Meds Meds: Medications Discontinued Medications Generic Name Dose Route Start Last Admin Trade Name Freq PRN Reason Stop Dose Admin Cephalexin 500 mg 01/29/21 15:40 Cephalexin 500 Mg Cap PO 01/29/21 15:41 ONETIME ONE Cephalexin 500 mg 01/29/21 15:40 Cephalexin 500 Mg Cap PO 01/29/21 15:41 ONETIME ONE Departure - Departure Time of Disposition: 15:43 Disposition: Home, Self-Care 01 Condition: Good Clinical Impression: Cellulitis Qualifiers: Site of cellulitis: trunk Site of cellulitis of trunk: abdominal wall Qualified Code(s): L03.311 - Cellulitis of abdominal wall - Discharge Information Prescriptions: cephALEXin [Keflex] 500 mg PO Q8H 10 Days #30 cap Instructions: Cellulitis, Adult Referrals: PCP,Josefina [Primary Care Provider] - Additional Instructions: You were given antibiotics for cellulitis of your abdominal wall. The area was marked with a skin marker. If the redness is spreading beyond the skin marker after 2 days of antibiotics you should come back to the emergency department for reassessment. The following information is given to patients seen in the emergency department who are being discharged to home. This information is to outline your options for follow-up care. We provide all patients seen in our emergency department with a follow-up referral. The need for follow-up, as well as the timing and circumstances, are variable depending upon the specifics of your emergency department visit. If you don't have a primary care physician on staff, we will provide you with a referral. We always advise you to contact your personal physician following an emergency department visit to inform them of the circumstance of the visit and for follow-up with them and/or the need for any referrals to a consulting specialist. The emergency department will also refer you to a specialist when appropriate. This referral assures that you have the opportunity for follow-up care with a specialist. All of these measure are taken in an effort to provide you with optimal care, which includes your follow-up. Under all circumstances we always encourage you to contact your private physician who remains a resource for coordinating your care. When calling for follow-up care, please make the office aware that this follow-up is from your recent emergency room visit. If for any reason you are refused follow-up, please contact the [facility] at and asked to speak to the emergency department charge nurse. Please follow up with your primary care physician. If you do not have a primary care physician, see below: [facility] [address] [place] [id number] [facility] [address] [place] [id number] [facility] [address] [place] [id number] Sepsis Event Note (ED) - Focused Exam Vital Signs: Vital Signs Temp Pulse Resp BP Pulse Ox 01/29/21 15:31 97 F 102 H 20 170/96 H 95
[2021-01-29] MEDS ORDERED: Cephalexin 500 MG Cap PO ONE ×2 (15:40)
[2021-01-29 15:53] VITALS: BP 151/85; PULSE 93
== END 2021-01-29 15:54 | disposition home or self-care (01) ==
LOC: MW.ED 15:16
DX: L03.311 Cellulitis of abdominal wall (principal); I10 Essential (primary) hypertension; J45.909 Unspecified asthma, uncomplicated; E11.9 Type 2 diabetes mellitus without complications; D50.9 Iron deficiency anemia, unspecified; E66.9 Obesity, unspecified; Z68.42 Body mass index [BMI] 45.0-49.9, adult; Z91.048 Other nonmedicinal substance allergy status; Z88.5 Allergy status to narcotic agent; Z88.6 Allergy status to analgesic agent; Z88.8 Allergy status to other drugs, medicaments and biological substances; Z79.01 Long term (current) use of anticoagulants; Z79.84 Long term (current) use of oral hypoglycemic drugs; Z79.899 Other long term (current) drug therapy; Z98.890 Other specified postprocedural states
CPT/HCPCS: 99283; A9270; 99282

== ENCOUNTER 2021-02-22 20:05 | Emergency (ER) | payer MEDICARE, MEDICAID, OTHER ==
[2021-02-22] MEDS ORDERED: traMADol 50 MG Tab PO ONE (20:31)
--- NOTE | 2021-02-22 20:56 | EDM.PDOC ---
ED HPI GENERAL MEDICAL PROBLEM - General Chief Complaint: Back Pain or Injury Stated Complaint: BREASTS HURT Time Seen by Provider: 02/22/21 20:20 Source of Information: Reports: Patient History Limitations: Reports: No Limitations - History of Present Illness INITIAL COMMENTS - FREE TEXT/NARRATIVE: HISTORY AND PHYSICAL: History of present illness: The patient is a 55-year-old female with a history of colostomy, radical vulvectomy secondary to cancer, who presents to the emergency room with complaints of bilateral lower back pain. She states the pain started after she got out of the shower. She uses a shower chair while in the shower and does not identify any injury while taking a shower. She states that she had a similar pain like this previously which turned out to be a kidney infection. The pain is worse upon standing and ambulating. She states she has little to no pain when lying on her right side. She stated that she took 3 Tylenol at 1730 and it eased the pain to a dull ache. Then a half an hour ago she got up and the pain became much worse. Patient denies any fever, chills, headache, change in vision, syncope or near syncope. Denies any chest pain, back pain, shortness of breath. Denies any abdominal pain, nausea, vomiting, diarrhea, constipation or dysuria. Has not noted any blood in urine or stool. Patient has been eating and drinking appro priately. In the emergency department the patient is hemodynamically stable with a blood pressure of 111/69 and a pulse of 74. She is afebrile with a temperature of 96.5. Review of systems: As per history of present illness and below otherwise all systems reviewed and negative. Past medical history: As per history of present illness and as reviewed below otherwise noncontributory. Surgical history: As per history of present illness and as reviewed below otherwise noncontributory. Social history: See social history for further information Family history: As per history of present illness and as reviewed below otherwise noncontributory. Physical exam: General: Well developed and well nourished. Alert and orientated x 3. Nontoxic in appearance and in no acute distress. Vital signs are stable and have been reviewed by me. Nursing notes were reviewed. HEENT: Atraumatic, normocephalic, pupils equal and reactive bilaterally, negative for conjunctival pallor or scleral icterus, mucous membranes moist, throat clear, neck supple, nontender, trachea midline. No drooling or trismus noted. No meningeal signs. No hot potato voice noted. Lungs: Clear to auscultation bilaterally. No wheezes, rales, or rhonchi. Chest nontender. Normal work of breathing, no accessory muscles used. Heart: S1S2, regular rate and rhythm without overt murmur, gallops, or rubs. No JVD. No peripheral edema Abdomen: Soft, nondistended, nontender. Normoactive bowel sounds. Negative for masses or costovertebral tenderness. Skin: Intact, warm, dry. No lesions or rashes noted. Hematologic: No petechiae or purpra. Mucosa appropriate color and normal nail bed color and refill. Extremities: Atraumatic, moves all extremities per self without difficulty or deficits, negative for cords or calf pain. Neurovascular unremarkable. Back: The neck and back have no deformities no tenderness is noticed on palpation of the spinous process. Patient has discomfort with flexion, extension and [id number] rotation. Negative straight leg raise. Neuro: Awake, alert, oriented. Cranial nerves II through XII unremarkable. Cerebellum unremarkable. Motor and sensory unremarkable throughout. Exam nonfocal. Psychiatric: Mood and affect are appropriate. Normal thought process. Answering questions appropriately. Notes: *This patient was seen and evaluated during the 2019 SARS-CoV-2 novel coronavirus pandemic period. Community viral transmission is ongoing at time of this encounter and the emergency department is operating under pandemic response procedures. After discussion and examination the patient is agreeable to lab work, UA, and tramadol orally. The patient is allergic to codeine but states that she has taken tramadol in the past without any difficulty. The patient did receive some relief with the tramadol. The CBC the WBC is 7.9. On the CMP: Creatinine 1.3, glucose 2.68, calcium 8.2. The patient have a history of renal failure in November 2020 with a creatinine of 6.0. She is following up with her PCP monitoring her creatinine. Alysis is not suggestive of an infection. It is nitrate positive but no leukocyte Estrace and a few epithelial cells suggesting contamination. Since exam is suggestive for a muscular involvement. After discussing this with her the patient remembered he had went shopping in the morning and had been carrying 2 bags when she had to use the restroom, and twisted and threw the buttocks down on the floor then encountered a sharp stabbing pain in her lower back. She did not took her shower and started with the low back pain. I will start the patient on Zanaflex and instructed her to take Tylenol as she cannot take NSAIDs. I have talked with the patient about today's findings, in addition to providing specific details for plan of care. Reassessment at the time of disposition demonstrates that the patient is in no acute distress. The patient is stable for discharge, counseling was provided and we discussed in great detail signs and symptoms that would prompt them to return to the Emergency Department. Medication, follow up and supportive care measures were reviewed and discussed. Voices understanding and is agreeable to plan of care. Denies any further questions or concerns at this time. Diagnostics: CBC, CMP, UA Therapeutics: Tramadol ER, Zanaflex Prescription: Zanaflex 2 mg every 8 hours for 5 days Impression: Muscle strain, low back pain okay Plan: 1. You were evaluated today on an emergent basis. Your complaints of low back pain was evaluated with lab work and a urinalysis. Your urinalysis was negative for urinary tract infection. Your blood work showed a bump in your creatinine to 1.3. You need to follow-up with your primary care provider to track your creatinine. Make sure you are taking in plenty of fluids. Make sure you are moving slowly but still moving with your back pain. If you continue to have low back pain you need to follow-up for your with your primary care provider for possible physical therapy. I have prescribed Zanaflex 2 mg every 8 hours for treatment of muscle spasms due to muscle strain. You can use Tylenol but do not go over 3000 mg/day. You can use heat either moist or dry on the low back area. 2. You can alternate Tylenol and ibuprofen as needed for pain and fever management. 3. We encourage you to follow up with your primary care provider and/or recommended specialist in the next few days for re-evaluation and further care/management. 4. If your symptoms should worsen, new symptoms develop or any of the signs and symptoms we discussed should arise please return to the emergency room or call 911 (if needed). Definitive disposition and diagnosis as appropriate pending reevaluation and review of above. Bilateral Lower Back Pain Score (Numeric/FACES): 9 - Related Data Allergies Allergy/AdvReac Type Severity Reaction Status Date / Time adhesive tape Allergy Rash Verified 02/22/21 20:16 Bleach (Sodium Hypochlorite) Allergy Hives Verified 02/22/21 20:16 codeine Allergy Hives Verified 02/22/21 20:16 ibuprofen Allergy Hives Verified 02/22/21 20:16 iron Allergy Dizziness Verified 02/22/21 20:16 naproxen Allergy Hives Verified 02/22/21 20:16 amonia Allergy Hives Uncoded 02/22/21 20:16 tide Allergy Hives Uncoded 02/22/21 20:16 tide detergent Allergy Hives Uncoded 02/22/21 20:16 Home Meds: Home Meds Apixaban [Eliquis] 5 mg PO DAILY 01/29/21 [History] Midodrine 10 mg PO DAILY 01/29/21 [History] glipiZIDE [Glucotrol XL] 5 mg PO DAILY 01/29/21 [History] tiZANidine HCl [Zanaflex] 2 mg PO Q8HR #15 capsule 02/22/21 [Rx] Past Medical History HEENT History: Reports: None Other HEENT History: Patient given Ativan and Fentanyl in ER, patient now sedated-cannot assess Cardiovascular History: Reports: Hypertension, Other (See Below) Other Cardiovascular History: 2011 was admitted for "heart flutter" Respiratory History: Reports: Asthma Gastrointestinal History: Reports: Other (See Below) Other Gastrointestinal History: Patient given Ativan and Fentanyl in ER, patient now sedated-cannot assess Genitourinary History: Reports: None Other Genitourinary History: Has terry catheter due to vulvar ca, radiation and chemo 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 Blood transfusion history, states received blood transfusion in oncology due to this Other Immunologic History: Patient given Ativan and Fentanyl in ER, patient now sedated-cannot assess Oncologic (Cancer) History: Reports: Other (See Below) Other Oncologic History: vulvar ca Dermatologic History: Reports: None - Infectious Disease History Infectious Disease History: Reports: Chicken Pox - Past Surgical History HEENT Surgical History: Reports: Tonsillectomy Other HEENT Surgeries/Procedures: Patient given Ativan and Fentanyl in ER, patient now sedated-cannot assess Other Cardiovascular Surgeries/Procedures: Patient given Ativan and Fentanyl in ER, patient now sedated-cannot assess Respiratory Surgical History: Reports: None GI Surgical History: Reports: Colostomy, Hernia, Abdominal, Other (See Below) Other GI Surgeries/Procedures: exploratory surgery with removal of part of colon and intestine, iliostomy Female Surgical History: Reports: Section, Other (See Below) Other Female Surgeries/Procedures: radical vulvectomy secondary to cancer Other Musculoskeletal Surgeries/Procedures:: Vulvar Ca Oncologic Surgical History: Reports: Other (See Below) Other Oncologic Surgeries/Procedures: radical vulvectomy Social & Family History - Family History Family Medical History: No Pertinent Family History Other Cardiac Family History: Patient given Ativan and Fentanyl in ER, patient now sedated-cannot assess Other Dermatologic Family History: Patient given Ativan and Fentanyl in ER, patient now sedated-cannot assess - Tobacco Use Tobacco Use Status *Q: Current Every Day Tobacco User Years of Tobacco use: 25 Packs/Tins Daily: 0.5 - Caffeine Use Caffeine Use: Reports: Coffee, Soda Caffeine Use Comment: Daily - Recreational Drug Use Recreational Drug Use: No ED ROS GENERAL - Review of Systems Review Of Systems: Comprehensive ROS is negative, except as noted in HPI. ED EXAM,LOWER BACK PAIN/INJURY - Physical Exam Exam: See Below (See dictation) Course - Vital Signs Last Recorded V/S: Last Vital Signs Temp 96.5 F L 02/22/21 20:17 Pulse 62 02/22/21 21:59 Resp 18 02/22/21 21:59 BP 136/57 L 02/22/21 21:59 Pulse Ox 97 02/22/21 21:59 - Orders/Labs/Meds Labs: Laboratory Tests 02/22/21 02/22/21 02/22/21 Range/Units 20:21 20:41 20:41 WBC 7.90 (4.0-11.0) K/uL RBC 4.98 (4.30-5.90) M/uL Hgb 15.4 (12.0-16.0) g/dL Hct 47.9 H (36.0-46.0) % MCV 96.2 (80.0-98.0) fL MCH 30.9 (27.0-32.0) pg MCHC 32.2 (31.0-37.0) g/dL RDW Std Deviation 48.9 (28.0-62.0) fl RDW Coeff of Joana 14 (11.0-15.0) % Plt Count 214 (150-400) K/uL MPV 11.10 (7.40-12.00) fL Neut % (Auto) 66.4 (48.0-80.0) % Lymph % (Auto) 25.3 (16.0-40.0) % [place] % (Auto) 5.3 (0.0-15.0) % Eos % (Auto) 2.7 (0.0-7.0) % Baso % (Auto) 0.3 (0.0-1.5) % Neut # (Auto) 5.3 (1.4-5.7) K/uL Lymph # (Auto) 2.0 (0.6-2.4) K/uL [place] # (Auto) 0.4 (0.0-0.8) K/uL Eos # (Auto) 0.2 (0.0-0.7) K/uL Baso # (Auto) 0.0 (0.0-0.1) K/uL Nucleated RBC % 0.0 /100WBC Nucleated RBCs # 0 K/uL Sodium 139 (136-145) mmol/L Potassium 4.1 (3.5-5.1) mmol/L Chloride 106 (98-107) mmol/L Carbon Dioxide 23.4 (21.0-32.0) mmol/L BUN 16 (7.0-18.0) mg/dL Creatinine 1.3 H (0.6-1.0) mg/dL Est Cr Clr Drug Dosing 43.22 mL/min Estimated GFR (MDRD) 42.8 ml/min Glucose 268 H (74-106) mg/dL Calcium 8.2 L (8.5-10.1) mg/dL Total Bilirubin 0.3 (0.2-1.0) mg/dL AST 14 L (15-37) IU/L ALT 39 (14-63) IU/L Alkaline Phosphatase 170 H (46-116) U/L Total Protein 6.9 (6.4-8.2) g/dL Albumin 3.1 L (3.4-5.0) g/dL Globulin 3.8 (2.6-4.0) g/dL Albumin/Globulin Ratio 0.8 L (0.9-1.6) Urine Color YELLOW Urine Appearance SLT CLOUDY Urine pH 5.0 (5.0-8.0) Ur Specific [place] >= 1.030 (1.001-1.035) Urine Protein 100 H (NEGATIVE) mg/dL Urine Glucose (UA) NEGATIVE (NEGATIVE) mg/dL Urine Ketones NEGATIVE (NEGATIVE) mg/dL Urine Occult Blood TRACE-INTACT H (NEGATIVE) Urine Nitrite POSITIVE H (NEGATIVE) Urine Bilirubin SMALL H (NEGATIVE) Urine Ictotest NEGATIVE Urine Urobilinogen 0.2 (<2.0) EU/dL Ur Leukocyte Esterase NEGATIVE (NEGATIVE) Urine RBC 1-3 (0-2/HPF) Urine WBC 0-3 (0-5/HPF) Ur Epithelial Cells FEW (NONE-FEW) Urine Bacteria FEW (NEGATIVE) Meds: Medications Discontinued Medications Generic Name Dose Route Start Last Admin Trade Name Davisq PRN Reason Stop Dose Admin Tizanidine HCl 2 mg 02/22/21 21:35 02/22/21 21:57 Tizanidine 4 Mg Tab PO 02/22/21 21:36 Not Given DAILY ONE Tizanidine HCl 4 mg 02/22/21 21:57 02/22/21 21:59 Tizanidine 4 Mg Tab PO 02/22/21 21:58 4 mg DAILY ONE Administration Tramadol HCl 50 mg 02/22/21 20:31 02/22/21 20:34 Tramadol 50 Mg Tab PO 02/22/21 20:32 50 mg ONETIME ONE Administration Departure - Departure Time of Disposition: 21:42 Disposition: Home, Self-Care 01 Condition: Good Clinical Impression: Muscle strain Low back pain Qualifiers: Chronicity: acute Back pain laterality: bilateral Sciatica presence: without sciatica Qualified Code(s): M54.5 - Low back pain - Discharge Information *PRESCRIPTION DRUG MONITORING PROGRAM REVIEWED*: No *COPY OF PRESCRIPTION DRUG MONITORING REPORT IN PATIENT JANELLE: No Prescriptions: tiZANidine HCl [Zanaflex] 2 mg PO Q8HR #15 capsule Instructions: Muscle Strain, [id number] Referrals: PCP,None [Primary Care Provider] - Forms: ED Department Discharge Additional Instructions: The following information is given to patients seen in the emergency department who are being discharged to home. This information is to outline your options for follow-up care. We provide all patients seen in our emergency department with a follow-up referral. The need for follow-up, as well as the timing and circumstances, are variable depending upon the specifics of your emergency department visit. If you don't have a primary care physician on staff, we will provide you with a referral. We always advise you to contact your personal physician following an emergency department visit to inform them of the circumstance of the visit and for follow-up with them and/or the need for any referrals to a consulting specialist. The emergency department will also refer you to a specialist when appropriate. This referral assures that you have the opportunity for follow-up care with a specialist. All of these measure are taken in an effort to provide you with optimal care, which includes your follow-up. Under all circumstances we always encourage you to contact your private physician who remains a resource for coordinating your care. When calling for follow-up care, please make the office aware that this follow-up is from your recent emergency room visit. If for any reason you are refused follow-up, please contact the [facility] Emergency Department at and asked to speak to the emergency department charge nurse. [facility] - Primary [facility] [address] [place] [id number] [address] Plan: 1. You were evaluated today on an emergent basis. Your complaints of low back pain was evaluated with lab work and a urinalysis. Your urinalysis was negative for urinary tract infection. Your blood work showed a bump in your creatinine to 1.3. You need to follow-up with your primary care provider to track your creatinine. Make sure you are taking in plenty of fluids. Make sure you are moving slowly but still moving with your back pain. If you continue to have low back pain you need to follow-up for your with your primary care provider for possible physical therapy. I have prescribed Zanaflex 2 mg every 8 hours for treatment of muscle spasms due to muscle strain. You can use Tylenol but do not go over 3000 mg/day. You can use heat either moist or dry on the low back area. 2. You can alternate Tylenol and ibuprofen as needed for pain and fever ma nagement. 3. We encourage you to follow up with your primary care provider and/or recommended specialist in the next few days for re-evaluation and further care/management. 4. If your symptoms should worsen, new symptoms develop or any of the signs and symptoms we discussed should arise please return to the emergency room or call 911 (if needed). Sepsis Event Note (ED) - Evaluation Sepsis Screening Result: No Definite Risk
--- NOTE | 2021-02-22 21:07 | CR ---
INDICATION: Back pain TECHNIQUE: Chest 1 view COMPARISON: 12/14/2020 FINDINGS: Cardiovascular and mediastinum: Cardiac silhouette is enlarged. Tortuosity distal thoracic aorta. Lungs and pleural spaces: Scarring right lung base. No sign of infiltrate or mass. No sign of pleural effusion. No pneumothorax. Bones and soft tissues: No significant findings. IMPRESSION: No acute findings and no significant changes from the prior exam. Dictated by Luther Sahni MD @ 02/22/2021 9:06:[address] Luther Sahni @ Feb 22 2021 9:06PM
[2021-02-22 21:08] LABS: CARBON DIOXIDE,CO2 23.4 mmol/L (21.0-32.0); POTASSIUM,K 4.1 mmol/L (3.5-5.1)
[2021-02-22] MEDS ORDERED: tiZANidine 4 MG Tab PO ONE ×2 (21:35→21:57)
[2021-02-22 21:59] VITALS: BP 136/57; PULSE 62
== END 2021-02-22 22:01 | disposition home or self-care (01) ==
LOC: MW.ED 20:05
DX: S39.012A Strain of muscle, fascia and tendon of lower back, initial encounter (principal); J45.909 Unspecified asthma, uncomplicated; I10 Essential (primary) hypertension; E11.9 Type 2 diabetes mellitus without complications; E66.9 Obesity, unspecified; Z68.42 Body mass index [BMI] 45.0-49.9, adult; Z91.048 Other nonmedicinal substance allergy status; Z88.5 Allergy status to narcotic agent; Z88.6 Allergy status to analgesic agent; Z88.8 Allergy status to other drugs, medicaments and biological substances; Z79.84 Long term (current) use of oral hypoglycemic drugs; Z79.01 Long term (current) use of anticoagulants; Z72.0 Tobacco use; X58.XXXA Exposure to other specified factors, initial encounter
CPT/HCPCS: 36415; 71045; 80053; 81001; 85025; 99283; A9270

== ENCOUNTER 2021-06-13 10:39 | Emergency (ER) | payer MEDICARE, MEDICAID, OTHER ==
--- NOTE | 2021-06-13 11:15 | PCM.EKG ---
#1 Interpretation EKG Date: 06/13/21 Time: 10:48 Rhythm: NSR Rate (Beats/Min): 59 [place]: LAD-Left [place] Deviation P-Wave: Present QRS: Normal ST-T: Normal (T wave inversion avl and V2 unchanged) QT: Normal Comparison: No Change (12/14/20) EKG Interpretation Comments: Sinus rhythm with LAD and non specific t wave inversions
[2021-06-13] MEDS ORDERED: Ondansetron 4 MG/2 ML SDV IVPUSH ONE (11:19)
[2021-06-13] MEDS ORDERED: Lactated Ringers 1,000 ML IV ONE (11:19)
[2021-06-13] MEDS ORDERED: fentaNYL 50 MCG/ML SDV IVPUSH ONE (11:19)
[2021-06-13 11:42] LABS: CARBON DIOXIDE,CO2 25.3 mmol/L (21.0-32.0)
[2021-06-13] MEDS ORDERED: Lactated Ringers 1,000 ML IV SCH ×2 (13:00→14:30)
--- NOTE | 2021-06-13 13:38 | CT ---
Indication: Ileostomy no output, evaluate for possible obstruction Technique: Volumetric multidetector CT images of the abdomen and pelvis were obtained after the administration of intravenous contrast. 100 cc Isovue 370 low osmolar intravenous contrast Comparison: None available. Findings: There is demonstration of bibasilar atelectasis versus scar. The liver is enlarged with moderate hepatic steatosis. There is no evidence of focal abnormality. The portal vein is patent. There is prior cholecystectomy. There is no significant common biliary ductal dilatation or abrupt cut off. The spleen is normal in enhancement and size. The stomach and duodenum are grossly unremarkable. There is mild pancreatic atrophy. The adrenal glands are unremarkable. The kidneys demonstrate preserved corticomedullary differentiation without evidence of obstructive uropathy. There are markedly dilated fluid-filled loops of distal small bowel with demonstration of a large parastomal hernia with extensive herniated distal loops of bowel. There is likely prior total colectomy with a small rectal stump. The appendix is surgically absent. There is no significant mesenteric, retroperitoneal, or pelvic sidewall lymph nodes. The aorta is nonaneurysmal. There is no significant atherosclerotic disease appreciated. There is a somewhat decompressed appearing bladder. There is no free fluid or free air. There is demonstration of complex lower abdominal ventral hernia with a large defect in the midline pannus with secondary herniation of fat within the right lower quadrant ostomy site. The lumbar vertebral body heights are grossly maintained with [id number] multilevel degenerative disc disease with anterolisthesis of L4 on L5. Impression: Demonstration of complex lower abdominal ventral hernia with wide mouth and diastasis of the ventral musculature with demonstration of a large right lower quadrant parastomal hernia with multiple dilated fluid containing loops of distal small bowel likely representing a developing obstruction of the mid to distal small bowel. Postoperative change status post total colectomy and rectal stump is appreciated. No other acute intra-abdominal abnormality is appreciated. Please note that all CT scans at this facility use dose modulation, iterative reconstruction, and/or weight-based dosing when appropriate to reduce radiation dose to as low as reasonably achievable. Dictated by Ron Wooten MD @ 06/13/2021 1:36:[address] Ron Wooten @ Jun 13 2021 1:36PM
[2021-06-13] MEDS ORDERED: Magnesium Sulfate/Water 2 GM in Premix Bag 1 BAG IV ONE (14:32)
[2021-06-13] MEDS ORDERED: Glucagon,Human Recombinant 1 MG Vial IM PRN (15:00)
[2021-06-13] MEDS ORDERED: Insulin Regular, Human 100 Units/ML 10 ML Vial SUBCUT ONE (15:00)
[2021-06-13] MEDS ORDERED: 50% Dextrose in Water 50 ML Syringe IVPUSH PRN (15:00)
[2021-06-13] MEDS ORDERED: Iopamidol 755 MG/ML 500 ML Multipack Bottle IVPUSH STA (15:43)
[2021-06-13] MEDS ORDERED: Diatrizoate Meglumine/Diatrizoate Sodium 37% 30 ML Bottle PO ONE (15:47)
[2021-06-13 17:08] VITALS: BP 126/49; PULSE 66
--- NOTE | 2021-06-13 17:23 | EDM.PDOC ---
ED HPI GENERAL MEDICAL PROBLEM - General Chief Complaint: Abdominal Pain Stated Complaint: SEVERE STOMACH PAIN Time Seen by Provider: 06/13/21 10:57 - History of Present Illness INITIAL COMMENTS - FREE TEXT/NARRATIVE: CHIEF COMPLAINT(S): abdominal pain HISTORY OF PRESENT ILLNESS: This is a 56 year old woman with a PMH of Vulvar cancer s/p bowel resection/ileostomy and chronic anterior abdominal wound who presents to the ER today with a chief complaint of abdominal pain the patient states that she is exeperiencing abdominal pain and distension near her ileostomy site. She described the pain as sharp and cramping rated 8-10/10 without any radiation. She states that her ileostomy has not put out as much as it normally does. She states that it is putting out fluid but it is usually more formed. She poli any fever, bloody output, black output, nausea, or vomtiing. There are no relieving factors and no exacerbating factors. She states that she did have some potatoes yesterday which is maybe the reason it may be blocked. REVIEW OF SYSTEMS: Constitutional: Denies fever, chills. Eyes: Denies eye pain Ears, Nose, Mouth, & Throat: Denies earache Cardiovascular: Denies chest pain Respiratory: Denies shortness of breath Gastrointestinal:Positive for abdominal pain and decreased ileostomy output Denies Nausea, vomiting, diarrhea, hematochezia. Genitourinary: Denies hematuria Skin:Denies a rash MSK: Denies joint pain Neurological: Denies blurred vision, numbness, tingling, weakness Psychiatric: Denies depression PAST MEDICAL HISTORY: As per history of present illness and as reviewed below otherwise noncontributory. SURGICAL HISTORY: As per history of present illness and as reviewed below otherwise noncontributory SOCIAL HISTORY: As per history of present illness and as reviewed below otherw ise noncontributory. FAMILY HISTORY: As per history of present illness and as reviewed below otherwise noncontributory. EXAMINATION OF ORGAN SYSTEMS/BODY AREAS: Constitutional: Blood pressure was 126/83. HR 56, RR 18 with O2 at 94% on room air. T:36.1 General: Middled aged woman in moderate amount of pain. Psychiatric: Appropriate mood and affect. Eyes: No scleral icterus or conjunctival erythema ENMT: Moist mucous membranes. No pharyngeal erythema Cardiovascular: Regular, rate, and rhythm. No gallops, murmurs, or rubs. Bilateral upper extremity pulses symmetric and intact. No peripheral edema. No JVD. Respiratory: Lungs clear to auscultation bilaterally. No wheezes, rales, or rhonchi. Gastrointestinal: Soft, non-tender, non-distended. Normoactive bowel sounds patient has abnormal anatomy. Ileostomy appears to be in her right sided pannus. The area surrounding the ileoostomy is tender and distended. Ileostomy is not dusky and has good capillary refill at the stomal site. No melena or hematochezia in the bag. There is also a chronic wound just medial to this are which is non tender without any crepitus or purulent draninage. No surrounding erythema. Genitourinary: No suprapubic tenderness Musculoskeletal: Normal range of motion. Skin: No lesions or abrasions. Neurological: Alert, GCS 15 MEDICAL DECISION MAKING AND COURSE IN THE ED WITH INTERPRETATION/REVIEW OF DIAGNOSTIC STUDIES: This is a 56 year old woman with a PMH of Vulvar cancer s/p bowel resection/ileostomy and chronic anterior abdominal wound who presents to the ER today with a chief complaint of abdominal pain the patient states that she is exeperiencing abdominal pain and distension near her ileostomy site. She stated that this was completed 4 years ago in [place] however her surgeon left and the other surgeon did not want to reverse it and she has been working with her PCP for a referral. However at this time given the abnormal anatomy it is uncertain as to what pathology could be occuring however given the decreased output obstruction is high on the list. We will obatin cbc, cmp, lactic acid. We will provide patient with pain medication and obtain CTAP for further evaluation. Prior to lab draw patient did have a bowel movement and reported significant relief of pain in her abdomen. It is now around 2/10 and she is having output out of her ileostomy. Given that her symptoms improved this may have been small obstruction which is now relieved. I did offer workup and she was amenable to this plan. Lab: CBC unremarkable. CMP reveals hyponatremia with Na of 134, cr elevation at 1.1, hyperglycemia at 347, and magnesium at 1.7. Lactic acid was elevated at 3.4 After labs we did replenish patients magnesium, and provided patient with 2L LR for the hypeglycemia and lactic acidosis. The radiological images were viewed by myself along with reading the report from the radiologist. CT abdomen pelvis reveals a complex lower abdominal wall ventral hernia with wide mouth and diastasis of ventral musculature with a large RLQ parastomal hernia with multiple dilated fluid containing loops of small bowel likely representing developing SBO. AFter imaging Dr. Hewitt general surgeon was contacted. He discussed that given the improvement in pain and increased output that the patient has likely relieved an obstruction. He stated that even though there is a hernia the patient should follow up outpatient with her prior surgical team. I do agree with him that her lactic acidosis is likely from dehydration and it has improved with lfuid resuscitation to 2.4 I did repeat the patient BGL which was still elevated. Will provide patient with Sub q insulin and reeval/ Patient glucose still elevated. the patient is not in DKA. discussed further intervention. Patient would like to be D/c> Patient tolerated fluid and food without any issue. Will provide patient home dose of antibiotic which she is prescribed. Instructed her to return with any new or worsening symptoms. DISPOSITION: The patient was discharged home in stable condition. The patient will follow up with PCP in 1-3 days and surgeon in [place] in 1 week. CONDITION: Fair PROCEDURES: None FINAL IMPRESSION(S)/DIAGNOSES: 1. Acute abdominal pain likely secdonary to resolved obstruction 2. Acute hyperglycemia, uncontrolled DM 3. Acute lactic acidosis 2/2 to dehydration. Saurav Suhterland M.D. right lower quadrant Pain Score (Numeric/FACES): 3 - Related Data Allergies Allergy/AdvReac Type Severity Reaction Status Date / Time adhesive tape Allergy Rash Verified 02/22/21 20:16 Bleach (Sodium Hypochlorite) Allergy Hives Verified 02/22/21 20:16 codeine Allergy Hives Verified 02/22/21 20:16 ibuprofen Allergy Hives Verified 02/22/21 20:16 iron Allergy Dizziness Verified 02/22/21 20:16 naproxen Allergy Hives Verified 02/22/21 20:16 amonia Allergy Hives Uncoded 02/22/21 20:16 tide Allergy Hives Uncoded 02/22/21 20:16 tide detergent Allergy Hives Uncoded 02/22/21 20:16 Home Meds: Home Meds Apixaban [Eliquis] 5 mg PO DAILY 01/29/21 [History] Midodrine 10 mg PO DAILY 01/29/21 [History] glipiZIDE [Glucotrol XL] 5 mg PO DAILY 01/29/21 [History] tiZANidine HCl [Zanaflex] 2 mg PO Q8HR #15 capsule 02/22/21 [Rx] Past Medical History HEENT History: Reports: None Other HEENT History: Patient given Ativan and Fentanyl in ER, patient now sedated-cannot assess Cardiovascular History: Reports: Hypertension, Other (See Below) Other Cardiovascular History: 2011 was admitted for "heart flutter" Respiratory History: Reports: Asthma Gastrointestinal History: Reports: Other (See Below) Other Gastrointestinal History: Patient given Ativan and Fentanyl in ER, patient now sedated-cannot assess Genitourinary History: Reports: None Other Genitourinary History: Has terry catheter due to vulvar ca, radiation and chemo SURGICAL ORDERLY History: Reports: , Other (See Below) Other SURGICAL ORDERLY History: Vulvar CA diagnosed in Nov Musculoskeletal History: Reports: Back Pain, Chronic Neurological History: Reports: Headaches, Chronic Psychiatric History: Reports: Anxiety Endocrine/Metabolic History: Reports: Diabetes, Type II, Obesity/BMI 30+ Insulin Pump Model and Ammonia Print Operator: None Hematologic History: Reports: Anemia, Iron Deficiency Other Hematologic History: Diagnosed with Iron Deficiency Anemia in 2000. Blood transfusion history, states received blood transfusion in oncology due to this Other Immunologic History: Patient given Ativan and Fentanyl in ER, patient now sedated-cannot assess Oncologic (Cancer) History: Reports: Other (See Below) Other Oncologic History: vulvar ca Dermatologic History: Reports: None - Infectious Disease History Infectious Disease History: Reports: Chicken Pox - Past Surgical History HEENT Surgical History: Reports: Tonsillectomy Other HEENT Surgeries/Procedures: Patient given Ativan and Fentanyl in ER, patient now sedated-cannot assess Cardiovascular Surgical History: Reports: Other (See Below) Other Cardiovascular Surgeries/Procedures: Patient given Ativan and Fentanyl in ER, patient now sedated-cannot assess Respiratory Surgical History: Reports: None GI Surgical History: Reports: Colostomy, Hernia, Abdominal, Other (See Below) Other GI Surgeries/Procedures: exploratory surgery with removal of part of colon and intestine, iliostomy Female Surgical History: Reports: Section, Other (See Below) Other Female Surgeries/Procedures: radical vulvectomy secondary to cancer Other Musculoskeletal Surgeries/Procedures:: Vulvar Ca Oncologic Surgical History: Reports: Other (See Below) Other Oncologic Surgeries/Procedures: radical vulvectomy Social & Family History - Family History Family Medical History: No Pertinent Family History Other Cardiac Family History: Patient given Ativan and Fentanyl in ER, patient now sedated-cannot assess Other Dermatologic Family History: Patient given Ativan and Fentanyl in ER, patient now sedated-cannot assess - Tobacco Use Tobacco Use Status *Q: Current Every Day Tobacco User Years of Tobacco use: 41 Packs/Tins Daily: 0.5 - Caffeine Use Caffeine Use: Reports: Coffee, Soda Caffeine Use Comment: Daily - Recreational Drug Use Recreational Drug Use: No ED ROS GENERAL - Review of Systems Review Of Systems: See Below ED EXAM, GENERAL - Physical Exam Exam: See Below Course - Vital Signs Last Recorded V/S: Last Vital Signs Temp 35.8 C L 06/13/21 14:37 Pulse 66 06/13/21 17:07 Resp 18 06/13/21 17:07 BP 126/49 L 06/13/21 17:07 Pulse Ox 98 06/13/21 17:07 - Orders/Labs/Meds Labs: Laboratory Tests 06/13/21 06/13/21 06/13/21 Range/Units 10:49 10:49 10:49 WBC 10.65 (4.0-11.0) K/uL RBC 5.20 (4.30-5.90) M/uL Hgb 16.5 H (12.0-16.0) g/dL Hct 49.5 H (36.0-46.0) % MCV 95.2 (80.0-98.0) fL MCH 31.7 (27.0-32.0) pg MCHC 33.3 (31.0-37.0) g/dL RDW Std Deviation 50.0 (28.0-62.0) fl RDW Coeff of Joana 14 (11.0-15.0) % Plt Count 208 (150-400) K/uL MPV 11.00 (7.40-12.00) fL Neut % (Auto) 70.2 (48.0-80.0) % Lymph % (Auto) 23.3 (16.0-40.0) % [place] % (Auto) 5.0 (0.0-15.0) % Eos % (Auto) 1.3 (0.0-7.0) % Baso % (Auto) 0.2 (0.0-1.5) % Neut # (Auto) 7.5 H (1.4-5.7) K/uL Lymph # (Auto) 2.5 H (0.6-2.4) K/uL [place] # (Auto) 0.5 (0.0-0.8) K/uL Eos # (Auto) 0.1 (0.0-0.7) K/uL Baso # (Auto) 0.0 (0.0-0.1) K/uL Nucleated RBC % 0.0 /100WBC Nucleated RBCs # 0 K/uL INR 0.99 Sodium 134 L (136-145) mmol/L Potassium 5.0 (3.5-5.1) mmol/L Chloride 99 (98-107) mmol/L Carbon Dioxide 25.3 (21.0-32.0) mmol/L BUN 16 (7.0-18.0) mg/dL Creatinine 1.1 H (0.6-1.0) mg/dL Est Cr Clr Drug Dosing 50.49 mL/min Estimated GFR (MDRD) 51.8 ml/min Glucose 347 H (74-106) mg/dL POC Glucose (70-99) mg/dL Lactic Acid (0.4-2.0) mmol/L Calcium 9.1 (8.5-10.1) mg/dL Magnesium 1.7 L (1.8-2.4) mg/dL Total Bilirubin 0.5 (0.2-1.0) mg/dL AST 23 (15-37) IU/L ALT 45 (14-63) IU/L Alkaline Phosphatase 154 H (46-116) U/L Total Protein 7.5 (6.4-8.2) g/dL Albumin 3.4 (3.4-5.0) g/dL Globulin 4.1 H (2.6-4.0) g/dL Albumin/Globulin Ratio 0.8 L (0.9-1.6) 06/13/21 06/13/21 06/13/21 Range/Units 12:10 14:52 15:20 WBC (4.0-11.0) K/uL RBC (4.30-5.90) M/uL Hgb (12.0-16.0) g/dL Hct (36.0-46.0) % MCV (80.0-98.0) fL MCH (27.0-32.0) pg MCHC (31.0-37.0) g/dL RDW Std Deviation (28.0-62.0) fl RDW Coeff of Joana (11.0-15.0) % Plt Count (150-400) K/uL MPV (7.40-12.00) fL Neut % (Auto) (48.0-80.0) % Lymph % (Auto) (16.0-40.0) % [place] % (Auto) (0.0-15.0) % Eos % (Auto) (0.0-7.0) % Baso % (Auto) (0.0-1.5) % Neut # (Auto) (1.4-5.7) K/uL Lymph # (Auto) (0.6-2.4) K/uL [place] # (Auto) (0.0-0.8) K/uL Eos # (Auto) (0.0-0.7) K/uL Baso # (Auto) (0.0-0.1) K/uL Nucleated RBC % /100WBC Nucleated RBCs # K/uL INR Sodium (136-145) mmol/L Potassium (3.5-5.1) mmol/L Chloride (98-107) mmol/L Carbon Dioxide (21.0-32.0) mmol/L BUN (7.0-18.0) mg/dL Creatinine (0.6-1.0) mg/dL Est Cr Clr Drug Dosing mL/min Estimated GFR (MDRD) ml/min Glucose (74-106) mg/dL POC Glucose 337 H (70-99) mg/dL Lactic Acid 3.4 H* 2.4 H* (0.4-2.0) mmol/L Calcium (8.5-10.1) mg/dL Magnesium (1.8-2.4) mg/dL Total Bilirubin (0.2-1.0) mg/dL AST (15-37) IU/L ALT (14-63) IU/L Alkaline Phosphatase (46-116) U/L Total Protein (6.4-8.2) g/dL Albumin (3.4-5.0) g/dL Globulin (2.6-4.0) g/dL Albumin/Globulin Ratio (0.9-1.6) 06/13/21 06/13/21 06/13/21 Range/Units 16:05 16:35 17:16 WBC (4.0-11.0) K/uL RBC (4.30-5.90) M/uL Hgb (12.0-16.0) g/dL Hct (36.0-46.0) % MCV (80.0-98.0) fL MCH (27.0-32.0) pg MCHC (31.0-37.0) g/dL RDW Std Deviation (28.0-62.0) fl RDW Coeff of Joana (11.0-15.0) % Plt Count (150-400) K/uL MPV (7.40-12.00) fL Neut % (Auto) (48.0-80.0) % Lymph % (Auto) (16.0-40.0) % [place] % (Auto) (0.0-15.0) % Eos % (Auto) (0.0-7.0) % Baso % (Auto) (0.0-1.5) % Neut # (Auto) (1.4-5.7) K/uL Lymph # (Auto) (0.6-2.4) K/uL [place] # (Auto) (0.0-0.8) K/uL Eos # (Auto) (0.0-0.7) K/uL Baso # (Auto) (0.0-0.1) K/uL Nucleated RBC % /100WBC Nucleated RBCs # K/uL INR Sodium (136-145) mmol/L Potassium (3.5-5.1) mmol/L Chloride (98-107) mmol/L Carbon Dioxide (21.0-32.0) mmol/L BUN (7.0-18.0) mg/dL Creatinine (0.6-1.0) mg/dL Est Cr Clr Drug Dosing mL/min Estimated GFR (MDRD) ml/min Glucose (74-106) mg/dL POC Glucose 371 H 338 H 333 H (70-99) mg/dL Lactic Acid (0.4-2.0) mmol/L Calcium (8.5-10.1) mg/dL Magnesium (1.8-2.4) mg/dL Total Bilirubin (0.2-1.0) mg/dL AST (15-37) IU/L ALT (14-63) IU/L Alkaline Phosphatase (46-116) U/L Total Protein (6.4-8.2) g/dL Albumin (3.4-5.0) g/dL Globulin (2.6-4.0) g/dL Albumin/Globulin Ratio (0.9-1.6) Meds: Medications Discontinued Medications Generic Name Dose Route Start Last Admin Trade Name Freq PRN Reason Stop Dose Admin Dextrose/Water 50 ml 06/13/21 15:00 50% Dextrose In Water 50 Ml Syringe IVPUSH ASDIRECTED PRN Hypoglycemia Diatrizoate Meglum/Diatrizoate Sod 30 ml 06/13/21 15:47 06/13/21 16:34 Diatrizoate Meglumine/Diatrizoate Sodium 37% 30 Ml Bottle PO 06/13/21 15:48 30 ml ONETIME ONE Administration Fentanyl 50 mcg 06/13/21 11:19 06/13/21 11:35 Fentanyl 50 Mcg/Ml Sdv IVPUSH 06/13/21 11:20 50 mcg ONETIME ONE Administration Glucagon 1 mg 06/13/21 15:00 Glucagon,Human Recombinant 1 Mg Vial IM ASDIRECTED PRN Hypoglycemia Lactated Ringer's 1,000 mls @ 999 mls/hr 06/13/21 11:19 06/13/21 11:35 Ringers, Lactated IV 06/13/21 12:19 999 mls/hr .BOLUS ONE Administration Lactated Ringer's 1,000 mls @ 999 mls/hr 06/13/21 13:00 06/13/21 13:03 Ringers, Lactated IV 999 mls/hr ASDIRECTED NATALIE Administration Lactated Ringer's 1,000 mls @ 999 mls/hr 06/13/21 14:30 Ringers, Lactated IV ASDIRECTED NATALIE Magnesium Sulfate 2 gm/ Premix 50 mls @ 12.5 mls/hr 06/13/21 14:32 06/13/21 15:20 IV 06/13/21 18:31 12.5 mls/hr ONETIME ONE Administration Insulin Human Regular 5 unit 06/13/21 15:00 06/13/21 15:16 Insulin Regular, Human 100 Units/Ml 10 Ml Vial SUBCUT 06/13/21 15:01 5 units ONETIME ONE Administration Protocol Iopamidol 100 ml 06/13/21 15:43 06/13/21 15:44 Iopamidol 755 Mg/Ml 500 Ml Multipack Bottle IVPUSH 06/13/21 15:44 100 ml ONETIME STA Administration Ondansetron HCl 4 mg 06/13/21 11:19 06/13/21 11:35 Ondansetron 4 Mg/2 Ml Sdv IVPUSH 06/13/21 11:20 4 mg ONETIME ONE Administration Trimethoprim/Sulfamethoxazole 1 tab 06/13/21 17:36 06/13/21 17:40 Sulfamethoxazole/Trimethoprim 800-160 Mg Tab PO 06/13/21 17:37 1 tab ONETIME ONE Administration Departure - Departure Time of Disposition: 17:22 Disposition: Home, Self-Care 01 Condition: Fair Clinical Impression: Hernia, Hyperglycemia, Lactic acidosis - Discharge Information *PRESCRIPTION DRUG MONITORING PROGRAM REVIEWED*: No *COPY OF PRESCRIPTION DRUG MONITORING REPORT IN PATIENT JANELLE: No Instructions: Hernia, Adult, Hyperglycemia, [id number], Metabolic Acidosis Referrals: PCP,None [Primary Care Provider] - Forms: ED Department Discharge Additional Instructions: You were evaluated today on an emergent basis. At this time we did discuss that your CT did show evidence of a possible developing obstruction and a stomal hernia. However, you did have some increased output and your symptoms did improve. At this time in discussion with our surgeon and given that your symptoms have improved he recommended outpatient follow-up with the surgeon in [place] that you had this initial ileostomy completed with. As discussed with you you stated that you have had discussions with your primary care physician for a referral. I do recommend that you follow-up with your primary care physician for this referral. If you have any worsening pain, blood in your st ool I would like you to return to the emergency department. In addition today your glucose was high and your lactic acid was also high. It is uncertain as to why your lactic acid was high however your glucose is likely due to diet from your diabetes. We did provide you with insulin therefore I do want you to check your sugars when you go home. As discussed it is unsafe to have sugars this high. Please return to the emergency department with any new or worsening symptoms. Follow-up with your primary care physician in 1 day. [facility] [address] [place] [address] [facility] [address] [place] [id number] The patient is informed of any results of their evaluation and diagnostic workup and all questions are answered. They are given discharge instructions and return precautions. The patient is stable for discharge. The patient states they understand and agree with the plan and that they will return if their symptoms get worse or if they have any new concerns. The following information is given to patients seen in the emergency department who are being discharged to home. This information is to outline your options for follow-up care. We provide all patients seen in our emergency department with a follow-up referral. The need for follow-up, as well as the timing and circumstances, are variable depending upon the specifics of your emergency department visit. If you don't have a primary care physician on staff, we will provide you with a referral. We always advise you to contact your personal physician following an emergency department visit to inform them of the circumstance of the visit and for follow-up with them and/or the need for any referrals to a consulting specialist. The emergency department will also refer you to a specialist when appropriate. T his referral assures that you have the opportunity for follow-up care with a specialist. All of these measure are taken in an effort to provide you with optimal care, which includes your follow-up. Under all circumstances we always encourage you to contact your private physician who remains a resource for coordinating your care. When calling for follow-up care, please make the office aware that this follow-up is from your recent emergency room visit. If for any reason you are refused follow-up, please contact the [facility] Emergency Department at and asked to speak to the emergency department charge nurse. Sepsis Event Note (ED) - Evaluation Sepsis Screening Result: No Definite Risk
[2021-06-13] MEDS ORDERED: Sulfamethoxazole/Trimethoprim 800-160 MG Tab PO ONE (17:36)
== END 2021-06-13 17:35 | disposition home or self-care (01) ==
LOC: MW.ED 10:39
DX: K46.9 Unspecified abdominal hernia without obstruction or gangrene (principal); E11.65 Type 2 diabetes mellitus with hyperglycemia; E86.0 Dehydration; E87.2 Acidosis; I10 Essential (primary) hypertension; E66.9 Obesity, unspecified; Z88.5 Allergy status to narcotic agent; Z91.09 Other allergy status, other than to drugs and biological substances; Z91.048 Other nonmedicinal substance allergy status; Z88.8 Allergy status to other drugs, medicaments and biological substances; Z79.01 Long term (current) use of anticoagulants; Z68.42 Body mass index [BMI] 45.0-49.9, adult
CPT/HCPCS: 36415; 74177; 80053; 82947; 83605; 83735; 85025; 85610; 87040; 93005; 96365; 96366; 96375; 99284; A9270; J2405; J3010; J3475; J7120; Q9963; Q9967; J1815-GY

== ENCOUNTER 2022-08-29 03:46 | Emergency (ER) | payer MEDICARE, MEDICAID, OTHER ==
[2022-08-29] MEDS ORDERED: Sodium Chloride 0.9% 1,000 ML IV SCH (04:15)
[2022-08-29 04:49] LABS: CARBON DIOXIDE,CO2 24.9 mmol/L (21.0-32.0)
[2022-08-29] MEDS ORDERED: Sodium Chloride 0.9% 1,000 ML IV ONE (05:31)
[2022-08-29 07:22] LABS: CARBON DIOXIDE,CO2 22.4 mmol/L (21.0-32.0); POTASSIUM,K 4.5 mmol/L (3.5-5.1)
[2022-08-29 07:54] VITALS: BP 107/60; PULSE 89
== END 2022-08-29 08:12 | disposition home or self-care (01) ==
LOC: MW.ED 03:46
DX: K52.9 Noninfective gastroenteritis and colitis, unspecified (principal); I10 Essential (primary) hypertension; E11.9 Type 2 diabetes mellitus without complications; E66.9 Obesity, unspecified; Z68.42 Body mass index [BMI] 45.0-49.9, adult; Z91.048 Other nonmedicinal substance allergy status; Z88.5 Allergy status to narcotic agent; Z88.6 Allergy status to analgesic agent; Z88.8 Allergy status to other drugs, medicaments and biological substances; Z79.899 Other long term (current) drug therapy; Z79.01 Long term (current) use of anticoagulants
CPT/HCPCS: 36415; 74176; 80048; 80053; 83690; 85025; 96360; 96361; 99284; J7030

== ENCOUNTER 2022-10-08 21:11 | Emergency (ER) | payer MEDICARE, MEDICAID, OTHER ==
[2022-10-08 22:38] VITALS: BP 110/59
[2022-10-08 23:32] LABS: CORONAVIRUS COVID-19 NAA NEGATIVE (NEGATIVE); INFLUENZA A NAA NEGATIVE (NEGATIVE); INFLUENZA B NAA NEGATIVE (NEGATIVE); RESPIRATORY SYNCYTIAL VIR NAA NEGATIVE (NEGATIVE)
[2022-10-09 00:03] LABS: CARBON DIOXIDE,CO2 27.7 mmol/L (21.0-32.0); POTASSIUM,K 4.5 mmol/L (3.5-5.1)
[2022-10-09] MEDS ORDERED: predniSONE 20 MG Tab PO ONE (00:11)
[2022-10-09] MEDS ORDERED: Azithromycin 250 MG Tab PO STA (00:11)
[2022-10-09 00:30] VITALS: PULSE 75
== END 2022-10-09 00:29 | disposition home or self-care (01) ==
LOC: MW.ED 21:11
DX: J18.9 Pneumonia, unspecified organism (principal); J44.9 Chronic obstructive pulmonary disease, unspecified; I10 Essential (primary) hypertension; E11.9 Type 2 diabetes mellitus without complications; F17.210 Nicotine dependence, cigarettes, uncomplicated; E66.9 Obesity, unspecified; Z68.42 Body mass index [BMI] 45.0-49.9, adult; Z91.048 Other nonmedicinal substance allergy status; Z88.5 Allergy status to narcotic agent; Z88.8 Allergy status to other drugs, medicaments and biological substances; Z79.01 Long term (current) use of anticoagulants; Z79.899 Other long term (current) drug therapy; Z20.822 Contact with and (suspected) exposure to COVID-19
CPT/HCPCS: 0241U; 36415; 71045; 80053; 83735; 84484; 85025; 93005; 99285; A9270

== ENCOUNTER 2023-06-07 21:40 | Emergency (ER) | payer MEDICARE, OTHER ==
[2023-06-08 00:20] VITALS: BP 146/70; PULSE 71
== END 2023-06-08 00:20 | disposition home or self-care (01) ==
LOC: MW.ED 21:40
DX: Z48.01 Encounter for change or removal of surgical wound dressing (principal); I10 Essential (primary) hypertension; Z91.048 Other nonmedicinal substance allergy status; Z88.6 Allergy status to analgesic agent; Z88.5 Allergy status to narcotic agent; Z88.8 Allergy status to other drugs, medicaments and biological substances; Z79.01 Long term (current) use of anticoagulants; Z79.899 Other long term (current) drug therapy
CPT/HCPCS: 99282

== ENCOUNTER 2023-06-18 12:11 | Emergency (ER) | payer MEDICARE ==
[2023-06-18] MEDS ORDERED: Sodium Chloride 0.9% 2.5 ML Syringe FLUSH PRN (12:12)
[2023-06-18] MEDS ORDERED: Sodium Chloride 0.9% 10 ML Syringe FLUSH PRN (12:12)
[2023-06-18 12:25] LABS: BASOPHILS PERCENT AUTO 0.3 % (0.0-1.5); EOSINOPHILS ABSOLUTE AUTO 0.1 K/uL (0.0-0.7); EOSINOPHILS PERCENT AUTO 1.2 % (0.0-7.0); HEMATOCRIT 44.9 % (36.0-46.0); HEMOGLOBIN 14.6 g/dL (12.0-16.0); LYMPHOCYTES ABSOLUTE AUTO 1.3 K/uL (0.6-2.4); LYMPHOCYTES PERCENT AUTO 17.8 % (16.0-40.0); MEAN CORPUSCULAR HEMOGLOBIN 31.1 pg (27.0-32.0); MEAN CORPUSCULAR HGB CONC 32.5 g/dL (31.0-37.0); MEAN CORPUSCULAR VOLUME 95.5 fL (80.0-98.0); MONOCYTES ABSOLUTE AUTO 0.5 K/uL (0.0-0.8); NEUTROPHILS ABSOLUTE AUTO 5.6 K/uL (1.4-5.7); NEUTROPHILS PERCENT AUTO 74.7 % (48.0-80.0); NRBC ABSOLUTE 0 K/uL; PLATELET COUNT,PLT 221 K/uL (150-400); WHITE BLOOD CELL COUNT,WBC 7.46 K/uL (4.0-11.0)
[2023-06-18 13:26] LABS: APPEARANCE,URINE CLEAR; BILIRUBIN,URINE NEGATIVE (NEGATIVE); COLOR,URINE YELLOW; GLUCOSE,URINE >=1000 mg/dL (NEGATIVE); KETONES,URINE NEGATIVE (NEGATIVE); LEUKOCYTE ESTERASE,URINE NEGATIVE (NEGATIVE); NITRITE,URINE NEGATIVE (NEGATIVE); OCCULT BLOOD,URINE TRACE-INTACT (NEGATIVE); PROTEIN,URINE NEGATIVE (NEGATIVE); UROBILINOGEN,URINE 0.2 EU/dL (<2.0)
[2023-06-18 13:42] LABS: BACTERIA,URINE NOT SEEN (NEGATIVE); EPITHELIAL CELLS,URINE RARE (NONE-FEW); RBC,URINE 0-5 (0-2/HPF); WBC,URINE NONE SEEN (0-5/HPF)
[2023-06-18 13:56] LABS: ALBUMIN 3.4 g/dL (3.4-5.0); BILIRUBIN TOTAL 0.3 mg/dL (0.2-1.0); CALCIUM 8.8 mg/dL (8.5-10.1); CARBON DIOXIDE,CO2 23.6 mmol/L (21.0-32.0); CREATININE 1.2 mg/dL (0.6-1.0); EST CRCL DRUG DOSING (CG) 43.3 mL/min; POTASSIUM,K 4.5 mmol/L (3.5-5.1); PROTEIN TOTAL,TP 6.7 g/dL (6.4-8.2)
[2023-06-18] MEDS ORDERED: Heparin Sodium 5,000 Units/ML Vial IVPUSH STA (14:31)
[2023-06-18] MEDS ORDERED: Heparin Sodium/0.45% NaCl 500 ML IV SCH (14:45)
[2023-06-18 15:28] VITALS: BP 137/70; PULSE 62
== END 2023-06-18 16:46 ==
LOC: MW.ED 12:11
DX: I21.4 Non-ST elevation (NSTEMI) myocardial infarction (principal); E11.9 Type 2 diabetes mellitus without complications; E66.9 Obesity, unspecified; I10 Essential (primary) hypertension; F17.210 Nicotine dependence, cigarettes, uncomplicated; Z68.42 Body mass index [BMI] 45.0-49.9, adult; Z86.711 Personal history of pulmonary embolism; Z20.822 Contact with and (suspected) exposure to COVID-19; Z91.048 Other nonmedicinal substance allergy status; Z88.5 Allergy status to narcotic agent; Z88.6 Allergy status to analgesic agent; Z79.84 Long term (current) use of oral hypoglycemic drugs; Z79.899 Other long term (current) drug therapy; Z79.01 Long term (current) use of anticoagulants
CPT/HCPCS: 36415; 71045; 80053; 81001; 83690; 83735; 83880; 84484; 85025; 85730; 93005; 96365; 96366; 96376; 99285; J1644; J3490; U0002; 93010

== ENCOUNTER 2023-09-13 11:51 | Observation (INO) | payer MEDICARE, MEDICAID, OTHER ==
[2023-09-13] MEDS ORDERED: Sodium Chloride 0.9% 10 ML Syringe FLUSH PRN (13:04)
[2023-09-13] MEDS ORDERED: Morphine 4 MG/ML Syringe IVPUSH ONE (13:04)
[2023-09-13] MEDS ORDERED: Sodium Chloride 0.9% 2.5 ML Syringe FLUSH PRN (13:04)
[2023-09-13] MEDS ORDERED: Sodium Chloride 0.9% 500 ML IV SCH ×2 (13:15→16:15)
[2023-09-13] MEDS ORDERED: Sodium Chloride 0.9% 500 ML IV ONE (13:42)
[2023-09-13 14:50] LABS: BASOPHILS ABSOLUTE AUTO 0.03 K/uL (0.00-0.20); BASOPHILS PERCENT AUTO 0.3 % (0.0-1.0); EOSINOPHILS ABSOLUTE AUTO 0.08 K/uL (0.00-0.45); EOSINOPHILS PERCENT AUTO 0.8 % (0.0-6.0); LYMPHOCYTES ABSOLUTE AUTO 1.76 K/uL (1.00-4.80); LYMPHOCYTES PERCENT AUTO 17.4 % (24.0-44.0); MEAN CORPUSCULAR HEMOGLOBIN 30.6 pg (28.0-32.0); MEAN CORPUSCULAR HGB CONC 32.6 g/dL (32.0-36.0); MEAN CORPUSCULAR VOLUME 93.9 fL (83.0-99.0); MEAN PLATELET VOLUME 10.5 fL (9.4-12.3); MONOCYTES ABSOLUTE AUTO 0.47 K/uL (0.00-0.80); MONOCYTES PERCENT AUTO 4.6 % (0.0-8.0); NEUTROPHILS ABSOLUTE AUTO 7.69 K/uL (1.80-7.70); NEUTROPHILS PERCENT AUTO 75.9 % (41.0-71.0); PLATELET COUNT,PLT 229 K/uL (150-400); WHITE BLOOD CELL COUNT,WBC 10.13 K/uL (3.9-11.3)
[2023-09-13 15:06] LABS: INR 0.99 (0.86-1.11)
[2023-09-13 15:26] LABS: LACTIC ACID 1.4 mmol/L (0.4-2.0)
[2023-09-13 15:37] LABS: ALBUMIN 3.5 g/dL (3.4-5.0); BILIRUBIN TOTAL 0.3 mg/dL (0.2-1.0); CALCIUM 9.2 mg/dL (8.5-10.1); CARBON DIOXIDE,CO2 25.4 mmol/L (21.0-32.0); CREATININE 1.6 mg/dL (0.6-1.0); EST CRCL DRUG DOSING (CG) 32.48 mL/min; POTASSIUM,K 4.7 mmol/L (3.5-5.1); PROTEIN TOTAL,TP 7.1 g/dL (6.4-8.2)
[2023-09-13] MEDS ORDERED: Iopamidol 755 MG/ML 500 ML Multipack Bottle IVPUSH STA (16:44)
[2023-09-13] MEDS ORDERED: Sodium Chloride 0.9% 1,000 ML IV ONE (17:19)
[2023-09-13] MEDS ORDERED: Ondansetron 4 MG/2 ML SDV IVPUSH PRN (23:18)
[2023-09-13] MEDS ORDERED: Sodium Chloride 0.9% 1,000 ML IV SCH (23:30)
[2023-09-14 03:28] LABS: APPEARANCE,URINE CLEAR; BILIRUBIN,URINE NEGATIVE (NEGATIVE); COLOR,URINE YELLOW; GLUCOSE,URINE >=1000 mg/dL (NEGATIVE); KETONES,URINE NEGATIVE (NEGATIVE); LEUKOCYTE ESTERASE,URINE NEGATIVE (NEGATIVE); NITRITE,URINE NEGATIVE (NEGATIVE); OCCULT BLOOD,URINE NEGATIVE (NEGATIVE); PH,URINE 5.5 (5.0-8.0); PROTEIN,URINE NEGATIVE (NEGATIVE); UROBILINOGEN,URINE 0.2 EU/dL (<2.0)
[2023-09-14 05:47] LABS: BASOPHILS ABSOLUTE AUTO 0.03 K/uL (0.00-0.20); BASOPHILS PERCENT AUTO 0.3 % (0.0-1.0); EOSINOPHILS ABSOLUTE AUTO 0.18 K/uL (0.00-0.45); EOSINOPHILS PERCENT AUTO 1.8 % (0.0-6.0); HEMATOCRIT 43.2 % (37.0-47.0); IMMATURE GRAN ABSOLUTE AUTO 0.08 K/uL (0.00-0.05); IMMATURE GRAN PERCENT AUTO 0.8 % (0.0-0.4); LYMPHOCYTES ABSOLUTE AUTO 2.04 K/uL (1.00-4.80); LYMPHOCYTES PERCENT AUTO 20.7 % (24.0-44.0); MEAN CORPUSCULAR HEMOGLOBIN 30.8 pg (28.0-32.0); MEAN CORPUSCULAR HGB CONC 32.4 g/dL (32.0-36.0); MEAN CORPUSCULAR VOLUME 94.9 fL (83.0-99.0); MEAN PLATELET VOLUME 11.2 fL (9.4-12.3); MONOCYTES ABSOLUTE AUTO 0.55 K/uL (0.00-0.80); MONOCYTES PERCENT AUTO 5.6 % (0.0-8.0); NEUTROPHILS ABSOLUTE AUTO 6.97 K/uL (1.80-7.70); NEUTROPHILS PERCENT AUTO 70.8 % (41.0-71.0); PLATELET COUNT,PLT 199 K/uL (150-400); RED BLOOD CELL COUNT 4.55 M/uL (4.10-5.30); WHITE BLOOD CELL COUNT,WBC 9.85 K/uL (3.9-11.3)
[2023-09-14 06:12] LABS: CALCIUM 8.7 mg/dL (8.5-10.1); CARBON DIOXIDE,CO2 21.9 mmol/L (21.0-32.0); CREATININE 1.5 mg/dL (0.6-1.0); EST CRCL DRUG DOSING (CG) 34.64 mL/min; POTASSIUM,K 4.2 mmol/L (3.5-5.1)
[2023-09-14] MEDS ORDERED: Glucagon,Human Recombinant 1 MG Vial IM PRN (06:28)
[2023-09-14] MEDS ORDERED: 50% Dextrose in Water 50 ML Syringe IVPUSH PRN (06:28)
[2023-09-14] MEDS: Insulin Aspart 100 Units/ML 3 ML Pen SUBCUT SCH ×2 (08:04→12:06)
[2023-09-14 11:53] VITALS: BP 128/60; PULSE 77
== END 2023-09-14 12:30 | disposition home or self-care (01) ==
LOC: MW.ED 11:51 → MW.MS 18:38
PROVIDERS: ADMIT Internal Medicine; ATTEND Internal Medicine
DX: K52.9 Noninfective gastroenteritis and colitis, unspecified (principal); I10 Essential (primary) hypertension; E11.9 Type 2 diabetes mellitus without complications; J45.909 Unspecified asthma, uncomplicated; E66.9 Obesity, unspecified; Z68.42 Body mass index [BMI] 45.0-49.9, adult; F17.210 Nicotine dependence, cigarettes, uncomplicated; Z79.84 Long term (current) use of oral hypoglycemic drugs; Z79.899 Other long term (current) drug therapy; Z91.048 Other nonmedicinal substance allergy status; Z88.8 Allergy status to other drugs, medicaments and biological substances
CPT/HCPCS: 36415; 74177; 80048; 80053; 81003; 82947; 83605; 83690; 85025; 85610; 87040; 87324; 93005; J1815; J2270; J3490; J7030; J7040; Q9967; 93010; 99284

== ENCOUNTER 2024-08-23 20:32 | Emergency (ER) | payer MEDICARE, MEDICAID, OTHER ==
[2024-08-23 23:56] VITALS: BP 135/84; PULSE 82
== END 2024-08-23 22:30 | disposition home or self-care (01) ==
LOC: MW.ED 20:32
DX: M25.462 Effusion, left knee (principal); I10 Essential (primary) hypertension; E78.00 Pure hypercholesterolemia, unspecified; E66.9 Obesity, unspecified; E11.9 Type 2 diabetes mellitus without complications; Z91.048 Other nonmedicinal substance allergy status; Z88.8 Allergy status to other drugs, medicaments and biological substances; Z79.82 Long term (current) use of aspirin; Z79.899 Other long term (current) drug therapy; Z75.8 Other problems related to medical facilities and other health care
CPT/HCPCS: 73562-26-LT; 73562-LT; 99283

== ENCOUNTER 2024-09-04 09:52 | Inpatient (IN) | payer MEDICARE, MEDICAID ==
[2024-09-04] MEDS: Ondansetron 4 MG/2 ML SDV IVPUSH STA (10:25)
[2024-09-04] MEDS: Morphine 4 MG/ML Syringe IVPUSH STA (10:26)
[2024-09-04] MEDS: Aspirin 81 MG Tab.Chew PO STA (10:40)
[2024-09-04 10:46] LABS: BASOPHILS ABSOLUTE AUTO 0.03 K/uL (0.00-0.20); BASOPHILS PERCENT AUTO 0.4 % (0.0-1.0); EOSINOPHILS ABSOLUTE AUTO 0.17 K/uL (0.00-0.45); EOSINOPHILS PERCENT AUTO 2.3 % (0.0-6.0); HEMATOCRIT 44.3 % (37.0-47.0); HEMOGLOBIN 14.3 g/dL (12.0-16.0); IMMATURE GRAN ABSOLUTE AUTO 0.12 K/uL (0.00-0.05); IMMATURE GRAN PERCENT AUTO 1.6 % (0.0-0.4); LYMPHOCYTES ABSOLUTE AUTO 0.95 K/uL (1.00-4.80); LYMPHOCYTES PERCENT AUTO 12.7 % (24.0-44.0); MEAN CORPUSCULAR HEMOGLOBIN 30.5 pg (28.0-32.0); MEAN CORPUSCULAR HGB CONC 32.3 g/dL (32.0-36.0); MEAN CORPUSCULAR VOLUME 94.5 fL (83.0-99.0); MEAN PLATELET VOLUME 10.4 fL (9.4-12.3); MONOCYTES ABSOLUTE AUTO 0.38 K/uL (0.00-0.80); MONOCYTES PERCENT AUTO 5.1 % (0.0-8.0); NEUTROPHILS ABSOLUTE AUTO 5.81 K/uL (1.80-7.70); NEUTROPHILS PERCENT AUTO 77.9 % (41.0-71.0); PLATELET COUNT,PLT 203 K/uL (150-400); RED BLOOD CELL COUNT 4.69 M/uL (4.10-5.30); WHITE BLOOD CELL COUNT,WBC 7.46 K/uL (3.9-11.3)
[2024-09-04 11:13] LABS: INR 0.95 (0.86-1.11)
[2024-09-04 11:30] LABS: A/G RATIO 0.9 (0.9-1.6); ALBUMIN 3.1 g/dL (3.4-5.0); BILIRUBIN TOTAL 0.3 mg/dL (0.2-1.0); CARBON DIOXIDE,CO2 28.4 mmol/L (21.0-32.0); CREATININE 1.2 mg/dL (0.6-1.0); EST CRCL DRUG DOSING (CG) 42.79 mL/min; PROTEIN TOTAL,TP 6.5 g/dL (6.4-8.2)
[2024-09-04] MEDS: oxyCODONE 5 MG Tab PO STA (13:14)
[2024-09-04 17:17] LABS: APPEARANCE,URINE CLEAR; BILIRUBIN,URINE NEGATIVE (NEGATIVE); COLOR,URINE YELLOW; GLUCOSE,URINE >=1000 mg/dL (NEGATIVE); KETONES,URINE NEGATIVE (NEGATIVE); LEUKOCYTE ESTERASE,URINE NEGATIVE (NEGATIVE); NITRITE,URINE NEGATIVE (NEGATIVE); OCCULT BLOOD,URINE NEGATIVE (NEGATIVE); PH,URINE 5.5 (5.0-8.0); PROTEIN,URINE NEGATIVE (NEGATIVE); UROBILINOGEN,URINE 0.2 EU/dL (<2.0)
[2024-09-04] MEDS: Lidocaine 4% 1 each Patch TOP STA (17:31)
[2024-09-04] MEDS ORDERED: Ibuprofen 400 MG Tab PO PRN ×2 (18:26→18:51)
[2024-09-04] MEDS ORDERED: Ondansetron 4 MG Tab.DIS PO PRN (18:26)
[2024-09-04] MEDS ORDERED: Polyethylene Glycol 3350 Powder 17 GM Packet PO PRN (18:26)
[2024-09-04] MEDS ORDERED: Melatonin 3 MG Tab PO PRN (18:26)
[2024-09-04] MEDS ORDERED: Acetaminophen 325 MG Tab PO PRN (18:26)
[2024-09-04] MEDS ORDERED: Bisacodyl 5 MG Tab PO PRN (18:26)
[2024-09-04] MEDS ORDERED: Albuterol 8 GM Inhaler INH PRN (18:34)
[2024-09-04] MEDS ORDERED: Glucagon,Human Recombinant 1 MG Vial IM PRN (18:36)
[2024-09-04] MEDS ORDERED: 50% Dextrose in Water 50 ML Syringe IVPUSH PRN (18:36)
[2024-09-04] MEDS: Acetaminophen 325 MG Tab PO SCH (20:34)
[2024-09-04] MEDS: Apixaban 5 MG Tab PO SCH (20:35)
[2024-09-05 06:25] LABS: BASOPHILS ABSOLUTE AUTO 0.03 K/uL (0.00-0.20); BASOPHILS PERCENT AUTO 0.4 % (0.0-1.0); EOSINOPHILS ABSOLUTE AUTO 0.18 K/uL (0.00-0.45); EOSINOPHILS PERCENT AUTO 2.3 % (0.0-6.0); HEMATOCRIT 42.8 % (37.0-47.0); HEMOGLOBIN 13.8 g/dL (12.0-16.0); IMMATURE GRAN ABSOLUTE AUTO 0.04 K/uL (0.00-0.05); IMMATURE GRAN PERCENT AUTO 0.5 % (0.0-0.4); LYMPHOCYTES ABSOLUTE AUTO 1.15 K/uL (1.00-4.80); LYMPHOCYTES PERCENT AUTO 14.9 % (24.0-44.0); MEAN CORPUSCULAR HEMOGLOBIN 30.3 pg (28.0-32.0); MEAN CORPUSCULAR HGB CONC 32.2 g/dL (32.0-36.0); MEAN CORPUSCULAR VOLUME 93.9 fL (83.0-99.0); MEAN PLATELET VOLUME 9.9 fL (9.4-12.3); MONOCYTES ABSOLUTE AUTO 0.37 K/uL (0.00-0.80); MONOCYTES PERCENT AUTO 4.8 % (0.0-8.0); NEUTROPHILS ABSOLUTE AUTO 5.96 K/uL (1.80-7.70); NEUTROPHILS PERCENT AUTO 77.1 % (41.0-71.0); PLATELET COUNT,PLT 174 K/uL (150-400); RED BLOOD CELL COUNT 4.56 M/uL (4.10-5.30); WHITE BLOOD CELL COUNT,WBC 7.73 K/uL (3.9-11.3)
[2024-09-05 06:47] LABS: A/G RATIO 0.9 (0.9-1.6); ALBUMIN 2.9 g/dL (3.4-5.0); BILIRUBIN TOTAL 0.5 mg/dL (0.2-1.0); CALCIUM 8.8 mg/dL (8.5-10.1); CARBON DIOXIDE,CO2 25.4 mmol/L (21.0-32.0); CREATININE 1.1 mg/dL (0.6-1.0); EST CRCL DRUG DOSING (CG) 46.68 mL/min; POTASSIUM,K 4.1 mmol/L (3.5-5.1); PROTEIN TOTAL,TP 6.2 g/dL (6.4-8.2)
[2024-09-05] MEDS: Fenofibrate,Micronized 67 MG Cap PO SCH (09:38)
[2024-09-05] MEDS: atorvaSTATin 20 MG Tab PO SCH (09:38)
[2024-09-05] MEDS: Metoprolol Succinate 25 MG Tab.ER PO SCH (09:38)
[2024-09-05] MEDS: Lisinopril 5 MG Tab PO SCH (09:39)
[2024-09-05] MEDS: Insulin Aspart 100 Units/ML 3 ML Pen SUBCUT SCH (09:55)
[2024-09-05] MEDS: oxyCODONE 5 MG Tab PO PRN (16:41)
[2024-09-06 06:40] LABS: BASOPHILS ABSOLUTE AUTO 0.03 K/uL (0.00-0.20); BASOPHILS PERCENT AUTO 0.4 % (0.0-1.0); EOSINOPHILS ABSOLUTE AUTO 0.19 K/uL (0.00-0.45); EOSINOPHILS PERCENT AUTO 2.8 % (0.0-6.0); HEMATOCRIT 45.8 % (37.0-47.0); HEMOGLOBIN 14.6 g/dL (12.0-16.0); IMMATURE GRAN ABSOLUTE AUTO 0.05 K/uL (0.00-0.05); IMMATURE GRAN PERCENT AUTO 0.7 % (0.0-0.4); LYMPHOCYTES ABSOLUTE AUTO 1.29 K/uL (1.00-4.80); LYMPHOCYTES PERCENT AUTO 19.3 % (24.0-44.0); MEAN CORPUSCULAR HEMOGLOBIN 29.7 pg (28.0-32.0); MEAN CORPUSCULAR HGB CONC 31.9 g/dL (32.0-36.0); MEAN CORPUSCULAR VOLUME 93.3 fL (83.0-99.0); MEAN PLATELET VOLUME 10.2 fL (9.4-12.3); MONOCYTES ABSOLUTE AUTO 0.38 K/uL (0.00-0.80); MONOCYTES PERCENT AUTO 5.7 % (0.0-8.0); NEUTROPHILS ABSOLUTE AUTO 4.75 K/uL (1.80-7.70); NEUTROPHILS PERCENT AUTO 71.1 % (41.0-71.0); PLATELET COUNT,PLT 196 K/uL (150-400); RED BLOOD CELL COUNT 4.91 M/uL (4.10-5.30); WHITE BLOOD CELL COUNT,WBC 6.69 K/uL (3.9-11.3)
[2024-09-06 07:14] LABS: A/G RATIO 0.8 (0.9-1.6); BILIRUBIN TOTAL 0.6 mg/dL (0.2-1.0); CALCIUM 9.4 mg/dL (8.5-10.1); CARBON DIOXIDE,CO2 24.6 mmol/L (21.0-32.0); EST CRCL DRUG DOSING (CG) 51.34 mL/min; PROTEIN TOTAL,TP 6.6 g/dL (6.4-8.2)
[2024-09-07 11:33] LABS: BASOPHILS ABSOLUTE AUTO 0.04 K/uL (0.00-0.20); BASOPHILS PERCENT AUTO 0.5 % (0.0-1.0); EOSINOPHILS PERCENT AUTO 2.6 % (0.0-6.0); HEMATOCRIT 48.8 % (37.0-47.0); HEMOGLOBIN 15.7 g/dL (12.0-16.0); IMMATURE GRAN ABSOLUTE AUTO 0.07 K/uL (0.00-0.05); IMMATURE GRAN PERCENT AUTO 0.9 % (0.0-0.4); LYMPHOCYTES ABSOLUTE AUTO 1.81 K/uL (1.00-4.80); LYMPHOCYTES PERCENT AUTO 23.5 % (24.0-44.0); MEAN CORPUSCULAR HEMOGLOBIN 29.6 pg (28.0-32.0); MEAN CORPUSCULAR HGB CONC 32.2 g/dL (32.0-36.0); MEAN CORPUSCULAR VOLUME 92.1 fL (83.0-99.0); MONOCYTES ABSOLUTE AUTO 0.43 K/uL (0.00-0.80); MONOCYTES PERCENT AUTO 5.6 % (0.0-8.0); NEUTROPHILS ABSOLUTE AUTO 5.14 K/uL (1.80-7.70); NEUTROPHILS PERCENT AUTO 66.9 % (41.0-71.0); PLATELET COUNT,PLT 222 K/uL (150-400); WHITE BLOOD CELL COUNT,WBC 7.69 K/uL (3.9-11.3)
[2024-09-07 12:11] LABS: A/G RATIO 0.8 (0.9-1.6); ALBUMIN 3.2 g/dL (3.4-5.0); BILIRUBIN TOTAL 0.7 mg/dL (0.2-1.0); CALCIUM 9.6 mg/dL (8.5-10.1); CARBON DIOXIDE,CO2 25.9 mmol/L (21.0-32.0); CREATININE 1.1 mg/dL (0.6-1.0); EST CRCL DRUG DOSING (CG) 46.68 mL/min; POTASSIUM,K 4.7 mmol/L (3.5-5.1); PROTEIN TOTAL,TP 7.3 g/dL (6.4-8.2)
[2024-09-08 05:47] LABS: BASOPHILS ABSOLUTE AUTO 0.03 K/uL (0.00-0.20); BASOPHILS PERCENT AUTO 0.6 % (0.0-1.0); EOSINOPHILS ABSOLUTE AUTO 0.19 K/uL (0.00-0.45); EOSINOPHILS PERCENT AUTO 3.5 % (0.0-6.0); HEMOGLOBIN 14.8 g/dL (12.0-16.0); IMMATURE GRAN ABSOLUTE AUTO 0.05 K/uL (0.00-0.05); IMMATURE GRAN PERCENT AUTO 0.9 % (0.0-0.4); LYMPHOCYTES ABSOLUTE AUTO 1.26 K/uL (1.00-4.80); LYMPHOCYTES PERCENT AUTO 23.2 % (24.0-44.0); MEAN CORPUSCULAR HEMOGLOBIN 30.1 pg (28.0-32.0); MEAN CORPUSCULAR HGB CONC 32.9 g/dL (32.0-36.0); MEAN CORPUSCULAR VOLUME 91.5 fL (83.0-99.0); MEAN PLATELET VOLUME 9.9 fL (9.4-12.3); MONOCYTES ABSOLUTE AUTO 0.39 K/uL (0.00-0.80); MONOCYTES PERCENT AUTO 7.2 % (0.0-8.0); NEUTROPHILS ABSOLUTE AUTO 3.52 K/uL (1.80-7.70); NEUTROPHILS PERCENT AUTO 64.6 % (41.0-71.0); PLATELET COUNT,PLT 212 K/uL (150-400); RED BLOOD CELL COUNT 4.92 M/uL (4.10-5.30); WHITE BLOOD CELL COUNT,WBC 5.44 K/uL (3.9-11.3)
[2024-09-08 06:14] LABS: A/G RATIO 0.8 (0.9-1.6); BILIRUBIN TOTAL 0.5 mg/dL (0.2-1.0); CALCIUM 9.1 mg/dL (8.5-10.1); CARBON DIOXIDE,CO2 25.4 mmol/L (21.0-32.0); CREATININE 1.2 mg/dL (0.6-1.0); EST CRCL DRUG DOSING (CG) 42.79 mL/min; PROTEIN TOTAL,TP 6.6 g/dL (6.4-8.2)
[2024-09-09 05:50] LABS: BASOPHILS ABSOLUTE AUTO 0.04 K/uL (0.00-0.20); BASOPHILS PERCENT AUTO 0.7 % (0.0-1.0); EOSINOPHILS ABSOLUTE AUTO 0.22 K/uL (0.00-0.45); EOSINOPHILS PERCENT AUTO 3.7 % (0.0-6.0); HEMATOCRIT 44.8 % (37.0-47.0); HEMOGLOBIN 14.9 g/dL (12.0-16.0); IMMATURE GRAN ABSOLUTE AUTO 0.06 K/uL (0.00-0.05); LYMPHOCYTES ABSOLUTE AUTO 1.48 K/uL (1.00-4.80); MEAN CORPUSCULAR HEMOGLOBIN 30.2 pg (28.0-32.0); MEAN CORPUSCULAR HGB CONC 33.3 g/dL (32.0-36.0); MEAN CORPUSCULAR VOLUME 90.7 fL (83.0-99.0); MONOCYTES ABSOLUTE AUTO 0.45 K/uL (0.00-0.80); MONOCYTES PERCENT AUTO 7.6 % (0.0-8.0); NEUTROPHILS ABSOLUTE AUTO 3.66 K/uL (1.80-7.70); PLATELET COUNT,PLT 209 K/uL (150-400); RED BLOOD CELL COUNT 4.94 M/uL (4.10-5.30); WHITE BLOOD CELL COUNT,WBC 5.91 K/uL (3.9-11.3)
[2024-09-09 06:15] LABS: A/G RATIO 0.9 (0.9-1.6); ALBUMIN 3.2 g/dL (3.4-5.0); BILIRUBIN TOTAL 0.6 mg/dL (0.2-1.0); CALCIUM 9.5 mg/dL (8.5-10.1); CARBON DIOXIDE,CO2 27.9 mmol/L (21.0-32.0); CREATININE 1.1 mg/dL (0.6-1.0); EST CRCL DRUG DOSING (CG) 46.68 mL/min; POTASSIUM,K 4.2 mmol/L (3.5-5.1); PROTEIN TOTAL,TP 6.9 g/dL (6.4-8.2)
[2024-09-09 12:59] VITALS: BP 146/93; PULSE 88
== END 2024-09-09 12:59 | disposition home or self-care (01) | DRG 552 ==
LOC: MW.ED 09:52 → MW.MS 18:16
PROVIDERS: ADMIT Internal Medicine; ATTEND Internal Medicine
DX: S32.2XXA Fracture of coccyx, initial encounter for closed fracture (principal); Z68.41 Body mass index [BMI] 40.0-44.9, adult; E11.22 Type 2 diabetes mellitus with diabetic chronic kidney disease; I10 Essential (primary) hypertension; I12.9 Hypertensive chronic kidney disease with stage 1 through stage 4 chronic kidney disease, or unspecified chronic kidney disease; E11.9 Type 2 diabetes mellitus without complications; E66.9 Obesity, unspecified; G89.29 Other chronic pain; M54.50 Low back pain, unspecified; D50.9 Iron deficiency anemia, unspecified; Z79.84 Long term (current) use of oral hypoglycemic drugs; Z75.8 Other problems related to medical facilities and other health care; Z91.048 Other nonmedicinal substance allergy status; E78.00 Pure hypercholesterolemia, unspecified; Z88.6 Allergy status to analgesic agent; Z68.42 Body mass index [BMI] 45.0-49.9, adult; W19.XXXA Unspecified fall, initial encounter; J45.909 Unspecified asthma, uncomplicated; R79.89 Other specified abnormal findings of blood chemistry; M25.462 Effusion, left knee; F17.210 Nicotine dependence, cigarettes, uncomplicated; Z93.3 Colostomy status; Z88.5 Allergy status to narcotic agent; Z88.8 Allergy status to other drugs, medicaments and biological substances; Z79.01 Long term (current) use of anticoagulants; Z79.82 Long term (current) use of aspirin; Z90.89 Acquired absence of other organs; Z86.711 Personal history of pulmonary embolism; Z79.899 Other long term (current) drug therapy; Z98.890 Other specified postprocedural states; W01.0XXA Fall on same level from slipping, tripping and stumbling without subsequent striking against object, initial encounter
CPT/HCPCS: 36415; 70450; 71045; 72125; 72128; 72131; 72192; 73562; 80053; 81003; 84484 ×2; 85025; 85610; 93005 ×2; 96374; 96375; 99285; A9270 ×3; J2270; J2405; 82947; 93010; 97163-GP; 97530-GP; 99222; 99231; 99232; 99239; J1815-GY

== ENCOUNTER 2024-09-20 04:07 | Inpatient (IN) | payer MEDICARE, MEDICAID ==
[2024-09-20 04:31] LABS: BASOPHILS ABSOLUTE AUTO 0.03 K/uL (0.00-0.20); BASOPHILS PERCENT AUTO 0.3 % (0.0-1.0); EOSINOPHILS ABSOLUTE AUTO 0.11 K/uL (0.00-0.45); HEMATOCRIT 49.2 % (37.0-47.0); HEMOGLOBIN 16.4 g/dL (12.0-16.0); IMMATURE GRAN ABSOLUTE AUTO 0.05 K/uL (0.00-0.05); IMMATURE GRAN PERCENT AUTO 0.4 % (0.0-0.4); LYMPHOCYTES ABSOLUTE AUTO 1.74 K/uL (1.00-4.80); LYMPHOCYTES PERCENT AUTO 15.1 % (24.0-44.0); MEAN CORPUSCULAR HEMOGLOBIN 30.7 pg (28.0-32.0); MEAN CORPUSCULAR HGB CONC 33.3 g/dL (32.0-36.0); MEAN PLATELET VOLUME 9.6 fL (9.4-12.3); MONOCYTES ABSOLUTE AUTO 0.66 K/uL (0.00-0.80); MONOCYTES PERCENT AUTO 5.7 % (0.0-8.0); NEUTROPHILS ABSOLUTE AUTO 8.97 K/uL (1.80-7.70); NEUTROPHILS PERCENT AUTO 77.5 % (41.0-71.0); PLATELET COUNT,PLT 292 K/uL (150-400); RED BLOOD CELL COUNT 5.35 M/uL (4.10-5.30); WHITE BLOOD CELL COUNT,WBC 11.56 K/uL (3.9-11.3)
[2024-09-20] MEDS: Ondansetron 4 MG/2 ML SDV IVPUSH ONE (04:35)
[2024-09-20] MEDS: HYDROmorphone 1 MG/ML Syringe IVPUSH ONE (04:38)
[2024-09-20 04:40] LABS: A/G RATIO 1.1 (0.9-1.6); ALBUMIN 3.9 g/dL (3.4-5.0); BILIRUBIN TOTAL 0.5 mg/dL (0.2-1.0); CALCIUM 9.6 mg/dL (8.5-10.1); CARBON DIOXIDE,CO2 27.9 mmol/L (21.0-32.0); CREATININE 1.1 mg/dL (0.6-1.0); EST CRCL DRUG DOSING (CG) 46.68 mL/min; POTASSIUM,K 4.4 mmol/L (3.5-5.1); PROTEIN TOTAL,TP 7.5 g/dL (6.4-8.2)
[2024-09-20] MEDS: Ketorolac 30 MG/ML SDV IVPUSH ONE (04:44)
[2024-09-20] MEDS: Iopamidol 755 MG/ML 500 ML Multipack Bottle IVPUSH ONE (05:13)
[2024-09-20] MEDS: Sodium Chloride 0.9% 1,000 ML IV SCH ×2 (07:04→16:47)
[2024-09-20] MEDS ORDERED: Acetaminophen 650 MG Supp RECTAL PRN (08:05)
[2024-09-20] MEDS ORDERED: Ondansetron 4 MG/2 ML SDV IVPUSH PRN (08:05)
[2024-09-20] MEDS ORDERED: Melatonin 3 MG Tab PO PRN (08:05)
[2024-09-20] MEDS ORDERED: 50% Dextrose in Water 50 ML Syringe IVPUSH PRN (08:45)
[2024-09-20] MEDS ORDERED: Glucagon,Human Recombinant 1 MG Vial IM PRN ×2 (08:45→19:54)
[2024-09-20] MEDS: Apixaban 5 MG Tab PO SCH (10:50)
[2024-09-20] MEDS: Albuterol 8 GM Inhaler INH PRN (10:55)
[2024-09-20] MEDS: Metoprolol Succinate 25 MG Tab.ER PO SCH (10:59)
[2024-09-20] MEDS: Acetaminophen 325 MG Tab PO PRN (13:05)
[2024-09-20] MEDS: Insulin Aspart 100 Units/ML 3 ML Pen SUBCUT SCH (14:27)
[2024-09-20] MEDS: Morphine 2 MG/ML SYRINGE IVPUSH PRN (17:49)
[2024-09-20] MEDS: oxyCODONE 5 MG Tab PO PRN (20:19)
[2024-09-20] MEDS: atorvaSTATin 20 MG Tab PO SCH (20:19)
[2024-09-21 06:12] LABS: BASOPHILS ABSOLUTE AUTO 0.01 K/uL (0.00-0.20); BASOPHILS PERCENT AUTO 0.2 % (0.0-1.0); EOSINOPHILS ABSOLUTE AUTO 0.11 K/uL (0.00-0.45); EOSINOPHILS PERCENT AUTO 2.1 % (0.0-6.0); HEMOGLOBIN 13.3 g/dL (12.0-16.0); IMMATURE GRAN ABSOLUTE AUTO 0.03 K/uL (0.00-0.05); IMMATURE GRAN PERCENT AUTO 0.6 % (0.0-0.4); LYMPHOCYTES ABSOLUTE AUTO 1.65 K/uL (1.00-4.80); LYMPHOCYTES PERCENT AUTO 31.9 % (24.0-44.0); MEAN CORPUSCULAR HEMOGLOBIN 29.8 pg (28.0-32.0); MEAN CORPUSCULAR HGB CONC 31.7 g/dL (32.0-36.0); MEAN CORPUSCULAR VOLUME 94.2 fL (83.0-99.0); MEAN PLATELET VOLUME 9.5 fL (9.4-12.3); MONOCYTES ABSOLUTE AUTO 0.38 K/uL (0.00-0.80); MONOCYTES PERCENT AUTO 7.3 % (0.0-8.0); NEUTROPHILS PERCENT AUTO 57.9 % (41.0-71.0); PLATELET COUNT,PLT 197 K/uL (150-400); RED BLOOD CELL COUNT 4.46 M/uL (4.10-5.30); WHITE BLOOD CELL COUNT,WBC 5.18 K/uL (3.9-11.3)
[2024-09-21 06:39] LABS: CALCIUM 8.6 mg/dL (8.5-10.1); CARBON DIOXIDE,CO2 23.5 mmol/L (21.0-32.0); CREATININE 0.9 mg/dL (0.6-1.0); EST CRCL DRUG DOSING (CG) 57.05 mL/min; MAGNESIUM 1.8 mg/dL (1.8-2.4); POTASSIUM,K 4.6 mmol/L (3.5-5.1)
[2024-09-21] MEDS: Insulin Aspart 100 Units/ML 3 ML Pen SUBCUT SCH (07:57)
[2024-09-21 12:28] VITALS: BP 115/54; PULSE 66
== END 2024-09-21 13:50 | disposition home or self-care (01) | DRG 394 ==
LOC: MW.ED 04:07 → MW.MS 06:57
PROVIDERS: ADMIT Family Medicine; ATTEND Family Medicine
DX: K56.600 Partial intestinal obstruction, unspecified as to cause (principal); K43.3 Parastomal hernia with obstruction, without gangrene; Z68.41 Body mass index [BMI] 40.0-44.9, adult; E78.00 Pure hypercholesterolemia, unspecified; I10 Essential (primary) hypertension; J45.909 Unspecified asthma, uncomplicated; F41.9 Anxiety disorder, unspecified; E66.9 Obesity, unspecified; E11.9 Type 2 diabetes mellitus without complications; F17.210 Nicotine dependence, cigarettes, uncomplicated; I48.91 Unspecified atrial fibrillation; Z98.890 Other specified postprocedural states; Z85.038 Personal history of other malignant neoplasm of large intestine; Z91.048 Other nonmedicinal substance allergy status; Z88.6 Allergy status to analgesic agent; Z85.44 Personal history of malignant neoplasm of other female genital organs; Z88.8 Allergy status to other drugs, medicaments and biological substances; Z88.5 Allergy status to narcotic agent; Z79.01 Long term (current) use of anticoagulants; Z79.899 Other long term (current) drug therapy; Z79.51 Long term (current) use of inhaled steroids; Z79.82 Long term (current) use of aspirin; Z79.84 Long term (current) use of oral hypoglycemic drugs; Z87.440 Personal history of urinary (tract) infections; Z87.81 Personal history of (healed) traumatic fracture; Z90.89 Acquired absence of other organs; Z98.891 History of uterine scar from previous surgery
CPT/HCPCS: 36415; 74177; 80053; 85025; 96374; 96375; 99285; J1885; J2405; Q9967; 80048; 82947; 83735; A9270-GY; J1815-GY; J2270; J7030

== ENCOUNTER 2024-11-18 13:08 | Emergency (ER) | payer MEDICARE, MEDICAID ==
[2024-11-18 16:06] VITALS: BP 138/84; PULSE 89
== END 2024-11-18 16:04 | disposition home or self-care (01) ==
LOC: MW.ED 13:08
DX: S42.251A Displaced fracture of greater tuberosity of right humerus, initial encounter for closed fracture (principal); I10 Essential (primary) hypertension; E78.00 Pure hypercholesterolemia, unspecified; J45.909 Unspecified asthma, uncomplicated; E11.9 Type 2 diabetes mellitus without complications; E66.9 Obesity, unspecified; Z68.41 Body mass index [BMI] 40.0-44.9, adult; Z88.5 Allergy status to narcotic agent; Z91.048 Other nonmedicinal substance allergy status; Z79.01 Long term (current) use of anticoagulants; Z79.51 Long term (current) use of inhaled steroids; Z79.82 Long term (current) use of aspirin; Z79.899 Other long term (current) drug therapy; W01.0XXA Fall on same level from slipping, tripping and stumbling without subsequent striking against object, initial encounter; Z75.8 Other problems related to medical facilities and other health care
CPT/HCPCS: 70450; 70450-26; 71045; 71045-26; 73030-26-RT; 73030-RT; 73060-26-RT; 73060-RT; 99283; 99284

== ENCOUNTER 2024-11-23 23:13 | Emergency (ER) | payer MEDICARE, MEDICAID ==
[2024-11-23] MEDS ORDERED: Sodium Chloride 0.9% 20 ML SDV IV PRN (23:30)
[2024-11-23 23:46] LABS: BASOPHILS ABSOLUTE AUTO 0.02 K/uL (0.00-0.20); BASOPHILS PERCENT AUTO 0.2 % (0.0-1.0); EOSINOPHILS ABSOLUTE AUTO 0.09 K/uL (0.00-0.45); HEMATOCRIT 45.9 % (37.0-47.0); HEMOGLOBIN 14.6 g/dL (12.0-16.0); IMMATURE GRAN ABSOLUTE AUTO 0.07 K/uL (0.00-0.05); IMMATURE GRAN PERCENT AUTO 0.8 % (0.0-0.4); LYMPHOCYTES ABSOLUTE AUTO 1.59 K/uL (1.00-4.80); LYMPHOCYTES PERCENT AUTO 17.5 % (24.0-44.0); MEAN CORPUSCULAR HEMOGLOBIN 29.6 pg (28.0-32.0); MEAN CORPUSCULAR HGB CONC 31.8 g/dL (32.0-36.0); MEAN CORPUSCULAR VOLUME 93.1 fL (83.0-99.0); MEAN PLATELET VOLUME 10.2 fL (9.4-12.3); MONOCYTES ABSOLUTE AUTO 0.53 K/uL (0.00-0.80); MONOCYTES PERCENT AUTO 5.8 % (0.0-8.0); NEUTROPHILS ABSOLUTE AUTO 6.76 K/uL (1.80-7.70); NEUTROPHILS PERCENT AUTO 74.7 % (41.0-71.0); PLATELET COUNT,PLT 234 K/uL (150-400); RED BLOOD CELL COUNT 4.93 M/uL (4.10-5.30); WHITE BLOOD CELL COUNT,WBC 9.06 K/uL (3.9-11.3)
[2024-11-23] MEDS: Meclizine 25 MG Tab PO ONE (23:46)
[2024-11-23] MEDS: Sodium Chloride 0.9% 2.5 ML Syringe FLUSH PRN (23:46)
[2024-11-23] MEDS: Sodium Chloride 0.9% 10 ML Syringe FLUSH PRN (23:46)
[2024-11-23] MEDS: Ondansetron 4 MG/2 ML SDV IVPUSH ONE (23:46)
[2024-11-24 00:01] LABS: INR 0.99 (0.86-1.11); PTT,PARTIAL THROMBOPLSTIN TIME 21.6 SEC (23.9-30.7)
[2024-11-24 00:12] LABS: BLOOD UREA NITROGEN,BUN 17 mg/dL (7.0-18.0); CALCIUM 9.4 mg/dL (8.5-10.1); CARBON DIOXIDE,CO2 26.5 mmol/L (21.0-32.0); CHLORIDE,CL 104 mmol/L (98-107); CREATININE 1.3 mg/dL (0.6-1.0); ESTIMATED GFR 48 mL/min (>60); GLUCOSE RANDOM 262 mg/dL (74-106); POTASSIUM,K 4.6 mmol/L (3.5-5.1); SODIUM,NA 141 mmol/L (136-145)
[2024-11-24] MEDS: Aspirin 325 MG Tab PO ONE (00:21)
[2024-11-24] MEDS: Metoprolol Tartrate 25 MG Tab PO ONE (00:21)
[2024-11-24] MEDS: Acetaminophen/HYDROcodone 325-5 MG Tab PO ONE (01:56)
[2024-11-24 02:04] VITALS: BP 126/70; PULSE 60
== END 2024-11-24 03:00 | disposition home or self-care (01) ==
LOC: MW.ED 23:13
DX: I11.9 Hypertensive heart disease without heart failure (principal); I48.91 Unspecified atrial fibrillation; E11.9 Type 2 diabetes mellitus without complications; R79.89 Other specified abnormal findings of blood chemistry; R42 Dizziness and giddiness; J45.909 Unspecified asthma, uncomplicated; E78.00 Pure hypercholesterolemia, unspecified; F17.210 Nicotine dependence, cigarettes, uncomplicated; Z88.5 Allergy status to narcotic agent; Z88.6 Allergy status to analgesic agent; Z88.8 Allergy status to other drugs, medicaments and biological substances; Z91.048 Other nonmedicinal substance allergy status; Z79.01 Long term (current) use of anticoagulants; Z79.51 Long term (current) use of inhaled steroids; Z79.82 Long term (current) use of aspirin; Z79.899 Other long term (current) drug therapy
CPT/HCPCS: 36415; 71045; 80048; 83735; 84484; 85025; 85610; 85730; 93005; 96374; 99285; A9270; J2405; J3490

== ENCOUNTER 2025-03-01 14:14 | Emergency (ER) | payer MEDICARE, MEDICAID ==
[2025-03-01] MEDS: Sodium Chloride 0.9% 1,000 ML IV ONE (15:10)
[2025-03-01] MEDS: methylPREDNISolone Sodium Succinate 125 MG/2 ML SDV IVPUSH ONE (15:10)
[2025-03-01] MEDS: Albuterol/Ipratropium 3.0-0.5 MG/3 ML Neb Soln NEB ONE (15:10)
[2025-03-01 15:58] LABS: BASOPHILS ABSOLUTE AUTO 0.03 K/uL (0.00-0.20); BASOPHILS PERCENT AUTO 0.4 % (0.0-1.0); EOSINOPHILS ABSOLUTE AUTO 0.11 K/uL (0.00-0.45); EOSINOPHILS PERCENT AUTO 1.5 % (0.0-6.0); HEMATOCRIT 44.4 % (37.0-47.0); IMMATURE GRAN PERCENT AUTO 1.3 % (0.0-0.4); LYMPHOCYTES ABSOLUTE AUTO 2.34 K/uL (1.00-4.80); LYMPHOCYTES PERCENT AUTO 30.9 % (24.0-44.0); MEAN CORPUSCULAR HEMOGLOBIN 30.2 pg (28.0-32.0); MEAN CORPUSCULAR HGB CONC 31.5 g/dL (32.0-36.0); MEAN CORPUSCULAR VOLUME 95.7 fL (83.0-99.0); MEAN PLATELET VOLUME 10.8 fL (9.4-12.3); MONOCYTES ABSOLUTE AUTO 0.48 K/uL (0.00-0.80); MONOCYTES PERCENT AUTO 6.3 % (0.0-8.0); NEUTROPHILS ABSOLUTE AUTO 4.51 K/uL (1.80-7.70); NEUTROPHILS PERCENT AUTO 59.6 % (41.0-71.0); PLATELET COUNT,PLT 144 K/uL (150-400); RED BLOOD CELL COUNT 4.64 M/uL (4.10-5.30); WHITE BLOOD CELL COUNT,WBC 7.57 K/uL (3.9-11.3)
[2025-03-01 16:27] LABS: A/G RATIO 0.9 (0.9-1.6); ALBUMIN 2.9 g/dL (3.4-5.0); BILIRUBIN TOTAL 0.3 mg/dL (0.2-1.0); CALCIUM 8.6 mg/dL (8.5-10.1); CARBON DIOXIDE,CO2 27.5 mmol/L (21.0-32.0); EST CRCL DRUG DOSING (CG) 53.6 mL/min; MAGNESIUM 1.5 mg/dL (1.8-2.4); POTASSIUM,K 4.6 mmol/L (3.5-5.1); PROTEIN TOTAL,TP 6.1 g/dL (6.4-8.2)
[2025-03-01] MEDS: cefTRIAXone 1 GM in Water For Injection, Sterile 10 ML IVPUSH ONE (17:27)
[2025-03-01] MEDS: Furosemide 40 MG/4 ML VIAL IVPUSH ONE (18:17)
[2025-03-01] MEDS: Magnesium Sulfate 2 GM/50 mL 2 GM in Premix Bag 1 BAG IV ONE (18:19)
[2025-03-01 18:24] VITALS: BP 140/71; PULSE 64
[2025-03-01] MEDS: Heparin Sodium/0.45% NaCl 25,000 UNITS/250 ML BAG IV SCH (18:44)
[2025-03-01] MEDS: Heparin Sodium 5,000 Units/ML Vial IVPUSH ONE (18:44)
[2025-03-01 18:57] LABS: INR 0.96 (0.86-1.11); PTT,PARTIAL THROMBOPLSTIN TIME 26.5 SEC (23.9-30.7)
[2025-03-01] MEDS: Aspirin 81 MG Tab.Chew PO ONE (19:05)
[2025-03-01] MEDS: Famotidine 20 MG/2 ML SDV IVPUSH ONE (19:06)
[2025-03-01] MEDS: diphenhydrAMINE 50 MG/ML SDV IVPUSH ONE (19:06)
== END 2025-03-01 19:13 ==
LOC: MW.ED 14:14
DX: I21.4 Non-ST elevation (NSTEMI) myocardial infarction (principal); I11.0 Hypertensive heart disease with heart failure; I50.9 Heart failure, unspecified; J44.1 Chronic obstructive pulmonary disease with (acute) exacerbation; E78.00 Pure hypercholesterolemia, unspecified; E11.9 Type 2 diabetes mellitus without complications; F17.210 Nicotine dependence, cigarettes, uncomplicated; Z88.5 Allergy status to narcotic agent; Z88.8 Allergy status to other drugs, medicaments and biological substances; Z91.048 Other nonmedicinal substance allergy status; Z79.01 Long term (current) use of anticoagulants; Z79.51 Long term (current) use of inhaled steroids; Z79.82 Long term (current) use of aspirin; Z79.899 Other long term (current) drug therapy; Z75.3 Unavailability and inaccessibility of health-care facilities
CPT/HCPCS: 36415; 71046; 80053; 83735; 83880; 84484; 85025; 85610; 85730; 93005; 96361; 96365; 96367; 96375; 99285; A9270; J0696; J1200; J1644; J1938; J2919; J3475; J7030; 93010